=== PATIENT | male | born 1935 | race Caucasian/White ===

== ENCOUNTER 2016-04-23 13:54 | Inpatient (IN) | payer MEDICARE, OTHER ==
[2016-04-23] MEDS ORDERED: NORMAL SALINE 1000 ML 250 ML IV ONE (14:51)
[2016-04-23 15:08] LABS: ABSOLUTE EOSINOPHILS # (AUTO) 0.1 10^3/uL (0.0-0.6); ABSOLUTE LYMPHOCYTES (AUTO) 0.9 10^3/uL (0.5-4.7); ABSOLUTE MONOCYTES (AUTO) 0.3 10^3/uL (0.1-1.4); ABSOLUTE NEUT (AUTO) 3.2 10^3/uL (1.7-8.2); EOSINOPHILS % (AUTO) 2.1 % (0-6); HEMATOCRIT 27.4 % (37.9-51.0); HEMOGLOBIN 9.5 g/dL (13.5-17.0); HGB HCT DIFFERENCE 1.1; LYMPHOCYTES % (AUTO) 20.2 % (13-45); MEAN CORPUSCULAR HEMOGLOBIN 33.5 pg (27.0-33.4); MEAN CORPUSCULAR HGB CONC 34.7 g/dL (32.0-36.0); MEAN CORPUSCULAR VOLUME 97 fl (80-97); MONOCYTES % (AUTO) 6.7 % (3-13); RED BLOOD COUNT 2.83 10^6/uL (4.35-5.55); RED CELL DISTRIBUTION WIDTH 18.3 % (11.5-14.0); WHITE BLOOD COUNT 4.5 10^3/uL (4.0-10.5)
[2016-04-23 15:09] LABS: VENOUS BLOOD HCO3 27.2 mmol/L (20-32); VENOUS BLOOD PCO2 49.6 mmHg (35-63); VENOUS BLOOD PH 7.36 (7.30-7.42)
[2016-04-23 15:16] LABS: PROTHROMBIN TIME 37.4 SEC (11.4-15.4)
[2016-04-23 15:25] LABS: ALANINE AMINOTRANSFERASE 34 U/L (21-72); ALBUMIN 2.4 g/dL (3.5-5.0); ALKALINE PHOSPHATASE 136 U/L (38-126); ANION GAP 7 (5-19); ASPARTATE AMINO TRANSFERASE 37 U/L (17-59); BLOOD UREA NITROGEN 11 mg/dL (7-20); CALCIUM 8.2 mg/dL (8.4-10.2); CARBON DIOXIDE 26 mmol/L (22-30); CHLORIDE 91 mmol/L (98-107); CREATINE KINASE 30 U/L (55-170); CREATININE RESULT 0.77 mg/dL (0.52-1.25); GLUCOSE 113 mg/dL (75-110); POTASSIUM 3.6 mmol/L (3.6-5.0); SODIUM 123.9 mmol/L (137-145); TOTAL PROTEIN 6.2 g/dL (6.3-8.2)
--- NOTE | 2016-04-23 15:28 | ER Document Report ---
ED Respiratory Problem - General Mode of Arrival: Medic Information source: Patient TRAVEL OUTSIDE OF THE [place] IN LAST 30 DAYS: No - HPI Patient complains to provider of: Short of breath Onset: Other - unknown Severity: Mild Short of Breath: Mild <ANDRE VELASQUEZ - Last Filed: 04/23/16 22:32> <BETHANY MCDOONUGH - Last Filed: 04/23/16 23:40> - General Chief Complaint: General Weakness Stated Complaint: WEAKNESS Notes: Patient is an 80-year-old male from [facility] that presents to the emergency department today with complaints of shortness of breath. Patient states he is not on daily oxygen. Patient is mildly demented so history is limited. Patient also complains of chronic arm pain. Patient states he is here for "nothing new today". Patient complains of an infection from a knee replacement however states this occurred 10 years ago. Patient denies any chest pain. (ANDRE VELASQUEZ) - Related Data Allergies/Adverse Reactions: No Known Allergies Allergy (Verified 04/07/16 10:51) Home Medications: Current Home Medications Finasteride 5 mg PO DAILY 04/23/16 [History] Insulin Regular, Human [Humulin R (Reg) Insulin 100 unit/mL] 0 - 12 unit SUBCUT ACHSP PRN 04/23/16 [History] Past Medical History - General Information source: [facility] - Social History Smoking Status: Former Smoker Cigarette use (# per day): No Frequency of alcohol use: None Drug Abuse: None Lives with: Long Term Family History: Reviewed & Not Pertinent - Past Medical History Cardiac Medical History: Reports: Hx Atrial Fibrillation, Hx Hypertension Pulmonary Medical History: Reports: Hx Pneumonia Endocrine Medical History: Reports: Hx Diabetes Mellitus Type 2. Denies: Hx Hyperthyroidism, Hx Hypothyroidism Renal/ Medical History: Reports: Hx Benign Prostatic Hyperplasia Malignancy Medical History: Reports Hx Skin Cancer - Status post excision of several GI Medical History: Reports: Hx Cirrhosis, Hx Gastroesophageal Reflux Disease Musculoskeltal Medical History: Reports Hx Arthritis Past Surgical History: Reports: Hx Orthopedic Surgery - Multiple right knee surgeries, with eventual fusion. Lithotripsy., Other - Left total knee replacement. Excision of several skin cancers. - Immunizations Hx Diphtheria, Pertussis, Tetanus Vaccination: Yes Hx Pneumococcal Vaccination: 05/13/08 <ANDRE VELASQUEZ - Last Filed: 04/23/16 22:32> Review of Systems - Review of Systems Constitutional: denies: Fever EENT: See HPI, Nose congestion Cardiovascular: denies: Chest pain Respiratory: See HPI, Short of breath Gastrointestinal: No symptoms reported Genitourinary: No symptoms reported Male Genitourinary: No symptoms reported Musculoskeletal: No symptoms reported Skin: No symptoms reported Hematologic/Lymphatic: No symptoms reported Neurological/Psychological: No symptoms reported -: Yes All other systems reviewed and negative <ANDRE VELASQUEZ - Last Filed: 04/23/16 22:32> Physical Exam - Vital signs Interpretation: Hypotensive <ANDRE VELASQUEZ - Last Filed: 04/23/16 22:32> <BETHANY MCDONOUGH - Last Filed: 04/23/16 23:40> - Vital signs Vitals: Temp Pulse Resp BP Pulse Ox 97.4 F 68 16 92/56 L 100 04/23/16 14:15 04/23/16 14:15 04/23/16 14:15 04/23/16 14:15 04/23/16 14:15 (BETHANY MCDONOUGH) - Notes Notes: Physical Exam: General: Alert, appears well. HEENT: Normocephalic. Atraumatic. PERRLA. Extraocular movements intact. Oropharynx clear. Dry mucous membranes. Neck: Supple. Non-tender. Respiratory: No respiratory distress. Crackles at the bases bilaterally. Cardiovascular: Regular rate and rhythm. Abdominal: Normal Inspection. Non-tender. No distension. Normal Bowel Sounds. Back: Non-tender. No deformity or step off. Extremities: Moves all four extremities. Upper extremities: Normal inspection. Non-tender. Normal color. Normal ROM. Normal temperature. Lower extremities: Normal inspection. Non-tender. No edema. Normal color. Normal ROM. Normal temperature. Neurological: Confused. AAOx4. Normal speech. Psychological: Normal affect. Normal Mood. Skin: Warm. Dry. Normal color. (ANDRE VELASQUEZ) Course - Laboratory Result Diagrams: 04/23/16 14:40 04/23/16 14:40 <ANDRE VELASQUEZ - Last Filed: 04/23/16 22:32> - Laboratory Result Diagrams: 04/23/16 14:40 04/23/16 14:40 <BETHANY MCDONOUGH - Last Filed: 04/23/16 23:40> - Re-evaluation Re-evalutation: 04/23/16 Patient presents with weakness in new hyponatremia. Patient is in some mild failure as well. Patient was discussed with his primary care doctor who agrees to admit the patient. Patient will be admitted to the IMCU. Stable time of admission. (BETHANY MCDONOUGH) - Vital Signs Vital signs: Temp Pulse Resp BP Pulse Ox 97.4 F 60 18 114/57 L 100 04/23/16 20:33 04/23/16 20:33 04/23/16 20:33 04/23/16 20:33 04/23/16 20:33 (BETHANY MCDONOUGH) - Laboratory Laboratory results interpreted by me: 04/23/16 04/23/16 04/23/16 14:40 14:40 14:40 RBC 2.83 L Hgb 9.5 L Hct 27.4 L MCH 33.5 H RDW 18.3 H Plt Count 129 L PT 37.4 H Sodium 123.9 L Chloride 91 L Glucose 113 H Serum Osmolality Calcium 8.2 L Alkaline Phosphatase 136 H Creatine Kinase 30 L NT-Pro-B Natriuret Pep Total Protein 6.2 L Albumin 2.4 L Urine Protein Urine Blood Ur Leukocyte Esterase Urine Osmolality Urine Sodium 04/23/16 04/23/16 04/23/16 14:40 14:40 15:20 RBC Hgb Hct MCH RDW Plt Count PT Sodium Chloride Glucose Serum Osmolality 259 L Calcium Alkaline Phosphatase Creatine Kinase NT-Pro-B Natriuret Pep 782 H Total Protein Albumin Urine Protein 30 H Urine Blood MODERATE H Ur Leukocyte Esterase LARGE H Urine Osmolality Urine Sodium 04/23/16 15:20 RBC Hgb Hct MCH RDW Plt Count PT Sodium Chloride Glucose Serum Osmolality Calcium Alkaline Phosphatase Creatine Kinase NT-Pro-B Natriuret Pep Total Protein Albumin Urine Protein Urine Blood Ur Leukocyte Esterase Urine Osmolality 293 L Urine Sodium 25 L (ANDRE VELASQUEZ) (BETHANY MCDONOUGH) Discharge <ANDRE VELASQUEZ - Last Filed: 04/23/16 22:32> - Discharge Admitting Provider: [facility] Admitted: [facility] <BETHANY MCDONOUGH - Last Filed: 04/23/16 23:40> - Discharge Clinical Impression: Hyponatremia, Weakness Condition: Stable Disposition: ADMITTED INPATIENT Scribe Attestation: 04/23/16 23:40 I personally performed the services described in the documentation, reviewed and edited the documentation which was dictated to the scribe in my presence, and it accurately records my words and actions. (BETHANY MCDONOUGH) Scribe Documentation - Scribe Written by Scribe:: Andre Velasquez (04/23/16) acting as scribe for :: Lno <ANDRE VELASQUEZ - Last Filed: 04/23/16 22:32>
[2016-04-23 15:37] LABS: TROPONIN I < 0.012 ng/mL
[2016-04-23 16:57] LABS: APPEARANCE,URINE CLOUDY; BILIRUBIN,URINE NEGATIVE (NEGATIVE); CALCIUM OXALATE CRYSTALS,URINE RARE /HPF; GLUCOSE, URINE NEGATIVE (NEGATIVE); KETONES,URINE NEGATIVE (NEGATIVE); LEUKOCYTE ESTERASE,URINE LARGE (NEGATIVE); NITRITE,URINE NEGATIVE (NEGATIVE); PROTEIN,URINE 30 mg/dL (NEGATIVE); URINE SPECIFIC GRAVITY 1.013; UROBILINOGEN,URINE NEGATIVE mg/dL (<2.0)
[2016-04-23 20:07] LABS: PROTHROMBIN TIME 36.7 SEC (11.4-15.4)
[2016-04-23] MEDS ORDERED: FINASTERIDE 5 MG TABLET PO ONE (21:00)
[2016-04-23] MEDS ORDERED: TAMSULOSIN HCL 0.4 MG CAP.SR.24H PO ONE (21:00)
[2016-04-23] MEDS ORDERED: LACTOBACILLUS ACIDOPHILUS 250 MG TAB PO ONE (21:00)
[2016-04-23] MEDS ORDERED: VERAPAMIL HCL 180 MG TABLET.SA PO ONE (21:30)
[2016-04-23 21:37] LABS: PROTHROMBIN TIME 36.3 SEC (11.4-15.4)
[2016-04-23 21:38] LABS: PARTIAL THROMBOPLASTIN TIME 61.9 SEC (23.5-35.8)
[2016-04-23 21:45] LABS: LIPASE 49.6 U/L (23-300); MAGNESIUM 1.7 mg/dL (1.6-2.3); PHOSPHORUS 2.6 mg/dL (2.5-4.5)
[2016-04-23 22:02] LABS: TROPONIN I < 0.012 ng/mL
[2016-04-23] MEDS: METRONIDAZOLE 500 MG TABLET PO SCH (22:03)
[2016-04-23] MEDS: WARFARIN SODIUM 1 MG TABLET PO SCH (22:04)
[2016-04-23] MEDS: NORMAL SALINE 1000 ML 1,000 ML IV PRN (22:08)
[2016-04-23 22:16] LABS: THYROID STIMULATING HORMONE 6.55 uIU/mL (0.47-4.68)
[2016-04-24 03:51] LABS: ABSOLUTE EOSINOPHILS # (AUTO) 0.1 10^3/uL (0.0-0.6); ABSOLUTE LYMPHOCYTES (AUTO) 0.8 10^3/uL (0.5-4.7); ABSOLUTE MONOCYTES (AUTO) 0.3 10^3/uL (0.1-1.4); ABSOLUTE NEUT (AUTO) 3.1 10^3/uL (1.7-8.2); BASOPHILS % (AUTO) 0.9 % (0-2); EOSINOPHILS % (AUTO) 2.1 % (0-6); HEMATOCRIT 27.3 % (37.9-51.0); HEMOGLOBIN 9.5 g/dL (13.5-17.0); HGB HCT DIFFERENCE 1.2; LYMPHOCYTES % (AUTO) 18.7 % (13-45); MEAN CORPUSCULAR HEMOGLOBIN 33.5 pg (27.0-33.4); MEAN CORPUSCULAR HGB CONC 34.7 g/dL (32.0-36.0); MEAN CORPUSCULAR VOLUME 97 fl (80-97); MONOCYTES % (AUTO) 7.6 % (3-13); RED BLOOD COUNT 2.83 10^6/uL (4.35-5.55); RED CELL DISTRIBUTION WIDTH 18.1 % (11.5-14.0); SEGMENTED NEUTROPHILS % (AUTO) 70.7 % (42-78); WHITE BLOOD COUNT 4.3 10^3/uL (4.0-10.5)
[2016-04-24 04:24] LABS: PROTHROMBIN TIME 39.7 SEC (11.4-15.4)
[2016-04-24 04:26] LABS: CREATINE KINASE MB 1.38 ng/mL (<4.55)
[2016-04-24 04:29] LABS: TROPONIN I < 0.012 ng/mL
[2016-04-24 04:45] LABS: ANION GAP 7 (5-19); BLOOD UREA NITROGEN 13 mg/dL (7-20); CALCIUM 8.2 mg/dL (8.4-10.2); CARBON DIOXIDE 26 mmol/L (22-30); CHLORIDE 94 mmol/L (98-107); CREATININE RESULT 0.82 mg/dL (0.52-1.25); GLUCOSE 117 mg/dL (75-110); POTASSIUM 4.1 mmol/L (3.6-5.0); SODIUM 126.6 mmol/L (137-145)
[2016-04-24] MEDS: METRONIDAZOLE 500 MG TABLET PO SCH ×3 (05:56→22:06)
[2016-04-24] MEDS ORDERED: DEXTROSE 40% GEL 15 GM TUBE PO PRN (09:06)
[2016-04-24] MEDS ORDERED: DEXTROSE 40% GEL 15 GM TUBE X 2 PO PRN (09:06)
[2016-04-24] MEDS ORDERED: DEXTROSE 50%-WATER SYRINGE 12.5 GM/25 ML DOSE IV PRN (09:06)
[2016-04-24] MEDS ORDERED: GLUCAGON,HUMAN RECOMB 1 MG INJ IM PRN (09:06)
[2016-04-24] MEDS ORDERED: DEXTROSE 50%-WATER SYRINGE 25 GM/50 ML DOSE IV PRN (09:06)
[2016-04-24] MEDS: FINASTERIDE 5 MG TABLET PO SCH (09:17)
[2016-04-24] MEDS: VERAPAMIL HCL 180 MG TABLET.SA PO SCH (09:18)
[2016-04-24] MEDS: TAMSULOSIN HCL 0.4 MG CAP.SR.24H PO SCH ×2 (09:18→18:36)
[2016-04-24] MEDS: LACTOBACILLUS ACIDOPHILUS 250 MG TAB PO SCH ×2 (09:18→18:36)
[2016-04-24 10:46] LABS: CREATINE KINASE MB 1.37 ng/mL (<4.55); TROPONIN I < 0.012 ng/mL
--- NOTE | 2016-04-24 13:09 | PDOC H&P ---
History of Present Illness Admission Date/PCP: 04/23/16 20:21 History of Present Illness: GAVIN COSTELLO is a 80 year old male, he is presently in the long-term undergoing rehabilitation, he requested to be transferred to the hospital because of generalized fatigue. He was recently admitted in this hospital when he had altered mental status, cellulitis of the leg. On that admission he was diagnosed with MRSA cellulitis on he was also found to have clostridium difficile colitis with diarrhea, he was discharged to long-term on Zyvox for the cellulitis and flagyl for the C. difficile. He was evaluated in the emergency room and he was found to have hyponatremia with serum sodium of 123 when he was discharged from this hospital on 04/12/2016, the serum sodium was 136. Patient does not have any [employer] symptoms, there is no seizure, there is no altered mental status, patient is hypovolemic most likely from GI losses from diarrhea. This serum and urine osmolarity is low, suggesting true hyponatremia associated with increased antidiuretic hormone, ADH. It is difficult to determine the acuity of the hyponatremia Past Medical History Cardiac Medical History: Reports: Atrial Fibrillation, Hypertension Pulmonary Medical History: Reports: Pneumonia Endocrine Medical History: Reports: Diabetes Mellitus Type 2 Malignancy Medical History: Reports: Skin Cancer - Status post excision of several GI Medical History: Reports: Gastroesophageal Reflux Disease Musculoskeltal Medical History: Reports: Arthritis Hematology: Reports: Anemia Infectious Medical History: Reports: Clostridium Difficile, Methicillin- Resistant Staph Aureus Past Surgical History Past Surgical History: Reports: Orthopedic Surgery - Multiple right knee surgeries, with eventual fusion. Lithotripsy., Other - Left total knee replacement. Excision of several skin cancers. Social History Information Source: Patient Lives with: Snf Smoking Status: Former Smoker Frequency of Alcohol Use: None Hx Recreational Drug Use: No Drugs: None Hx Prescription Drug Abuse: No Family History Family History: Reviewed & Not Pertinent Parental Family History Reviewed: Yes Children Family History Reviewed: Yes Sibling(s) Family History Reviewed.: Yes Medication/Allergy Home Medications: RX: Tamsulosin HCl [Flomax] 0.4 mg PO BID 10/20/13 RX: Esomeprazole Mag Trihydrate [Nexium] 40 mg PO DAILY 03/19/15 RX: Loratadine [Claritin 10 mg Tablet] 10 mg PO DAILY 09/26/15 RX: Verapamil HCl [Verapamil ER] 180 mg PO DAILY 03/28/16 RX: FA/Vit C/E/Zinc/Copper/Lut/Darrian [Ocuvel Capsule] 1 each PO DAILY 04/07/16 Acidoph/L.bulg/Bif.b/S.thermop [Bacid Caplet] 1 each PO BID #28 tablet 04/12/16 RX: Metronidazole [Flagyl 500 mg Tablet] 500 mg PO Q8 tablet 04/12/16 RX: Finasteride 5 mg PO DAILY 04/23/16 RX: Insulin Regular, Human [Humulin R (Reg) Insulin 100 unit/mL] 0 - 12 unit SUBCUT ACHSP PRN 04/23/16 Allergies/Adverse Reactions: No Known Allergies Allergy (Verified 04/07/16 10:51) Review of Systems Constitutional: PRESENT: fatigue, fever(s), weakness Cardiovascular: ABSENT: chest pain, dyspnea on exertion, edema, orthropnea, palpitations, other Respiratory: ABSENT: cough Gastrointestinal: PRESENT: diarrhea Genitourinary: ABSENT: dysuria, hematuria Musculoskeletal: ABSENT: joint swelling Integumentary: ABSENT: rash, wounds Neurological: ABSENT: abnormal gait, abnormal speech, confusion, dizziness, focal weakness, syncope Psychiatric: ABSENT: anxiety, depression, homidical ideation, suicidal ideation Endocrine: PRESENT: polydipsia. ABSENT: as per HPI, cold intolerance, flushing , heat intolerance, menstrual abnormalities, polyphagia, polyuria, other Hematologic/Lymphatic: ABSENT: easy bleeding, easy bruising, lymphadenopathy Physical Exam Vital Signs: Temp Pulse Resp BP Pulse Ox 97.5 F 66 20 104/48 L 98 04/24/16 08:11 04/24/16 08:11 04/24/16 08:11 04/24/16 08:11 04/24/16 08:11 Intake & Output 04/23/16 04/24/16 04/25/16 06:59 06:59 06:59 Intake Total 231 Output Total 225 Balance 6 Weight 71.5 kg General appearance: PRESENT: no acute distress Respiratory exam: PRESENT: rhonchi Results Laboratory Results: 04/24/16 03:31 04/24/16 03:31 04/23/16 04/23/16 04/24/16 21:01 21:01 03:31 WBC 4.3 RBC 2.83 L Hgb 9.5 L Hct 27.3 L MCV 97 MCH 33.5 H MCHC 34.7 RDW 18.1 H Plt Count 108 L Seg Neutrophils % 70.7 Lymphocytes % 18.7 Monocytes % 7.6 Eosinophils % 2.1 Basophils % 0.9 Absolute Neutrophils 3.1 Absolute Lymphocytes 0.8 Absolute Monocytes 0.3 Absolute Eosinophils 0.1 Absolute Basophils 0.0 Sodium Potassium Chloride Carbon Dioxide Anion Gap BUN Creatinine Est GFR ( Amer) Est GFR (Non-Af Amer) Glucose Calcium Phosphorus 2.6 Magnesium 1.7 Amylase 34 Lipase 49.6 TSH 6.55 H Free T4 1.20 04/24/16 03:31 WBC RBC Hgb Hct MCV MCH MCHC RDW Plt Count Seg Neutrophils % Lymphocytes % Monocytes % Eosinophils % Basophils % Absolute Neutrophils Absolute Lymphocytes Absolute Monocytes Absolute Eosinophils Absolute Basophils Sodium 126.6 L Potassium 4.1 Chloride 94 L Carbon Dioxide 26 Anion Gap 7 BUN 13 Creatinine 0.82 Est GFR ( Amer) > 60 Est GFR (Non-Af Amer) > 60 Glucose 117 H Calcium 8.2 L Phosphorus Magnesium Amylase Lipase TSH Free T4 04/24/16 06:20 Sputum Gram Stain - Final 04/24/16 06:20 Sputum Sputum Culture - Final 04/23/16 04/23/16 04/24/16 21:01 21:01 03:31 Creatine Kinase 26 L 23 L CK-MB (CK-2) 1.80 Troponin I < 0.012 04/24/16 04/24/16 04/24/16 03:31 09:43 09:43 Creatine Kinase 22 L CK-MB (CK-2) 1.38 1.37 Troponin I < 0.012 < 0.012 Impressions: Chest X-Ray 04/23/16 00:00 IMPRESSION: CHF pattern, similar Shoulder X-Ray 04/24/16 00:00 IMPRESSION: No acute fracture or malalignment at the right or left shoulder Old right humeral neck fracture, healed Bilateral pleural effusions Assessment & Plan - Diagnosis (1) Hyponatremia with extracellular fluid depletion Is this a current diagnosis for this admission?: YesPlan: Patient was admitted with hypovolemia due to diarrhea and hyponatremia, he will slowly be hydrated with normal saline at the infusion rate with goal of achieving a correction of 1meq/l of sodium per hour not more than 8meg/hr in 24 hour (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
[2016-04-24] MEDS: ACETAMINOPHEN 325 MG TABLET PO SCH ×2 (14:53→18:36)
--- NOTE | 2016-04-24 17:52 | EKG REPORT ---
SEVERITY:- ABNORMAL ECG - ACCELERATED JUNCTIONAL ESCAPE RHYTHM LOW VOLTAGE IN FRONTAL LEADS BORDERLINE PROLONGED QT INTERVAL : Confirmed by: Geovanna Collado MD 24-Apr-2016 17:51:53
--- NOTE | 2016-04-24 19:05 | PDOC PROGRESS REPORT ---
Subjective Progress Note for:: 04/24/16 Subjective:: Patient was seen by the bedside, he complained of lack of appetite, he also complained of shoulder pain bilaterally. Patient is hardly able to finish a sentence, he wants to be a DO NOT RESUSCITATE status. He was admitted because of symptomatic hyponatremia. Physical Exam Vital Signs: Temp Pulse Resp BP Pulse Ox 97.3 F 66 19 107/57 L 100 04/24/16 16:37 04/24/16 16:37 04/24/16 16:37 04/24/16 16:37 04/24/16 16:37 Intake & Output 04/23/16 04/24/16 04/25/16 06:59 06:59 06:59 Intake Total 231 433 Output Total 225 100 Balance 6 333 Weight 71.5 kg General appearance: PRESENT: mild distress Respiratory exam: PRESENT: rhonchi, wheezes Cardiovascular exam: PRESENT: +S1, +S2 GI/Abdominal exam: PRESENT: firm Neurological exam: PRESENT: alert Results Laboratory Results: 04/24/16 03:31 04/24/16 03:31 04/23/16 04/23/16 04/24/16 21:01 21:01 03:31 WBC 4.3 RBC 2.83 L Hgb 9.5 L Hct 27.3 L MCV 97 MCH 33.5 H MCHC 34.7 RDW 18.1 H Plt Count 108 L Seg Neutrophils % 70.7 Lymphocytes % 18.7 Monocytes % 7.6 Eosinophils % 2.1 Basophils % 0.9 Absolute Neutrophils 3.1 Absolute Lymphocytes 0.8 Absolute Monocytes 0.3 Absolute Eosinophils 0.1 Absolute Basophils 0.0 Sodium Potassium Chloride Carbon Dioxide Anion Gap BUN Creatinine Est GFR ( Amer) Est GFR (Non-Af Amer) Glucose Calcium Phosphorus 2.6 Magnesium 1.7 Amylase 34 Lipase 49.6 TSH 6.55 H Free T4 1.20 04/24/16 03:31 WBC RBC Hgb Hct MCV MCH MCHC RDW Plt Count Seg Neutrophils % Lymphocytes % Monocytes % Eosinophils % Basophils % Absolute Neutrophils Absolute Lymphocytes Absolute Monocytes Absolute Eosinophils Absolute Basophils Sodium 126.6 L Potassium 4.1 Chloride 94 L Carbon Dioxide 26 Anion Gap 7 BUN 13 Creatinine 0.82 Est GFR ( Amer) > 60 Est GFR (Non-Af Amer) > 60 Glucose 117 H Calcium 8.2 L Phosphorus Magnesium Amylase Lipase TSH Free T4 04/24/16 06:20 Sputum Gram Stain - Final 04/24/16 06:20 Sputum Sputum Culture - Final 04/23/16 04/23/16 04/24/16 21:01 21:01 03:31 Creatine Kinase 26 L 23 L CK-MB (CK-2) 1.80 Troponin I < 0.012 04/24/16 04/24/16 04/24/16 03:31 09:43 09:43 Creatine Kinase 22 L CK-MB (CK-2) 1.38 1.37 Troponin I < 0.012 < 0.012 Impressions: Chest X-Ray 04/23/16 00:00 IMPRESSION: CHF pattern, similar Shoulder X-Ray 04/24/16 00:00 IMPRESSION: No acute fracture or malalignment at the right or left shoulder Old right humeral neck fracture, healed Bilateral pleural effusions Assessment & Plan - Diagnosis (1) Hyponatremia with extracellular fluid depletion Is this a current diagnosis for this admission?: Yes (2) [facility] (current) use of anticoagulants Is this a current diagnosis for this admission?: YesPlan: INR is still supratherapeutic (3) Chronic atrial fibrillation Is this a current diagnosis for this admission?: Yes (4) Wheezing on auscultation Is this a current diagnosis for this admission?: YesPlan: Patient presently on bronchodilator. CT chest will be ordered
[2016-04-24] MEDS ORDERED: METHYL SALICYLATE/MENTHOL BALM 29 GM TP PRN (20:13)
[2016-04-24] MEDS: WARFARIN SODIUM 1 MG TABLET PO SCH (22:06)
[2016-04-24] MEDS: IPRATROPIUM/ALBUTEROL 0.5-2.5 MG/3 ML AMPUL NEB PRN (22:35)
[2016-04-25] MEDS: ACETAMINOPHEN 325 MG TABLET PO SCH ×5 (00:03→23:07)
[2016-04-25] MEDS: IPRATROPIUM/ALBUTEROL 0.5-2.5 MG/3 ML AMPUL NEB PRN (03:57)
[2016-04-25 04:56] LABS: ABSOLUTE EOSINOPHILS # (AUTO) 0.1 10^3/uL (0.0-0.6); ABSOLUTE LYMPHOCYTES (AUTO) 0.7 10^3/uL (0.5-4.7); ABSOLUTE MONOCYTES (AUTO) 0.3 10^3/uL (0.1-1.4); ABSOLUTE NEUT (AUTO) 2.6 10^3/uL (1.7-8.2); BASOPHILS % (AUTO) 1.2 % (0-2); EOSINOPHILS % (AUTO) 2.1 % (0-6); HEMATOCRIT 26.4 % (37.9-51.0); HGB HCT DIFFERENCE 0.6; LYMPHOCYTES % (AUTO) 19.2 % (13-45); MEAN CORPUSCULAR HEMOGLOBIN 33.1 pg (27.0-33.4); MEAN CORPUSCULAR HGB CONC 34.1 g/dL (32.0-36.0); MEAN CORPUSCULAR VOLUME 97 fl (80-97); MONOCYTES % (AUTO) 7.8 % (3-13); RED BLOOD COUNT 2.72 10^6/uL (4.35-5.55); RED CELL DISTRIBUTION WIDTH 17.4 % (11.5-14.0); SEGMENTED NEUTROPHILS % (AUTO) 69.7 % (42-78); WHITE BLOOD COUNT 3.8 10^3/uL (4.0-10.5)
[2016-04-25 05:06] LABS: ANION GAP 7 (5-19); BLOOD UREA NITROGEN 13 mg/dL (7-20); CALCIUM 8.7 mg/dL (8.4-10.2); CARBON DIOXIDE 25 mmol/L (22-30); CHLORIDE 96 mmol/L (98-107); CREATININE RESULT 0.74 mg/dL (0.52-1.25); GLUCOSE 144 mg/dL (75-110); POTASSIUM 4.2 mmol/L (3.6-5.0); SODIUM 127.6 mmol/L (137-145)
[2016-04-25 05:07] LABS: PROTHROMBIN TIME 39.3 SEC (11.4-15.4)
[2016-04-25] MEDS: NORMAL SALINE 1000 ML 1,000 ML IV PRN (05:24)
[2016-04-25] MEDS: METRONIDAZOLE 500 MG TABLET PO SCH ×3 (05:25→22:16)
[2016-04-25] MEDS: LACTOBACILLUS ACIDOPHILUS 250 MG TAB PO SCH ×2 (10:32→18:36)
[2016-04-25] MEDS: VERAPAMIL HCL 180 MG TABLET.SA PO SCH (10:32)
[2016-04-25] MEDS: FINASTERIDE 5 MG TABLET PO SCH (10:33)
[2016-04-25] MEDS: TAMSULOSIN HCL 0.4 MG CAP.SR.24H PO SCH ×2 (10:33→18:36)
--- NOTE | 2016-04-25 17:17 | PDOC PROGRESS REPORT ---
Subjective Progress Note for:: 04/25/16 Subjective:: Patient was seen by the bedside. CT chest was done last night and it showed large bilateral pleural effusions. There is associated air space consolidation the lung bases consistent with atelectatic changes. 2-D echo was done today, it showed preserved ejection fraction of the left ventricle there is mitral valve annulus calcification. Thoracentesis could not be done today because of the INR is supratherapeutic. There is also an issue of abrasion of the skin of the sternum due to application of sternal pressure Physical Exam Vital Signs: Temp Pulse Resp BP Pulse Ox 97.2 F 71 18 102/47 L 96 04/25/16 15:10 04/25/16 16:30 04/25/16 16:30 04/25/16 15:10 04/25/16 16:30 Intake & Output 04/24/16 04/25/16 04/26/16 06:59 06:59 06:59 Intake Total 231 1253 0 Output Total 225 250 Balance 6 1003 0 Weight 71.5 kg 71.2 kg General appearance: PRESENT: thin Respiratory exam: PRESENT: wheezes Cardiovascular exam: PRESENT: +S1, +S2 GI/Abdominal exam: PRESENT: firm Neurological exam: PRESENT: alert, CN II-XII grossly intact Skin exam: PRESENT: abrasion - Of the skin of the sternum with areas of erythema Results Laboratory Results: 04/25/16 04:37 04/25/16 04:37 04/25/16 04/25/16 04:37 04:37 WBC 3.8 L RBC 2.72 L Hgb 9.0 L Hct 26.4 L MCV 97 MCH 33.1 MCHC 34.1 RDW 17.4 H Plt Count 101 L Seg Neutrophils % 69.7 Lymphocytes % 19.2 Monocytes % 7.8 Eosinophils % 2.1 Basophils % 1.2 Absolute Neutrophils 2.6 Absolute Lymphocytes 0.7 Absolute Monocytes 0.3 Absolute Eosinophils 0.1 Absolute Basophils 0.0 Sodium 127.6 L Potassium 4.2 Chloride 96 L Carbon Dioxide 25 Anion Gap 7 BUN 13 Creatinine 0.74 Est GFR ( Amer) > 60 Est GFR (Non-Af Amer) > 60 Glucose 144 H Calcium 8.7 04/24/16 06:20 Sputum Gram Stain - Final 04/24/16 06:20 Sputum Sputum Culture - Final 04/23/16 04/23/16 04/24/16 21:01 21:01 03:31 Creatine Kinase 26 L 23 L CK-MB (CK-2) 1.80 Troponin I < 0.012 04/24/16 04/24/16 04/24/16 03:31 09:43 09:43 Creatine Kinase 22 L CK-MB (CK-2) 1.38 1.37 Troponin I < 0.012 < 0.012 Impressions: Chest X-Ray 04/23/16 00:00 IMPRESSION: CHF pattern, similar Chest CT 04/24/16 00:00 IMPRESSION: Large bilateral pleural effusions are identified with some associated airspace consolidation in the lung bases most consistent with atelectatic changes. 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 We will hold the warfarin and hopefully get thoracentesis as soon as possible
[2016-04-25] MEDS: INSULIN LISPRO 100 UNIT/ML 3 ML VIAL SUBCUT PRN (18:36)
--- NOTE | 2016-04-25 22:19 | XCELERA REPORT ---
[address] [address] Transthoracic Echocardiogram Report Name: GAVIN COSTELLO Age: 80 yrs Gender: Male : 1935 Patient Status: Inpatient Patient Location: [id number]\S\332\S\B Study Date: 04/25/2016 10:29 AM Height: 64 in Weight: 156 lb BSA: 1.8 m2 Procedure: A complete two-dimensional transthoracic echocardiogram was performed (2D, M-mode, spectral and color flow Doppler). The study was technically adequate with some images being suboptimal in quality. Reason For Study: chf Ordering Physician: GIO TOMLIN Performed By: Tejal Flores Interpretation Summary Left ventricular systolic function is low normal. Doppler measurements suggest pseudonormalized left ventricular relaxation, which is associated with grade II/IV or mild to moderate diastolic dysfunction There is borderline concentric left ventricular hypertrophy. The left ventricle is grossly normal size. Wall motion cannot be accurately commented on, but no definite regional wall motion abnormalities noted. The right ventricle is moderately dilated. The right ventricular systolic function is mild to moderately reduced. The right ventricle appears to be hypertrophied The right atrium is moderately dilated. The left atrium is mildly dilated. There is no mitral valve stenosis. There is a mild amount of mitral regurgitation There is no aortic valve stenosis There is a trace amount of aortic regurgitation There is a mild amount of tricuspid regurgitation There is moderate to severe pulmonary hypertension by echo Right ventricular systolic pressure is estimated to be elevated at 50- 60mmHg. The inferior vena cava appeared normal and decreased < 50% with respiration (RAP 10-15 mmHg) Minimal pericardial effusion. Small right pleural effusion. MMode/2D Measurements \T\ Calculations RVDd: 3.2 cm LVIDd: 4.1 cm FS: 31.2 % Ao root diam: 2.8 cm IVSd: 1.00 cm LVIDs: 2.8 cm EDV(Teich): 75.9 ml LVPWd: 0.96 cm ESV(Teich): 30.7 ml Ao root area: 6.0 cm2 EF(Teich): 59.5 % LA dimension: 3.0 cm Doppler Measurements \T\ Calculations MV E max ernesto: MV P1/2t max ernesto: Ao V2 max: LV V1 max P.1 cm/sec 108.1 cm/sec 177.2 cm/sec 5.5 mmHg MV A max ernesto: MV P1/2t: 73.2 msec Ao max PG: LV V1 max: 32.1 cm/sec 12.6 mmHg 117.5 cm/sec MV E/A: 3.4 MVA(P1/2t): 3.0 cm2 MV dec slope: 432.6 cm/sec2 MV dec time: 0.25 sec PA V2 max: PI end-d ernesto: TR max ernesto: 96.3 cm/sec 88.2 cm/sec 347.5 cm/sec PA max PG: TR max P.7 mmHg 48.3 mmHg Left Ventricle The left ventricle is grossly normal size. There is borderline concentric left ventricular hypertrophy. Left ventricular systolic function is low normal. Doppler measurements suggest pseudonormalized left ventricular relaxation, which is associated with grade II/IV or mild to moderate diastolic dysfunction. Wall motion cannot be accurately commented on, but no definite regional wall motion abnormalities noted. Right Ventricle The right ventricle is moderately dilated. The right ventricle appears to be hypertrophied. The right ventricular systolic function is mild to moderately reduced. Atria The right atrium is moderately dilated. The left atrium is mildly dilated. Interarterial septum not well visualized and not well dopplered. Cannot comment on ASD/PFO presence. Mitral Valve There is mild mitral leaflet calcification. There is mild to moderate mitral annular calcification. There is no mitral valve stenosis. There is a mild amount of mitral regurgitation. Aortic Valve The aortic valve is mildly calcified. There is no aortic valve stenosis. There is a trace amount of aortic regurgitation. Tricuspid Valve The tricuspid valve is not well visualized, but is grossly normal. There is no tricuspid stenosis. There is a mild amount of tricuspid regurgitation. There is moderate to severe pulmonary hypertension by echo. Right ventricular systolic pressure is estimated to be elevated at 50-60mmHg. Pulmonic Valve The pulmonic valve is not well visualized. Great Vessels The aortic root is not well visualized. The inferior vena cava appeared normal and decreased < 50% with respiration (RAP 10-15 mmHg). Effusions Minimal pericardial effusion. Small right pleural effusion. : GIO TOMLIN > Elli Purvis
[2016-04-26 03:11] LABS: APPEARANCE,URINE CLOUDY; BILIRUBIN,URINE NEGATIVE (NEGATIVE); GLUCOSE, URINE NEGATIVE (NEGATIVE); KETONES,URINE NEGATIVE (NEGATIVE); LEUKOCYTE ESTERASE,URINE LARGE (NEGATIVE); NITRITE,URINE NEGATIVE (NEGATIVE); PROTEIN,URINE 30 mg/dL (NEGATIVE); URINE SPECIFIC GRAVITY 1.013; UROBILINOGEN,URINE NEGATIVE mg/dL (<2.0)
[2016-04-26] MEDS: ACETAMINOPHEN 325 MG TABLET PO SCH ×3 (05:23→17:46)
[2016-04-26] MEDS: METRONIDAZOLE 500 MG TABLET PO SCH ×3 (05:23→22:45)
[2016-04-26 05:40] LABS: PROTHROMBIN TIME 45.5 SEC (11.4-15.4)
[2016-04-26 05:41] LABS: ANION GAP 9 (5-19); BLOOD UREA NITROGEN 15 mg/dL (7-20); CALCIUM 8.7 mg/dL (8.4-10.2); CARBON DIOXIDE 25 mmol/L (22-30); CHLORIDE 96 mmol/L (98-107); CREATININE RESULT 0.85 mg/dL (0.52-1.25); GLUCOSE 116 mg/dL (75-110); POTASSIUM 4.7 mmol/L (3.6-5.0)
[2016-04-26 05:49] LABS: ABSOLUTE BASOPHILS # (AUTO) 0.1 10^3/uL (0.0-0.2); ABSOLUTE EOSINOPHILS # (AUTO) 0.1 10^3/uL (0.0-0.6); ABSOLUTE LYMPHOCYTES (AUTO) 0.7 10^3/uL (0.5-4.7); ABSOLUTE MONOCYTES (AUTO) 0.6 10^3/uL (0.1-1.4); BASOPHILS % (AUTO) 1.2 % (0-2); HEMOGLOBIN 9.1 g/dL (13.5-17.0); HGB HCT DIFFERENCE 0.3; MEAN CORPUSCULAR HGB CONC 33.7 g/dL (32.0-36.0); MEAN CORPUSCULAR VOLUME 98 fl (80-97); MONOCYTES % (AUTO) 13.5 % (3-13); RED BLOOD COUNT 2.76 10^6/uL (4.35-5.55); RED CELL DISTRIBUTION WIDTH 17.5 % (11.5-14.0); SEGMENTED NEUTROPHILS % (AUTO) 67.3 % (42-78); WHITE BLOOD COUNT 4.5 10^3/uL (4.0-10.5)
[2016-04-26] MEDS: VERAPAMIL HCL 180 MG TABLET.SA PO SCH (09:41)
[2016-04-26] MEDS: TAMSULOSIN HCL 0.4 MG CAP.SR.24H PO SCH ×2 (09:41→17:46)
[2016-04-26] MEDS: FINASTERIDE 5 MG TABLET PO SCH (09:41)
[2016-04-26] MEDS: LACTOBACILLUS ACIDOPHILUS 250 MG TAB PO SCH ×2 (09:41→17:46)
[2016-04-26] MEDS: NORMAL SALINE 1000 ML 1,000 ML IV PRN (12:34)
[2016-04-26] MEDS: INSULIN LISPRO 100 UNIT/ML 3 ML VIAL SUBCUT PRN (17:46)
[2016-04-27] MEDS: ACETAMINOPHEN 325 MG TABLET PO SCH ×4 (00:04→18:22)
[2016-04-27] MEDS: METRONIDAZOLE 500 MG TABLET PO SCH ×3 (05:33→23:07)
[2016-04-27 07:16] LABS: PROTHROMBIN TIME 37.7 SEC (11.4-15.4)
[2016-04-27] MEDS: LACTOBACILLUS ACIDOPHILUS 250 MG TAB PO SCH ×2 (09:28→18:22)
[2016-04-27] MEDS: VERAPAMIL HCL 180 MG TABLET.SA PO SCH (09:28)
[2016-04-27] MEDS: FINASTERIDE 5 MG TABLET PO SCH (09:29)
[2016-04-27] MEDS: TAMSULOSIN HCL 0.4 MG CAP.SR.24H PO SCH ×2 (09:29→18:22)
[2016-04-27] MEDS: IPRATROPIUM/ALBUTEROL 0.5-2.5 MG/3 ML AMPUL NEB PRN (15:49)
--- NOTE | 2016-04-27 19:43 | PDOC PROGRESS REPORT ---
Subjective Progress Note for:: 04/26/16 Subjective:: He has large bilateral pleural effusion, INR is supratherapeutic, not able to have thoracentesis Physical Exam Vital Signs: Temp Pulse Resp BP Pulse Ox 97.1 F 65 18 99/51 L 100 04/26/16 15:11 04/26/16 15:11 04/26/16 15:11 04/26/16 15:11 04/26/16 15:11 Intake & Output 04/25/16 04/26/16 04/27/16 06:59 06:59 06:59 Intake Total 1253 2277 840 Output Total 250 700 300 Balance 1003 1577 540 Weight 71.2 kg 72.36 kg General appearance: PRESENT: no acute distress Respiratory exam: PRESENT: decreased breath sounds Cardiovascular exam: PRESENT: +S1, +S2 GI/Abdominal exam: PRESENT: soft Neurological exam: PRESENT: CN II-XII grossly intact Results Laboratory Results: 04/26/16 04:42 04/26/16 04:42 04/26/16 04/26/16 04/26/16 02:45 02:45 04:42 WBC 4.5 RBC 2.76 L Hgb 9.1 L Hct 27.0 L MCV 98 H MCH 33.0 MCHC 33.7 RDW 17.5 H Plt Count 93 L Seg Neutrophils % 67.3 Lymphocytes % 16.0 Monocytes % 13.5 H Eosinophils % 2.0 Basophils % 1.2 Absolute Neutrophils 3.0 Absolute Lymphocytes 0.7 Absolute Monocytes 0.6 Absolute Eosinophils 0.1 Absolute Basophils 0.1 Sodium Potassium Chloride Carbon Dioxide Anion Gap BUN Creatinine Est GFR ( Amer) Est GFR (Non-Af Amer) Glucose Calcium Urine Color VICKIE Urine Appearance CLOUDY Urine pH 6.0 Ur Specific [place] 1.013 Urine Protein 30 H Urine Glucose (UA) NEGATIVE Urine Ketones NEGATIVE Urine Blood MODERATE H Urine Nitrite NEGATIVE Ur Leukocyte Esterase LARGE H Urine WBC (Auto) >182 Urine RBC (Auto) 5 Stool Occult Blood NEGATIVE 04/26/16 04:42 WBC RBC Hgb Hct MCV MCH MCHC RDW Plt Count Seg Neutrophils % Lymphocytes % Monocytes % Eosinophils % Basophils % Absolute Neutrophils Absolute Lymphocytes Absolute Monocytes Absolute Eosinophils Absolute Basophils Sodium 130.0 L Potassium 4.7 Chloride 96 L Carbon Dioxide 25 Anion Gap 9 BUN 15 Creatinine 0.85 Est GFR ( Amer) > 60 Est GFR (Non-Af Amer) > 60 Glucose 116 H Calcium 8.7 Urine Color Urine Appearance Urine pH Ur Specific [place] Urine Protein Urine Glucose (UA) Urine Ketones Urine Blood Urine Nitrite Ur Leukocyte Esterase Urine WBC (Auto) Urine RBC (Auto) Stool Occult Blood 04/23/16 04/23/16 04/24/16 21:01 21:01 03:31 Creatine Kinase 26 L 23 L CK-MB (CK-2) 1.80 Troponin I < 0.012 04/24/16 04/24/16 04/24/16 03:31 09:43 09:43 Creatine Kinase 22 L CK-MB (CK-2) 1.38 1.37 Troponin I < 0.012 < 0.012 Impressions: Chest X-Ray 04/23/16 00:00 IMPRESSION: CHF pattern, similar Chest CT 04/24/16 00:00 IMPRESSION: Large bilateral pleural effusions are identified with some associated airspace consolidation in the lung bases most consistent with atelectatic changes. 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
--- NOTE | 2016-04-27 19:50 | PDOC PROGRESS REPORT ---
Subjective Progress Note for:: 04/27/16 Subjective:: Patient was seen by the bedside, he continues to complain of pain in the shoulders, the INR is still supratherapeutic, he may need thoracentesis. In light of the large pleural effusion, Coumadin is on hold for the last couple of days. Physical Exam Vital Signs: Temp Pulse Resp BP Pulse Ox 97.2 F 66 20 91/55 L 100 04/27/16 04:15 04/27/16 16:46 04/27/16 16:46 04/27/16 16:46 04/27/16 16:46 Intake & Output 04/26/16 04/27/16 04/28/16 06:59 06:59 06:59 Intake Total 2277 1300 810 Output Total 700 800 200 Balance 1577 500 610 Weight 72.36 kg 75 kg General appearance: PRESENT: no acute distress Respiratory exam: PRESENT: decreased breath sounds Cardiovascular exam: PRESENT: +S1, +S2 GI/Abdominal exam: PRESENT: soft Neurological exam: PRESENT: alert, CN II-XII grossly intact Results Laboratory Results: 04/26/16 04:42 04/26/16 04:42 04/23/16 04/23/16 04/24/16 21:01 21:01 03:31 Creatine Kinase 26 L 23 L CK-MB (CK-2) 1.80 Troponin I < 0.012 04/24/16 04/24/16 04/24/16 03:31 09:43 09:43 Creatine Kinase 22 L CK-MB (CK-2) 1.38 1.37 Troponin I < 0.012 < 0.012 Impressions: Chest X-Ray 04/23/16 00:00 IMPRESSION: CHF pattern, similar Chest CT 04/24/16 00:00 IMPRESSION: Large bilateral pleural effusions are identified with some associated airspace consolidation in the lung bases most consistent with atelectatic changes. Other findings as noted above Shoulder X-Ray 04/24/16 00:00 IMPRESSION: No acute fracture or malalignment at the right or left shoulder Old right humeral neck fracture, healed Bilateral pleural effusions Assessment & Plan - Diagnosis (1) Hyponatremia with extracellular fluid depletion Is this a current diagnosis for this admission?: Yes (2) nursing home (current) use of anticoagulants Is this a current diagnosis for this admission?: Yes (3) Chronic atrial fibrillation Is this a current diagnosis for this admission?: Yes (4) Wheezing on auscultation Is this a current diagnosis for this admission?: Yes (5) Bilateral pleural effusion Is this a current diagnosis for this admission?: YesPlan: He has large bilateral pleural effusion, patient is waiting for thoracentesis
[2016-04-27] MEDS: OXYCODONE HCL IR 5 MG TABLET PO PRN (20:41)
[2016-04-27] MEDS: INSULIN LISPRO 100 UNIT/ML 3 ML VIAL SUBCUT PRN (23:08)
[2016-04-28] MEDS: ACETAMINOPHEN 325 MG TABLET PO SCH ×4 (00:52→17:37)
[2016-04-28] MEDS: OXYCODONE HCL IR 5 MG TABLET PO PRN ×3 (02:42→15:35)
[2016-04-28 05:53] LABS: PROTHROMBIN TIME 33.3 SEC (11.4-15.4)
[2016-04-28] MEDS: METRONIDAZOLE 500 MG TABLET PO SCH ×3 (05:56→21:14)
[2016-04-28] MEDS: FINASTERIDE 5 MG TABLET PO SCH (08:57)
[2016-04-28] MEDS: TAMSULOSIN HCL 0.4 MG CAP.SR.24H PO SCH ×2 (08:57→17:37)
[2016-04-28] MEDS: LACTOBACILLUS ACIDOPHILUS 250 MG TAB PO SCH ×2 (08:57→17:37)
[2016-04-28 09:02] LABS: APPEARANCE,URINE CLOUDY; BILIRUBIN,URINE NEGATIVE (NEGATIVE); GLUCOSE, URINE NEGATIVE (NEGATIVE); KETONES,URINE NEGATIVE (NEGATIVE); LEUKOCYTE ESTERASE,URINE LARGE (NEGATIVE); NITRITE,URINE NEGATIVE (NEGATIVE); PROTEIN,URINE 30 mg/dL (NEGATIVE); URINE SPECIFIC GRAVITY 1.014; UROBILINOGEN,URINE NEGATIVE mg/dL (<2.0)
--- NOTE | 2016-04-28 11:08 | PROGRESS NOTE E ---
Progress Note NAME: GAVIN COSTELLO : 1935 AGE: 80Y DATE: 04/28/2016 ROOM: 332 SUBJECTIVE: Patient continues to complain about multiple joint aches and pains. His p.o. intake is poor. Complains about nausea and episode of vomiting. There is no abdominal pain. Denied any chest pain or difficulty with his breathing. There is no reported fever or chills. Awaiting thoracentesis for significant pleural effusion. Coumadin therapy is on hold due to elevated INR. OBJECTIVE: GENERAL: Elderly, not in any acute cardiopulmonary distress at the time of my assessment. VITAL SIGNS: Temperature is 97.4 degrees Fahrenheit, pulse at 64 per minute, blood pressure 100/51, respiratory rate of 18, O2 saturations 100% on 2 L supplemental oxygen by nasal cannula. Body mass index at 28.4. Fluid balance is 870 with an output of 250 mL. His p.o. intake is mainly bites. HEENT: Normocephalic, atraumatic. There is no pallor or icterus. Oral mucosa is fairly moist. There is no oropharyngeal inflammation or orifice discharge. CHEST/LUNGS: Satisfactory excursion on air entry bilaterally. Reduced breath sounds at lung bases. There are no rales or rhonchi. HEART: Regular rate and rhythm. Normal S1, S2. No appreciable gallop or murmur. ABDOMEN: Full, soft. Bowel sounds present. No palpable mass, tenderness, guarding, or rebound. EXTREMITIES: There is no significant pitting edema. Patient does have features in terms of osteoarthritis. SKIN: Dry. Poor turgor. Warm to touch. Some superficial scabs on lower extremities. CENTRAL NERVOUS SYSTEM: Generalized deconditioning. There is no focal motor deficit. LABORATORY ASSESSMENT: Patient's Accu-Chek was 108 mg/dL this morning. PT/INR at 33.3 and 3.10, on a downward trend. Blood culture is no growth to date. Urine culture did grow Samantha albicans and Samantha dubliniensis. IMPRESSION: 1. CUSTODIAL ANTICOAGULATION FOR CHRONIC ATRIAL FIBRILLATION WITH SUPER THERAPEUTIC INR. 2. CHRONIC ATRIAL FIBRILLATION. 3. BILATERAL PLEURAL EFFUSION WITH IMPROVING SHORTNESS OF BREATH. Awaiting thoracentesis. 4. ELECTROLYTE DERANGEMENT WITH HYPONATREMIA SECONDARY TO INTRAVASCULAR FLUID DEPLETION. PLAN: We will continue to hold patient's Coumadin with hope that his INR will be less than 1.4 by 04/30/2016 for planned thoracentesis for his significant bilateral pleural effusion and shortness of breath. Patient will continue on all of his other current medication management. I will maintain his pain management at OxyIR 5 mg p.o. q.6 hours p.r.n. In view of the report, patient is more sleepy this morning. When awake, he is more calm and not complaining much about anxiety or pain. His care plan did consume about 30 minutes of my time. DICTATING PHYSICIAN: RENETTA VEGA M.D. [id number] PHY#: [id number] ID: [id number] JOB#: [id number] ACCT: [id number] cc: > MTDD
[2016-04-28] MEDS: VERAPAMIL HCL 180 MG TABLET.SA PO SCH (15:36)
[2016-04-28] MEDS: INSULIN LISPRO 100 UNIT/ML 3 ML VIAL SUBCUT PRN (21:27)
[2016-04-29] MEDS: ACETAMINOPHEN 325 MG TABLET PO SCH ×4 (00:09→18:17)
[2016-04-29] MEDS: METRONIDAZOLE 500 MG TABLET PO SCH ×3 (05:14→21:47)
[2016-04-29] MEDS: TAMSULOSIN HCL 0.4 MG CAP.SR.24H PO SCH ×2 (09:13→18:18)
[2016-04-29] MEDS: FINASTERIDE 5 MG TABLET PO SCH (09:13)
[2016-04-29] MEDS: VERAPAMIL HCL 180 MG TABLET.SA PO SCH (09:21)
[2016-04-29] MEDS: LACTOBACILLUS ACIDOPHILUS 250 MG TAB PO SCH ×2 (11:42→18:17)
--- NOTE | 2016-04-29 12:42 | EKG REPORT ---
SEVERITY:- ABNORMAL ECG - ATRIAL FIBRILLATION LOW VOLTAGE THROUGHOUT : Confirmed by: Elli Purvis 29-Apr-2016 12:41:34
--- NOTE | 2016-04-29 19:23 | PROGRESS NOTE E ---
Progress Note NAME: GAVIN COSTELLO : 1935 AGE: 80Y DATE: 04/29/2016 ROOM: 332 SUBJECTIVE: Nursing staff did report poor p.o. intake, and the patient also did admit to a poor appetite. He denied any significant nausea or vomiting. There is no abdominal pain. He denied any chest pain or difficulty with his breathing. OBJECTIVE: GENERAL: Elderly. Not in any acute distress at the time of my assessment. VITAL SIGNS: Temperature 97.1 degrees Fahrenheit. Pulse at 62 per minute. Blood pressure is 104/69. Respiratory rate 20 per minute. O2 saturation 100% on 3 liters of supplemental oxygen via nasal cannula. Body mass index at 28.4. INTAKE AND OUTPUT: His fluid balance is 580 mL with an output of 1200 mL, p.o. intake refusal to 75%. HEENT: Normocephalic/atraumatic. There is no pallor, no icterus. Oral mucosa fairly moist. There is no oropharyngeal inflammation or orifice discharge. CHEST/LUNGS: Fair air entry bilaterally. There are no rales or rhonchi. HEART: Regular rhythm. Normal S1, S2. No appreciable gallop or murmur. ABDOMEN: Full, soft. Bowel sounds present. No palpable mass. No guarding or rebound. EXTREMITIES: There is no pitting edema. The patient does have features consistent with osteoarthritis. CENTRAL NERVOUS SYSTEM: Generalized deconditioning without any focal motor deficits. SKIN: Warm to touch. Turgor is fair with multiple scab wounds on the extremities. LABORATORY ASSESSMENT: His PT/INR are at 27.2 and 2.38 (on a downward trend). Accu-Chek so far today has been 95 and 105 mg/dL. IMPRESSION: 1. CHRONIC ATRIAL FIBRILLATION ON ANTICOAGULATION WITH SUPRATHERAPEUTIC INR. 2. BILATERAL PLEURAL EFFUSION, AWAITING POSSIBLE THORACENTESIS WITH ACCEPTABLE INR LEVEL. 3. ELECTROLYTE DERANGEMENT WITH HYPONATREMIA, PROBABLY SECONDARY TO INTRAVASCULAR VOLUME DEPLETION. 4. PROTEIN CALORIE MALNUTRITION, PROBABLY SECONDARY TO HIS ANOREXIA. PLAN: We will continue on all of his current medication management. I will add Marinol at 2.5 mg to be administered before lunch time to augment his appetite and possibly improve his p.o. intake. I will also propose oral supplementation with Ensure. The patient will continue on all of his other current medication management. Care plan did consume about 30 minutes of my time. DICTATING PHYSICIAN: RENETTA VEGA M.D. [id number] PHY#: [id number] ID: [id number] JOB#: [id number] ACCT: [id number] cc:RENETTA VEGA M.D. > [facility]
[2016-04-29] MEDS: OXYCODONE HCL IR 5 MG TABLET PO PRN (21:47)
[2016-04-29] MEDS: INSULIN LISPRO 100 UNIT/ML 3 ML VIAL SUBCUT PRN (21:48)
[2016-04-30] MEDS: ACETAMINOPHEN 325 MG TABLET PO SCH ×4 (00:04→17:48)
[2016-04-30] MEDS: OXYCODONE HCL IR 5 MG TABLET PO PRN ×3 (05:12→18:28)
[2016-04-30] MEDS: METRONIDAZOLE 500 MG TABLET PO SCH ×2 (05:13→15:38)
[2016-04-30 05:17] LABS: HGB HCT DIFFERENCE 0.7; MEAN CORPUSCULAR HEMOGLOBIN 33.2 pg (27.0-33.4); MEAN CORPUSCULAR HGB CONC 34.3 g/dL (32.0-36.0); MEAN CORPUSCULAR VOLUME 97 fl (80-97); RED BLOOD COUNT 2.38 10^6/uL (4.35-5.55); RED CELL DISTRIBUTION WIDTH 17.7 % (11.5-14.0); WHITE BLOOD COUNT 5.5 10^3/uL (4.0-10.5)
[2016-04-30 05:22] LABS: PROTHROMBIN TIME 25.2 SEC (11.4-15.4)
[2016-04-30 05:30] LABS: HEMOGLOBIN 7.9 g/dL (13.5-17.0)
[2016-04-30 07:10] LABS: APPEARANCE,URINE CLOUDY; BILIRUBIN,URINE NEGATIVE (NEGATIVE); GLUCOSE, URINE NEGATIVE (NEGATIVE); KETONES,URINE NEGATIVE (NEGATIVE); LEUKOCYTE ESTERASE,URINE LARGE (NEGATIVE); NITRITE,URINE NEGATIVE (NEGATIVE); PROTEIN,URINE NEGATIVE (NEGATIVE); URINE SPECIFIC GRAVITY 1.011; UROBILINOGEN,URINE NEGATIVE mg/dL (<2.0)
[2016-04-30] MEDS: FINASTERIDE 5 MG TABLET PO SCH (10:54)
[2016-04-30] MEDS: TAMSULOSIN HCL 0.4 MG CAP.SR.24H PO SCH ×2 (10:54→17:49)
[2016-04-30] MEDS: LACTOBACILLUS ACIDOPHILUS 250 MG TAB PO SCH ×2 (10:54→17:49)
[2016-04-30] MEDS: VERAPAMIL HCL 180 MG TABLET.SA PO SCH (10:56)
[2016-04-30] MEDS: DRONABINOL 2.5 MG CAPSULE PO SCH (11:04)
[2016-04-30] MEDS ORDERED: DIPHENHYDRAMINE HCL 50 MG/ML VIAL IV ONE (21:20)
--- NOTE | 2016-04-30 21:59 | PDOC PROGRESS REPORT ---
Subjective Progress Note for:: 04/30/16 Subjective:: Patient was seen by the bedside, he has anemia and he is receiving blood transfusion, the radiologist refused to do thoracentesis because the INR is still supra-therapeutic. Physical Exam Vital Signs: Temp Pulse Resp BP Pulse Ox 95.4 F L 71 18 105/60 100 04/30/16 18:40 04/30/16 19:00 04/30/16 18:40 04/30/16 18:40 04/30/16 18:40 Intake & Output 04/29/16 04/30/16 05/01/16 06:59 06:59 06:59 Intake Total 1780 1071 1580 Output Total 1200 775 550 Balance 152 859 1966 Weight 74.5 kg 74.2 kg General appearance: PRESENT: no acute distress Eye exam: PRESENT: PERRLA Respiratory exam: PRESENT: rales Cardiovascular exam: PRESENT: +S1, +S2 GI/Abdominal exam: PRESENT: soft Neurological exam: PRESENT: alert, CN II-XII grossly intact Results Laboratory Results: 04/30/16 04:55 04/26/16 04:42 04/30/16 04/30/16 04/30/16 04:55 06:18 06:18 WBC 5.5 RBC 2.38 L Hgb 7.9 L Hct 23.0 L MCV 97 MCH 33.2 MCHC 34.3 RDW 17.7 H Plt Count 132 L Urine Color YELLOW Urine Appearance CLOUDY Urine pH 6.0 Ur Specific [place] 1.011 Urine Protein NEGATIVE Urine Glucose (UA) NEGATIVE Urine Ketones NEGATIVE Urine Blood SMALL H Urine Nitrite NEGATIVE Ur Leukocyte Esterase LARGE H Urine WBC (Auto) >182 Urine RBC (Auto) 8 Stool Occult Blood POSITIVE Blood Type Antibody Screen 04/30/16 06:50 WBC RBC Hgb Hct MCV MCH MCHC RDW Plt Count Urine Color Urine Appearance Urine pH Ur Specific [place] Urine Protein Urine Glucose (UA) Urine Ketones Urine Blood Urine Nitrite Ur Leukocyte Esterase Urine WBC (Auto) Urine RBC (Auto) Stool Occult Blood Blood Type A NEGATIVE Antibody Screen NEGATIVE 04/23/16 04/23/16 04/24/16 21:01 21:01 03:31 Creatine Kinase 26 L 23 L CK-MB (CK-2) 1.80 Troponin I < 0.012 04/24/16 04/24/16 04/24/16 03:31 09:43 09:43 Creatine Kinase 22 L CK-MB (CK-2) 1.38 1.37 Troponin I < 0.012 < 0.012 Impressions: Chest X-Ray 04/23/16 00:00 IMPRESSION: CHF pattern, similar Chest CT 04/24/16 00:00 IMPRESSION: Large bilateral pleural effusions are identified with some associated airspace consolidation in the lung bases most consistent with atelectatic changes. Other findings as noted above Shoulder X-Ray 04/24/16 00:00 IMPRESSION: No acute fracture or malalignment at the right or left shoulder Old right humeral neck fracture, healed Bilateral pleural effusions Assessment & Plan - Diagnosis (1) Hyponatremia with extracellular fluid depletion Is this a current diagnosis for this admission?: Yes (2) shelter (current) use of anticoagulants Is this a current diagnosis for this admission?: Yes (3) Chronic atrial fibrillation Is this a current diagnosis for this admission?: Yes (4) Wheezing on auscultation Is this a current diagnosis for this admission?: Yes (5) Bilateral pleural effusion Is this a current diagnosis for this admission?: Yes (6) Hypothermia Qualifiers: Encounter type: initial encounter Qualified Code(s): T68.XXXA - Hypothermia, initial encounter Is this a current diagnosis for this admission?: YesPlan: The ambient temperature is low that could be because of the hypothermia. He does not look septic we order blood culture and urine culture
[2016-04-30] MEDS: INSULIN LISPRO 100 UNIT/ML 3 ML VIAL SUBCUT PRN (23:26)
[2016-05-01] MEDS: ACETAMINOPHEN 325 MG TABLET PO SCH ×4 (00:15→17:03)
[2016-05-01] MEDS: OXYCODONE HCL IR 5 MG TABLET PO PRN ×3 (00:15→17:38)
[2016-05-01 00:32] LABS: ABSOLUTE EOSINOPHILS # (AUTO) 0.1 10^3/uL (0.0-0.6); ABSOLUTE LYMPHOCYTES (AUTO) 1.2 10^3/uL (0.5-4.7); ABSOLUTE MONOCYTES (AUTO) 0.8 10^3/uL (0.1-1.4); ABSOLUTE NEUT (AUTO) 3.7 10^3/uL (1.7-8.2); BASOPHILS % (AUTO) 0.6 % (0-2); EOSINOPHILS % (AUTO) 2.3 % (0-6); HEMATOCRIT 32.1 % (37.9-51.0); HGB HCT DIFFERENCE 0.6; LYMPHOCYTES % (AUTO) 19.9 % (13-45); MEAN CORPUSCULAR HEMOGLOBIN 32.1 pg (27.0-33.4); MEAN CORPUSCULAR HGB CONC 34.1 g/dL (32.0-36.0); MEAN CORPUSCULAR VOLUME 94 fl (80-97); RED BLOOD COUNT 3.42 10^6/uL (4.35-5.55); SEGMENTED NEUTROPHILS % (AUTO) 63.2 % (42-78); WHITE BLOOD COUNT 5.8 10^3/uL (4.0-10.5)
[2016-05-01 00:40] LABS: HEMOGLOBIN 10.9 g/dL (13.5-17.0)
[2016-05-01 06:39] LABS: PROTHROMBIN TIME 22.4 SEC (11.4-15.4)
[2016-05-01] MEDS: TAMSULOSIN HCL 0.4 MG CAP.SR.24H PO SCH ×2 (09:20→17:04)
[2016-05-01] MEDS: VERAPAMIL HCL 180 MG TABLET.SA PO SCH (09:22)
[2016-05-01] MEDS: LACTOBACILLUS ACIDOPHILUS 250 MG TAB PO SCH ×2 (09:22→17:04)
[2016-05-01] MEDS: DRONABINOL 2.5 MG CAPSULE PO SCH (09:22)
[2016-05-01] MEDS: FINASTERIDE 5 MG TABLET PO SCH (09:22)
[2016-05-01] MEDS: INSULIN LISPRO 100 UNIT/ML 3 ML VIAL SUBCUT PRN (17:06)
--- NOTE | 2016-05-01 21:03 | PDOC PROGRESS REPORT ---
Subjective Progress Note for:: 05/01/16 Subjective:: Patient was seen by the bedside, it v seems that he is third spacing . The INR is 1.8, the radiologist is still refusing to do thoracentesis elevated INR by itself is no reason not to do thoracentesis,This is well documented in the literature. Physical Exam Vital Signs: Temp Pulse Resp BP Pulse Ox 97.2 F 66 19 100/50 L 97 05/01/16 15:31 05/01/16 15:31 05/01/16 15:31 05/01/16 15:31 05/01/16 15:31 Intake & Output 04/30/16 05/01/16 05/02/16 06:59 06:59 06:59 Intake Total 1071 3490 1071 Output Total 775 1100 200 Balance 296 2390 871 Weight 74.2 kg 74.3 kg General appearance: PRESENT: mild distress Respiratory exam: PRESENT: crackles, rhonchi Cardiovascular exam: PRESENT: +S1, +S2 GI/Abdominal exam: PRESENT: soft Extremities exam: PRESENT: other - Edema of the extremity Neurological exam: PRESENT: alert Results Laboratory Results: 05/01/16 00:22 04/26/16 04:42 04/30/16 05/01/16 06:50 00:22 WBC 5.8 RBC 3.42 L Hgb 10.9 L D Hct 32.1 L MCV 94 MCH 32.1 MCHC 34.1 RDW 18.0 H Plt Count 147 L Seg Neutrophils % 63.2 Lymphocytes % 19.9 Monocytes % 14.0 H Eosinophils % 2.3 Basophils % 0.6 Absolute Neutrophils 3.7 Absolute Lymphocytes 1.2 Absolute Monocytes 0.8 Absolute Eosinophils 0.1 Absolute Basophils 0.0 Blood Type A NEGATIVE Antibody Screen NEGATIVE 04/23/16 04/23/16 04/24/16 21:01 21:01 03:31 Creatine Kinase 26 L 23 L CK-MB (CK-2) 1.80 Troponin I < 0.012 04/24/16 04/24/16 04/24/16 03:31 09:43 09:43 Creatine Kinase 22 L CK-MB (CK-2) 1.38 1.37 Troponin I < 0.012 < 0.012 Impressions: Chest X-Ray 04/23/16 00:00 IMPRESSION: CHF pattern, similar Chest CT 04/24/16 00:00 IMPRESSION: Large bilateral pleural effusions are identified with some associated airspace consolidation in the lung bases most consistent with atelectatic changes. Other findings as noted above Shoulder X-Ray 04/24/16 00:00 IMPRESSION: No acute fracture or malalignment at the right or left shoulder Old right humeral neck fracture, healed Bilateral pleural effusions Assessment & Plan - Diagnosis (1) Hyponatremia with extracellular fluid depletion Is this a current diagnosis for this admission?: Yes (2) [facility] (current) use of anticoagulants Is this a current diagnosis for this admission?: Yes (3) Chronic atrial fibrillation Is this a current diagnosis for this admission?: Yes (4) Wheezing on auscultation Is this a current diagnosis for this admission?: Yes (5) Bilateral pleural effusion Is this a current diagnosis for this admission?: Yes (6) Hypothermia Qualifiers: Encounter type: initial encounter Qualified Code(s): T68.XXXA - Hypothermia, initial encounter Is this a current diagnosis for this admission?: Yes
[2016-05-02] MEDS: ACETAMINOPHEN 325 MG TABLET PO SCH ×5 (00:18→23:56)
[2016-05-02] MEDS: OXYCODONE HCL IR 5 MG TABLET PO PRN ×4 (00:28→23:56)
[2016-05-02 07:32] LABS: PROTHROMBIN TIME 22.6 SEC (11.4-15.4)
[2016-05-02] MEDS: TAMSULOSIN HCL 0.4 MG CAP.SR.24H PO SCH ×2 (09:09→17:32)
[2016-05-02] MEDS: DRONABINOL 2.5 MG CAPSULE PO SCH (09:09)
[2016-05-02] MEDS: LACTOBACILLUS ACIDOPHILUS 250 MG TAB PO SCH ×2 (09:11→17:32)
[2016-05-02] MEDS: VERAPAMIL HCL 180 MG TABLET.SA PO SCH (09:11)
[2016-05-02] MEDS: FINASTERIDE 5 MG TABLET PO SCH (09:11)
[2016-05-02 16:12] LABS: APPEARANCE,URINE CLOUDY; BILIRUBIN,URINE NEGATIVE (NEGATIVE); GLUCOSE, URINE NEGATIVE (NEGATIVE); KETONES,URINE NEGATIVE (NEGATIVE); LEUKOCYTE ESTERASE,URINE LARGE (NEGATIVE); NITRITE,URINE NEGATIVE (NEGATIVE); PROTEIN,URINE NEGATIVE (NEGATIVE); URINE SPECIFIC GRAVITY 1.013; UROBILINOGEN,URINE NEGATIVE mg/dL (<2.0)
[2016-05-02 18:24] LABS: FLUID TYPE PLEURAL
[2016-05-02 18:35] LABS: FLUID APPEARANCE CLEAR; FLUID RBC AVERAGE 0.5; FLUID RBC DILUENT USED NONE USED; FLUID RBC DILUTION FACTOR 1; FLUID RBC SIDE 1 1; FLUID RBC SIDE 2 0; TOTAL RBC SQUARES COUNTED FLD 225
--- NOTE | 2016-05-02 19:14 | PDOC PROGRESS REPORT ---
Subjective Progress Note for:: 05/02/16 Subjective:: Patient was seen by the bedside, he had thoracentesis done today, a liter of fluid was collected from the lung Physical Exam Vital Signs: Temp Pulse Resp BP Pulse Ox 97.0 F 72 18 140/29 H 96 05/02/16 17:27 05/02/16 17:27 05/02/16 17:27 05/02/16 17:27 05/02/16 17:27 Intake & Output 05/01/16 05/02/16 05/03/16 06:59 06:59 06:59 Intake Total 3490 1431 1137 Output Total 1100 775 400 Balance 2390 656 737 Weight 74.3 kg 74.1 kg General appearance: PRESENT: mild distress Respiratory exam: PRESENT: clear to auscultation gregg Cardiovascular exam: PRESENT: +S1, +S2 GI/Abdominal exam: PRESENT: soft Results Laboratory Results: 05/01/16 00:22 04/26/16 04:42 04/30/16 05/02/16 05/02/16 06:50 14:55 16:30 Urine Color DARK YELLOW Urine Appearance CLOUDY Urine pH 5.0 Ur Specific [place] 1.013 Urine Protein NEGATIVE Urine Glucose (UA) NEGATIVE Urine Ketones NEGATIVE Urine Blood NEGATIVE Urine Nitrite NEGATIVE Ur Leukocyte Esterase LARGE H Urine WBC (Auto) >182 Urine RBC (Auto) 4 Fluid Type PLEURAL Fluid Source LUNG Fluid Color YELLOW Fluid Appearance CLEAR Fluid Viscosity SLIGHTLY VISCOUS Fluid WBC 79 Fluid RBC 0 Blood Type A NEGATIVE Antibody Screen NEGATIVE 04/23/16 04/23/16 04/24/16 21:01 21:01 03:31 Creatine Kinase 26 L 23 L CK-MB (CK-2) 1.80 Troponin I < 0.012 04/24/16 04/24/16 04/24/16 03:31 09:43 09:43 Creatine Kinase 22 L CK-MB (CK-2) 1.38 1.37 Troponin I < 0.012 < 0.012 Impressions: Chest CT 04/24/16 00:00 IMPRESSION: Large bilateral pleural effusions are identified with some associated airspace consolidation in the lung bases most consistent with atelectatic changes. Other findings as noted above Shoulder X-Ray 04/24/16 00:00 IMPRESSION: No acute fracture or malalignment at the right or left shoulder Old right humeral neck fracture, healed Bilateral pleural effusions Chest X-Ray 05/02/16 00:00 IMPRESSION: No pneumothorax immediately post right thoracentesis with removal of 1000 mL of fluid. Persistent small right pleural effusion with right basilar airspace disease likely atelectasis. Opacified left lower hemithorax from left pleural effusion and lower lobe collapse/ consolidation, unchanged from chest film 04/23/2016 Thoracentesis Ultrasound 05/02/16 08:42 IMPRESSION: SUCCESSFUL RIGHT THORACENTESIS USING ULTRASOUND GUIDANCE. 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
[2016-05-02 19:18] LABS: HEMATOCRIT 29.1 % (37.9-51.0); HEMOGLOBIN 9.8 g/dL (13.5-17.0); HGB HCT DIFFERENCE 0.3; MEAN CORPUSCULAR HEMOGLOBIN 32.3 pg (27.0-33.4); MEAN CORPUSCULAR HGB CONC 33.7 g/dL (32.0-36.0); MEAN CORPUSCULAR VOLUME 96 fl (80-97); RED BLOOD COUNT 3.04 10^6/uL (4.35-5.55); RED CELL DISTRIBUTION WIDTH 18.5 % (11.5-14.0)
[2016-05-02 19:49] LABS: ALBUMIN 2.5 g/dL (3.5-5.0); CALCIUM 9.1 mg/dL (8.4-10.2); TOTAL PROTEIN 6.1 g/dL (6.3-8.2)
[2016-05-02] MEDS: CEFEPIME 1 GM/D5W RTU 1 GM/50 ML RTUPB IV SCH (22:03)
[2016-05-02] MEDS: INSULIN LISPRO 100 UNIT/ML 3 ML VIAL SUBCUT PRN (23:57)
[2016-05-03 05:32] LABS: PROTHROMBIN TIME 19.7 SEC (11.4-15.4)
[2016-05-03] MEDS: ACETAMINOPHEN 325 MG TABLET PO SCH ×4 (05:55→23:50)
[2016-05-03] MEDS: OXYCODONE HCL IR 5 MG TABLET PO PRN ×2 (05:55→23:49)
[2016-05-03] MEDS: LEVOFLOXACIN 750 MG/D5W RTU 750 MG/150 ML RTUPB IV SCH (07:36)
[2016-05-03] MEDS: CEFEPIME 1 GM/D5W RTU 1 GM/50 ML RTUPB IV SCH ×2 (09:27→22:51)
[2016-05-03] MEDS: LACTOBACILLUS ACIDOPHILUS 250 MG TAB PO SCH ×2 (09:28→17:37)
[2016-05-03] MEDS: VERAPAMIL HCL 180 MG TABLET.SA PO SCH (09:28)
[2016-05-03] MEDS: DRONABINOL 2.5 MG CAPSULE PO SCH (09:28)
[2016-05-03] MEDS: TAMSULOSIN HCL 0.4 MG CAP.SR.24H PO SCH ×2 (09:28→17:37)
[2016-05-03] MEDS: FINASTERIDE 5 MG TABLET PO SCH (09:28)
[2016-05-03 10:32] LABS: PROTHROMBIN TIME 21.3 SEC (11.4-15.4)
[2016-05-03] MEDS: INSULIN LISPRO 100 UNIT/ML 3 ML VIAL SUBCUT PRN (12:00)
[2016-05-03 14:30] LABS: FLUID APPEARANCE CLEAR; FLUID RBC AVERAGE 28.5; FLUID RBC SIDE 1 30; FLUID RBC SIDE 2 27; FLUID TYPE PLEURAL
[2016-05-03 14:31] LABS: FLUID RBC DILUENT USED NONE USED; FLUID RBC DILUTION FACTOR 1; TOTAL RBC SQUARES COUNTED FLD 225
--- NOTE | 2016-05-03 22:10 | PDOC PROGRESS REPORT ---
Subjective Progress Note for:: 05/03/16 Subjective:: Patient was seen by the bedside, he underwent left thoracentesis today and 1100 mL of pleural fluid was collected. He has parapneumonic effusion on IV antibiotic, yesterday he had the right thoracentesis and 1000 ml of fluid was collected , patient feels much better Physical Exam Vital Signs: Temp Pulse Resp BP Pulse Ox 97.0 F 81 20 109/56 L 100 05/03/16 19:39 05/03/16 19:39 05/03/16 19:39 05/03/16 19:39 05/03/16 19:39 Intake & Output 05/02/16 05/03/16 05/04/16 06:59 06:59 06:59 Intake Total 1431 1651 1481 Output Total 775 1025 210 Balance 635 069 4849 Weight 74.1 kg 75.9 kg General appearance: PRESENT: no acute distress Respiratory exam: PRESENT: clear to auscultation gregg Cardiovascular exam: PRESENT: +S1, +S2 Neurological exam: PRESENT: alert Results Laboratory Results: 05/02/16 19:04 04/26/16 04:42 05/03/16 05/03/16 04:00 13:05 Fluid Type PLEURAL Fluid Source Fluid Color YELLOW Fluid Appearance CLEAR Fluid Viscosity LIQUID Fluid WBC 198 Fluid RBC 31 Stool Occult Blood POSITIVE 04/23/16 04/23/16 04/24/16 21:01 21:01 03:31 Creatine Kinase 26 L 23 L CK-MB (CK-2) 1.80 Troponin I < 0.012 04/24/16 04/24/16 04/24/16 03:31 09:43 09:43 Creatine Kinase 22 L CK-MB (CK-2) 1.38 1.37 Troponin I < 0.012 < 0.012 Impressions: Chest CT 04/24/16 00:00 IMPRESSION: Large bilateral pleural effusions are identified with some associated airspace consolidation in the lung bases most consistent with atelectatic changes. Other findings as noted above Shoulder X-Ray 04/24/16 00:00 IMPRESSION: No acute fracture or malalignment at the right or left shoulder Old right humeral neck fracture, healed Bilateral pleural effusions Chest X-Ray 05/03/16 00:00 IMPRESSION: No pneumothorax post thoracentesis Thoracentesis Ultrasound 05/03/16 08:38 IMPRESSION: SUCCESSFUL LEFT THORACENTESIS USING ULTRASOUND GUIDANCE. Assessment & Plan - Diagnosis (1) Hyponatremia with extracellular fluid depletion Is this a current diagnosis for this admission?: Yes (2) [facility] (current) use of anticoagulants Is this a current diagnosis for this admission?: Yes (3) Chronic atrial fibrillation Is this a current diagnosis for this admission?: Yes (4) Wheezing on auscultation Is this a current diagnosis for this admission?: Yes (5) Bilateral pleural effusion Is this a current diagnosis for this admission?: Yes (6) Hypothermia Qualifiers: Encounter type: initial encounter Qualified Code(s): T68.XXXA - Hypothermia, initial encounter Is this a current diagnosis for this admission?: Yes (7) Parapneumonic effusion Is this a current diagnosis for this admission?: YesPlan: Continue IV antibiotic
[2016-05-04] MEDS: ACETAMINOPHEN 325 MG TABLET PO SCH ×3 (07:08→17:18)
[2016-05-04] MEDS: LEVOFLOXACIN 750 MG/D5W RTU 750 MG/150 ML RTUPB IV SCH (07:44)
[2016-05-04] MEDS: CEFEPIME 1 GM/D5W RTU 1 GM/50 ML RTUPB IV SCH ×2 (09:06→23:07)
[2016-05-04] MEDS: DRONABINOL 2.5 MG CAPSULE PO SCH (09:07)
[2016-05-04] MEDS: LACTOBACILLUS ACIDOPHILUS 250 MG TAB PO SCH ×2 (09:07→17:18)
[2016-05-04] MEDS: TAMSULOSIN HCL 0.4 MG CAP.SR.24H PO SCH ×2 (09:07→17:17)
[2016-05-04] MEDS: FINASTERIDE 5 MG TABLET PO SCH (09:07)
[2016-05-04] MEDS: VERAPAMIL HCL 180 MG TABLET.SA PO SCH (09:08)
[2016-05-04] MEDS: INSULIN LISPRO 100 UNIT/ML 3 ML VIAL SUBCUT PRN (11:56)
[2016-05-04] MEDS: OXYCODONE HCL IR 5 MG TABLET PO PRN (11:59)
[2016-05-04 14:02] LABS: APPEARANCE,URINE CLOUDY; BILIRUBIN,URINE NEGATIVE (NEGATIVE); GLUCOSE, URINE NEGATIVE (NEGATIVE); KETONES,URINE TRACE mg/dL (NEGATIVE); LEUKOCYTE ESTERASE,URINE LARGE (NEGATIVE); NITRITE,URINE NEGATIVE (NEGATIVE); PROTEIN,URINE NEGATIVE (NEGATIVE); URINE SPECIFIC GRAVITY 1.013; UROBILINOGEN,URINE NEGATIVE mg/dL (<2.0)
--- NOTE | 2016-05-04 19:12 | PDOC PROGRESS REPORT ---
Subjective Progress Note for:: 05/04/16 Subjective:: The stool was positive for C. difficile toxin, he had C. difficile colitis previously Physical Exam Vital Signs: Temp Pulse Resp BP Pulse Ox 97.3 F 96 16 107/64 100 05/04/16 15:08 05/04/16 15:08 05/04/16 15:08 05/04/16 15:08 05/04/16 17:13 Intake & Output 05/03/16 05/04/16 05/05/16 06:59 06:59 06:59 Intake Total 1651 1831 1183 Output Total 1025 1060 700 Balance 626 771 483 Weight 75.9 kg 77.2 kg General appearance: PRESENT: no acute distress Respiratory exam: PRESENT: clear to auscultation gregg Cardiovascular exam: PRESENT: +S1, +S2 GI/Abdominal exam: PRESENT: firm Results Laboratory Results: 05/02/16 19:04 04/26/16 04:42 05/03/16 05/04/16 05/04/16 13:05 13:30 17:30 Urine Color YELLOW Urine Appearance CLOUDY Urine pH 6.0 Ur Specific [place] 1.013 Urine Protein NEGATIVE Urine Glucose (UA) NEGATIVE Urine Ketones TRACE H Urine Blood NEGATIVE Urine Nitrite NEGATIVE Ur Leukocyte Esterase LARGE H Urine WBC (Auto) >182 Urine RBC (Auto) 4 Fluid Type PLEURAL Fluid Source Fluid Color YELLOW Fluid Appearance CLEAR Fluid Viscosity LIQUID Fluid WBC 198 Fluid RBC 31 Stool for White Cells NO WBCs SEEN 05/02/16 14:55 Clean Catch Midstream Urine Culture - Final 2,000 col/ml 04/23/16 04/23/16 04/24/16 21:01 21:01 03:31 Creatine Kinase 26 L 23 L CK-MB (CK-2) 1.80 Troponin I < 0.012 04/24/16 04/24/16 04/24/16 03:31 09:43 09:43 Creatine Kinase 22 L CK-MB (CK-2) 1.38 1.37 Troponin I < 0.012 < 0.012 Impressions: Chest CT 04/24/16 00:00 IMPRESSION: Large bilateral pleural effusions are identified with some associated airspace consolidation in the lung bases most consistent with atelectatic changes. Other findings as noted above Shoulder X-Ray 04/24/16 00:00 IMPRESSION: No acute fracture or malalignment at the right or left shoulder Old right humeral neck fracture, healed Bilateral pleural effusions Chest X-Ray 05/03/16 00:00 IMPRESSION: No pneumothorax post thoracentesis Thoracentesis Ultrasound 05/03/16 08:38 IMPRESSION: SUCCESSFUL LEFT THORACENTESIS USING ULTRASOUND GUIDANCE. 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 Is this a current diagnosis for this admission?: Yes (3) Chronic atrial fibrillation Is this a current diagnosis for this admission?: Yes (4) Wheezing on auscultation Is this a current diagnosis for this admission?: Yes (5) Bilateral pleural effusion Is this a current diagnosis for this admission?: Yes (6) Hypothermia Qualifiers: Encounter type: initial encounter Qualified Code(s): T68.XXXA - Hypothermia, initial encounter Is this a current diagnosis for this admission?: Yes (7) Parapneumonic effusion Is this a current diagnosis for this admission?: Yes (8) Enterocolitis due to Clostridium difficile Is this a current diagnosis for this admission?: YesPlan: Start Flagyl
[2016-05-04] MEDS: WARFARIN SODIUM 1 MG TABLET PO SCH (23:06)
[2016-05-04] MEDS: METRONIDAZOLE 500 MG TABLET PO SCH (23:07)
[2016-05-05] MEDS: OXYCODONE HCL IR 5 MG TABLET PO PRN ×3 (00:02→18:51)
[2016-05-05] MEDS: ACETAMINOPHEN 325 MG TABLET PO SCH ×5 (00:02→23:55)
[2016-05-05] MEDS: METRONIDAZOLE 500 MG TABLET PO SCH ×3 (06:07→22:40)
[2016-05-05] MEDS: LEVOFLOXACIN 750 MG/D5W RTU 750 MG/150 ML RTUPB IV SCH (07:48)
[2016-05-05 08:20] LABS: PROTHROMBIN TIME 19.2 SEC (11.4-15.4)
[2016-05-05] MEDS: LACTOBACILLUS ACIDOPHILUS 250 MG TAB PO SCH ×2 (09:40→17:02)
[2016-05-05] MEDS: CEFEPIME 1 GM/D5W RTU 1 GM/50 ML RTUPB IV SCH ×2 (09:40→22:47)
[2016-05-05] MEDS: FINASTERIDE 5 MG TABLET PO SCH (09:40)
[2016-05-05] MEDS: TAMSULOSIN HCL 0.4 MG CAP.SR.24H PO SCH ×2 (09:40→17:02)
[2016-05-05] MEDS: DRONABINOL 2.5 MG CAPSULE PO SCH (09:40)
[2016-05-05] MEDS: VERAPAMIL HCL 180 MG TABLET.SA PO SCH (09:41)
--- NOTE | 2016-05-05 17:11 | PDOC PROGRESS REPORT ---
Subjective Progress Note for:: 05/05/16 Subjective:: Patient was seen by the bedside today, he is actually looking better and also breathing better, compared to before He had thoracentesis done Physical Exam Vital Signs: Temp Pulse Resp BP Pulse Ox 97.8 F 95 24 H 104/60 99 05/05/16 16:34 05/05/16 16:34 05/05/16 16:34 05/05/16 16:34 05/05/16 16:34 Intake & Output 05/04/16 05/05/16 05/06/16 06:59 06:59 06:59 Intake Total 1831 1563 500 Output Total 1060 1425 275 Balance 771 138 225 Weight 77.2 kg 75.3 kg General appearance: PRESENT: no acute distress Eye exam: PRESENT: PERRLA Respiratory exam: PRESENT: clear to auscultation gregg Cardiovascular exam: PRESENT: +S1, +S2 GI/Abdominal exam: PRESENT: soft Neurological exam: PRESENT: alert, CN II-XII grossly intact Results Laboratory Results: 05/02/16 19:04 04/26/16 04:42 05/04/16 17:30 Stool for White Cells NO WBCs SEEN 04/23/16 04/23/16 04/24/16 21:01 21:01 03:31 Creatine Kinase 26 L 23 L CK-MB (CK-2) 1.80 Troponin I < 0.012 04/24/16 04/24/16 04/24/16 03:31 09:43 09:43 Creatine Kinase 22 L CK-MB (CK-2) 1.38 1.37 Troponin I < 0.012 < 0.012 Impressions: Chest CT 04/24/16 00:00 IMPRESSION: Large bilateral pleural effusions are identified with some associated airspace consolidation in the lung bases most consistent with atelectatic changes. Other findings as noted above Shoulder X-Ray 04/24/16 00:00 IMPRESSION: No acute fracture or malalignment at the right or left shoulder Old right humeral neck fracture, healed Bilateral pleural effusions Chest X-Ray 05/03/16 00:00 IMPRESSION: No pneumothorax post thoracentesis Thoracentesis Ultrasound 05/03/16 08:38 IMPRESSION: SUCCESSFUL LEFT THORACENTESIS USING ULTRASOUND GUIDANCE. 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 Is this a current diagnosis for this admission?: Yes (3) Chronic atrial fibrillation Is this a current diagnosis for this admission?: Yes (4) Wheezing on auscultation Is this a current diagnosis for this admission?: Yes (5) Bilateral pleural effusion Is this a current diagnosis for this admission?: Yes (6) Hypothermia Qualifiers: Encounter type: initial encounter Qualified Code(s): T68.XXXA - Hypothermia, initial encounter Is this a current diagnosis for this admission?: Yes (7) Parapneumonic effusion Is this a current diagnosis for this admission?: Yes (8) Enterocolitis due to Clostridium difficile Is this a current diagnosis for this admission?: Yes (9) Pneumonia Qualifiers: Pneumonia type: due to unspecified organism Laterality: unspecified laterality Lung location: unspecified part of lung Qualified Code(s) : J18.9 - Pneumonia, unspecified organism Is this a current diagnosis for this admission?: Yes
[2016-05-05 20:22] LABS: ABSOLUTE EOSINOPHILS # (AUTO) 0.1 10^3/uL (0.0-0.6); ABSOLUTE MONOCYTES (AUTO) 0.8 10^3/uL (0.1-1.4); ABSOLUTE NEUT (AUTO) 3.5 10^3/uL (1.7-8.2); BASOPHILS % (AUTO) 0.5 % (0-2); EOSINOPHILS % (AUTO) 2.3 % (0-6); HEMATOCRIT 31.9 % (37.9-51.0); HEMOGLOBIN 10.5 g/dL (13.5-17.0); HGB HCT DIFFERENCE -0.4; LYMPHOCYTES % (AUTO) 19.1 % (13-45); MEAN CORPUSCULAR HEMOGLOBIN 31.7 pg (27.0-33.4); MEAN CORPUSCULAR VOLUME 96 fl (80-97); MONOCYTES % (AUTO) 14.8 % (3-13); RED BLOOD COUNT 3.32 10^6/uL (4.35-5.55); RED CELL DISTRIBUTION WIDTH 19.4 % (11.5-14.0); SEGMENTED NEUTROPHILS % (AUTO) 63.3 % (42-78); WHITE BLOOD COUNT 5.5 10^3/uL (4.0-10.5)
[2016-05-05 20:35] LABS: ALANINE AMINOTRANSFERASE 57 U/L (21-72); ALBUMIN 2.1 g/dL (3.5-5.0); ALKALINE PHOSPHATASE 189 U/L (38-126); ASPARTATE AMINO TRANSFERASE 128 U/L (17-59); BILIRUBIN,TOTAL 0.7 mg/dL (0.2-1.3); BLOOD UREA NITROGEN 19 mg/dL (7-20); CALCIUM 8.2 mg/dL (8.4-10.2); CREATININE RESULT 0.71 mg/dL (0.52-1.25); GLUCOSE 167 mg/dL (75-110); TOTAL PROTEIN 5.1 g/dL (6.3-8.2)
[2016-05-05 20:43] LABS: CARBON DIOXIDE 35 mmol/L (22-30); CHLORIDE 94 mmol/L (98-107); POTASSIUM 4.8 mmol/L (3.6-5.0)
[2016-05-05 20:44] LABS: ANION GAP 1 (5-19)
[2016-05-05] MEDS: INSULIN LISPRO 100 UNIT/ML 3 ML VIAL SUBCUT PRN (22:39)
[2016-05-05] MEDS: WARFARIN SODIUM 1 MG TABLET PO SCH (22:40)
[2016-05-06] MEDS: OXYCODONE HCL IR 5 MG TABLET PO PRN ×2 (01:40→06:42)
[2016-05-06] MEDS: ACETAMINOPHEN 325 MG TABLET PO SCH ×3 (05:09→18:07)
[2016-05-06] MEDS: METRONIDAZOLE 500 MG TABLET PO SCH ×3 (05:10→22:00)
[2016-05-06 06:06] LABS: ABSOLUTE EOSINOPHILS # (AUTO) 0.1 10^3/uL (0.0-0.6); ABSOLUTE LYMPHOCYTES (AUTO) 1.5 10^3/uL (0.5-4.7); ABSOLUTE NEUT (AUTO) 4.8 10^3/uL (1.7-8.2); BASOPHILS % (AUTO) 0.3 % (0-2); EOSINOPHILS % (AUTO) 1.9 % (0-6); HEMATOCRIT 32.7 % (37.9-51.0); HEMOGLOBIN 11.3 g/dL (13.5-17.0); HGB HCT DIFFERENCE 1.2; LYMPHOCYTES % (AUTO) 20.6 % (13-45); MEAN CORPUSCULAR HEMOGLOBIN 32.6 pg (27.0-33.4); MEAN CORPUSCULAR HGB CONC 34.4 g/dL (32.0-36.0); MEAN CORPUSCULAR VOLUME 95 fl (80-97); MONOCYTES % (AUTO) 13.3 % (3-13); RED BLOOD COUNT 3.45 10^6/uL (4.35-5.55); RED CELL DISTRIBUTION WIDTH 19.9 % (11.5-14.0); SEGMENTED NEUTROPHILS % (AUTO) 63.9 % (42-78); WHITE BLOOD COUNT 7.5 10^3/uL (4.0-10.5)
[2016-05-06 06:27] LABS: ALANINE AMINOTRANSFERASE 52 U/L (21-72); ALBUMIN 2.2 g/dL (3.5-5.0); ALKALINE PHOSPHATASE 195 U/L (38-126); ANION GAP 6 (5-19); ASPARTATE AMINO TRANSFERASE 90 U/L (17-59); BLOOD UREA NITROGEN 16 mg/dL (7-20); CALCIUM 8.6 mg/dL (8.4-10.2); CARBON DIOXIDE 33 mmol/L (22-30); CHLORIDE 94 mmol/L (98-107); CREATININE RESULT 0.66 mg/dL (0.52-1.25); GLUCOSE 68 mg/dL (75-110); POTASSIUM 4.7 mmol/L (3.6-5.0); TOTAL PROTEIN 5.3 g/dL (6.3-8.2)
[2016-05-06] MEDS: LEVOFLOXACIN 750 MG/D5W RTU 750 MG/150 ML RTUPB IV SCH (08:16)
[2016-05-06] MEDS: FINASTERIDE 5 MG TABLET PO SCH (10:40)
[2016-05-06] MEDS: TAMSULOSIN HCL 0.4 MG CAP.SR.24H PO SCH ×2 (10:40→18:07)
[2016-05-06] MEDS: LACTOBACILLUS ACIDOPHILUS 250 MG TAB PO SCH ×2 (10:40→18:07)
[2016-05-06] MEDS: VERAPAMIL HCL 180 MG TABLET.SA PO SCH (10:43)
[2016-05-06] MEDS: DRONABINOL 2.5 MG CAPSULE PO SCH (10:43)
[2016-05-06] MEDS ORDERED: DIPHENHYDRAMINE HCL 50 MG/ML VIAL ONE (10:46)
[2016-05-06] MEDS: CEFEPIME 1 GM/D5W RTU 1 GM/50 ML RTUPB IV SCH ×2 (12:26→22:00)
--- NOTE | 2016-05-06 14:55 | PDOC PROGRESS REPORT ---
Subjective Progress Note for:: 05/06/16 Subjective:: Patient had reaction to Levaquin today Physical Exam Vital Signs: Temp Pulse Resp BP Pulse Ox 97.3 F 99 16 92/48 L 100 05/06/16 07:14 05/06/16 07:14 05/06/16 07:14 05/06/16 07:14 05/06/16 07:14 Intake & Output 05/05/16 05/06/16 05/07/16 06:59 06:59 06:59 Intake Total 1563 3108 Output Total 1425 1400 Balance 138 1708 Weight 75.3 kg 74.3 kg General appearance: PRESENT: no acute distress Eye exam: PRESENT: PERRLA Respiratory exam: PRESENT: clear to auscultation gregg Cardiovascular exam: PRESENT: +S1, +S2 GI/Abdominal exam: PRESENT: firm Results Laboratory Results: 05/06/16 05:32 05/06/16 05:32 05/05/16 05/05/16 05/05/16 18:16 18:16 20:11 WBC Cancelled RBC Cancelled Hgb Cancelled Hct Cancelled MCV Cancelled MCH Cancelled MCHC Cancelled RDW Cancelled Plt Count Cancelled Seg Neutrophils % Cancelled Lymphocytes % Cancelled Monocytes % Cancelled Eosinophils % Cancelled Basophils % Cancelled Absolute Neutrophils Cancelled Absolute Lymphocytes Cancelled Absolute Monocytes Cancelled Absolute Eosinophils Cancelled Absolute Basophils Cancelled Sodium Cancelled 130.0 L Potassium Cancelled 4.8 Chloride Cancelled 94 L Carbon Dioxide Cancelled 35 H Anion Gap Cancelled 1 L BUN Cancelled 19 Creatinine Cancelled 0.71 Est GFR ( Amer) Cancelled > 60 Est GFR (Non-Af Amer) Cancelled > 60 Glucose Cancelled 167 H Calcium Cancelled 8.2 L Total Bilirubin Cancelled 0.7 AST Cancelled 128 H ALT Cancelled 57 Alkaline Phosphatase Cancelled 189 H Total Protein Cancelled 5.1 L Albumin Cancelled 2.1 L 05/05/16 05/06/16 05/06/16 20:11 05:32 05:32 WBC 5.5 7.5 RBC 3.32 L 3.45 L Hgb 10.5 L 11.3 L Hct 31.9 L 32.7 L MCV 96 95 MCH 31.7 32.6 MCHC 33.0 34.4 RDW 19.4 H 19.9 H Plt Count 127 L 134 L Seg Neutrophils % 63.3 63.9 Lymphocytes % 19.1 20.6 Monocytes % 14.8 H 13.3 H Eosinophils % 2.3 1.9 Basophils % 0.5 0.3 Absolute Neutrophils 3.5 4.8 Absolute Lymphocytes 1.0 1.5 Absolute Monocytes 0.8 1.0 Absolute Eosinophils 0.1 0.1 Absolute Basophils 0.0 0.0 Sodium 133.0 L Potassium 4.7 Chloride 94 L Carbon Dioxide 33 H Anion Gap 6 BUN 16 Creatinine 0.66 Est GFR ( Amer) > 60 Est GFR (Non-Af Amer) > 60 Glucose 68 L Calcium 8.6 Total Bilirubin 1.0 AST 90 H ALT 52 Alkaline Phosphatase 195 H Total Protein 5.3 L Albumin 2.2 L 05/01/16 00:22 Blood Blood Culture - Final NO GROWTH IN 5 DAYS 04/30/16 22:21 Blood Blood Culture - Final NO GROWTH IN 5 DAYS 04/23/16 04/23/16 04/24/16 21:01 21:01 03:31 Creatine Kinase 26 L 23 L CK-MB (CK-2) 1.80 Troponin I < 0.012 04/24/16 04/24/16 04/24/16 03:31 09:43 09:43 Creatine Kinase 22 L CK-MB (CK-2) 1.38 1.37 Troponin I < 0.012 < 0.012 Impressions: Chest CT 04/24/16 00:00 IMPRESSION: Large bilateral pleural effusions are identified with some associated airspace consolidation in the lung bases most consistent with atelectatic changes. Other findings as noted above Shoulder X-Ray 04/24/16 00:00 IMPRESSION: No acute fracture or malalignment at the right or left shoulder Old right humeral neck fracture, healed Bilateral pleural effusions Chest X-Ray 05/03/16 00:00 IMPRESSION: No pneumothorax post thoracentesis Thoracentesis Ultrasound 05/03/16 08:38 IMPRESSION: SUCCESSFUL LEFT THORACENTESIS USING ULTRASOUND GUIDANCE. 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 Is this a current diagnosis for this admission?: Yes (3) Chronic atrial fibrillation Is this a current diagnosis for this admission?: Yes (4) Wheezing on auscultation Is this a current diagnosis for this admission?: Yes (5) Bilateral pleural effusion Is this a current diagnosis for this admission?: Yes (6) Hypothermia Qualifiers: Encounter type: initial encounter Qualified Code(s): T68.XXXA - Hypothermia, initial encounter Is this a current diagnosis for this admission?: Yes (7) Parapneumonic effusion Is this a current diagnosis for this admission?: Yes (8) Enterocolitis due to Clostridium difficile Is this a current diagnosis for this admission?: Yes (9) Pneumonia Qualifiers: Pneumonia type: due to unspecified organism Laterality: unspecified laterality Lung location: unspecified part of lung Qualified Code(s) : J18.9 - Pneumonia, unspecified organism Is this a current diagnosis for this admission?: Yes
[2016-05-06] MEDS: WARFARIN SODIUM 1 MG TABLET PO SCH (21:59)
[2016-05-06] MEDS: INSULIN LISPRO 100 UNIT/ML 3 ML VIAL SUBCUT PRN (22:04)
[2016-05-07] MEDS: ACETAMINOPHEN 325 MG TABLET PO SCH ×5 (00:34→23:17)
[2016-05-07] MEDS: OXYCODONE HCL IR 5 MG TABLET PO PRN ×3 (01:43→21:29)
[2016-05-07] MEDS: METRONIDAZOLE 500 MG TABLET PO SCH ×3 (05:16→21:29)
[2016-05-07 08:20] LABS: HEMATOCRIT 32.2 % (37.9-51.0); HEMOGLOBIN 10.9 g/dL (13.5-17.0); HGB HCT DIFFERENCE 0.5; MEAN CORPUSCULAR HEMOGLOBIN 32.2 pg (27.0-33.4); MEAN CORPUSCULAR HGB CONC 33.8 g/dL (32.0-36.0); MEAN CORPUSCULAR VOLUME 95 fl (80-97); RED BLOOD COUNT 3.38 10^6/uL (4.35-5.55); RED CELL DISTRIBUTION WIDTH 18.9 % (11.5-14.0); WHITE BLOOD COUNT 7.6 10^3/uL (4.0-10.5)
[2016-05-07] MEDS: LEVOFLOXACIN 750 MG/D5W RTU 750 MG/150 ML RTUPB IV SCH (09:40)
[2016-05-07] MEDS: CEFEPIME 1 GM/D5W RTU 1 GM/50 ML RTUPB IV SCH ×2 (10:00→21:28)
[2016-05-07] MEDS: FINASTERIDE 5 MG TABLET PO SCH (10:03)
[2016-05-07] MEDS: LACTOBACILLUS ACIDOPHILUS 250 MG TAB PO SCH ×2 (10:03→18:02)
[2016-05-07] MEDS: TAMSULOSIN HCL 0.4 MG CAP.SR.24H PO SCH ×2 (10:04→18:03)
[2016-05-07] MEDS: VERAPAMIL HCL 180 MG TABLET.SA PO SCH (10:06)
--- NOTE | 2016-05-07 18:58 | PDOC PROGRESS REPORT ---
Subjective Progress Note for:: 05/07/16 Subjective:: Patient was seen by the bedside, he has urinary frequency with minimai urine volume, I did a rectal examination the prostate gland is not enlarged. He probably have overactive bladder, he will be treated with anticholinergic or sympathomimetic agent Physical Exam Vital Signs: Temp Pulse Resp BP Pulse Ox 98.0 F 94 16 90/50 L 99 05/07/16 16:27 05/07/16 16:27 05/07/16 16:27 05/07/16 16:27 05/07/16 16:27 Intake & Output 05/06/16 05/07/16 05/08/16 06:59 06:59 06:59 Intake Total 3108 1391 475 Output Total 1400 1025 650 Balance 1708 366 -175 Weight 74.3 kg 74.9 kg General appearance: PRESENT: no acute distress Eye exam: PRESENT: PERRLA Cardiovascular exam: PRESENT: +S1, +S2 Rectal exam: PRESENT: normal prostate Results Laboratory Results: 05/07/16 07:45 05/06/16 05:32 05/06/16 05/07/16 20:47 07:45 WBC 7.6 RBC 3.38 L Hgb 10.9 L Hct 32.2 L MCV 95 MCH 32.2 MCHC 33.8 RDW 18.9 H Plt Count 130 L Stool Occult Blood NEGATIVE 04/23/16 04/23/16 04/24/16 21:01 21:01 03:31 Creatine Kinase 26 L 23 L CK-MB (CK-2) 1.80 Troponin I < 0.012 04/24/16 04/24/16 04/24/16 03:31 09:43 09:43 Creatine Kinase 22 L CK-MB (CK-2) 1.38 1.37 Troponin I < 0.012 < 0.012 Impressions: Chest CT 04/24/16 00:00 IMPRESSION: Large bilateral pleural effusions are identified with some associated airspace consolidation in the lung bases most consistent with atelectatic changes. Other findings as noted above Shoulder X-Ray 04/24/16 00:00 IMPRESSION: No acute fracture or malalignment at the right or left shoulder Old right humeral neck fracture, healed Bilateral pleural effusions Chest X-Ray 05/03/16 00:00 IMPRESSION: No pneumothorax post thoracentesis Thoracentesis Ultrasound 05/03/16 08:38 IMPRESSION: SUCCESSFUL LEFT THORACENTESIS USING ULTRASOUND GUIDANCE. 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 Is this a current diagnosis for this admission?: Yes (3) Chronic atrial fibrillation Is this a current diagnosis for this admission?: Yes (4) Wheezing on auscultation Is this a current diagnosis for this admission?: Yes (5) Bilateral pleural effusion Is this a current diagnosis for this admission?: Yes (6) Hypothermia Qualifiers: Encounter type: initial encounter Qualified Code(s): T68.XXXA - Hypothermia, initial encounter Is this a current diagnosis for this admission?: Yes (7) Parapneumonic effusion Is this a current diagnosis for this admission?: Yes (8) Enterocolitis due to Clostridium difficile Is this a current diagnosis for this admission?: Yes (9) Pneumonia Qualifiers: Pneumonia type: due to unspecified organism Laterality: unspecified laterality Lung location: unspecified part of lung Qualified Code(s) : J18.9 - Pneumonia, unspecified organism Is this a current diagnosis for this admission?: Yes (10) Overactive bladder Is this a current diagnosis for this admission?: YesPlan: Patient will be treated with myrbetriq or detrol
[2016-05-07] MEDS ORDERED: TOLTERODINE TARTRATE 1 MG TABLET PO ONE (19:00)
[2016-05-07] MEDS: WARFARIN SODIUM 1 MG TABLET PO SCH (21:29)
[2016-05-08] MEDS: OXYCODONE HCL IR 5 MG TABLET PO PRN ×2 (04:17→10:08)
[2016-05-08] MEDS: ACETAMINOPHEN 325 MG TABLET PO SCH ×3 (06:22→17:28)
[2016-05-08] MEDS: METRONIDAZOLE 500 MG TABLET PO SCH ×3 (06:22→23:06)
[2016-05-08] MEDS: LEVOFLOXACIN 750 MG/D5W RTU 750 MG/150 ML RTUPB IV SCH (08:07)
[2016-05-08] MEDS: CEFEPIME 1 GM/D5W RTU 1 GM/50 ML RTUPB IV SCH ×2 (09:16→23:06)
[2016-05-08] MEDS: TAMSULOSIN HCL 0.4 MG CAP.SR.24H PO SCH ×2 (09:16→17:29)
[2016-05-08] MEDS: FINASTERIDE 5 MG TABLET PO SCH (09:17)
[2016-05-08] MEDS: LACTOBACILLUS ACIDOPHILUS 250 MG TAB PO SCH ×2 (09:17→17:29)
[2016-05-08] MEDS: TOLTERODINE TARTRATE 1 MG TABLET PO SCH ×2 (09:17→23:07)
[2016-05-08] MEDS: VERAPAMIL HCL 180 MG TABLET.SA PO SCH (09:18)
[2016-05-08] MEDS: INSULIN LISPRO 100 UNIT/ML 3 ML VIAL SUBCUT PRN (16:31)
--- NOTE | 2016-05-08 20:22 | PDOC PROGRESS REPORT ---
Subjective Progress Note for:: 05/08/16 Subjective:: He has less urinary symptoms today Physical Exam Vital Signs: Temp Pulse Resp BP Pulse Ox 98.1 F 96 20 99/53 L 98 05/08/16 16:24 05/08/16 19:00 05/08/16 16:24 05/08/16 16:24 05/08/16 16:24 Intake & Output 05/07/16 05/08/16 05/09/16 06:59 06:59 06:59 Intake Total 1391 540 918 Output Total 1025 1200 500 Balance 366 -660 418 Weight 74.9 kg 74 kg General appearance: PRESENT: no acute distress Eye exam: PRESENT: PERRLA Respiratory exam: PRESENT: rhonchi Cardiovascular exam: PRESENT: +S1, +S2 Results Laboratory Results: 05/07/16 07:45 05/06/16 05:32 05/04/16 17:30 Stool - Stool - Final 05/04/16 17:30 Stool - Stool Stool Culture - Final Vancomycin Resis. Enterococci 04/23/16 04/23/16 04/24/16 21:01 21:01 03:31 Creatine Kinase 26 L 23 L CK-MB (CK-2) 1.80 Troponin I < 0.012 04/24/16 04/24/16 04/24/16 03:31 09:43 09:43 Creatine Kinase 22 L CK-MB (CK-2) 1.38 1.37 Troponin I < 0.012 < 0.012 Impressions: Chest CT 04/24/16 00:00 IMPRESSION: Large bilateral pleural effusions are identified with some associated airspace consolidation in the lung bases most consistent with atelectatic changes. Other findings as noted above Shoulder X-Ray 04/24/16 00:00 IMPRESSION: No acute fracture or malalignment at the right or left shoulder Old right humeral neck fracture, healed Bilateral pleural effusions Chest X-Ray 05/03/16 00:00 IMPRESSION: No pneumothorax post thoracentesis Thoracentesis Ultrasound 05/03/16 08:38 IMPRESSION: SUCCESSFUL LEFT THORACENTESIS USING ULTRASOUND GUIDANCE. 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 Is this a current diagnosis for this admission?: Yes (3) Chronic atrial fibrillation Is this a current diagnosis for this admission?: Yes (4) Wheezing on auscultation Is this a current diagnosis for this admission?: Yes (5) Bilateral pleural effusion Is this a current diagnosis for this admission?: Yes (6) Hypothermia Qualifiers: Encounter type: initial encounter Qualified Code(s): T68.XXXA - Hypothermia, initial encounter Is this a current diagnosis for this admission?: Yes (7) Parapneumonic effusion Is this a current diagnosis for this admission?: Yes (8) Enterocolitis due to Clostridium difficile Is this a current diagnosis for this admission?: Yes (9) Pneumonia Qualifiers: Pneumonia type: due to unspecified organism Laterality: unspecified laterality Lung location: unspecified part of lung Qualified Code(s) : J18.9 - Pneumonia, unspecified organism Is this a current diagnosis for this admission?: Yes (10) Overactive bladder Is this a current diagnosis for this admission?: Yes
[2016-05-08] MEDS: WARFARIN SODIUM 1 MG TABLET PO SCH (23:07)
[2016-05-09] MEDS: ACETAMINOPHEN 325 MG TABLET PO SCH ×4 (00:48→17:28)
[2016-05-09] MEDS: OXYCODONE HCL IR 5 MG TABLET PO PRN (00:49)
[2016-05-09] MEDS: METRONIDAZOLE 500 MG TABLET PO SCH ×3 (05:43→22:46)
[2016-05-09] MEDS: LEVOFLOXACIN 750 MG/D5W RTU 750 MG/150 ML RTUPB IV SCH (09:01)
[2016-05-09] MEDS: CEFEPIME 1 GM/D5W RTU 1 GM/50 ML RTUPB IV SCH (09:55)
[2016-05-09] MEDS: FINASTERIDE 5 MG TABLET PO SCH (09:56)
[2016-05-09] MEDS: LACTOBACILLUS ACIDOPHILUS 250 MG TAB PO SCH ×2 (09:56→17:29)
[2016-05-09] MEDS: TOLTERODINE TARTRATE 1 MG TABLET PO SCH ×2 (09:56→22:46)
[2016-05-09] MEDS: TAMSULOSIN HCL 0.4 MG CAP.SR.24H PO SCH ×2 (09:56→17:28)
[2016-05-09] MEDS: VERAPAMIL HCL 180 MG TABLET.SA PO SCH (11:58)
--- NOTE | 2016-05-09 17:22 | PDOC PROGRESS REPORT ---
Subjective Progress Note for:: 05/09/16 Subjective:: He cannot tolerate Levaquin, he developed pruritus, this was changed to azithromycin Physical Exam Vital Signs: Temp Pulse Resp BP Pulse Ox 97.8 F 96 19 120/64 99 05/09/16 15:10 05/09/16 15:10 05/09/16 15:10 05/09/16 15:10 05/09/16 15:10 Intake & Output 05/08/16 05/09/16 05/10/16 06:59 06:59 06:59 Intake Total 540 1588 355 Output Total 1200 1125 300 Balance -660 463 55 Weight 74 kg 74.2 kg General appearance: PRESENT: mild distress Eye exam: PRESENT: PERRLA Respiratory exam: PRESENT: rhonchi Cardiovascular exam: PRESENT: +S1, +S2 Results Laboratory Results: 05/07/16 07:45 05/06/16 05:32 05/04/16 17:30 Stool - Stool - Final 05/04/16 17:30 Stool - Stool Stool Culture - Final Vancomycin Resis. Enterococci 04/23/16 04/23/16 04/24/16 21:01 21:01 03:31 Creatine Kinase 26 L 23 L CK-MB (CK-2) 1.80 Troponin I < 0.012 04/24/16 04/24/16 04/24/16 03:31 09:43 09:43 Creatine Kinase 22 L CK-MB (CK-2) 1.38 1.37 Troponin I < 0.012 < 0.012 Impressions: Chest CT 04/24/16 00:00 IMPRESSION: Large bilateral pleural effusions are identified with some associated airspace consolidation in the lung bases most consistent with atelectatic changes. Other findings as noted above Shoulder X-Ray 04/24/16 00:00 IMPRESSION: No acute fracture or malalignment at the right or left shoulder Old right humeral neck fracture, healed Bilateral pleural effusions Chest X-Ray 05/03/16 00:00 IMPRESSION: No pneumothorax post thoracentesis Thoracentesis Ultrasound 05/03/16 08:38 IMPRESSION: SUCCESSFUL LEFT THORACENTESIS USING ULTRASOUND GUIDANCE. 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 Is this a current diagnosis for this admission?: Yes (3) Chronic atrial fibrillation Is this a current diagnosis for this admission?: Yes (4) Wheezing on auscultation Is this a current diagnosis for this admission?: Yes (5) Bilateral pleural effusion Is this a current diagnosis for this admission?: Yes (6) Hypothermia Qualifiers: Encounter type: initial encounter Qualified Code(s): T68.XXXA - Hypothermia, initial encounter Is this a current diagnosis for this admission?: Yes (7) Parapneumonic effusion Is this a current diagnosis for this admission?: Yes (8) Enterocolitis due to Clostridium difficile Is this a current diagnosis for this admission?: Yes (9) Pneumonia Qualifiers: Pneumonia type: due to unspecified organism Laterality: unspecified laterality Lung location: unspecified part of lung Qualified Code(s) : J18.9 - Pneumonia, unspecified organism Is this a current diagnosis for this admission?: Yes (10) Overactive bladder Is this a current diagnosis for this admission?: Yes
[2016-05-09] MEDS: INSULIN LISPRO 100 UNIT/ML 3 ML VIAL SUBCUT PRN (17:28)
[2016-05-09 18:28] LABS: APPEARANCE,URINE CLOUDY; BILIRUBIN,URINE NEGATIVE (NEGATIVE); GLUCOSE, URINE NEGATIVE (NEGATIVE); KETONES,URINE NEGATIVE (NEGATIVE); LEUKOCYTE ESTERASE,URINE LARGE (NEGATIVE); NITRITE,URINE NEGATIVE (NEGATIVE); PROTEIN,URINE NEGATIVE (NEGATIVE); UROBILINOGEN,URINE NEGATIVE mg/dL (<2.0)
[2016-05-09] MEDS: AZITHROMYCIN 500 MG in DEXTROSE 5%-WATER 250 ML IV SCH (19:27)
[2016-05-09] MEDS: WARFARIN SODIUM 1 MG TABLET PO SCH (22:46)
[2016-05-10] MEDS: OXYCODONE HCL IR 5 MG TABLET PO PRN ×4 (00:44→21:40)
[2016-05-10] MEDS: METRONIDAZOLE 500 MG TABLET PO SCH ×3 (05:22→21:39)
[2016-05-10] MEDS: ACETAMINOPHEN 325 MG TABLET PO SCH ×4 (05:22→17:35)
[2016-05-10] MEDS: VERAPAMIL HCL 180 MG TABLET.SA PO SCH (10:56)
[2016-05-10] MEDS: FINASTERIDE 5 MG TABLET PO SCH (10:56)
[2016-05-10] MEDS: TAMSULOSIN HCL 0.4 MG CAP.SR.24H PO SCH ×2 (10:56→17:36)
[2016-05-10] MEDS: LACTOBACILLUS ACIDOPHILUS 250 MG TAB PO SCH ×2 (10:57→17:35)
[2016-05-10] MEDS: TOLTERODINE TARTRATE 1 MG TABLET PO SCH ×2 (10:57→21:39)
[2016-05-10] MEDS: INSULIN LISPRO 100 UNIT/ML 3 ML VIAL SUBCUT PRN ×2 (13:41→17:36)
[2016-05-10] MEDS: AZITHROMYCIN 500 MG in DEXTROSE 5%-WATER 250 ML IV SCH (19:02)
--- NOTE | 2016-05-10 20:58 | PDOC PROGRESS REPORT ---
Subjective Progress Note for:: 05/10/16 Subjective:: He cannot tolerate Levaquin, he developed pruritus, this was changed to azithromycin Physical Exam Vital Signs: Temp Pulse Resp BP Pulse Ox 98.4 F 78 19 91/75 L 98 05/10/16 15:33 05/10/16 15:33 05/10/16 15:33 05/10/16 15:33 05/10/16 15:33 Intake & Output 05/09/16 05/10/16 05/11/16 06:59 06:59 06:59 Intake Total 1588 1418 937 Output Total 1125 700 102 Balance 463 718 835 Weight 74.2 kg 74.2 kg General appearance: PRESENT: no acute distress Eye exam: PRESENT: PERRLA Respiratory exam: PRESENT: clear to auscultation gregg Cardiovascular exam: PRESENT: +S1, +S2 Results Laboratory Results: 05/07/16 07:45 05/06/16 05:32 04/23/16 04/23/16 04/24/16 21:01 21:01 03:31 Creatine Kinase 26 L 23 L CK-MB (CK-2) 1.80 Troponin I < 0.012 04/24/16 04/24/16 04/24/16 03:31 09:43 09:43 Creatine Kinase 22 L CK-MB (CK-2) 1.38 1.37 Troponin I < 0.012 < 0.012 Impressions: Chest CT 04/24/16 00:00 IMPRESSION: Large bilateral pleural effusions are identified with some associated airspace consolidation in the lung bases most consistent with atelectatic changes. Other findings as noted above Shoulder X-Ray 04/24/16 00:00 IMPRESSION: No acute fracture or malalignment at the right or left shoulder Old right humeral neck fracture, healed Bilateral pleural effusions Chest X-Ray 05/03/16 00:00 IMPRESSION: No pneumothorax post thoracentesis Thoracentesis Ultrasound 05/03/16 08:38 IMPRESSION: SUCCESSFUL LEFT THORACENTESIS USING ULTRASOUND GUIDANCE. Assessment & Plan - Diagnosis (1) Hyponatremia with extracellular fluid depletion Is this a current diagnosis for this admission?: Yes (2) [facility] (current) use of anticoagulants Is this a current diagnosis for this admission?: Yes (3) Chronic atrial fibrillation Is this a current diagnosis for this admission?: Yes (4) Wheezing on auscultation Is this a current diagnosis for this admission?: Yes (5) Bilateral pleural effusion Is this a current diagnosis for this admission?: Yes (6) Hypothermia Qualifiers: Encounter type: initial encounter Qualified Code(s): T68.XXXA - Hypothermia, initial encounter Is this a current diagnosis for this admission?: Yes (7) Parapneumonic effusion Is this a current diagnosis for this admission?: Yes (8) Enterocolitis due to Clostridium difficile Is this a current diagnosis for this admission?: Yes (9) Pneumonia Qualifiers: Pneumonia type: due to unspecified organism Laterality: unspecified laterality Lung location: unspecified part of lung Qualified Code(s) : J18.9 - Pneumonia, unspecified organism Is this a current diagnosis for this admission?: Yes (10) Overactive bladder Is this a current diagnosis for this admission?: Yes
[2016-05-10] MEDS: WARFARIN SODIUM 1 MG TABLET PO SCH (21:40)
[2016-05-10] MEDS ORDERED: AZITHROMYCIN 250 MG TABLET PO ONE (22:00)
[2016-05-11] MEDS: ACETAMINOPHEN 325 MG TABLET PO SCH ×5 (01:46→23:32)
[2016-05-11] MEDS: OXYCODONE HCL IR 5 MG TABLET PO PRN ×3 (04:42→23:32)
[2016-05-11] MEDS: METRONIDAZOLE 500 MG TABLET PO SCH ×2 (06:17→15:43)
[2016-05-11] MEDS: LACTOBACILLUS ACIDOPHILUS 250 MG TAB PO SCH ×2 (08:31→17:51)
[2016-05-11] MEDS: TOLTERODINE TARTRATE 1 MG TABLET PO SCH ×2 (08:32→22:46)
[2016-05-11] MEDS: FINASTERIDE 5 MG TABLET PO SCH (08:32)
[2016-05-11] MEDS: AZITHROMYCIN 250 MG TABLET PO SCH (08:32)
[2016-05-11] MEDS: TAMSULOSIN HCL 0.4 MG CAP.SR.24H PO SCH ×2 (08:32→17:52)
[2016-05-11] MEDS: DRONABINOL 2.5 MG CAPSULE PO SCH (08:32)
[2016-05-11] MEDS: VERAPAMIL HCL 180 MG TABLET.SA PO SCH (08:33)
[2016-05-11 15:13] LABS: APPEARANCE,URINE CLOUDY; BILIRUBIN,URINE NEGATIVE (NEGATIVE); GLUCOSE, URINE NEGATIVE (NEGATIVE); KETONES,URINE TRACE mg/dL (NEGATIVE); LEUKOCYTE ESTERASE,URINE LARGE (NEGATIVE); NITRITE,URINE NEGATIVE (NEGATIVE); PROTEIN,URINE 30 mg/dL (NEGATIVE); URINE SPECIFIC GRAVITY 1.014; UROBILINOGEN,URINE NEGATIVE mg/dL (<2.0)
--- NOTE | 2016-05-11 17:02 | PDOC PROGRESS REPORT ---
Subjective Subjective:: Patient condition about the same Physical Exam Vital Signs: Temp Pulse Resp BP Pulse Ox 97.4 F 78 17 111/62 100 05/11/16 15:50 05/11/16 15:50 05/11/16 15:50 05/11/16 15:50 05/11/16 15:50 Intake & Output 05/10/16 05/11/16 05/12/16 06:59 06:59 06:59 Intake Total 1418 1037 714 Output Total 700 152 500 Balance 718 885 214 Weight 74.2 kg 72 kg General appearance: PRESENT: mild distress Eye exam: PRESENT: PERRLA Respiratory exam: PRESENT: rales Cardiovascular exam: PRESENT: +S1, +S2 Results Laboratory Results: 05/07/16 07:45 05/06/16 05:32 05/11/16 14:45 Urine Color YELLOW Urine Appearance CLOUDY Urine pH 6.0 Ur Specific [place] 1.014 Urine Protein 30 H Urine Glucose (UA) NEGATIVE Urine Ketones TRACE H Urine Blood NEGATIVE Urine Nitrite NEGATIVE Ur Leukocyte Esterase LARGE H Urine WBC (Auto) >182 Urine RBC (Auto) 2 04/23/16 04/23/16 04/24/16 21:01 21:01 03:31 Creatine Kinase 26 L 23 L CK-MB (CK-2) 1.80 Troponin I < 0.012 04/24/16 04/24/16 04/24/16 03:31 09:43 09:43 Creatine Kinase 22 L CK-MB (CK-2) 1.38 1.37 Troponin I < 0.012 < 0.012 Impressions: Chest CT 04/24/16 00:00 IMPRESSION: Large bilateral pleural effusions are identified with some associated airspace consolidation in the lung bases most consistent with atelectatic changes. Other findings as noted above Shoulder X-Ray 04/24/16 00:00 IMPRESSION: No acute fracture or malalignment at the right or left shoulder Old right humeral neck fracture, healed Bilateral pleural effusions Chest X-Ray 05/03/16 00:00 IMPRESSION: No pneumothorax post thoracentesis Thoracentesis Ultrasound 05/03/16 08:38 IMPRESSION: SUCCESSFUL LEFT THORACENTESIS USING ULTRASOUND GUIDANCE. Assessment & Plan - Diagnosis (1) Hyponatremia with extracellular fluid depletion Is this a current diagnosis for this admission?: Yes (2) FPC (current) use of anticoagulants Is this a current diagnosis for this admission?: Yes (3) Chronic atrial fibrillation Is this a current diagnosis for this admission?: Yes (4) Wheezing on auscultation Is this a current diagnosis for this admission?: Yes (5) Bilateral pleural effusion Is this a current diagnosis for this admission?: Yes (6) Hypothermia Qualifiers: Encounter type: initial encounter Qualified Code(s): T68.XXXA - Hypothermia, initial encounter Is this a current diagnosis for this admission?: Yes (7) Parapneumonic effusion Is this a current diagnosis for this admission?: Yes (8) Enterocolitis due to Clostridium difficile Is this a current diagnosis for this admission?: Yes (9) Pneumonia Qualifiers: Pneumonia type: due to unspecified organism Laterality: unspecified laterality Lung location: unspecified part of lung Qualified Code(s) : J18.9 - Pneumonia, unspecified organism Is this a current diagnosis for this admission?: Yes (10) Overactive bladder Is this a current diagnosis for this admission?: Yes
[2016-05-11] MEDS: INSULIN LISPRO 100 UNIT/ML 3 ML VIAL SUBCUT PRN (17:52)
[2016-05-11 18:13] LABS: PROTHROMBIN TIME 20.1 SEC (11.4-15.4)
[2016-05-11] MEDS: WARFARIN SODIUM 1 MG TABLET PO SCH (22:47)
[2016-05-12] MEDS: ACETAMINOPHEN 325 MG TABLET PO SCH ×4 (05:43→23:00)
[2016-05-12] MEDS: OXYCODONE HCL IR 5 MG TABLET PO PRN ×3 (05:43→19:14)
[2016-05-12] MEDS: LACTOBACILLUS ACIDOPHILUS 250 MG TAB PO SCH ×2 (09:11→17:14)
[2016-05-12] MEDS: AZITHROMYCIN 250 MG TABLET PO SCH (09:11)
[2016-05-12] MEDS: DRONABINOL 2.5 MG CAPSULE PO SCH (09:11)
[2016-05-12] MEDS: TAMSULOSIN HCL 0.4 MG CAP.SR.24H PO SCH ×2 (09:11→17:12)
[2016-05-12] MEDS: FINASTERIDE 5 MG TABLET PO SCH (09:11)
[2016-05-12] MEDS: VERAPAMIL HCL 180 MG TABLET.SA PO SCH (09:11)
[2016-05-12] MEDS: TOLTERODINE TARTRATE 1 MG TABLET PO SCH ×2 (09:12→22:00)
[2016-05-12] MEDS: INSULIN LISPRO 100 UNIT/ML 3 ML VIAL SUBCUT PRN ×2 (17:14→22:00)
[2016-05-12] MEDS: WARFARIN SODIUM 1 MG TABLET PO SCH (22:00)
[2016-05-13] MEDS: OXYCODONE HCL IR 5 MG TABLET PO PRN ×3 (01:09→22:41)
[2016-05-13] MEDS: ACETAMINOPHEN 325 MG TABLET PO SCH ×3 (05:24→17:19)
[2016-05-13 06:07] LABS: BLOOD UREA NITROGEN 25 mg/dL (7-20); CALCIUM 9.1 mg/dL (8.4-10.2); CHLORIDE 95 mmol/L (98-107); CREATININE RESULT 0.77 mg/dL (0.52-1.25); GLUCOSE 88 mg/dL (75-110); POTASSIUM 5.2 mmol/L (3.6-5.0); SODIUM 139.2 mmol/L (137-145)
[2016-05-13 06:20] LABS: ANION GAP 5 (5-19); CARBON DIOXIDE 39 mmol/L (22-30)
[2016-05-13] MEDS: AZITHROMYCIN 250 MG TABLET PO SCH (10:17)
[2016-05-13] MEDS: TAMSULOSIN HCL 0.4 MG CAP.SR.24H PO SCH ×2 (10:18→17:20)
[2016-05-13] MEDS: DRONABINOL 2.5 MG CAPSULE PO SCH (10:18)
[2016-05-13] MEDS: VERAPAMIL HCL 180 MG TABLET.SA PO SCH (10:18)
[2016-05-13] MEDS: TOLTERODINE TARTRATE 1 MG TABLET PO SCH ×2 (10:18→22:42)
[2016-05-13] MEDS: LACTOBACILLUS ACIDOPHILUS 250 MG TAB PO SCH ×2 (10:18→17:19)
[2016-05-13] MEDS: FINASTERIDE 5 MG TABLET PO SCH (10:18)
--- NOTE | 2016-05-13 10:38 | PDOC PROGRESS REPORT ---
Subjective Progress Note for:: 05/12/16 Subjective:: Patient is is doing well denied any chest pain no shortness of the breath patient's have a no evens heparins overnights Physical Exam Vital Signs: Temp Pulse Resp BP Pulse Ox 97.8 F 67 18 110/59 L 98 05/13/16 07:51 05/13/16 07:51 05/13/16 07:51 05/13/16 07:51 05/13/16 07:51 Intake & Output 05/12/16 05/13/16 05/14/16 06:59 06:59 06:59 Intake Total 1120 770 Output Total 1175 200 Balance -55 570 Weight 72.9 kg 73.3 kg General appearance: PRESENT: no acute distress Head exam: PRESENT: normocephalic Eye exam: PRESENT: PERRLA Mouth exam: PRESENT: neck supple Respiratory exam: PRESENT: decreased breath sounds Cardiovascular exam: PRESENT: +S1, +S2 GI/Abdominal exam: PRESENT: normal bowel sounds, soft. ABSENT: tenderness Extremities exam: PRESENT: pedal edema Neurological exam: PRESENT: alert, awake, oriented to person, oriented to place Psychiatric exam: PRESENT: anxious Skin exam: PRESENT: dry Results Laboratory Results: 05/07/16 07:45 05/13/16 04:50 05/13/16 04:50 Sodium 139.2 Potassium 5.2 H Chloride 95 L Carbon Dioxide 39 H Anion Gap 5 BUN 25 H Creatinine 0.77 Est GFR ( Amer) > 60 Est GFR (Non-Af Amer) > 60 Glucose 88 Calcium 9.1 04/23/16 04/23/16 04/24/16 21:01 21:01 03:31 Creatine Kinase 26 L 23 L CK-MB (CK-2) 1.80 Troponin I < 0.012 04/24/16 04/24/16 04/24/16 03:31 09:43 09:43 Creatine Kinase 22 L CK-MB (CK-2) 1.38 1.37 Troponin I < 0.012 < 0.012 Impressions: Chest CT 04/24/16 00:00 IMPRESSION: Large bilateral pleural effusions are identified with some associated airspace consolidation in the lung bases most consistent with atelectatic changes. Other findings as noted above Shoulder X-Ray 04/24/16 00:00 IMPRESSION: No acute fracture or malalignment at the right or left shoulder Old right humeral neck fracture, healed Bilateral pleural effusions Chest X-Ray 05/03/16 00:00 IMPRESSION: No pneumothorax post thoracentesis Thoracentesis Ultrasound 05/03/16 08:38 IMPRESSION: SUCCESSFUL LEFT THORACENTESIS USING ULTRASOUND GUIDANCE. Assessment & Plan - Diagnosis (1) Chronic atrial fibrillation Is this a current diagnosis for this admission?: YesPlan: Intimates current medications stable (2) Hyponatremia Is this a current diagnosis for this admission?: YesPlan: Recheck the sodium level again in the morning (3) Pneumonia Qualifiers: Pneumonia type: due to unspecified organism Laterality: unspecified laterality Lung location: unspecified part of lung Qualified Code(s) : J18.9 - Pneumonia, unspecified organism Is this a current diagnosis for this admission?: YesPlan: Continues the current medications we'll repeat the chest x-ray in the morning (4) Weakness Is this a current diagnosis for this admission?: YesPlan: Physical therapy (5) Elevated INR (international normalized ratio) due to prior anticoagulant medication ingestion Is this a current diagnosis for this admission?: YesPlan: Stable - Time Time Spent with patient: 15-24 minutes Medications reviewed and adjusted accordingly: Yes Anticipated discharge: Other - Plan Summary Plan Summary: Continues current medical symptoms repeat the labs Chem-7 in the morning and PT/ INR in the morning
--- NOTE | 2016-05-13 11:40 | PDOC PROGRESS REPORT ---
Subjective Progress Note for:: 05/13/16 Subjective:: Patient is doing well denied any chest pain no shortness of the breath patient' s appetite is still poor patient's sodium level is stable and no no events happens overnight Physical Exam Vital Signs: Temp Pulse Resp BP Pulse Ox 97.8 F 67 18 110/59 L 98 05/13/16 07:51 05/13/16 07:51 05/13/16 07:51 05/13/16 07:51 05/13/16 07:51 Intake & Output 05/12/16 05/13/16 05/14/16 06:59 06:59 06:59 Intake Total 1120 770 Output Total 1175 200 Balance -55 570 Weight 72.9 kg 73.3 kg General appearance: PRESENT: no acute distress Eye exam: PRESENT: PERRLA Mouth exam: PRESENT: neck supple Respiratory exam: PRESENT: clear to auscultation gregg Cardiovascular exam: PRESENT: +S1, +S2 GI/Abdominal exam: PRESENT: normal bowel sounds, soft Extremities exam: PRESENT: pedal edema Neurological exam: PRESENT: alert, awake, oriented to person, oriented to place Psychiatric exam: PRESENT: normal mood Skin exam: PRESENT: normal color Results Laboratory Results: 05/07/16 07:45 05/13/16 04:50 05/13/16 04:50 Sodium 139.2 Potassium 5.2 H Chloride 95 L Carbon Dioxide 39 H Anion Gap 5 BUN 25 H Creatinine 0.77 Est GFR ( Amer) > 60 Est GFR (Non-Af Amer) > 60 Glucose 88 Calcium 9.1 04/23/16 04/23/16 04/24/16 21:01 21:01 03:31 Creatine Kinase 26 L 23 L CK-MB (CK-2) 1.80 Troponin I < 0.012 04/24/16 04/24/16 04/24/16 03:31 09:43 09:43 Creatine Kinase 22 L CK-MB (CK-2) 1.38 1.37 Troponin I < 0.012 < 0.012 Impressions: Chest CT 04/24/16 00:00 IMPRESSION: Large bilateral pleural effusions are identified with some associated airspace consolidation in the lung bases most consistent with atelectatic changes. Other findings as noted above Shoulder X-Ray 04/24/16 00:00 IMPRESSION: No acute fracture or malalignment at the right or left shoulder Old right humeral neck fracture, healed Bilateral pleural effusions Chest X-Ray 05/03/16 00:00 IMPRESSION: No pneumothorax post thoracentesis Thoracentesis Ultrasound 05/03/16 08:38 IMPRESSION: SUCCESSFUL LEFT THORACENTESIS USING ULTRASOUND GUIDANCE. Assessment & Plan - Diagnosis (1) Chronic atrial fibrillation Is this a current diagnosis for this admission?: YesPlan: Intimates current medications stable (2) Hyponatremia Is this a current diagnosis for this admission?: YesPlan: ALT resolved (3) Pneumonia Qualifiers: Pneumonia type: due to unspecified organism Laterality: unspecified laterality Lung location: unspecified part of lung Qualified Code(s) : J18.9 - Pneumonia, unspecified organism Is this a current diagnosis for this admission?: YesPlan: Continues the current medications we'll repeat the chest x-ray in the morning (4) Weakness Is this a current diagnosis for this admission?: YesPlan: Physical therapy (5) Elevated INR (international normalized ratio) due to prior anticoagulant medication ingestion Is this a current diagnosis for this admission?: Yes - Time Time Spent with patient: 15-24 minutes Medications reviewed and adjusted accordingly: Yes Anticipated discharge: SNF - Inpatient Certification Medical Necessity: Significant Comorbidiites Make Outpatient Treatment Too Risky - Plan Summary Plan Summary: Repeat the Chem-7 in the morning and repeat the PT/INR and continues to monitor the patient and continues the current medication
[2016-05-13] MEDS: INSULIN LISPRO 100 UNIT/ML 3 ML VIAL SUBCUT PRN (17:20)
[2016-05-13] MEDS: WARFARIN SODIUM 2 MG TABLET PO SCH (22:43)
[2016-05-14] MEDS: ACETAMINOPHEN 325 MG TABLET PO SCH ×4 (02:04→17:47)
[2016-05-14 05:19] LABS: HEMATOCRIT 29.1 % (37.9-51.0); HEMOGLOBIN 9.7 g/dL (13.5-17.0); MEAN CORPUSCULAR HEMOGLOBIN 32.1 pg (27.0-33.4); MEAN CORPUSCULAR HGB CONC 33.2 g/dL (32.0-36.0); MEAN CORPUSCULAR VOLUME 97 fl (80-97); RED BLOOD COUNT 3.01 10^6/uL (4.35-5.55); RED CELL DISTRIBUTION WIDTH 20.8 % (11.5-14.0); WHITE BLOOD COUNT 5.2 10^3/uL (4.0-10.5)
[2016-05-14 05:45] LABS: ANION GAP 6 (5-19); BLOOD UREA NITROGEN 24 mg/dL (7-20); CALCIUM 8.9 mg/dL (8.4-10.2); CARBON DIOXIDE 36 mmol/L (22-30); CHLORIDE 95 mmol/L (98-107); CREATININE RESULT 0.68 mg/dL (0.52-1.25); GLUCOSE 119 mg/dL (75-110); POTASSIUM 4.8 mmol/L (3.6-5.0); SODIUM 137.2 mmol/L (137-145)
--- NOTE | 2016-05-14 10:23 | PDOC PROGRESS REPORT ---
Subjective Progress Note for:: 05/14/16 Subjective:: Patient is doing fair yesterday the nursing staff have a concern about any TIA or stroke the CT of the head was done which is negative and the patient's denied any other symptoms no persistent problem in the right lower extremity which is nothing new and other than diets patient's speech is okay and no other weakness. Since denied any chest pain no shortness of the breath patient's INR was 1.5 and adjust the Coumadin level Physical Exam Vital Signs: Temp Pulse Resp BP Pulse Ox 97.6 F 65 20 121/53 L 98 05/14/16 05:04 05/14/16 07:00 05/14/16 05:04 05/14/16 05:04 05/14/16 05:04 Intake & Output 05/13/16 05/14/16 05/15/16 06:59 06:59 06:59 Intake Total 770 766 Output Total 200 500 Balance 570 266 Weight 73.3 kg 74.5 kg General appearance: PRESENT: no acute distress Head exam: PRESENT: normocephalic Eye exam: PRESENT: PERRLA Mouth exam: PRESENT: neck supple Respiratory exam: PRESENT: clear to auscultation gregg Cardiovascular exam: PRESENT: +S1, +S2 GI/Abdominal exam: PRESENT: normal bowel sounds, soft. ABSENT: tenderness Extremities exam: ABSENT: pedal edema Neurological exam: PRESENT: alert, awake, oriented to person, CN II-XII grossly intact, other Additional comments: Patient's move all 4 extremities except the right lower extremity which is patient have this before and no other new focal weakness is seen Psychiatric exam: PRESENT: normal mood Skin exam: PRESENT: normal color Results Laboratory Results: 05/14/16 04:45 05/14/16 04:45 05/14/16 05/14/16 04:45 04:45 WBC 5.2 RBC 3.01 L Hgb 9.7 L Hct 29.1 L MCV 97 MCH 32.1 MCHC 33.2 RDW 20.8 H Plt Count 134 L Sodium 137.2 Potassium 4.8 Chloride 95 L Carbon Dioxide 36 H Anion Gap 6 BUN 24 H Creatinine 0.68 Est GFR ( Amer) > 60 Est GFR (Non-Af Amer) > 60 Glucose 119 H Calcium 8.9 04/23/16 04/23/16 04/24/16 21:01 21:01 03:31 Creatine Kinase 26 L 23 L CK-MB (CK-2) 1.80 Troponin I < 0.012 04/24/16 04/24/16 04/24/16 03:31 09:43 09:43 Creatine Kinase 22 L CK-MB (CK-2) 1.38 1.37 Troponin I < 0.012 < 0.012 Impressions: Chest CT 04/24/16 00:00 IMPRESSION: Large bilateral pleural effusions are identified with some associated airspace consolidation in the lung bases most consistent with atelectatic changes. Other findings as noted above Shoulder X-Ray 04/24/16 00:00 IMPRESSION: No acute fracture or malalignment at the right or left shoulder Old right humeral neck fracture, healed Bilateral pleural effusions Chest X-Ray 05/03/16 00:00 IMPRESSION: No pneumothorax post thoracentesis Thoracentesis Ultrasound 05/03/16 08:38 IMPRESSION: SUCCESSFUL LEFT THORACENTESIS USING ULTRASOUND GUIDANCE. Head CT 05/13/16 00:00 IMPRESSION: NO ACUTE INTRACRANIAL PROCESS. NO SIGNIFICANT CHANGE FROM PRIOR STUDY. Assessment & Plan - Diagnosis (1) Chronic atrial fibrillation Is this a current diagnosis for this admission?: YesPlan: Increase the Coumadin for 2 mg (2) Hyponatremia Is this a current diagnosis for this admission?: YesPlan: All stable (3) Pneumonia Qualifiers: Pneumonia type: due to unspecified organism Laterality: unspecified laterality Lung location: unspecified part of lung Qualified Code(s) : J18.9 - Pneumonia, unspecified organism Is this a current diagnosis for this admission?: YesPlan: Continues the current medications we'll repeat the chest x-ray in the morning (4) Weakness Is this a current diagnosis for this admission?: YesPlan: Physical therapy (5) Elevated INR (international normalized ratio) due to prior anticoagulant medication ingestion Is this a current diagnosis for this admission?: Yes - Time Time Spent with patient: 15-24 minutes Medications reviewed and adjusted accordingly: Yes Anticipated discharge: SNF - Inpatient Certification Medical Necessity: Need Close Monitoring Due to Risk of Patient Decompensation 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
[2016-05-14] MEDS: AZITHROMYCIN 250 MG TABLET PO SCH (10:55)
[2016-05-14] MEDS: DRONABINOL 2.5 MG CAPSULE PO SCH (10:55)
[2016-05-14] MEDS: LACTOBACILLUS ACIDOPHILUS 250 MG TAB PO SCH ×2 (10:56→17:47)
[2016-05-14] MEDS: FINASTERIDE 5 MG TABLET PO SCH (10:56)
[2016-05-14] MEDS: TAMSULOSIN HCL 0.4 MG CAP.SR.24H PO SCH ×2 (10:56→17:47)
[2016-05-14] MEDS: VERAPAMIL HCL 180 MG TABLET.SA PO SCH (10:58)
[2016-05-14] MEDS: TOLTERODINE TARTRATE 1 MG TABLET PO SCH ×2 (10:59→22:05)
[2016-05-14 12:04] LABS: APPEARANCE,URINE CLOUDY; BILIRUBIN,URINE NEGATIVE (NEGATIVE); GLUCOSE, URINE NEGATIVE (NEGATIVE); KETONES,URINE NEGATIVE (NEGATIVE); LEUKOCYTE ESTERASE,URINE LARGE (NEGATIVE); NITRITE,URINE NEGATIVE (NEGATIVE); PROTEIN,URINE 30 mg/dL (NEGATIVE); URINE SPECIFIC GRAVITY 1.011; UROBILINOGEN,URINE NEGATIVE mg/dL (<2.0)
[2016-05-14] MEDS: OXYCODONE HCL IR 5 MG TABLET PO PRN (14:34)
[2016-05-14 18:07] LABS: PROTHROMBIN TIME 19.8 SEC (11.4-15.4)
[2016-05-14] MEDS: WARFARIN SODIUM 2 MG TABLET PO SCH (22:05)
[2016-05-14] MEDS: INSULIN LISPRO 100 UNIT/ML 3 ML VIAL SUBCUT PRN (22:10)
[2016-05-15] MEDS: ACETAMINOPHEN 325 MG TABLET PO SCH ×5 (01:39→23:27)
[2016-05-15] MEDS: OXYCODONE HCL IR 5 MG TABLET PO PRN ×3 (01:41→20:25)
[2016-05-15 05:58] LABS: ANION GAP 7 (5-19); BLOOD UREA NITROGEN 22 mg/dL (7-20); CALCIUM 8.8 mg/dL (8.4-10.2); CARBON DIOXIDE 36 mmol/L (22-30); CHLORIDE 94 mmol/L (98-107); GLUCOSE 92 mg/dL (75-110); POTASSIUM 4.5 mmol/L (3.6-5.0); SODIUM 136.5 mmol/L (137-145)
[2016-05-15] MEDS: TOLTERODINE TARTRATE 1 MG TABLET PO SCH ×2 (11:06→22:23)
[2016-05-15] MEDS: FINASTERIDE 5 MG TABLET PO SCH (11:07)
[2016-05-15] MEDS: TAMSULOSIN HCL 0.4 MG CAP.SR.24H PO SCH ×2 (11:07→20:25)
[2016-05-15] MEDS: AZITHROMYCIN 250 MG TABLET PO SCH (11:07)
[2016-05-15] MEDS: DRONABINOL 2.5 MG CAPSULE PO SCH (11:07)
[2016-05-15] MEDS: VERAPAMIL HCL 180 MG TABLET.SA PO SCH (11:07)
[2016-05-15] MEDS: LACTOBACILLUS ACIDOPHILUS 250 MG TAB PO SCH ×2 (11:08→20:24)
--- NOTE | 2016-05-15 18:11 | PDOC PROGRESS REPORT ---
Subjective Progress Note for:: 05/15/16 Subjective:: Patient was seen by the bedside, he said he wants to and he refused to go to a custodial. He has been refusing care all day today, I tried to reach family about patient's condition and is desire to but I was not able to reach the family, psychiatric consultation will be requested to help determine his patient's capacity to make such a decision, he is a DO NOT RESUSCITATE status Physical Exam Vital Signs: Temp Pulse Resp BP Pulse Ox 97.4 F 67 20 120/53 L 97 05/15/16 11:24 05/15/16 11:24 05/15/16 11:24 05/15/16 11:24 05/15/16 11:24 Intake & Output 05/14/16 05/15/16 05/16/16 06:59 06:59 06:59 Intake Total 766 350 360 Output Total 500 900 460 Balance 266 -550 -100 Weight 74.5 kg 75.2 kg General appearance: PRESENT: no acute distress Respiratory exam: PRESENT: clear to auscultation gregg Cardiovascular exam: PRESENT: +S1, +S2 GI/Abdominal exam: PRESENT: soft Results Laboratory Results: 05/14/16 04:45 05/15/16 05:17 05/15/16 05:17 Sodium 136.5 L Potassium 4.5 Chloride 94 L Carbon Dioxide 36 H Anion Gap 7 BUN 22 H Creatinine 0.70 Est GFR ( Amer) > 60 Est GFR (Non-Af Amer) > 60 Glucose 92 Calcium 8.8 04/23/16 04/23/16 04/24/16 21:01 21:01 03:31 Creatine Kinase 26 L 23 L CK-MB (CK-2) 1.80 Troponin I < 0.012 04/24/16 04/24/16 04/24/16 03:31 09:43 09:43 Creatine Kinase 22 L CK-MB (CK-2) 1.38 1.37 Troponin I < 0.012 < 0.012 Impressions: Chest CT 04/24/16 00:00 IMPRESSION: Large bilateral pleural effusions are identified with some associated airspace consolidation in the lung bases most consistent with atelectatic changes. Other findings as noted above Shoulder X-Ray 04/24/16 00:00 IMPRESSION: No acute fracture or malalignment at the right or left shoulder Old right humeral neck fracture, healed Bilateral pleural effusions Chest X-Ray 05/03/16 00:00 IMPRESSION: No pneumothorax post thoracentesis Thoracentesis Ultrasound 05/03/16 08:38 IMPRESSION: SUCCESSFUL LEFT THORACENTESIS USING ULTRASOUND GUIDANCE. Head CT 05/13/16 00:00 IMPRESSION: NO ACUTE INTRACRANIAL PROCESS. NO SIGNIFICANT CHANGE FROM PRIOR STUDY. 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 Is this a current diagnosis for this admission?: Yes (3) Chronic atrial fibrillation Is this a current diagnosis for this admission?: Yes (4) Wheezing on auscultation Is this a current diagnosis for this admission?: Yes (5) Bilateral pleural effusion Is this a current diagnosis for this admission?: Yes (6) Hypothermia Qualifiers: Encounter type: initial encounter Qualified Code(s): T68.XXXA - Hypothermia, initial encounter Is this a current diagnosis for this admission?: Yes (7) Parapneumonic effusion Is this a current diagnosis for this admission?: Yes (8) Enterocolitis due to Clostridium difficile Is this a current diagnosis for this admission?: Yes (9) Pneumonia Qualifiers: Pneumonia type: due to unspecified organism Laterality: unspecified laterality Lung location: unspecified part of lung Qualified Code(s) : J18.9 - Pneumonia, unspecified organism Is this a current diagnosis for this admission?: Yes (10) Overactive bladder Is this a current diagnosis for this admission?: Yes
[2016-05-15] MEDS: WARFARIN SODIUM 2 MG TABLET PO SCH (22:23)
[2016-05-15] MEDS: INSULIN LISPRO 100 UNIT/ML 3 ML VIAL SUBCUT PRN (22:23)
[2016-05-16] MEDS: ACETAMINOPHEN 325 MG TABLET PO SCH ×3 (05:36→17:41)
[2016-05-16] MEDS: LACTOBACILLUS ACIDOPHILUS 250 MG TAB PO SCH ×2 (11:12→17:41)
[2016-05-16] MEDS: AZITHROMYCIN 250 MG TABLET PO SCH (11:12)
[2016-05-16] MEDS: TAMSULOSIN HCL 0.4 MG CAP.SR.24H PO SCH ×2 (11:13→17:41)
[2016-05-16] MEDS: DRONABINOL 2.5 MG CAPSULE PO SCH (11:13)
[2016-05-16] MEDS: VERAPAMIL HCL 180 MG TABLET.SA PO SCH (11:14)
[2016-05-16] MEDS: FINASTERIDE 5 MG TABLET PO SCH (11:14)
[2016-05-16] MEDS: TOLTERODINE TARTRATE 1 MG TABLET PO SCH ×2 (11:14→22:29)
[2016-05-16] MEDS: INSULIN LISPRO 100 UNIT/ML 3 ML VIAL SUBCUT PRN ×3 (13:23→22:30)
[2016-05-16] MEDS: OXYCODONE HCL IR 5 MG TABLET PO PRN ×2 (14:02→20:07)
[2016-05-16 17:14] LABS: PROTHROMBIN TIME 21.3 SEC (11.4-15.4)
[2016-05-16] MEDS: WARFARIN SODIUM 2 MG TABLET PO SCH (22:29)
[2016-05-17] MEDS: ACETAMINOPHEN 325 MG TABLET PO SCH ×4 (02:12→17:40)
[2016-05-17] MEDS: OXYCODONE HCL IR 5 MG TABLET PO PRN ×3 (02:13→17:39)
[2016-05-17] MEDS: VERAPAMIL HCL 180 MG TABLET.SA PO SCH (09:01)
[2016-05-17] MEDS: TAMSULOSIN HCL 0.4 MG CAP.SR.24H PO SCH ×2 (09:01→17:40)
[2016-05-17] MEDS: AZITHROMYCIN 250 MG TABLET PO SCH (09:02)
[2016-05-17] MEDS: LACTOBACILLUS ACIDOPHILUS 250 MG TAB PO SCH ×2 (09:02→17:40)
[2016-05-17] MEDS: TOLTERODINE TARTRATE 1 MG TABLET PO SCH ×2 (09:03→22:31)
[2016-05-17] MEDS: FINASTERIDE 5 MG TABLET PO SCH (09:06)
[2016-05-17] MEDS: DRONABINOL 2.5 MG CAPSULE PO SCH (09:06)
[2016-05-17 11:49] LABS: APPEARANCE,URINE CLOUDY; BILIRUBIN,URINE NEGATIVE (NEGATIVE); GLUCOSE, URINE 50 mg/dL (NEGATIVE); KETONES,URINE NEGATIVE (NEGATIVE); LEUKOCYTE ESTERASE,URINE LARGE (NEGATIVE); NITRITE,URINE NEGATIVE (NEGATIVE); PROTEIN,URINE NEGATIVE (NEGATIVE); UROBILINOGEN,URINE NEGATIVE mg/dL (<2.0)
[2016-05-17] MEDS: INSULIN LISPRO 100 UNIT/ML 3 ML VIAL SUBCUT PRN ×2 (12:11→22:34)
[2016-05-17 17:54] LABS: PROTHROMBIN TIME 19.9 SEC (11.4-15.4)
--- NOTE | 2016-05-17 20:20 | PDOC PROGRESS REPORT ---
Subjective Progress Note for:: 05/17/16 Subjective:: Patient's condition is declining very rapidly, he is obviously short of breath, unable to finish his sentences. He has enlarged prostrate and he is on finasteride and Flomax despite this medication. He continues to have urinary symptoms with frequency, dysuria and it seems that is retaining urine ,a bladder scan will be ordered to measure urine volume. He also expresses the desire to ,psych consultation was requested, but is yet to be seen by psych. Physical Exam Vital Signs: Temp Pulse Resp BP Pulse Ox 97.3 F 77 20 142/56 H 100 05/17/16 15:55 05/17/16 15:55 05/17/16 15:55 05/17/16 15:55 05/17/16 17:52 Intake & Output 05/16/16 05/17/16 05/18/16 06:59 06:59 06:59 Intake Total 365 1803 358 Output Total 749 106 9678 Balance -295 913 -667 Weight 75 kg General appearance: PRESENT: mild distress Respiratory exam: PRESENT: crackles, rhonchi Cardiovascular exam: PRESENT: +S1, +S2 GI/Abdominal exam: PRESENT: soft Neurological exam: PRESENT: alert Results Laboratory Results: 05/14/16 04:45 05/15/16 05:17 05/16/16 11:25 Urine Color YELLOW Urine Appearance CLOUDY Urine pH 8.0 Ur Specific [place] 1.010 Urine Protein NEGATIVE Urine Glucose (UA) 50 H Urine Ketones NEGATIVE Urine Blood SMALL H Urine Nitrite NEGATIVE Ur Leukocyte Esterase LARGE H Urine WBC (Auto) >182 Urine RBC (Auto) 1 04/23/16 04/23/16 04/24/16 21:01 21:01 03:31 Creatine Kinase 26 L 23 L CK-MB (CK-2) 1.80 Troponin I < 0.012 04/24/16 04/24/16 04/24/16 03:31 09:43 09:43 Creatine Kinase 22 L CK-MB (CK-2) 1.38 1.37 Troponin I < 0.012 < 0.012 Impressions: Chest CT 04/24/16 00:00 IMPRESSION: Large bilateral pleural effusions are identified with some associated airspace consolidation in the lung bases most consistent with atelectatic changes. Other findings as noted above Shoulder X-Ray 04/24/16 00:00 IMPRESSION: No acute fracture or malalignment at the right or left shoulder Old right humeral neck fracture, healed Bilateral pleural effusions Chest X-Ray 05/03/16 00:00 IMPRESSION: No pneumothorax post thoracentesis Thoracentesis Ultrasound 05/03/16 08:38 IMPRESSION: SUCCESSFUL LEFT THORACENTESIS USING ULTRASOUND GUIDANCE. Head CT 05/13/16 00:00 IMPRESSION: NO ACUTE INTRACRANIAL PROCESS. NO SIGNIFICANT CHANGE FROM PRIOR STUDY. 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 Is this a current diagnosis for this admission?: Yes (3) Chronic atrial fibrillation Is this a current diagnosis for this admission?: Yes (4) Wheezing on auscultation Is this a current diagnosis for this admission?: Yes (5) Bilateral pleural effusion Is this a current diagnosis for this admission?: Yes (6) Hypothermia Qualifiers: Encounter type: initial encounter Qualified Code(s): T68.XXXA - Hypothermia, initial encounter Is this a current diagnosis for this admission?: Yes (7) Parapneumonic effusion Is this a current diagnosis for this admission?: Yes (8) Enterocolitis due to Clostridium difficile Is this a current diagnosis for this admission?: Yes (9) Pneumonia Qualifiers: Pneumonia type: due to unspecified organism Laterality: unspecified laterality Lung location: unspecified part of lung Qualified Code(s) : J18.9 - Pneumonia, unspecified organism Is this a current diagnosis for this admission?: Yes (10) Overactive bladder Is this a current diagnosis for this admission?: Yes (11) Shortness of breath Is this a current diagnosis for this admission?: YesPlan: CXR ORDERED
--- NOTE | 2016-05-17 20:26 | PDOC PROGRESS REPORT ---
Subjective Progress Note for:: 05/16/16 Subjective:: Patient was seen by the bedside, he continues to refuse treatment, he was seen by physical therapy and alf rehabilitation was recommended. Physical Exam Vital Signs: Temp Pulse Resp BP Pulse Ox 97.3 F 65 20 97/44 L 100 05/16/16 16:55 05/16/16 16:55 05/16/16 16:55 05/16/16 16:55 05/16/16 16:55 Intake & Output 05/15/16 05/16/16 05/17/16 06:59 06:59 06:59 Intake Total 350 365 360 Output Total 900 660 240 Balance -550 -295 120 Weight 75.2 kg Respiratory exam: PRESENT: rales Cardiovascular exam: PRESENT: +S1, systolic murmur GI/Abdominal exam: PRESENT: soft Results Laboratory Results: 05/14/16 04:45 05/15/16 05:17 04/23/16 04/23/16 04/24/16 21:01 21:01 03:31 Creatine Kinase 26 L 23 L CK-MB (CK-2) 1.80 Troponin I < 0.012 04/24/16 04/24/16 04/24/16 03:31 09:43 09:43 Creatine Kinase 22 L CK-MB (CK-2) 1.38 1.37 Troponin I < 0.012 < 0.012 Impressions: Chest CT 04/24/16 00:00 IMPRESSION: Large bilateral pleural effusions are identified with some associated airspace consolidation in the lung bases most consistent with atelectatic changes. Other findings as noted above Shoulder X-Ray 04/24/16 00:00 IMPRESSION: No acute fracture or malalignment at the right or left shoulder Old right humeral neck fracture, healed Bilateral pleural effusions Chest X-Ray 05/03/16 00:00 IMPRESSION: No pneumothorax post thoracentesis Thoracentesis Ultrasound 05/03/16 08:38 IMPRESSION: SUCCESSFUL LEFT THORACENTESIS USING ULTRASOUND GUIDANCE. Head CT 05/13/16 00:00 IMPRESSION: NO ACUTE INTRACRANIAL PROCESS. NO SIGNIFICANT CHANGE FROM PRIOR STUDY. 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 Is this a current diagnosis for this admission?: Yes (3) Chronic atrial fibrillation Is this a current diagnosis for this admission?: Yes (4) Wheezing on auscultation Is this a current diagnosis for this admission?: Yes (5) Bilateral pleural effusion Is this a current diagnosis for this admission?: Yes (6) Hypothermia Qualifiers: Encounter type: initial encounter Qualified Code(s): T68.XXXA - Hypothermia, initial encounter Is this a current diagnosis for this admission?: Yes (7) Parapneumonic effusion Is this a current diagnosis for this admission?: Yes (8) Enterocolitis due to Clostridium difficile Is this a current diagnosis for this admission?: Yes (9) Pneumonia Qualifiers: Pneumonia type: due to unspecified organism Laterality: unspecified laterality Lung location: unspecified part of lung Qualified Code(s) : J18.9 - Pneumonia, unspecified organism Is this a current diagnosis for this admission?: Yes (10) Overactive bladder Is this a current diagnosis for this admission?: Yes
[2016-05-17] MEDS: WARFARIN SODIUM 2 MG TABLET PO SCH (22:31)
[2016-05-17] MEDS: IPRATROPIUM/ALBUTEROL 0.5-2.5 MG/3 ML AMPUL NEB SCH (23:44)
[2016-05-17 23:48] LABS: APPEARANCE,URINE CLOUDY; BILIRUBIN,URINE NEGATIVE (NEGATIVE); GLUCOSE, URINE NEGATIVE (NEGATIVE); KETONES,URINE NEGATIVE (NEGATIVE); LEUKOCYTE ESTERASE,URINE LARGE (NEGATIVE); NITRITE,URINE NEGATIVE (NEGATIVE); PROTEIN,URINE 30 mg/dL (NEGATIVE); URINE SPECIFIC GRAVITY 1.006; UROBILINOGEN,URINE NEGATIVE mg/dL (<2.0)
[2016-05-18] MEDS: ACETAMINOPHEN 325 MG TABLET PO SCH ×4 (00:34→17:38)
[2016-05-18] MEDS: IPRATROPIUM/ALBUTEROL 0.5-2.5 MG/3 ML AMPUL NEB SCH ×4 (02:08→12:55)
[2016-05-18 09:27] LABS: ABSOLUTE LYMPHOCYTES (AUTO) 0.3 10^3/uL (0.5-4.7); ABSOLUTE MONOCYTES (AUTO) 0.5 10^3/uL (0.1-1.4); ABSOLUTE NEUT (AUTO) 4.3 10^3/uL (1.7-8.2); BASOPHILS % (AUTO) 0.6 % (0-2); EOSINOPHILS % (AUTO) 0.4 % (0-6); HEMATOCRIT 30.9 % (37.9-51.0); HEMOGLOBIN 10.2 g/dL (13.5-17.0); HGB HCT DIFFERENCE -0.3; LYMPHOCYTES % (AUTO) 6.3 % (13-45); MEAN CORPUSCULAR HEMOGLOBIN 32.5 pg (27.0-33.4); MEAN CORPUSCULAR HGB CONC 33.2 g/dL (32.0-36.0); MEAN CORPUSCULAR VOLUME 98 fl (80-97); MONOCYTES % (AUTO) 10.1 % (3-13); RED BLOOD COUNT 3.14 10^6/uL (4.35-5.55); RED CELL DISTRIBUTION WIDTH 21.1 % (11.5-14.0); SEGMENTED NEUTROPHILS % (AUTO) 82.6 % (42-78); WHITE BLOOD COUNT 5.2 10^3/uL (4.0-10.5)
[2016-05-18 10:14] LABS: ALANINE AMINOTRANSFERASE 38 U/L (21-72); ALBUMIN 2.5 g/dL (3.5-5.0); ALKALINE PHOSPHATASE 150 U/L (38-126); ANION GAP 10 (5-19); ASPARTATE AMINO TRANSFERASE 37 U/L (17-59); BILIRUBIN,TOTAL 0.8 mg/dL (0.2-1.3); BLOOD UREA NITROGEN 14 mg/dL (7-20); CALCIUM 9.1 mg/dL (8.4-10.2); CARBON DIOXIDE 34 mmol/L (22-30); CHLORIDE 98 mmol/L (98-107); GLUCOSE 177 mg/dL (75-110); POTASSIUM 4.3 mmol/L (3.6-5.0); SODIUM 141.7 mmol/L (137-145); TOTAL PROTEIN 6.5 g/dL (6.3-8.2)
[2016-05-18] MEDS: LACTOBACILLUS ACIDOPHILUS 250 MG TAB PO SCH ×2 (11:40→17:38)
[2016-05-18] MEDS: FINASTERIDE 5 MG TABLET PO SCH (11:40)
[2016-05-18] MEDS: TOLTERODINE TARTRATE 1 MG TABLET PO SCH ×2 (11:40→22:28)
[2016-05-18] MEDS: TAMSULOSIN HCL 0.4 MG CAP.SR.24H PO SCH ×2 (11:40→17:38)
[2016-05-18] MEDS: FUROSEMIDE 40 MG TABLET PO SCH ×2 (11:40→15:14)
[2016-05-18] MEDS: VERAPAMIL HCL 180 MG TABLET.SA PO SCH (11:40)
[2016-05-18] MEDS: LEVOFLOXACIN 750 MG TABLET PO SCH (11:40)
[2016-05-18] MEDS: MORPHINE SULFATE 10 MG/ML INJ IV PRN ×2 (15:02→22:28)
[2016-05-18 17:46] LABS: PROTHROMBIN TIME 25.2 SEC (11.4-15.4)
[2016-05-18] MEDS ORDERED: IPRATROPIUM/ALBUTEROL 0.5-2.5 MG/3 ML AMPUL NEB SCH (20:00)
[2016-05-18] MEDS: WARFARIN SODIUM 2 MG TABLET PO SCH (22:28)
[2016-05-18] MEDS: INSULIN LISPRO 100 UNIT/ML 3 ML VIAL SUBCUT PRN (22:29)
[2016-05-18] MEDS: IPRATROPIUM/ALBUTEROL 0.5-2.5 MG/3 ML AMPUL NEB PRN (23:53)
[2016-05-19] MEDS: ACETAMINOPHEN 325 MG TABLET PO SCH ×3 (00:05→13:08)
[2016-05-19] MEDS: MORPHINE SULFATE 10 MG/ML INJ IV PRN (04:51)
[2016-05-19] MEDS: IPRATROPIUM/ALBUTEROL 0.5-2.5 MG/3 ML AMPUL NEB PRN ×2 (06:02→13:31)
[2016-05-19] MEDS ORDERED: SUCCINYLCHOLINE CHLORIDE INJ 200 MG/10 ML VIAL ONE (10:31)
[2016-05-19] MEDS: LACTOBACILLUS ACIDOPHILUS 250 MG TAB PO SCH (13:08)
[2016-05-19] MEDS: FINASTERIDE 5 MG TABLET PO SCH (13:08)
[2016-05-19] MEDS: TOLTERODINE TARTRATE 1 MG TABLET PO SCH (13:08)
[2016-05-19] MEDS: VERAPAMIL HCL 180 MG TABLET.SA PO SCH (13:08)
[2016-05-19] MEDS: TAMSULOSIN HCL 0.4 MG CAP.SR.24H PO SCH ×2 (13:08→17:10)
[2016-05-19] MEDS: LEVOFLOXACIN 750 MG TABLET PO SCH (13:08)
[2016-05-19] MEDS ORDERED: PROPOFOL INJ 200 MG/20 ML VIAL IV ONE (14:48)
[2016-05-19] MEDS ORDERED: PROPOFOL 100 ML IV ONE (14:53)
--- NOTE | 2016-05-19 15:03 | PDOC PROGRESS REPORT ---
Subjective Progress Note for:: 05/18/16 Subjective:: Patient's condition is very poor, he has acute urinary retention. He now requires Muhammad catheter, he is also short of breath and he refuses to use BiPAP , he insisted he would like to , patient is very agitated, morphine IV will be ordered to relieve discomfort of breathing Physical Exam Vital Signs: Temp Pulse Resp BP Pulse Ox 97.5 F 90 40 H 117/54 L 100 05/18/16 04:00 05/18/16 14:00 05/18/16 12:55 05/18/16 04:00 05/18/16 12:55 Intake & Output 05/17/16 05/18/16 05/19/16 06:59 06:59 06:59 Intake Total 1803 478 150 Output Total 890 2975 450 Balance 827 -0626 -300 Weight 75 kg 72.9 kg General appearance: PRESENT: mild distress Respiratory exam: PRESENT: crackles, wheezes Cardiovascular exam: PRESENT: irregular rhythm, +S1, +S2 GI/Abdominal exam: PRESENT: soft Neurological exam: PRESENT: alert Results Laboratory Results: 05/18/16 08:57 05/18/16 08:57 05/17/16 05/18/16 05/18/16 23:25 08:57 08:57 WBC 5.2 RBC 3.14 L Hgb 10.2 L Hct 30.9 L MCV 98 H MCH 32.5 MCHC 33.2 RDW 21.1 H Plt Count 168 Seg Neutrophils % 82.6 H Lymphocytes % 6.3 L Monocytes % 10.1 Eosinophils % 0.4 Basophils % 0.6 Absolute Neutrophils 4.3 Absolute Lymphocytes 0.3 L Absolute Monocytes 0.5 Absolute Eosinophils 0.0 Absolute Basophils 0.0 Sodium 141.7 Potassium 4.3 Chloride 98 Carbon Dioxide 34 H Anion Gap 10 BUN 14 Creatinine 0.60 Est GFR ( Amer) > 60 Est GFR (Non-Af Amer) > 60 Glucose 177 H Calcium 9.1 Total Bilirubin 0.8 AST 37 ALT 38 Alkaline Phosphatase 150 H Total Protein 6.5 Albumin 2.5 L Urine Color YELLOW Urine Appearance CLOUDY Urine pH 9.0 Ur Specific [place] 1.006 Urine Protein 30 H Urine Glucose (UA) NEGATIVE Urine Ketones NEGATIVE Urine Blood SMALL H Urine Nitrite NEGATIVE Ur Leukocyte Esterase LARGE H Urine WBC (Auto) >182 Urine RBC (Auto) 12 04/23/16 04/23/16 04/24/16 21:01 21:01 03:31 Creatine Kinase 26 L 23 L CK-MB (CK-2) 1.80 Troponin I < 0.012 04/24/16 04/24/16 04/24/16 03:31 09:43 09:43 Creatine Kinase 22 L CK-MB (CK-2) 1.38 1.37 Troponin I < 0.012 < 0.012 Impressions: Chest CT 04/24/16 00:00 IMPRESSION: Large bilateral pleural effusions are identified with some associated airspace consolidation in the lung bases most consistent with atelectatic changes. Other findings as noted above Shoulder X-Ray 04/24/16 00:00 IMPRESSION: No acute fracture or malalignment at the right or left shoulder Old right humeral neck fracture, healed Bilateral pleural effusions Thoracentesis Ultrasound 05/03/16 08:38 IMPRESSION: SUCCESSFUL LEFT THORACENTESIS USING ULTRASOUND GUIDANCE. Head CT 05/13/16 00:00 IMPRESSION: NO ACUTE INTRACRANIAL PROCESS. NO SIGNIFICANT CHANGE FROM PRIOR STUDY. Chest X-Ray 05/17/16 00:00 IMPRESSION: Persistent interstitial edema pattern. Moderate bilateral pleural effusions. Subsegmental atelectasis is present in both lung bases. Overall slightly increased compared with the prior study. 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 Is this a current diagnosis for this admission?: Yes (3) Chronic atrial fibrillation Is this a current diagnosis for this admission?: Yes (4) Wheezing on auscultation Is this a current diagnosis for this admission?: Yes (5) Bilateral pleural effusion Is this a current diagnosis for this admission?: Yes (6) Hypothermia Qualifiers: Encounter type: initial encounter Qualified Code(s): T68.XXXA - Hypothermia, initial encounter Is this a current diagnosis for this admission?: Yes (7) Parapneumonic effusion Is this a current diagnosis for this admission?: Yes (8) Enterocolitis due to Clostridium difficile Is this a current diagnosis for this admission?: Yes (9) Pneumonia Qualifiers: Pneumonia type: due to unspecified organism Laterality: unspecified laterality Lung location: unspecified part of lung Qualified Code(s) : J18.9 - Pneumonia, unspecified organism Is this a current diagnosis for this admission?: Yes (10) Overactive bladder Is this a current diagnosis for this admission?: Yes (11) Acute retention of urine Is this a current diagnosis for this admission?: Yes
[2016-05-19] MEDS ORDERED: DEXTROSE 40% GEL 15 GM TUBE NG PRN (15:30)
[2016-05-19] MEDS ORDERED: PHARMACY COMMUNICATION ORDER MC NR (15:30)
[2016-05-19] MEDS ORDERED: DEXTROSE 40% GEL 15 GM TUBE X 2 NG PRN (15:31)
[2016-05-19 16:02] LABS: ARTERIAL BLOOD BASE EXCESS 11.2 mmol/L; ARTERIAL BLOOD O2 SATURATION 95.1 % (94-98)
[2016-05-19] MEDS ORDERED: VANCOMYCIN HCL 0 MG in DEXTROSE 5%-WATER 250 ML IV NR (16:45)
[2016-05-19] MEDS ORDERED: VANCOMYCIN HCL INJ 1000 MG VIAL IV PRN (16:50)
[2016-05-19] MEDS: PROPOFOL 100 ML IV PRN ×2 (16:56→19:34)
[2016-05-19] MEDS: NORMAL SALINE 1000 ML 1,000 ML IV PRN (16:56)
[2016-05-19] MEDS ORDERED: VANCOMYCIN HCL INJ 1000 MG VIAL ONE (17:14)
[2016-05-19 17:34] LABS: PROTHROMBIN TIME 36.5 SEC (11.4-15.4)
[2016-05-19] MEDS: ACETAMINOPHEN 325 MG TABLET NG SCH (17:52)
[2016-05-19] MEDS: LACTOBACILLUS ACIDOPHILUS 250 MG TAB NG SCH (17:52)
[2016-05-19] MEDS ORDERED: VANCOMYCIN HCL 1,000 MG in DEXTROSE 5%-WATER 250 ML IV ONE (18:00)
[2016-05-19] MEDS ORDERED: NOREPINEPHRINE BITARTRATE INJ/PF 4 MG/4 ML SDV IV ONE (18:02)
[2016-05-19] MEDS: DEXTROSE 5%-WATER 250 ML with NOREPINEPHRINE BITARTRATE 4 MG IV PRN ×2 (18:16)
[2016-05-19 18:26] LABS: ARTERIAL BLOOD O2 SATURATION 98.3 % (94-98)
--- NOTE | 2016-05-19 18:40 | PDOC PROGRESS REPORT ---
Subjective Progress Note for:: 05/19/16 Subjective:: Patient's condition is poor, he developed respiratory distress and is not able to maintain adequate oxygenation, ABG showed hypercapnia with acute respiratory acidosis. I spoke to the son about patient's condition and the fact that he has refused to use BiPAP machine. The only option is intubation and mechanical ventilation, family preferred this option , though is a DO NOT RESUSCITATE status, the DNR status was rescinded and he was intubated and transferred to ICU. Physical Exam Vital Signs: Temp Pulse Resp BP Pulse Ox 98.1 F 112 H 18 80/60 L 100 05/19/16 16:26 05/19/16 13:31 05/19/16 18:01 05/19/16 18:01 05/19/16 18:01 Intake & Output 05/18/16 05/19/16 05/20/16 06:59 06:59 06:59 Intake Total 478 150 Output Total 2975 3000 335 Balance -2497 -2850 -335 Weight 72.9 kg 72 kg Eye exam: PRESENT: PERRLA Respiratory exam: PRESENT: decreased breath sounds Cardiovascular exam: PRESENT: +S1, +S2 Results Laboratory Results: 05/18/16 08:57 05/18/16 08:57 05/19/16 05/19/16 15:50 18:10 Carbonic Acid 2.52 H 1.74 H HCO3/H2CO3 Ratio 15:1 22:1 ABG pH 7.30 L 7.45 ABG pCO2 83.8 H* 57.7 H ABG pO2 86.9 115.9 H ABG HCO3 40.1 H 38.9 H ABG O2 Saturation 95.1 98.3 H ABG Base Excess 11.2 13.0 FiO2 45% 45% 04/23/16 04/23/16 04/24/16 21:01 21:01 03:31 Creatine Kinase 26 L 23 L CK-MB (CK-2) 1.80 Troponin I < 0.012 NT-Pro-B Natriuret Pep 04/24/16 04/24/16 04/24/16 03:31 09:43 09:43 Creatine Kinase 22 L CK-MB (CK-2) 1.38 1.37 Troponin I < 0.012 < 0.012 NT-Pro-B Natriuret Pep 05/19/16 17:14 Creatine Kinase CK-MB (CK-2) Troponin I NT-Pro-B Natriuret Pep 3530 H Impressions: Chest CT 04/24/16 00:00 IMPRESSION: Large bilateral pleural effusions are identified with some associated airspace consolidation in the lung bases most consistent with atelectatic changes. Other findings as noted above Shoulder X-Ray 04/24/16 00:00 IMPRESSION: No acute fracture or malalignment at the right or left shoulder Old right humeral neck fracture, healed Bilateral pleural effusions Thoracentesis Ultrasound 05/03/16 08:38 IMPRESSION: SUCCESSFUL LEFT THORACENTESIS USING ULTRASOUND GUIDANCE. Head CT 05/13/16 00:00 IMPRESSION: NO ACUTE INTRACRANIAL PROCESS. NO SIGNIFICANT CHANGE FROM PRIOR STUDY. Chest X-Ray 05/19/16 14:48 IMPRESSION: Edema or sepsis status post intubation. Good position of support apparatus. No pneumothorax. 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 Is this a current diagnosis for this admission?: Yes (3) Chronic atrial fibrillation Is this a current diagnosis for this admission?: Yes (4) Wheezing on auscultation Is this a current diagnosis for this admission?: Yes (5) Bilateral pleural effusion Is this a current diagnosis for this admission?: Yes (6) Hypothermia Qualifiers: Encounter type: initial encounter Qualified Code(s): T68.XXXA - Hypothermia, initial encounter Is this a current diagnosis for this admission?: Yes (7) Parapneumonic effusion Is this a current diagnosis for this admission?: Yes (8) Enterocolitis due to Clostridium difficile Is this a current diagnosis for this admission?: Yes (9) Pneumonia Qualifiers: Pneumonia type: due to unspecified organism Laterality: unspecified laterality Lung location: unspecified part of lung Qualified Code(s) : J18.9 - Pneumonia, unspecified organism Is this a current diagnosis for this admission?: Yes (10) Overactive bladder Is this a current diagnosis for this admission?: Yes (11) Acute retention of urine Is this a current diagnosis for this admission?: Yes (12) Acute respiratory failure with hypoxia and hypercapnia Is this a current diagnosis for this admission?: YesPlan: Patient is intubated on mechanical ventilation. The etiology of the acute hypoxemic and hypercapnic respiratory failure is most likely due to acute systolic heart failure and pneumonia. 2-D echo will be ordered and it continued IV antibiotic (13) Hypotension Qualifiers: Hypotension type: unspecified hypotension type Qualified Code(s): I95.9 - Hypotension, unspecified Is this a current diagnosis for this admission?: YesPlan: The blood pressure is low, he will require IV fluid with intravenous pressors with norepinephrine
[2016-05-19 18:49] LABS: ABSOLUTE BASOPHILS # (AUTO) 0.1 10^3/uL (0.0-0.2); ABSOLUTE EOSINOPHILS # (AUTO) 0.2 10^3/uL (0.0-0.6); ABSOLUTE LYMPHOCYTES (AUTO) 0.7 10^3/uL (0.5-4.7); ABSOLUTE MONOCYTES (AUTO) 1.2 10^3/uL (0.1-1.4); ABSOLUTE NEUT (AUTO) 8.2 10^3/uL (1.7-8.2); BASOPHILS % (AUTO) 0.6 % (0-2); EOSINOPHILS % (AUTO) 1.5 % (0-6); HEMATOCRIT 31.4 % (37.9-51.0); HEMOGLOBIN 10.3 g/dL (13.5-17.0); HGB HCT DIFFERENCE -0.5; LYMPHOCYTES % (AUTO) 7.2 % (13-45); MEAN CORPUSCULAR HEMOGLOBIN 32.2 pg (27.0-33.4); MEAN CORPUSCULAR HGB CONC 32.8 g/dL (32.0-36.0); MEAN CORPUSCULAR VOLUME 98 fl (80-97); MONOCYTES % (AUTO) 11.3 % (3-13); RED BLOOD COUNT 3.19 10^6/uL (4.35-5.55); RED CELL DISTRIBUTION WIDTH 21.5 % (11.5-14.0); SEGMENTED NEUTROPHILS % (AUTO) 79.4 % (42-78); WHITE BLOOD COUNT 10.4 10^3/uL (4.0-10.5)
[2016-05-19 18:59] LABS: ALANINE AMINOTRANSFERASE 43 U/L (21-72); ALBUMIN 2.4 g/dL (3.5-5.0); ALKALINE PHOSPHATASE 150 U/L (38-126); ANION GAP 8 (5-19); ASPARTATE AMINO TRANSFERASE 46 U/L (17-59); BILIRUBIN,TOTAL 0.7 mg/dL (0.2-1.3); BLOOD UREA NITROGEN 14 mg/dL (7-20); CALCIUM 8.6 mg/dL (8.4-10.2); CARBON DIOXIDE 39 mmol/L (22-30); CHLORIDE 102 mmol/L (98-107); CREATININE RESULT 0.67 mg/dL (0.52-1.25); GLUCOSE 140 mg/dL (75-110); POTASSIUM 4.1 mmol/L (3.6-5.0); SODIUM 149.4 mmol/L (137-145); TOTAL PROTEIN 6.2 g/dL (6.3-8.2)
[2016-05-20] MEDS: ACETAMINOPHEN 325 MG TABLET NG SCH ×5 (00:15→23:51)
[2016-05-20] MEDS: PROPOFOL 100 ML IV PRN ×5 (00:15→20:02)
[2016-05-20] MEDS: MORPHINE SULFATE 10 MG/ML INJ IV PRN ×2 (00:16→20:01)
[2016-05-20 05:58] LABS: ARTERIAL BLOOD BASE EXCESS 10.7 mmol/L; ARTERIAL BLOOD O2 SATURATION 97.7 % (94-98)
[2016-05-20 08:11] LABS: ABSOLUTE BASOPHILS # (AUTO) 0.1 10^3/uL (0.0-0.2); ABSOLUTE EOSINOPHILS # (AUTO) 0.1 10^3/uL (0.0-0.6); ABSOLUTE LYMPHOCYTES (AUTO) 1.6 10^3/uL (0.5-4.7); ABSOLUTE NEUT (AUTO) 7.4 10^3/uL (1.7-8.2); EOSINOPHILS % (AUTO) 1.1 % (0-6); HEMATOCRIT 32.9 % (37.9-51.0); HEMOGLOBIN 10.8 g/dL (13.5-17.0); HGB HCT DIFFERENCE -0.5; LYMPHOCYTES % (AUTO) 15.5 % (13-45); MEAN CORPUSCULAR VOLUME 97 fl (80-97); MONOCYTES % (AUTO) 9.9 % (3-13); RED BLOOD COUNT 3.39 10^6/uL (4.35-5.55); RED CELL DISTRIBUTION WIDTH 21.5 % (11.5-14.0); SEGMENTED NEUTROPHILS % (AUTO) 72.5 % (42-78); WHITE BLOOD COUNT 10.3 10^3/uL (4.0-10.5)
[2016-05-20 08:32] LABS: ALANINE AMINOTRANSFERASE 34 U/L (21-72); ALBUMIN 2.5 g/dL (3.5-5.0); ALKALINE PHOSPHATASE 171 U/L (38-126); ANION GAP 7 (5-19); ASPARTATE AMINO TRANSFERASE 45 U/L (17-59); BILIRUBIN,TOTAL 1.4 mg/dL (0.2-1.3); BLOOD UREA NITROGEN 13 mg/dL (7-20); CALCIUM 8.7 mg/dL (8.4-10.2); CARBON DIOXIDE 33 mmol/L (22-30); CHLORIDE 103 mmol/L (98-107); CREATININE RESULT 0.72 mg/dL (0.52-1.25); GLUCOSE 81 mg/dL (75-110); POTASSIUM 3.4 mmol/L (3.6-5.0); SODIUM 142.5 mmol/L (137-145); TOTAL PROTEIN 5.9 g/dL (6.3-8.2)
[2016-05-20] MEDS: IPRATROPIUM/ALBUTEROL 0.5-2.5 MG/3 ML AMPUL NEB PRN ×2 (09:05→16:27)
--- NOTE | 2016-05-20 09:49 | PSYCHOLOGICAL NOTE ---
Psych Note - Psych Note Psych Note: Patient had difficulty breathing and communicating with clinician. Patient was only able to verbalize "can't breathe." Clinician spoke with assigned nurse who disclosed that the attending hospitalist is with the patient's family right now to discuss intubating. Clinician conducted a chart review; patient is quickly declining. At this time a psychological evaluation is incomplete because of the condition of the patient.
[2016-05-20] MEDS: LEVOFLOXACIN 750 MG TABLET NG SCH (10:58)
[2016-05-20] MEDS: LACTOBACILLUS ACIDOPHILUS 250 MG TAB NG SCH ×2 (10:58→18:03)
[2016-05-20] MEDS: FINASTERIDE 5 MG TABLET PO SCH (11:02)
[2016-05-20] MEDS: TAMSULOSIN HCL 0.4 MG CAP.SR.24H PO SCH ×2 (11:02→18:03)
[2016-05-20 12:59] LABS: ARTERIAL BLOOD BASE EXCESS 8.9 mmol/L; ARTERIAL BLOOD O2 SATURATION 98.8 % (94-98)
[2016-05-20] MEDS: NORMAL SALINE 1000 ML 1,000 ML IV PRN (15:42)
[2016-05-20] MEDS: VANCOMYCIN HCL 750 MG in DEXTROSE 5%-WATER 250 ML IV SCH (15:43)
--- NOTE | 2016-05-20 15:45 | PDOC PROGRESS REPORT ---
Subjective Progress Note for:: 05/20/16 Subjective:: Patient was transferred to ICU yesterday when he developed respiratory decompensation with acute hypercapnic and hypoxemic respiratory failure requiring mechanical ventilation. Patient sedated and intubated Physical Exam Vital Signs: Temp Pulse Resp BP Pulse Ox 98.8 F 98 14 112/69 100 05/20/16 12:00 05/20/16 12:00 05/20/16 12:00 05/20/16 12:00 05/20/16 12:00 Intake & Output 05/19/16 05/20/16 05/21/16 06:59 06:59 06:59 Intake Total 150 2046 100 Output Total 3000 1185 595 Balance -2850 861 -495 Weight 72 kg 66 kg Eye exam: PRESENT: PERRLA Respiratory exam: PRESENT: rales Cardiovascular exam: PRESENT: +S1, +S2 GI/Abdominal exam: PRESENT: soft Results Laboratory Results: 05/20/16 07:50 05/20/16 07:50 05/19/16 05/19/16 05/19/16 15:50 17:14 17:14 WBC 10.4 RBC 3.19 L Hgb 10.3 L Hct 31.4 L MCV 98 H MCH 32.2 MCHC 32.8 RDW 21.5 H Plt Count 170 Seg Neutrophils % 79.4 H Lymphocytes % 7.2 L Monocytes % 11.3 Eosinophils % 1.5 Basophils % 0.6 Absolute Neutrophils 8.2 Absolute Lymphocytes 0.7 Absolute Monocytes 1.2 Absolute Eosinophils 0.2 Absolute Basophils 0.1 Carbonic Acid 2.52 H HCO3/H2CO3 Ratio 15:1 ABG pH 7.30 L ABG pCO2 83.8 H* ABG pO2 86.9 ABG HCO3 40.1 H ABG O2 Saturation 95.1 ABG Base Excess 11.2 FiO2 45% Sodium 149.4 H Potassium 4.1 Chloride 102 Carbon Dioxide 39 H Anion Gap 8 BUN 14 Creatinine 0.67 Est GFR ( Amer) > 60 Est GFR (Non-Af Amer) > 60 Glucose 140 H Calcium 8.6 Total Bilirubin 0.7 AST 46 ALT 43 Alkaline Phosphatase 150 H Total Protein 6.2 L Albumin 2.4 L 05/19/16 05/20/16 05/20/16 18:10 05:48 07:50 WBC 10.3 RBC 3.39 L Hgb 10.8 L Hct 32.9 L MCV 97 MCH 32.0 MCHC 33.0 RDW 21.5 H Plt Count 208 Seg Neutrophils % 72.5 Lymphocytes % 15.5 Monocytes % 9.9 Eosinophils % 1.1 Basophils % 1.0 Absolute Neutrophils 7.4 Absolute Lymphocytes 1.6 Absolute Monocytes 1.0 Absolute Eosinophils 0.1 Absolute Basophils 0.1 Carbonic Acid 1.74 H 1.18 HCO3/H2CO3 Ratio 22:1 28:1 ABG pH 7.45 7.55 H ABG pCO2 57.7 H 39.3 ABG pO2 115.9 H 89.8 ABG HCO3 38.9 H 33.8 H ABG O2 Saturation 98.3 H 97.7 ABG Base Excess 13.0 10.7 FiO2 45% 35% Sodium Potassium Chloride Carbon Dioxide Anion Gap BUN Creatinine Est GFR ( Amer) Est GFR (Non-Af Amer) Glucose Calcium Total Bilirubin AST ALT Alkaline Phosphatase Total Protein Albumin 05/20/16 05/20/16 07:50 12:05 WBC RBC Hgb Hct MCV MCH MCHC RDW Plt Count Seg Neutrophils % Lymphocytes % Monocytes % Eosinophils % Basophils % Absolute Neutrophils Absolute Lymphocytes Absolute Monocytes Absolute Eosinophils Absolute Basophils Carbonic Acid 1.21 HCO3/H2CO3 Ratio 26:1 ABG pH 7.53 H ABG pCO2 40.1 ABG pO2 124.3 H ABG HCO3 32.4 H ABG O2 Saturation 98.8 H ABG Base Excess 8.9 FiO2 45% Sodium 142.5 Potassium 3.4 L Chloride 103 Carbon Dioxide 33 H Anion Gap 7 BUN 13 Creatinine 0.72 Est GFR ( Amer) > 60 Est GFR (Non-Af Amer) > 60 Glucose 81 Calcium 8.7 Total Bilirubin 1.4 H AST 45 ALT 34 Alkaline Phosphatase 171 H Total Protein 5.9 L Albumin 2.5 L 05/17/16 23:25 Muhammad Catheter Urine Culture - Final NO GROWTH 2 DAYS 04/23/16 04/23/16 04/24/16 21:01 21:01 03:31 Creatine Kinase 26 L 23 L CK-MB (CK-2) 1.80 Troponin I < 0.012 NT-Pro-B Natriuret Pep 04/24/16 04/24/16 04/24/16 03:31 09:43 09:43 Creatine Kinase 22 L CK-MB (CK-2) 1.38 1.37 Troponin I < 0.012 < 0.012 NT-Pro-B Natriuret Pep 05/19/16 17:14 Creatine Kinase CK-MB (CK-2) Troponin I NT-Pro-B Natriuret Pep 3530 H Impressions: Chest CT 04/24/16 00:00 IMPRESSION: Large bilateral pleural effusions are identified with some associated airspace consolidation in the lung bases most consistent with atelectatic changes. Other findings as noted above Shoulder X-Ray 04/24/16 00:00 IMPRESSION: No acute fracture or malalignment at the right or left shoulder Old right humeral neck fracture, healed Bilateral pleural effusions Thoracentesis Ultrasound 05/03/16 08:38 IMPRESSION: SUCCESSFUL LEFT THORACENTESIS USING ULTRASOUND GUIDANCE. Head CT 05/13/16 00:00 IMPRESSION: NO ACUTE INTRACRANIAL PROCESS. NO SIGNIFICANT CHANGE FROM PRIOR STUDY. Chest X-Ray 05/20/16 16:45 IMPRESSION: 1. Endotracheal tube looks slightly lower compared to prior, possibly due to projection. This should perhaps be retracted 1 to 2 cm or so, however. 2. Similar appearance of the lungs compared to prior. 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 Is this a current diagnosis for this admission?: Yes (3) Chronic atrial fibrillation Is this a current diagnosis for this admission?: Yes (4) Wheezing on auscultation Is this a current diagnosis for this admission?: Yes (5) Bilateral pleural effusion Is this a current diagnosis for this admission?: Yes (6) Hypothermia Qualifiers: Encounter type: initial encounter Qualified Code(s): T68.XXXA - Hypothermia, initial encounter Is this a current diagnosis for this admission?: Yes (7) Parapneumonic effusion Is this a current diagnosis for this admission?: Yes (8) Enterocolitis due to Clostridium difficile Is this a current diagnosis for this admission?: Yes (9) Pneumonia Qualifiers: Pneumonia type: due to unspecified organism Laterality: unspecified laterality Lung location: unspecified part of lung Qualified Code(s) : J18.9 - Pneumonia, unspecified organism Is this a current diagnosis for this admission?: YesPlan: Patient empirically on IV antibiotic with intravenous vancomycin, cefepime,and by mouth Levaquin (10) Overactive bladder Is this a current diagnosis for this admission?: Yes (11) Acute retention of urine Is this a current diagnosis for this admission?: Yes (12) Acute respiratory failure with hypoxia and hypercapnia Is this a current diagnosis for this admission?: Yes (13) Hypotension Qualifiers: Hypotension type: unspecified hypotension type Qualified Code(s): I95.9 - Hypotension, unspecified Is this a current diagnosis for this admission?: Yes (14) Acute systolic heart failure Is this a current diagnosis for this admission?: YesPlan: Patient with acute systolic heart failure, 2-D echo is not done yet, it was ordered over the weekend. We add IV Lasix
[2016-05-20 16:23] LABS: ALANINE AMINOTRANSFERASE 42 U/L (21-72); ALBUMIN 1.9 g/dL (3.5-5.0); ALKALINE PHOSPHATASE 159 U/L (38-126); ANION GAP 7 (5-19); ASPARTATE AMINO TRANSFERASE 60 U/L (17-59); BILIRUBIN,TOTAL 1.5 mg/dL (0.2-1.3); BLOOD UREA NITROGEN 15 mg/dL (7-20); CALCIUM 8.2 mg/dL (8.4-10.2); CARBON DIOXIDE 28 mmol/L (22-30); CHLORIDE 105 mmol/L (98-107); GLUCOSE 89 mg/dL (75-110); POTASSIUM 3.6 mmol/L (3.6-5.0); SODIUM 140.4 mmol/L (137-145); TOTAL PROTEIN 5.5 g/dL (6.3-8.2)
[2016-05-20] MEDS ORDERED: FUROSEMIDE INJ/PF 40 MG/4 ML SDV IV ONE (17:00)
[2016-05-20 17:29] LABS: PROTHROMBIN TIME 29.5 SEC (11.4-15.4)
[2016-05-20] MEDS: CEFEPIME HCL 2 GM in DEXTROSE 5%-WATER 50 ML IV SCH (18:03)
[2016-05-20] MEDS: DEXTROSE 5%-WATER 250 ML with NOREPINEPHRINE BITARTRATE 4 MG IV PRN ×2 (20:02)
[2016-05-20] MEDS ORDERED: CEFAZOLIN SODIUM 2 GM in DEXTROSE 5%-WATER 100 ML IV SCH (22:00)
[2016-05-20] MEDS ORDERED: CEFAZOLIN 2 GM/D5W RTU 2 GM/50 ML RTUPB IV SCH (22:00)
[2016-05-21] MEDS: PROPOFOL 100 ML IV PRN ×2 (01:51→07:47)
[2016-05-21] MEDS: VANCOMYCIN HCL 750 MG in DEXTROSE 5%-WATER 250 ML IV SCH ×2 (02:05→17:50)
[2016-05-21] MEDS: ACETAMINOPHEN 325 MG TABLET NG SCH ×4 (05:06→23:46)
[2016-05-21] MEDS: CEFEPIME HCL 2 GM in DEXTROSE 5%-WATER 50 ML IV SCH ×2 (05:07→17:51)
[2016-05-21 07:07] LABS: ARTERIAL BLOOD BASE EXCESS 6.3 mmol/L
[2016-05-21 08:32] LABS: ABSOLUTE BASOPHILS # (AUTO) 0.1 10^3/uL (0.0-0.2); ABSOLUTE EOSINOPHILS # (AUTO) 0.3 10^3/uL (0.0-0.6); ABSOLUTE LYMPHOCYTES (AUTO) 1.1 10^3/uL (0.5-4.7); ABSOLUTE MONOCYTES (AUTO) 1.3 10^3/uL (0.1-1.4); ABSOLUTE NEUT (AUTO) 6.5 10^3/uL (1.7-8.2); BASOPHILS % (AUTO) 0.7 % (0-2); EOSINOPHILS % (AUTO) 3.3 % (0-6); HEMOGLOBIN 12.2 g/dL (13.5-17.0); HGB HCT DIFFERENCE 0.6; LYMPHOCYTES % (AUTO) 11.5 % (13-45); MEAN CORPUSCULAR HEMOGLOBIN 32.4 pg (27.0-33.4); MEAN CORPUSCULAR HGB CONC 33.8 g/dL (32.0-36.0); MEAN CORPUSCULAR VOLUME 96 fl (80-97); RED BLOOD COUNT 3.75 10^6/uL (4.35-5.55); SEGMENTED NEUTROPHILS % (AUTO) 70.5 % (42-78); WHITE BLOOD COUNT 9.2 10^3/uL (4.0-10.5)
[2016-05-21 08:48] LABS: ALANINE AMINOTRANSFERASE 29 U/L (21-72); ALBUMIN 2.1 g/dL (3.5-5.0); ALKALINE PHOSPHATASE 150 U/L (38-126); ANION GAP 8 (5-19); ASPARTATE AMINO TRANSFERASE 48 U/L (17-59); BILIRUBIN,TOTAL 1.5 mg/dL (0.2-1.3); BLOOD UREA NITROGEN 17 mg/dL (7-20); CALCIUM 8.3 mg/dL (8.4-10.2); CARBON DIOXIDE 31 mmol/L (22-30); CHLORIDE 104 mmol/L (98-107); CREATININE RESULT 0.65 mg/dL (0.52-1.25); GLUCOSE 146 mg/dL (75-110); MAGNESIUM 1.6 mg/dL (1.6-2.3); SODIUM 142.9 mmol/L (137-145)
[2016-05-21 08:50] LABS: PROTHROMBIN TIME 28.3 SEC (11.4-15.4)
[2016-05-21 09:09] LABS: POTASSIUM 3.1 mmol/L (3.6-5.0)
[2016-05-21] MEDS: FUROSEMIDE INJ/PF 40 MG/4 ML SDV IV SCH (09:33)
[2016-05-21] MEDS: LEVOFLOXACIN 750 MG TABLET NG SCH (09:33)
[2016-05-21] MEDS: FINASTERIDE 5 MG TABLET PO SCH (09:33)
[2016-05-21] MEDS: LACTOBACILLUS ACIDOPHILUS 250 MG TAB NG SCH ×2 (09:34→17:50)
[2016-05-21] MEDS: TAMSULOSIN HCL 0.4 MG CAP.SR.24H PO SCH ×2 (09:34→17:52)
[2016-05-21] MEDS: NORMAL SALINE 1000 ML 1,000 ML IV PRN (13:21)
[2016-05-21] MEDS ORDERED: POTASSIUM CHLORIDE 20 MEQ/15 ML UDCUP NG ONE (17:15)
[2016-05-21] MEDS: DEXTROSE 5%-WATER 250 ML with NOREPINEPHRINE BITARTRATE 4 MG IV PRN ×2 (17:52)
--- NOTE | 2016-05-21 20:43 | PDOC PROGRESS REPORT ---
Subjective Progress Note for:: 05/21/16 Subjective:: Patient sedated on mechanical ventilation Physical Exam Vital Signs: Temp Pulse Resp BP Pulse Ox 100.2 F 91 26 H 126/78 H 97 05/21/16 18:00 05/21/16 18:00 05/21/16 18:00 05/21/16 18:50 05/21/16 18:50 Intake & Output 05/20/16 05/21/16 05/22/16 06:59 06:59 06:59 Intake Total 2330 5788 3474 Output Total 4148 7730 1974 Balance 517 -0520 -768 Weight 66 kg 67.2 kg Eye exam: PRESENT: PERRLA Respiratory exam: PRESENT: other - On auscultation of the chest there is equal air entry on both lung coyne Cardiovascular exam: PRESENT: +S1, +S2 GI/Abdominal exam: PRESENT: soft Results Laboratory Results: 05/21/16 08:12 05/21/16 08:12 05/21/16 05/21/16 05/21/16 06:25 08:12 08:12 WBC 9.2 RBC 3.75 L Hgb 12.2 L Hct 36.0 L MCV 96 MCH 32.4 MCHC 33.8 RDW 22.0 H Plt Count 185 Seg Neutrophils % 70.5 Lymphocytes % 11.5 L Monocytes % 14.0 H Eosinophils % 3.3 Basophils % 0.7 Absolute Neutrophils 6.5 Absolute Lymphocytes 1.1 Absolute Monocytes 1.3 Absolute Eosinophils 0.3 Absolute Basophils 0.1 Carbonic Acid 1.24 HCO3/H2CO3 Ratio 24:1 ABG pH 7.48 H ABG pCO2 41.3 ABG pO2 100.6 H ABG HCO3 30.3 H ABG O2 Saturation 98.0 ABG Base Excess 6.3 FiO2 25% Sodium 142.9 Potassium 3.1 L Chloride 104 Carbon Dioxide 31 H Anion Gap 8 BUN 17 Creatinine 0.65 Est GFR ( Amer) > 60 Est GFR (Non-Af Amer) > 60 Glucose 146 H Calcium 8.3 L Magnesium 1.6 Total Bilirubin 1.5 H AST 48 ALT 29 Alkaline Phosphatase 150 H Total Protein 6.0 L Albumin 2.1 L 05/19/16 15:50 Tracheal Aspirate Gram Stain - Final 05/19/16 15:50 Tracheal Aspirate Sputum Culture - Final Mrsa (Meth Resis Staph Aureus) Normal [place] Absent 12/12/16 12/12/16 12/13/16 21:01 21:01 03:31 Creatine Kinase 26 L 23 L CK-MB (CK-2) 1.80 Troponin I < 0.012 NT-Pro-B Natriuret Pep 04/24/16 04/24/16 04/24/16 03:31 09:43 09:43 Creatine Kinase 22 L CK-MB (CK-2) 1.38 1.37 Troponin I < 0.012 < 0.012 NT-Pro-B Natriuret Pep 05/19/16 17:14 Creatine Kinase CK-MB (CK-2) Troponin I NT-Pro-B Natriuret Pep 3530 H Impressions: Chest CT 04/24/16 00:00 IMPRESSION: Large bilateral pleural effusions are identified with some associated airspace consolidation in the lung bases most consistent with atelectatic changes. Other findings as noted above Shoulder X-Ray 04/24/16 00:00 IMPRESSION: No acute fracture or malalignment at the right or left shoulder Old right humeral neck fracture, healed Bilateral pleural effusions Thoracentesis Ultrasound 05/03/16 08:38 IMPRESSION: SUCCESSFUL LEFT THORACENTESIS USING ULTRASOUND GUIDANCE. Head CT 05/13/16 00:00 IMPRESSION: NO ACUTE INTRACRANIAL PROCESS. NO SIGNIFICANT CHANGE FROM PRIOR STUDY. Chest X-Ray 05/21/16 06:00 IMPRESSION: NO CHANGE IN APPEARANCE OF THE CHEST. 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 Is this a current diagnosis for this admission?: Yes (3) Chronic atrial fibrillation Is this a current diagnosis for this admission?: Yes (4) Wheezing on auscultation Is this a current diagnosis for this admission?: Yes (5) Bilateral pleural effusion Is this a current diagnosis for this admission?: Yes (6) Hypothermia Qualifiers: Encounter type: initial encounter Qualified Code(s): T68.XXXA - Hypothermia, initial encounter Is this a current diagnosis for this admission?: Yes (7) Parapneumonic effusion Is this a current diagnosis for this admission?: Yes (8) Enterocolitis due to Clostridium difficile Is this a current diagnosis for this admission?: Yes (9) Pneumonia Qualifiers: Pneumonia type: due to unspecified organism Laterality: unspecified laterality Lung location: unspecified part of lung Qualified Code(s) : J18.9 - Pneumonia, unspecified organism Is this a current diagnosis for this admission?: Yes (10) Overactive bladder Is this a current diagnosis for this admission?: Yes (11) Acute retention of urine Is this a current diagnosis for this admission?: Yes (12) Acute respiratory failure with hypoxia and hypercapnia Is this a current diagnosis for this admission?: YesPlan: Patient continues to remain on mechanical ventilation, pulmonary following (13) Hypotension Qualifiers: Hypotension type: unspecified hypotension type Qualified Code(s): I95.9 - Hypotension, unspecified Is this a current diagnosis for this admission?: YesPlan: Blood pressure is low, in the setting of severe sepsis, patient is on IV norepinephrine to support blood pressure (14) Acute systolic heart failure Is this a current diagnosis for this admission?: Yes (15) MRSA (methicillin resistant staphylococcus aureus) pneumonia Qualifiers: Laterality: unspecified laterality Lung location: unspecified part of lung Qualified Code(s): J15.212 - Pneumonia due to Methicillin resistant Staphylococcus aureus Is this a current diagnosis for this admission?: YesPlan: Patient already on IV vancomycin that was started empirically, sputum culture grew MRSA
[2016-05-22] MEDS: NORMAL SALINE 1000 ML 1,000 ML IV PRN ×3 (00:49→23:34)
[2016-05-22] MEDS: PROPOFOL 100 ML IV PRN ×2 (02:20→17:07)
[2016-05-22] MEDS: VANCOMYCIN HCL 750 MG in DEXTROSE 5%-WATER 250 ML IV SCH ×2 (02:20→15:32)
[2016-05-22 04:19] LABS: ABSOLUTE BASOPHILS # (AUTO) 0.1 10^3/uL (0.0-0.2); ABSOLUTE EOSINOPHILS # (AUTO) 0.2 10^3/uL (0.0-0.6); ABSOLUTE LYMPHOCYTES (AUTO) 1.4 10^3/uL (0.5-4.7); ABSOLUTE MONOCYTES (AUTO) 1.2 10^3/uL (0.1-1.4); ABSOLUTE NEUT (AUTO) 6.9 10^3/uL (1.7-8.2); BASOPHILS % (AUTO) 0.9 % (0-2); EOSINOPHILS % (AUTO) 2.2 % (0-6); HEMATOCRIT 34.6 % (37.9-51.0); HEMOGLOBIN 11.7 g/dL (13.5-17.0); HGB HCT DIFFERENCE 0.5; LYMPHOCYTES % (AUTO) 13.9 % (13-45); MEAN CORPUSCULAR HEMOGLOBIN 32.1 pg (27.0-33.4); MEAN CORPUSCULAR HGB CONC 33.9 g/dL (32.0-36.0); MEAN CORPUSCULAR VOLUME 95 fl (80-97); MONOCYTES % (AUTO) 12.6 % (3-13); RED BLOOD COUNT 3.66 10^6/uL (4.35-5.55); RED CELL DISTRIBUTION WIDTH 21.8 % (11.5-14.0); SEGMENTED NEUTROPHILS % (AUTO) 70.4 % (42-78); WHITE BLOOD COUNT 9.8 10^3/uL (4.0-10.5)
[2016-05-22 04:26] LABS: PROTHROMBIN TIME 23.7 SEC (11.4-15.4)
[2016-05-22 04:31] LABS: ALANINE AMINOTRANSFERASE 40 U/L (21-72); ALBUMIN 2.2 g/dL (3.5-5.0); ALKALINE PHOSPHATASE 198 U/L (38-126); ANION GAP 6 (5-19); ASPARTATE AMINO TRANSFERASE 85 U/L (17-59); BILIRUBIN,TOTAL 1.1 mg/dL (0.2-1.3); BLOOD UREA NITROGEN 17 mg/dL (7-20); CALCIUM 8.1 mg/dL (8.4-10.2); CARBON DIOXIDE 31 mmol/L (22-30); CHLORIDE 106 mmol/L (98-107); GLUCOSE 176 mg/dL (75-110); MAGNESIUM 1.6 mg/dL (1.6-2.3); POTASSIUM 3.5 mmol/L (3.6-5.0); SODIUM 143.2 mmol/L (137-145); TOTAL PROTEIN 6.2 g/dL (6.3-8.2)
[2016-05-22 05:40] LABS: ARTERIAL BLOOD BASE EXCESS 6.6 mmol/L; ARTERIAL BLOOD O2 SATURATION 97.8 % (94-98)
[2016-05-22] MEDS: ACETAMINOPHEN 325 MG TABLET NG SCH ×4 (06:12→23:33)
[2016-05-22] MEDS: CEFEPIME HCL 2 GM in DEXTROSE 5%-WATER 50 ML IV SCH ×2 (06:13→17:09)
[2016-05-22] MEDS: DEXTROSE 5%-WATER 250 ML with NOREPINEPHRINE BITARTRATE 4 MG IV PRN ×4 (06:55→22:11)
[2016-05-22] MEDS: LEVOFLOXACIN 750 MG TABLET NG SCH (11:14)
[2016-05-22] MEDS: FINASTERIDE 5 MG TABLET PO SCH (11:15)
[2016-05-22] MEDS: LACTOBACILLUS ACIDOPHILUS 250 MG TAB NG SCH ×2 (11:15→17:09)
[2016-05-22] MEDS: FUROSEMIDE INJ/PF 40 MG/4 ML SDV IV SCH (11:15)
[2016-05-22] MEDS: TAMSULOSIN HCL 0.4 MG CAP.SR.24H PO SCH ×2 (11:21→17:00)
[2016-05-22] MEDS: INSULIN LISPRO 100 UNIT/ML 3 ML VIAL SUBCUT PRN (12:39)
[2016-05-22] MEDS ORDERED: POTASSIUM CHLORIDE 20 MEQ/15 ML UDCUP NG ONE (16:00)
[2016-05-23] MEDS: VANCOMYCIN HCL 750 MG in DEXTROSE 5%-WATER 250 ML IV SCH ×2 (02:28→14:04)
[2016-05-23 03:53] LABS: ABSOLUTE BASOPHILS # (AUTO) 0.1 10^3/uL (0.0-0.2); ABSOLUTE EOSINOPHILS # (AUTO) 0.3 10^3/uL (0.0-0.6); ABSOLUTE LYMPHOCYTES (AUTO) 1.9 10^3/uL (0.5-4.7); ABSOLUTE MONOCYTES (AUTO) 1.1 10^3/uL (0.1-1.4); ABSOLUTE NEUT (AUTO) 6.1 10^3/uL (1.7-8.2); BASOPHILS % (AUTO) 0.7 % (0-2); EOSINOPHILS % (AUTO) 2.9 % (0-6); HEMATOCRIT 32.8 % (37.9-51.0); HEMOGLOBIN 11.2 g/dL (13.5-17.0); HGB HCT DIFFERENCE 0.8; LYMPHOCYTES % (AUTO) 19.7 % (13-45); MEAN CORPUSCULAR HEMOGLOBIN 32.1 pg (27.0-33.4); MEAN CORPUSCULAR HGB CONC 34.2 g/dL (32.0-36.0); MEAN CORPUSCULAR VOLUME 94 fl (80-97); MONOCYTES % (AUTO) 11.9 % (3-13); RED BLOOD COUNT 3.49 10^6/uL (4.35-5.55); RED CELL DISTRIBUTION WIDTH 21.3 % (11.5-14.0); SEGMENTED NEUTROPHILS % (AUTO) 64.8 % (42-78); WHITE BLOOD COUNT 9.5 10^3/uL (4.0-10.5)
[2016-05-23 03:57] LABS: ARTERIAL BLOOD O2 SATURATION 97.7 % (94-98)
[2016-05-23 03:58] LABS: PROTHROMBIN TIME 20.3 SEC (11.4-15.4)
[2016-05-23 04:07] LABS: ANION GAP 8 (5-19); BLOOD UREA NITROGEN 15 mg/dL (7-20); CALCIUM 7.9 mg/dL (8.4-10.2); CARBON DIOXIDE 30 mmol/L (22-30); CHLORIDE 106 mmol/L (98-107); CREATININE RESULT 0.64 mg/dL (0.52-1.25); GLUCOSE 173 mg/dL (75-110); MAGNESIUM 1.6 mg/dL (1.6-2.3); POTASSIUM 3.2 mmol/L (3.6-5.0); TRIGLYCERIDES 91 mg/dL (<150)
[2016-05-23] MEDS: ACETAMINOPHEN 325 MG TABLET NG SCH ×4 (06:10→23:58)
[2016-05-23] MEDS: PROPOFOL 100 ML IV PRN ×4 (06:10→23:58)
[2016-05-23] MEDS: CEFEPIME HCL 2 GM in DEXTROSE 5%-WATER 50 ML IV SCH ×2 (06:11→18:46)
[2016-05-23] MEDS: LEVOFLOXACIN 750 MG TABLET NG SCH (09:42)
[2016-05-23] MEDS: FUROSEMIDE INJ/PF 40 MG/4 ML SDV IV SCH (09:42)
[2016-05-23] MEDS: FINASTERIDE 5 MG TABLET PO SCH ×2 (09:42→11:59)
[2016-05-23] MEDS: LACTOBACILLUS ACIDOPHILUS 250 MG TAB NG SCH ×2 (09:43→18:48)
[2016-05-23] MEDS: TAMSULOSIN HCL 0.4 MG CAP.SR.24H PO SCH ×2 (09:43→18:49)
[2016-05-23] MEDS ORDERED: POTASSIUM CHLORIDE 20 MEQ/50 ML RTU IV ONE (10:00)
[2016-05-23] MEDS: POTASSIUM CHLORIDE 20 MEQ/50 ML RTU IV SCH ×2 (10:08→11:56)
[2016-05-23] MEDS: NORMAL SALINE 1000 ML 1,000 ML IV PRN ×2 (11:58→21:25)
[2016-05-23 13:05] LABS: APPEARANCE,URINE CLEAR; BILIRUBIN,URINE NEGATIVE (NEGATIVE); GLUCOSE, URINE NEGATIVE (NEGATIVE); KETONES,URINE NEGATIVE (NEGATIVE); LEUKOCYTE ESTERASE,URINE NEGATIVE (NEGATIVE); NITRITE,URINE NEGATIVE (NEGATIVE); PROTEIN,URINE NEGATIVE (NEGATIVE); URINE SPECIFIC GRAVITY 1.009; UROBILINOGEN,URINE NEGATIVE mg/dL (<2.0)
--- NOTE | 2016-05-23 19:48 | PDOC PROGRESS REPORT ---
Subjective Progress Note for:: 05/22/16 Subjective:: Patient is sedated and on mechanical ventilation. Physical Exam Vital Signs: Temp Pulse Resp BP Pulse Ox 100.6 F H 102 H 13 125/83 98 05/22/16 16:00 05/22/16 18:00 05/22/16 18:00 05/22/16 18:05 05/22/16 18:05 Intake & Output 05/21/16 05/22/16 05/23/16 06:59 06:59 06:59 Intake Total 3326 3281 1980 Output Total 6244 4110 4000 Balance -2964 431 -2019 Weight 67.2 kg 64 kg Eye exam: PRESENT: PERRLA Respiratory exam: PRESENT: rhonchi Cardiovascular exam: PRESENT: +S1, +S2 GI/Abdominal exam: PRESENT: soft Results Laboratory Results: 05/22/16 03:44 05/22/16 03:44 05/22/16 05/22/16 05/22/16 03:44 03:44 05:15 WBC 9.8 RBC 3.66 L Hgb 11.7 L Hct 34.6 L MCV 95 MCH 32.1 MCHC 33.9 RDW 21.8 H Plt Count 174 Seg Neutrophils % 70.4 Lymphocytes % 13.9 Monocytes % 12.6 Eosinophils % 2.2 Basophils % 0.9 Absolute Neutrophils 6.9 Absolute Lymphocytes 1.4 Absolute Monocytes 1.2 Absolute Eosinophils 0.2 Absolute Basophils 0.1 Carbonic Acid 1.32 HCO3/H2CO3 Ratio 23:1 ABG pH 7.47 H ABG pCO2 44.0 ABG pO2 98.5 ABG HCO3 31.1 H ABG O2 Saturation 97.8 ABG Base Excess 6.6 FiO2 25% Sodium 143.2 Potassium 3.5 L Chloride 106 Carbon Dioxide 31 H Anion Gap 6 BUN 17 Creatinine 0.70 Est GFR ( Amer) > 60 Est GFR (Non-Af Amer) > 60 Glucose 176 H Calcium 8.1 L Magnesium 1.6 Total Bilirubin 1.1 AST 85 H ALT 40 Alkaline Phosphatase 198 H Total Protein 6.2 L Albumin 2.2 L 04/23/16 04/23/16 04/24/16 21:01 21:01 03:31 Creatine Kinase 26 L 23 L CK-MB (CK-2) 1.80 Troponin I < 0.012 NT-Pro-B Natriuret Pep 04/24/16 04/24/16 04/24/16 03:31 09:43 09:43 Creatine Kinase 22 L CK-MB (CK-2) 1.38 1.37 Troponin I < 0.012 < 0.012 NT-Pro-B Natriuret Pep 05/19/16 17:14 Creatine Kinase CK-MB (CK-2) Troponin I NT-Pro-B Natriuret Pep 3530 H Impressions: Chest CT 04/24/16 00:00 IMPRESSION: Large bilateral pleural effusions are identified with some associated airspace consolidation in the lung bases most consistent with atelectatic changes. Other findings as noted above Shoulder X-Ray 04/24/16 00:00 IMPRESSION: No acute fracture or malalignment at the right or left shoulder Old right humeral neck fracture, healed Bilateral pleural effusions Thoracentesis Ultrasound 05/03/16 08:38 IMPRESSION: SUCCESSFUL LEFT THORACENTESIS USING ULTRASOUND GUIDANCE. Head CT 05/13/16 00:00 IMPRESSION: NO ACUTE INTRACRANIAL PROCESS. NO SIGNIFICANT CHANGE FROM PRIOR STUDY. Chest X-Ray 05/22/16 06:00 IMPRESSION: Endotracheal tube is slightly advanced and lies in the proximal right mainstem bronchus. This needs to be withdrawn approximately 15 mm. No other interval change. Assessment & Plan - Diagnosis (1) Hyponatremia with extracellular fluid depletion Is this a current diagnosis for this admission?: Yes (2) prison (current) use of anticoagulants Is this a current diagnosis for this admission?: Yes (3) Chronic atrial fibrillation Is this a current diagnosis for this admission?: Yes (4) Wheezing on auscultation Is this a current diagnosis for this admission?: Yes (5) Bilateral pleural effusion Is this a current diagnosis for this admission?: Yes (6) Hypothermia Qualifiers: Encounter type: initial encounter Qualified Code(s): T68.XXXA - Hypothermia, initial encounter Is this a current diagnosis for this admission?: Yes (7) Parapneumonic effusion Is this a current diagnosis for this admission?: Yes (8) Enterocolitis due to Clostridium difficile Is this a current diagnosis for this admission?: Yes (9) Pneumonia Qualifiers: Pneumonia type: due to unspecified organism Laterality: unspecified laterality Lung location: unspecified part of lung Qualified Code(s) : J18.9 - Pneumonia, unspecified organism Is this a current diagnosis for this admission?: Yes (10) Overactive bladder Is this a current diagnosis for this admission?: Yes (11) Acute retention of urine Is this a current diagnosis for this admission?: Yes (12) Acute respiratory failure with hypoxia and hypercapnia Is this a current diagnosis for this admission?: Yes (13) Hypotension Qualifiers: Hypotension type: unspecified hypotension type Qualified Code(s): I95.9 - Hypotension, unspecified Is this a current diagnosis for this admission?: Yes (14) Acute systolic heart failure Is this a current diagnosis for this admission?: Yes (15) MRSA (methicillin resistant staphylococcus aureus) pneumonia Qualifiers: Laterality: unspecified laterality Lung location: unspecified part of lung Qualified Code(s): J15.212 - Pneumonia due to Methicillin resistant Staphylococcus aureus Is this a current diagnosis for this admission?: Yes
--- NOTE | 2016-05-23 19:50 | PDOC PROGRESS REPORT ---
Subjective Progress Note for:: 05/23/16 Subjective:: Patient sedated and intubated Physical Exam Vital Signs: Temp Pulse Resp BP Pulse Ox 100.4 F 88 14 136/88 H 99 05/23/16 18:00 05/23/16 18:00 05/23/16 18:00 05/23/16 18:00 05/23/16 18:00 Intake & Output 05/22/16 05/23/16 05/24/16 06:59 06:59 06:59 Intake Total 3281 1980 30 Output Total 2854 8000 5964 Balance 965 -1978 -7455 Weight 64 kg 63.5 kg Eye exam: PRESENT: PERRLA Respiratory exam: PRESENT: rhonchi Cardiovascular exam: PRESENT: +S1, +S2 GI/Abdominal exam: PRESENT: soft Results Laboratory Results: 05/23/16 03:37 05/23/16 03:37 05/23/16 05/23/16 05/23/16 03:37 03:37 03:45 WBC 9.5 RBC 3.49 L Hgb 11.2 L Hct 32.8 L MCV 94 MCH 32.1 MCHC 34.2 RDW 21.3 H Plt Count 160 Seg Neutrophils % 64.8 Lymphocytes % 19.7 Monocytes % 11.9 Eosinophils % 2.9 Basophils % 0.7 Absolute Neutrophils 6.1 Absolute Lymphocytes 1.9 Absolute Monocytes 1.1 Absolute Eosinophils 0.3 Absolute Basophils 0.1 Carbonic Acid 1.25 HCO3/H2CO3 Ratio 24:1 ABG pH 7.48 H ABG pCO2 41.6 ABG pO2 96.5 ABG HCO3 30.1 H ABG O2 Saturation 97.7 ABG Base Excess 6.0 FiO2 25% Sodium 144.0 Potassium 3.2 L Chloride 106 Carbon Dioxide 30 Anion Gap 8 BUN 15 Creatinine 0.64 Est GFR ( Amer) > 60 Est GFR (Non-Af Amer) > 60 Glucose 173 H Calcium 7.9 L Magnesium 1.6 Triglycerides 91 Urine Color Urine Appearance Urine pH Ur Specific [place] Urine Protein Urine Glucose (UA) Urine Ketones Urine Blood Urine Nitrite Ur Leukocyte Esterase Urine WBC (Auto) Urine RBC (Auto) 05/23/16 11:03 WBC RBC Hgb Hct MCV MCH MCHC RDW Plt Count Seg Neutrophils % Lymphocytes % Monocytes % Eosinophils % Basophils % Absolute Neutrophils Absolute Lymphocytes Absolute Monocytes Absolute Eosinophils Absolute Basophils Carbonic Acid HCO3/H2CO3 Ratio ABG pH ABG pCO2 ABG pO2 ABG HCO3 ABG O2 Saturation ABG Base Excess FiO2 Sodium Potassium Chloride Carbon Dioxide Anion Gap BUN Creatinine Est GFR ( Amer) Est GFR (Non-Af Amer) Glucose Calcium Magnesium Triglycerides Urine Color STRAW Urine Appearance CLEAR Urine pH 7.0 Ur Specific [place] 1.009 Urine Protein NEGATIVE Urine Glucose (UA) NEGATIVE Urine Ketones NEGATIVE Urine Blood SMALL H Urine Nitrite NEGATIVE Ur Leukocyte Esterase NEGATIVE Urine WBC (Auto) 5 Urine RBC (Auto) 6 04/23/16 04/23/16 04/24/16 21:01 21:01 03:31 Creatine Kinase 26 L 23 L CK-MB (CK-2) 1.80 Troponin I < 0.012 NT-Pro-B Natriuret Pep 04/24/16 04/24/16 04/24/16 03:31 09:43 09:43 Creatine Kinase 22 L CK-MB (CK-2) 1.38 1.37 Troponin I < 0.012 < 0.012 NT-Pro-B Natriuret Pep 05/19/16 17:14 Creatine Kinase CK-MB (CK-2) Troponin I NT-Pro-B Natriuret Pep 3530 H Impressions: Chest CT 04/24/16 00:00 IMPRESSION: Large bilateral pleural effusions are identified with some associated airspace consolidation in the lung bases most consistent with atelectatic changes. Other findings as noted above Shoulder X-Ray 04/24/16 00:00 IMPRESSION: No acute fracture or malalignment at the right or left shoulder Old right humeral neck fracture, healed Bilateral pleural effusions Thoracentesis Ultrasound 05/03/16 08:38 IMPRESSION: SUCCESSFUL LEFT THORACENTESIS USING ULTRASOUND GUIDANCE. Head CT 05/13/16 00:00 IMPRESSION: NO ACUTE INTRACRANIAL PROCESS. NO SIGNIFICANT CHANGE FROM PRIOR STUDY. Chest X-Ray 05/23/16 06:00 IMPRESSION: Stable chest with appropriate support lines and tubes. 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 Is this a current diagnosis for this admission?: Yes (4) Chronic atrial fibrillation Is this a current diagnosis for this admission?: Yes (5) Wheezing on auscultation Is this a current diagnosis for this admission?: Yes (6) Bilateral pleural effusion Is this a current diagnosis for this admission?: Yes (7) Hypothermia Qualifiers: Encounter type: initial encounter Qualified Code(s): T68.XXXA - Hypothermia, initial encounter Is this a current diagnosis for this admission?: Yes (8) Parapneumonic effusion Is this a current diagnosis for this admission?: Yes (9) Enterocolitis due to Clostridium difficile Is this a current diagnosis for this admission?: Yes (10) Pneumonia Qualifiers: Pneumonia type: due to unspecified organism Laterality: unspecified laterality Lung location: unspecified part of lung Qualified Code(s) : J18.9 - Pneumonia, unspecified organism Is this a current diagnosis for this admission?: Yes (11) Overactive bladder Is this a current diagnosis for this admission?: Yes (12) Acute retention of urine Is this a current diagnosis for this admission?: Yes (13) Acute respiratory failure with hypoxia and hypercapnia Is this a current diagnosis for this admission?: Yes (14) Hypotension Qualifiers: Hypotension type: unspecified hypotension type Qualified Code(s): I95.9 - Hypotension, unspecified Is this a current diagnosis for this admission?: YesPlan: Patient is still on IV Levophed (15) Acute systolic heart failure Is this a current diagnosis for this admission?: Yes
[2016-05-23] MEDS: FAMOTIDINE INJ/PF 20 MG/2 ML SDV IV SCH (21:24)
[2016-05-24] MEDS: VANCOMYCIN HCL 750 MG in DEXTROSE 5%-WATER 250 ML IV SCH ×2 (02:06→14:44)
[2016-05-24 04:22] LABS: ABSOLUTE BASOPHILS # (AUTO) 0.1 10^3/uL (0.0-0.2); ABSOLUTE EOSINOPHILS # (AUTO) 0.4 10^3/uL (0.0-0.6); ABSOLUTE LYMPHOCYTES (AUTO) 1.5 10^3/uL (0.5-4.7); ABSOLUTE MONOCYTES (AUTO) 0.7 10^3/uL (0.1-1.4); ABSOLUTE NEUT (AUTO) 3.9 10^3/uL (1.7-8.2); BASOPHILS % (AUTO) 0.8 % (0-2); EOSINOPHILS % (AUTO) 5.6 % (0-6); HEMATOCRIT 31.2 % (37.9-51.0); HEMOGLOBIN 10.6 g/dL (13.5-17.0); HGB HCT DIFFERENCE 0.6; LYMPHOCYTES % (AUTO) 23.1 % (13-45); MEAN CORPUSCULAR HEMOGLOBIN 32.3 pg (27.0-33.4); MEAN CORPUSCULAR VOLUME 95 fl (80-97); RED BLOOD COUNT 3.28 10^6/uL (4.35-5.55); RED CELL DISTRIBUTION WIDTH 21.3 % (11.5-14.0); SEGMENTED NEUTROPHILS % (AUTO) 59.5 % (42-78); WHITE BLOOD COUNT 6.5 10^3/uL (4.0-10.5)
[2016-05-24 04:37] LABS: ALANINE AMINOTRANSFERASE 77 U/L (21-72); ALBUMIN 1.6 g/dL (3.5-5.0); ALKALINE PHOSPHATASE 254 U/L (38-126); ANION GAP 5 (5-19); ASPARTATE AMINO TRANSFERASE 161 U/L (17-59); BILIRUBIN,TOTAL 0.7 mg/dL (0.2-1.3); BLOOD UREA NITROGEN 17 mg/dL (7-20); CALCIUM 7.3 mg/dL (8.4-10.2); CARBON DIOXIDE 28 mmol/L (22-30); CHLORIDE 102 mmol/L (98-107); CREATININE RESULT 0.58 mg/dL (0.52-1.25); GLUCOSE 382 mg/dL (75-110); MAGNESIUM 1.6 mg/dL (1.6-2.3); POTASSIUM 3.4 mmol/L (3.6-5.0); SODIUM 135.4 mmol/L (137-145); TOTAL PROTEIN 4.7 g/dL (6.3-8.2)
[2016-05-24 04:40] LABS: PROTHROMBIN TIME 19.2 SEC (11.4-15.4)
[2016-05-24 05:27] LABS: ARTERIAL BLOOD BASE EXCESS 4.4 mmol/L
[2016-05-24] MEDS: ACETAMINOPHEN 325 MG TABLET NG SCH ×4 (05:50→23:51)
[2016-05-24] MEDS: NORMAL SALINE 1000 ML 1,000 ML IV PRN ×2 (05:56→14:49)
[2016-05-24] MEDS: CEFEPIME HCL 2 GM in DEXTROSE 5%-WATER 50 ML IV SCH ×2 (05:56→18:06)
[2016-05-24] MEDS: PROPOFOL 100 ML IV PRN (07:51)
[2016-05-24] MEDS: LEVOFLOXACIN 750 MG TABLET NG SCH (09:55)
[2016-05-24] MEDS: FUROSEMIDE INJ/PF 40 MG/4 ML SDV IV SCH (09:55)
[2016-05-24] MEDS: FAMOTIDINE INJ/PF 20 MG/2 ML SDV IV SCH ×2 (09:55→22:02)
[2016-05-24] MEDS: LACTOBACILLUS ACIDOPHILUS 250 MG TAB NG SCH ×2 (09:57→18:06)
[2016-05-24] MEDS: FINASTERIDE 5 MG TABLET PO SCH (09:57)
--- NOTE | 2016-05-24 20:50 | PDOC PROGRESS REPORT ---
Subjective Progress Note for:: 05/24/16 Subjective:: Patient intubated and sedated Physical Exam Vital Signs: Temp Pulse Resp BP Pulse Ox 100.6 F H 91 14 90/65 L 98 05/24/16 19:55 05/24/16 18:00 05/24/16 18:00 05/24/16 18:48 05/24/16 18:48 Intake & Output 05/23/16 05/24/16 05/25/16 06:59 06:59 06:59 Intake Total 4209 3854 2520 Output Total 4750 3900 2525 Balance -541 -46 -5 Weight 63.5 kg 63.3 kg Eye exam: PRESENT: PERRLA Respiratory exam: PRESENT: rales Cardiovascular exam: PRESENT: +S1, +S2 GI/Abdominal exam: PRESENT: soft Results Laboratory Results: 05/24/16 04:06 05/24/16 04:06 05/24/16 05/24/16 05/24/16 04:06 04:06 05:00 WBC 6.5 RBC 3.28 L Hgb 10.6 L Hct 31.2 L MCV 95 MCH 32.3 MCHC 34.0 RDW 21.3 H Plt Count 122 L Seg Neutrophils % 59.5 Lymphocytes % 23.1 Monocytes % 11.0 Eosinophils % 5.6 Basophils % 0.8 Absolute Neutrophils 3.9 Absolute Lymphocytes 1.5 Absolute Monocytes 0.7 Absolute Eosinophils 0.4 Absolute Basophils 0.1 Carbonic Acid 1.14 HCO3/H2CO3 Ratio 24:1 ABG pH 7.49 H ABG pCO2 38.0 ABG pO2 101.3 H ABG HCO3 28.0 H ABG O2 Saturation 98.0 ABG Base Excess 4.4 FiO2 25% Sodium 135.4 L Potassium 3.4 L Chloride 102 Carbon Dioxide 28 Anion Gap 5 BUN 17 Creatinine 0.58 Est GFR ( Amer) > 60 Est GFR (Non-Af Amer) > 60 Glucose 382 H Calcium 7.3 L Magnesium 1.6 Total Bilirubin 0.7 AST 161 H ALT 77 H Alkaline Phosphatase 254 H Total Protein 4.7 L Albumin 1.6 L 04/23/16 04/23/16 04/24/16 21:01 21:01 03:31 Creatine Kinase 26 L 23 L CK-MB (CK-2) 1.80 Troponin I < 0.012 NT-Pro-B Natriuret Pep 04/24/16 04/24/16 04/24/16 03:31 09:43 09:43 Creatine Kinase 22 L CK-MB (CK-2) 1.38 1.37 Troponin I < 0.012 < 0.012 NT-Pro-B Natriuret Pep 05/19/16 17:14 Creatine Kinase CK-MB (CK-2) Troponin I NT-Pro-B Natriuret Pep 3530 H Impressions: Chest CT 04/24/16 00:00 IMPRESSION: Large bilateral pleural effusions are identified with some associated airspace consolidation in the lung bases most consistent with atelectatic changes. Other findings as noted above Shoulder X-Ray 04/24/16 00:00 IMPRESSION: No acute fracture or malalignment at the right or left shoulder Old right humeral neck fracture, healed Bilateral pleural effusions Thoracentesis Ultrasound 05/03/16 08:38 IMPRESSION: SUCCESSFUL LEFT THORACENTESIS USING ULTRASOUND GUIDANCE. Head CT 05/13/16 00:00 IMPRESSION: NO ACUTE INTRACRANIAL PROCESS. NO SIGNIFICANT CHANGE FROM PRIOR STUDY. Chest X-Ray 05/24/16 06:00 IMPRESSION: Pneumonia or asymmetric edema. No significant change. Assessment & Plan - Diagnosis (1) MRSA (methicillin resistant staphylococcus aureus) pneumonia Qualifiers: Laterality: unspecified laterality Lung location: unspecified part of lung Qualified Code(s): J15.212 - Pneumonia due to Methicillin resistant Staphylococcus aureus Is this a current diagnosis for this admission?: Yes (2) Hyponatremia with extracellular fluid depletion Is this a current diagnosis for this admission?: Yes (3) long-term (current) use of anticoagulants Is this a current diagnosis for this admission?: Yes (4) Chronic atrial fibrillation Is this a current diagnosis for this admission?: Yes (5) Wheezing on auscultation Is this a current diagnosis for this admission?: Yes (6) Bilateral pleural effusion Is this a current diagnosis for this admission?: Yes (7) Hypothermia Qualifiers: Encounter type: initial encounter Qualified Code(s): T68.XXXA - Hypothermia, initial encounter Is this a current diagnosis for this admission?: Yes (8) Parapneumonic effusion Is this a current diagnosis for this admission?: Yes (9) Enterocolitis due to Clostridium difficile Is this a current diagnosis for this admission?: Yes (10) Pneumonia Qualifiers: Pneumonia type: due to unspecified organism Laterality: unspecified laterality Lung location: unspecified part of lung Qualified Code(s) : J18.9 - Pneumonia, unspecified organism Is this a current diagnosis for this admission?: Yes (11) Overactive bladder Is this a current diagnosis for this admission?: Yes (12) Acute retention of urine Is this a current diagnosis for this admission?: Yes (13) Acute respiratory failure with hypoxia and hypercapnia Is this a current diagnosis for this admission?: Yes (14) Hypotension Qualifiers: Hypotension type: unspecified hypotension type Qualified Code(s): I95.9 - Hypotension, unspecified Is this a current diagnosis for this admission?: Yes (15) Acute systolic heart failure Is this a current diagnosis for this admission?: Yes
[2016-05-24] MEDS: DEXTROSE 5%-WATER 250 ML with NOREPINEPHRINE BITARTRATE 4 MG IV PRN ×2 (23:50)
[2016-05-25] MEDS: PROPOFOL 100 ML IV PRN ×2 (01:17→17:51)
[2016-05-25] MEDS: VANCOMYCIN HCL 750 MG in DEXTROSE 5%-WATER 250 ML IV SCH ×2 (02:45→17:48)
[2016-05-25 04:58] LABS: ABSOLUTE BASOPHILS # (AUTO) 0.1 10^3/uL (0.0-0.2); ABSOLUTE EOSINOPHILS # (AUTO) 0.3 10^3/uL (0.0-0.6); ABSOLUTE LYMPHOCYTES (AUTO) 2.1 10^3/uL (0.5-4.7); BASOPHILS % (AUTO) 0.9 % (0-2); EOSINOPHILS % (AUTO) 3.1 % (0-6); HEMOGLOBIN 10.9 g/dL (13.5-17.0); HGB HCT DIFFERENCE -1.3; LYMPHOCYTES % (AUTO) 21.7 % (13-45); MEAN CORPUSCULAR HGB CONC 32.1 g/dL (32.0-36.0); MEAN CORPUSCULAR VOLUME 97 fl (80-97); PROTHROMBIN TIME 16.9 SEC (11.4-15.4); RED BLOOD COUNT 3.52 10^6/uL (4.35-5.55); RED CELL DISTRIBUTION WIDTH 20.6 % (11.5-14.0); SEGMENTED NEUTROPHILS % (AUTO) 63.3 % (42-78); WHITE BLOOD COUNT 9.5 10^3/uL (4.0-10.5)
[2016-05-25] MEDS: ACETAMINOPHEN 325 MG TABLET NG SCH ×3 (05:26→17:51)
[2016-05-25 05:27] LABS: ALANINE AMINOTRANSFERASE 89 U/L (21-72); ALKALINE PHOSPHATASE 322 U/L (38-126); ANION GAP 8 (5-19); ASPARTATE AMINO TRANSFERASE 184 U/L (17-59); BLOOD UREA NITROGEN 21 mg/dL (7-20); CALCIUM 7.9 mg/dL (8.4-10.2); CARBON DIOXIDE 26 mmol/L (22-30); CHLORIDE 108 mmol/L (98-107); CREATININE RESULT 0.65 mg/dL (0.52-1.25); GLUCOSE 191 mg/dL (75-110); MAGNESIUM 1.8 mg/dL (1.6-2.3); POTASSIUM 3.2 mmol/L (3.6-5.0); SODIUM 142.2 mmol/L (137-145); TOTAL PROTEIN 5.6 g/dL (6.3-8.2)
[2016-05-25] MEDS: CEFEPIME HCL 2 GM in DEXTROSE 5%-WATER 50 ML IV SCH ×2 (05:27→17:49)
[2016-05-25] MEDS: NORMAL SALINE 1000 ML 1,000 ML IV PRN (05:27)
[2016-05-25 06:08] LABS: ARTERIAL BLOOD BASE EXCESS 4.2 mmol/L; ARTERIAL BLOOD O2 SATURATION 97.7 % (94-98)
[2016-05-25] MEDS ORDERED: GLUCAGON,HUMAN RECOMB 1 MG INJ IM PRN (06:43)
[2016-05-25] MEDS ORDERED: DEXTROSE 50%-WATER SYRINGE 12.5 GM/25 ML DOSE IV PRN (06:48)
[2016-05-25] MEDS ORDERED: POTASSI CL 20 MEQ/50 ML RIDER 20 MEQ/50 ML RTUPB IV ONE (06:49)
[2016-05-25] MEDS ORDERED: DEXTROSE 50%-WATER SYRINGE 25 GM/50 ML DOSE IV PRN (06:49)
[2016-05-25] MEDS: POTASSIUM CHLORIDE 20 MEQ/50 ML RTU IV SCH ×2 (06:56→08:38)
--- NOTE | 2016-05-25 12:00 | PDOC CONSULTATION ---
Consultation Consult Date: 05/20/16 Attending physician:: GIO TOMLIN Consult reason:: fail/sepsis History of Present Illness Admission Date/PCP: 04/23/16 20:21 History of Present Illness: All information is from chart as patient is currently intubated and sedated. GAVIN COSTELLO is a 80 year old male, he is presently in the group home undergoing rehabilitation, he requested to be transferred to the hospital because of generalized fatigue. He was recently admitted in this hospital when he had altered mental status, cellulitis of the leg. On that admission he was diagnosed with MRSA cellulitis on he was also found to have clostridium difficile colitis with diarrhea, he was discharged to group home on Zyvox for the cellulitis and flagyl for the C. difficile. He was evaluated in the emergency room and he was found to have hyponatremia with serum sodium of 123 when he was discharged from this hospital on 04/12/2016, the serum sodium was 136. Over the course of his hospitalization his status continued to decline point he was having respiratory difficulty but he refused BiPAP subsequently his family discontinued his DNR he was intubated and sent to the ICU. Past Medical History Cardiac Medical History: Reports: Atrial Fibrillation, Hypertension Denies: Congestive Heart Failure, DVT, Myocardial Infarction, Hyperlipidema, Pulmonary Embolism Pulmonary Medical History: Reports: Pneumonia Denies: Asthma, Chronic Obstructive Pulmonary Disease (COPD) Neurological Medical History: Denies: Seizures Endocrine Medical History: Reports: Diabetes Mellitus Type 2 Denies: Hyperthyroidism, Hypothyroidism Malignancy Medical History: Reports: Skin Cancer - Status post excision of several GI Medical History: Reports: Cirrhosis, Gastroesophageal Reflux Disease Denies: Hepatitis, Hiatal Hernia Musculoskeltal Medical History: Reports: Arthritis Psychiatric Medical History: Denies: Depression Hematology: Reports: Anemia Infectious Medical History: Reports: Clostridium Difficile, Methicillin- Resistant Staph Aureus Past Surgical History Past Surgical History: Reports: Orthopedic Surgery - Multiple right knee surgeries, with eventual fusion. Lithotripsy., Other - Left total knee replacement. Excision of several skin cancers. Denies: Pacemaker Social History Lives with: [facility] Smoking Status: Former Smoker Frequency of Alcohol Use: None Hx Recreational Drug Use: No Drugs: None Hx Prescription Drug Abuse: No - Advance Directive Resuscitation Status: Do Not Resuscitate Family History Family History: Reviewed & Not Pertinent Parental Family History Reviewed: No Children Family History Reviewed: No Sibling(s) Family History Reviewed.: No Medication/Allergy Home Medications: Tamsulosin HCl [Flomax] 0.4 mg PO BID 10/20/13 Esomeprazole Mag Trihydrate [Nexium] 40 mg PO DAILY 03/19/15 Loratadine [Claritin 10 mg Tablet] 10 mg PO DAILY 09/26/15 Verapamil HCl [Verapamil ER] 180 mg PO DAILY 03/28/16 FA/Vit C/E/Zinc/Copper/Lut/Darrian [Ocuvel Capsule] 1 each PO DAILY 04/07/16 Acidoph/L.bulg/Bif.b/S.thermop [Bacid Caplet] 1 each PO BID #28 tablet 04/12/16 Metronidazole [Flagyl 500 mg Tablet] 500 mg PO Q8 tablet 04/12/16 Finasteride 5 mg PO DAILY 04/23/16 Insulin Regular, Human [Humulin R (Reg) Insulin 100 unit/mL] 0 - 12 unit SUBCUT ACHSP PRN 04/23/16 Allergies/Adverse Reactions: Levaquin Adverse Reaction (Intermediate, Uncoded 05/09/16 14:54) Pruritis Review of Systems ROS unobtainable: Due to endotracheal tube Physical Exam Vital Signs: Temp Pulse Resp BP Pulse Ox 101.7 F H 103 H 14 95/53 L 97 05/20/16 10:00 05/20/16 09:05 05/20/16 09:05 05/20/16 08:10 05/20/16 09:05 Intake & Output 05/19/16 05/20/16 05/21/16 06:59 06:59 06:59 Intake Total 150 2046 100 Output Total 3000 1185 550 Balance -2850 861 -450 Weight 72 kg 66 kg General appearance: PRESENT: no acute distress, disheveled Head exam: PRESENT: atraumatic, normocephalic Eye exam: PRESENT: nystagmus Mouth exam: PRESENT: dry mucosa, neck supple, tongue midline, other - ET tube in place Neck exam: ABSENT: carotid bruit, JVD, lymphadenopathy, thyromegaly Respiratory exam: PRESENT: decreased breath sounds, prolonged expiratory phas, rales, rhonchi, symmetrical, unlabored, other - Bibasilar E to A changes Cardiovascular exam: PRESENT: irregular rhythm - Heart sounds distant, +S1, +S2 GI/Abdominal exam: PRESENT: normal bowel sounds, soft. ABSENT: distended, guarding, mass, organolmegaly, rebound, tenderness Rectal exam: PRESENT: deferred Gentrourinary exam: PRESENT: indwelling catheter Skin exam: PRESENT: dry, warm Results Laboratory Results: 05/20/16 07:50 05/20/16 07:50 05/19/16 05/19/16 05/19/16 15:50 17:14 17:14 WBC 10.4 RBC 3.19 L Hgb 10.3 L Hct 31.4 L MCV 98 H MCH 32.2 MCHC 32.8 RDW 21.5 H Plt Count 170 Seg Neutrophils % 79.4 H Lymphocytes % 7.2 L Monocytes % 11.3 Eosinophils % 1.5 Basophils % 0.6 Absolute Neutrophils 8.2 Absolute Lymphocytes 0.7 Absolute Monocytes 1.2 Absolute Eosinophils 0.2 Absolute Basophils 0.1 Carbonic Acid 2.52 H HCO3/H2CO3 Ratio 15:1 ABG pH 7.30 L ABG pCO2 83.8 H* ABG pO2 86.9 ABG HCO3 40.1 H ABG O2 Saturation 95.1 ABG Base Excess 11.2 FiO2 45% Sodium 149.4 H Potassium 4.1 Chloride 102 Carbon Dioxide 39 H Anion Gap 8 BUN 14 Creatinine 0.67 Est GFR ( Amer) > 60 Est GFR (Non-Af Amer) > 60 Glucose 140 H Calcium 8.6 Total Bilirubin 0.7 AST 46 ALT 43 Alkaline Phosphatase 150 H Total Protein 6.2 L Albumin 2.4 L 05/19/16 05/20/16 05/20/16 18:10 05:48 07:50 WBC 10.3 RBC 3.39 L Hgb 10.8 L Hct 32.9 L MCV 97 MCH 32.0 MCHC 33.0 RDW 21.5 H Plt Count 208 Seg Neutrophils % 72.5 Lymphocytes % 15.5 Monocytes % 9.9 Eosinophils % 1.1 Basophils % 1.0 Absolute Neutrophils 7.4 Absolute Lymphocytes 1.6 Absolute Monocytes 1.0 Absolute Eosinophils 0.1 Absolute Basophils 0.1 Carbonic Acid 1.74 H 1.18 HCO3/H2CO3 Ratio 22:1 28:1 ABG pH 7.45 7.55 H ABG pCO2 57.7 H 39.3 ABG pO2 115.9 H 89.8 ABG HCO3 38.9 H 33.8 H ABG O2 Saturation 98.3 H 97.7 ABG Base Excess 13.0 10.7 FiO2 45% 35% Sodium Potassium Chloride Carbon Dioxide Anion Gap BUN Creatinine Est GFR ( Amer) Est GFR (Non-Af Amer) Glucose Calcium Total Bilirubin AST ALT Alkaline Phosphatase Total Protein Albumin 05/20/16 07:50 WBC RBC Hgb Hct MCV MCH MCHC RDW Plt Count Seg Neutrophils % Lymphocytes % Monocytes % Eosinophils % Basophils % Absolute Neutrophils Absolute Lymphocytes Absolute Monocytes Absolute Eosinophils Absolute Basophils Carbonic Acid HCO3/H2CO3 Ratio ABG pH ABG pCO2 ABG pO2 ABG HCO3 ABG O2 Saturation ABG Base Excess FiO2 Sodium 142.5 Potassium 3.4 L Chloride 103 Carbon Dioxide 33 H Anion Gap 7 BUN 13 Creatinine 0.72 Est GFR ( Amer) > 60 Est GFR (Non-Af Amer) > 60 Glucose 81 Calcium 8.7 Total Bilirubin 1.4 H AST 45 ALT 34 Alkaline Phosphatase 171 H Total Protein 5.9 L Albumin 2.5 L 05/17/16 23:25 Muhammad Catheter Urine Culture - Final NO GROWTH 2 DAYS 04/23/16 04/23/16 04/24/16 21:01 21:01 03:31 Creatine Kinase 26 L 23 L CK-MB (CK-2) 1.80 Troponin I < 0.012 NT-Pro-B Natriuret Pep 04/24/16 04/24/16 04/24/16 03:31 09:43 09:43 Creatine Kinase 22 L CK-MB (CK-2) 1.38 1.37 Troponin I < 0.012 < 0.012 NT-Pro-B Natriuret Pep 05/19/16 17:14 Creatine Kinase CK-MB (CK-2) Troponin I NT-Pro-B Natriuret Pep 3530 H Impressions: Chest CT 04/24/16 00:00 IMPRESSION: Large bilateral pleural effusions are identified with some associated airspace consolidation in the lung bases most consistent with atelectatic changes. Other findings as noted above Shoulder X-Ray 04/24/16 00:00 IMPRESSION: No acute fracture or malalignment at the right or left shoulder Old right humeral neck fracture, healed Bilateral pleural effusions Thoracentesis Ultrasound 05/03/16 08:38 IMPRESSION: SUCCESSFUL LEFT THORACENTESIS USING ULTRASOUND GUIDANCE. Head CT 05/13/16 00:00 IMPRESSION: NO ACUTE INTRACRANIAL PROCESS. NO SIGNIFICANT CHANGE FROM PRIOR STUDY. Chest X-Ray 05/20/16 16:45 IMPRESSION: 1. Endotracheal tube looks slightly lower compared to prior, possibly due to projection. This should perhaps be retracted 1 to 2 cm or so, however. 2. Similar appearance of the lungs compared to prior. Assessment & Plan - Diagnosis (1) Acute respiratory failure with hypoxia and hypercapnia Is this a current diagnosis for this admission?: YesPlan: Mechanical ventilation with supplemental ventilation and oxygenation (2) Acute systolic heart failure Is this a current diagnosis for this admission?: YesPlan: Diuresis per primary care (3) Bilateral pleural effusion Is this a current diagnosis for this admission?: YesPlan: We will follow to not believe thoracentesis mandatory at this time - Time Critical Time spent with patient: 35 or more minutes - 55 minutes
--- NOTE | 2016-05-25 12:01 | PDOC PROGRESS REPORT ---
Subjective Progress Note for:: 05/21/16 Subjective:: Intubated and sedated Physical Exam Vital Signs: Temp Pulse Resp BP Pulse Ox 94.5 F L 75 18 105/67 99 05/21/16 05:20 05/20/16 22:00 05/21/16 07:20 05/21/16 07:20 05/21/16 07:20 Intake & Output 05/20/16 05/21/16 05/22/16 06:59 06:59 06:59 Intake Total 7876 9497 Output Total 3106 2445 Balance 861 -4122 Weight 66 kg 67.2 kg General appearance: PRESENT: no acute distress, disheveled Head exam: PRESENT: atraumatic, normocephalic Eye exam: PRESENT: conjunctiva pale Mouth exam: PRESENT: dry mucosa, neck supple, tongue midline, other - ET tube in place Teeth exam: PRESENT: edentulous Respiratory exam: PRESENT: decreased breath sounds, prolonged expiratory phas, rales, rhonchi, symmetrical, unlabored Cardiovascular exam: PRESENT: irregular rhythm Pulses: PRESENT: normal radial pulses GI/Abdominal exam: PRESENT: normal bowel sounds, soft. ABSENT: distended, guarding, mass, organolmegaly, rebound, tenderness Rectal exam: PRESENT: deferred Gentrourinary exam: PRESENT: indwelling catheter Musculoskeletal exam: PRESENT: normal inspection Skin exam: PRESENT: dry, warm Results Laboratory Results: 05/20/16 07:50 05/20/16 16:00 05/20/16 05/20/16 05/20/16 07:50 07:50 12:05 WBC 10.3 RBC 3.39 L Hgb 10.8 L Hct 32.9 L MCV 97 MCH 32.0 MCHC 33.0 RDW 21.5 H Plt Count 208 Seg Neutrophils % 72.5 Lymphocytes % 15.5 Monocytes % 9.9 Eosinophils % 1.1 Basophils % 1.0 Absolute Neutrophils 7.4 Absolute Lymphocytes 1.6 Absolute Monocytes 1.0 Absolute Eosinophils 0.1 Absolute Basophils 0.1 Carbonic Acid 1.21 HCO3/H2CO3 Ratio 26:1 ABG pH 7.53 H ABG pCO2 40.1 ABG pO2 124.3 H ABG HCO3 32.4 H ABG O2 Saturation 98.8 H ABG Base Excess 8.9 FiO2 45% Sodium 142.5 Potassium 3.4 L Chloride 103 Carbon Dioxide 33 H Anion Gap 7 BUN 13 Creatinine 0.72 Est GFR ( Amer) > 60 Est GFR (Non-Af Amer) > 60 Glucose 81 Calcium 8.7 Total Bilirubin 1.4 H AST 45 ALT 34 Alkaline Phosphatase 171 H Total Protein 5.9 L Albumin 2.5 L Triglycerides 05/20/16 05/20/16 05/21/16 16:00 17:08 06:25 WBC RBC Hgb Hct MCV MCH MCHC RDW Plt Count Seg Neutrophils % Lymphocytes % Monocytes % Eosinophils % Basophils % Absolute Neutrophils Absolute Lymphocytes Absolute Monocytes Absolute Eosinophils Absolute Basophils Carbonic Acid 1.24 HCO3/H2CO3 Ratio 24:1 ABG pH 7.48 H ABG pCO2 41.3 ABG pO2 100.6 H ABG HCO3 30.3 H ABG O2 Saturation 98.0 ABG Base Excess 6.3 FiO2 25% Sodium 140.4 Potassium 3.6 Chloride 105 Carbon Dioxide 28 Anion Gap 7 BUN 15 Creatinine 0.70 Est GFR ( Amer) > 60 Est GFR (Non-Af Amer) > 60 Glucose 89 Calcium 8.2 L Total Bilirubin 1.5 H AST 60 H ALT 42 Alkaline Phosphatase 159 H Total Protein 5.5 L Albumin 1.9 L Triglycerides 130 05/17/16 23:25 Muhammad Catheter Urine Culture - Final NO GROWTH 2 DAYS 04/23/16 04/23/16 04/24/16 21:01 21:01 03:31 Creatine Kinase 26 L 23 L CK-MB (CK-2) 1.80 Troponin I < 0.012 NT-Pro-B Natriuret Pep 04/24/16 04/24/16 04/24/16 03:31 09:43 09:43 Creatine Kinase 22 L CK-MB (CK-2) 1.38 1.37 Troponin I < 0.012 < 0.012 NT-Pro-B Natriuret Pep 05/19/16 17:14 Creatine Kinase CK-MB (CK-2) Troponin I NT-Pro-B Natriuret Pep 3530 H Impressions: Chest CT 04/24/16 00:00 IMPRESSION: Large bilateral pleural effusions are identified with some associated airspace consolidation in the lung bases most consistent with atelectatic changes. Other findings as noted above Shoulder X-Ray 04/24/16 00:00 IMPRESSION: No acute fracture or malalignment at the right or left shoulder Old right humeral neck fracture, healed Bilateral pleural effusions Thoracentesis Ultrasound 05/03/16 08:38 IMPRESSION: SUCCESSFUL LEFT THORACENTESIS USING ULTRASOUND GUIDANCE. Head CT 05/13/16 00:00 IMPRESSION: NO ACUTE INTRACRANIAL PROCESS. NO SIGNIFICANT CHANGE FROM PRIOR STUDY. Chest X-Ray 05/21/16 06:00 IMPRESSION: NO CHANGE IN APPEARANCE OF THE CHEST. Assessment & Plan - Diagnosis (1) Acute respiratory failure with hypoxia and hypercapnia Is this a current diagnosis for this admission?: YesPlan: Continue supportive care Ventolin cessation and oxygenation have been machine dependent but successful (2) Acute systolic heart failure Is this a current diagnosis for this admission?: YesPlan: Diuresis per primary care (3) Bilateral pleural effusion Is this a current diagnosis for this admission?: YesPlan: We will follow - Time Critical Time spent with patient: 25-34 minutes - 30 minute
--- NOTE | 2016-05-25 12:07 | PDOC PROGRESS REPORT ---
Subjective Progress Note for:: 05/22/16 Subjective:: Intubated and sedated Physical Exam Vital Signs: Temp Pulse Resp BP Pulse Ox 99.1 F 95 23 H 143/80 H 98 05/22/16 08:00 05/22/16 08:00 05/22/16 08:00 05/22/16 08:00 05/22/16 08:00 Intake & Output 05/21/16 05/22/16 05/23/16 06:59 06:59 06:59 Intake Total 3326 3281 Output Total 7233 2850 Balance -2964 431 Weight 67.2 kg 64 kg General appearance: PRESENT: no acute distress, disheveled Head exam: PRESENT: atraumatic, normocephalic Eye exam: PRESENT: conjunctiva pale Mouth exam: PRESENT: dry mucosa, neck supple, tongue midline, other - ET tube in place Neck exam: ABSENT: carotid bruit, JVD, lymphadenopathy, thyromegaly Respiratory exam: PRESENT: decreased breath sounds, prolonged expiratory phas, rales, rhonchi, symmetrical, unlabored Cardiovascular exam: PRESENT: irregular rhythm, +S1, +S2 Pulses: PRESENT: normal radial pulses GI/Abdominal exam: PRESENT: normal bowel sounds, soft. ABSENT: distended, guarding, mass, organolmegaly, rebound, tenderness Rectal exam: PRESENT: deferred Skin exam: PRESENT: dry Results Laboratory Results: 05/22/16 03:44 05/22/16 03:44 05/22/16 05/22/16 05/22/16 03:44 03:44 05:15 WBC 9.8 RBC 3.66 L Hgb 11.7 L Hct 34.6 L MCV 95 MCH 32.1 MCHC 33.9 RDW 21.8 H Plt Count 174 Seg Neutrophils % 70.4 Lymphocytes % 13.9 Monocytes % 12.6 Eosinophils % 2.2 Basophils % 0.9 Absolute Neutrophils 6.9 Absolute Lymphocytes 1.4 Absolute Monocytes 1.2 Absolute Eosinophils 0.2 Absolute Basophils 0.1 Carbonic Acid 1.32 HCO3/H2CO3 Ratio 23:1 ABG pH 7.47 H ABG pCO2 44.0 ABG pO2 98.5 ABG HCO3 31.1 H ABG O2 Saturation 97.8 ABG Base Excess 6.6 FiO2 25% Sodium 143.2 Potassium 3.5 L Chloride 106 Carbon Dioxide 31 H Anion Gap 6 BUN 17 Creatinine 0.70 Est GFR ( Amer) > 60 Est GFR (Non-Af Amer) > 60 Glucose 176 H Calcium 8.1 L Magnesium 1.6 Total Bilirubin 1.1 AST 85 H ALT 40 Alkaline Phosphatase 198 H Total Protein 6.2 L Albumin 2.2 L 05/19/16 15:50 Tracheal Aspirate Gram Stain - Final 05/19/16 15:50 Tracheal Aspirate Sputum Culture - Final Mrsa (Meth Resis Staph Aureus) Normal [place] Absent 04/23/16 04/23/16 04/24/16 21:01 21:01 03:31 Creatine Kinase 26 L 23 L CK-MB (CK-2) 1.80 Troponin I < 0.012 NT-Pro-B Natriuret Pep 04/24/16 04/24/16 04/24/16 03:31 09:43 09:43 Creatine Kinase 22 L CK-MB (CK-2) 1.38 1.37 Troponin I < 0.012 < 0.012 NT-Pro-B Natriuret Pep 05/19/16 17:14 Creatine Kinase CK-MB (CK-2) Troponin I NT-Pro-B Natriuret Pep 3530 H Impressions: Chest CT 04/24/16 00:00 IMPRESSION: Large bilateral pleural effusions are identified with some associated airspace consolidation in the lung bases most consistent with atelectatic changes. Other findings as noted above Shoulder X-Ray 04/24/16 00:00 IMPRESSION: No acute fracture or malalignment at the right or left shoulder Old right humeral neck fracture, healed Bilateral pleural effusions Thoracentesis Ultrasound 05/03/16 08:38 IMPRESSION: SUCCESSFUL LEFT THORACENTESIS USING ULTRASOUND GUIDANCE. Head CT 05/13/16 00:00 IMPRESSION: NO ACUTE INTRACRANIAL PROCESS. NO SIGNIFICANT CHANGE FROM PRIOR STUDY. Chest X-Ray 05/22/16 06:00 IMPRESSION: Endotracheal tube is slightly advanced and lies in the proximal right mainstem bronchus. This needs to be withdrawn approximately 15 mm. No other interval change. Assessment & Plan - Diagnosis (1) Acute respiratory failure with hypoxia and hypercapnia Is this a current diagnosis for this admission?: YesPlan: Unchanged no leukocytosis no left shift 05/04/16 17:30 - Final Stool - Stool Stool Culture - Final Vancomycin Resis. Enterococci 05/19/16 15:50 Gram Stain - Final Tracheal Aspirate Sputum Culture - Final Mrsa (Meth Resis Staph Aureus) Normal [place] Absent Radiographic airspace disease is noted (2) Bilateral pleural effusion Is this a current diagnosis for this admission?: YesPlan: Unchanged - Time Critical Time spent with patient: 25-34 minutes - 30 minute
--- NOTE | 2016-05-25 12:09 | PDOC PROGRESS REPORT ---
Subjective Progress Note for:: 05/23/16 Subjective:: Intubated and sedated Physical Exam Vital Signs: Temp Pulse Resp BP Pulse Ox 99.5 F 89 14 97/66 L 100 05/23/16 07:38 05/23/16 08:25 05/23/16 08:25 05/23/16 07:38 05/23/16 08:25 Intake & Output 05/22/16 05/23/16 05/24/16 06:59 06:59 06:59 Intake Total 3281 1980 Output Total 2850 4700 20 Balance 431 -2720 -20 Weight 64 kg 63.5 kg General appearance: PRESENT: disheveled Head exam: PRESENT: atraumatic, normocephalic Eye exam: PRESENT: conjunctiva pale Mouth exam: PRESENT: dry mucosa, neck supple, tongue midline, other - ET tube Neck exam: ABSENT: carotid bruit, JVD, lymphadenopathy, thyromegaly Respiratory exam: PRESENT: decreased breath sounds, prolonged expiratory phas, rales, rhonchi, symmetrical, unlabored Cardiovascular exam: PRESENT: irregular rhythm, +S1 Pulses: PRESENT: normal radial pulses GI/Abdominal exam: PRESENT: normal bowel sounds, soft. ABSENT: distended, guarding, mass, organolmegaly, rebound, tenderness Rectal exam: PRESENT: deferred Gentrourinary exam: PRESENT: indwelling catheter Skin exam: PRESENT: dry Results Laboratory Results: 05/23/16 03:37 05/23/16 03:37 05/23/16 05/23/16 05/23/16 03:37 03:37 03:45 WBC 9.5 RBC 3.49 L Hgb 11.2 L Hct 32.8 L MCV 94 MCH 32.1 MCHC 34.2 RDW 21.3 H Plt Count 160 Seg Neutrophils % 64.8 Lymphocytes % 19.7 Monocytes % 11.9 Eosinophils % 2.9 Basophils % 0.7 Absolute Neutrophils 6.1 Absolute Lymphocytes 1.9 Absolute Monocytes 1.1 Absolute Eosinophils 0.3 Absolute Basophils 0.1 Carbonic Acid 1.25 HCO3/H2CO3 Ratio 24:1 ABG pH 7.48 H ABG pCO2 41.6 ABG pO2 96.5 ABG HCO3 30.1 H ABG O2 Saturation 97.7 ABG Base Excess 6.0 FiO2 25% Sodium 144.0 Potassium 3.2 L Chloride 106 Carbon Dioxide 30 Anion Gap 8 BUN 15 Creatinine 0.64 Est GFR ( Amer) > 60 Est GFR (Non-Af Amer) > 60 Glucose 173 H Calcium 7.9 L Magnesium 1.6 Triglycerides 91 04/23/16 04/23/16 04/24/16 21:01 21:01 03:31 Creatine Kinase 26 L 23 L CK-MB (CK-2) 1.80 Troponin I < 0.012 NT-Pro-B Natriuret Pep 04/24/16 04/24/16 04/24/16 03:31 09:43 09:43 Creatine Kinase 22 L CK-MB (CK-2) 1.38 1.37 Troponin I < 0.012 < 0.012 NT-Pro-B Natriuret Pep 05/19/16 17:14 Creatine Kinase CK-MB (CK-2) Troponin I NT-Pro-B Natriuret Pep 3530 H Impressions: Chest CT 04/24/16 00:00 IMPRESSION: Large bilateral pleural effusions are identified with some associated airspace consolidation in the lung bases most consistent with atelectatic changes. Other findings as noted above Shoulder X-Ray 04/24/16 00:00 IMPRESSION: No acute fracture or malalignment at the right or left shoulder Old right humeral neck fracture, healed Bilateral pleural effusions Thoracentesis Ultrasound 05/03/16 08:38 IMPRESSION: SUCCESSFUL LEFT THORACENTESIS USING ULTRASOUND GUIDANCE. Head CT 05/13/16 00:00 IMPRESSION: NO ACUTE INTRACRANIAL PROCESS. NO SIGNIFICANT CHANGE FROM PRIOR STUDY. Chest X-Ray 05/23/16 06:00 IMPRESSION: Stable chest with appropriate support lines and tubes. Assessment & Plan - Diagnosis (1) Acute respiratory failure with hypoxia and hypercapnia Is this a current diagnosis for this admission?: YesPlan: Oxygenating and ventilating well still requiring increased minute ventilation and FiO2 (2) Bilateral pleural effusion Is this a current diagnosis for this admission?: YesPlan: Slightly decreased at this time (3) Chronic atrial fibrillation Is this a current diagnosis for this admission?: YesPlan: Stable - Time Critical Time spent with patient: 25-34 minutes - 30 minute
--- NOTE | 2016-05-25 12:14 | PDOC PROGRESS REPORT ---
Subjective Progress Note for:: 05/24/16 Subjective:: Intubated and sedated Physical Exam Vital Signs: Temp Pulse Resp BP Pulse Ox 99.0 F 82 14 117/76 100 05/24/16 08:00 05/24/16 08:48 05/24/16 08:48 05/24/16 08:00 05/24/16 08:48 Intake & Output 05/23/16 05/24/16 05/25/16 06:59 06:59 06:59 Intake Total 4209 3854 Output Total 4750 3900 100 Balance -541 -46 -100 Weight 63.5 kg 63.3 kg General appearance: PRESENT: disheveled Head exam: PRESENT: atraumatic, normocephalic Eye exam: PRESENT: conjunctiva pale Mouth exam: PRESENT: neck supple, tongue midline, other - ET tube in place Respiratory exam: PRESENT: decreased breath sounds, prolonged expiratory phas, rales, rhonchi, symmetrical, unlabored Cardiovascular exam: PRESENT: irregular rhythm Pulses: PRESENT: normal radial pulses GI/Abdominal exam: PRESENT: ascites Rectal exam: PRESENT: deferred Gentrourinary exam: PRESENT: indwelling catheter Skin exam: PRESENT: dry Results Laboratory Results: 05/24/16 04:06 05/24/16 04:06 05/23/16 05/24/16 05/24/16 11:03 04:06 04:06 WBC 6.5 RBC 3.28 L Hgb 10.6 L Hct 31.2 L MCV 95 MCH 32.3 MCHC 34.0 RDW 21.3 H Plt Count 122 L Seg Neutrophils % 59.5 Lymphocytes % 23.1 Monocytes % 11.0 Eosinophils % 5.6 Basophils % 0.8 Absolute Neutrophils 3.9 Absolute Lymphocytes 1.5 Absolute Monocytes 0.7 Absolute Eosinophils 0.4 Absolute Basophils 0.1 Carbonic Acid HCO3/H2CO3 Ratio ABG pH ABG pCO2 ABG pO2 ABG HCO3 ABG O2 Saturation ABG Base Excess FiO2 Sodium 135.4 L Potassium 3.4 L Chloride 102 Carbon Dioxide 28 Anion Gap 5 BUN 17 Creatinine 0.58 Est GFR ( Amer) > 60 Est GFR (Non-Af Amer) > 60 Glucose 382 H Calcium 7.3 L Magnesium 1.6 Total Bilirubin 0.7 AST 161 H ALT 77 H Alkaline Phosphatase 254 H Total Protein 4.7 L Albumin 1.6 L Urine Color STRAW Urine Appearance CLEAR Urine pH 7.0 Ur Specific [place] 1.009 Urine Protein NEGATIVE Urine Glucose (UA) NEGATIVE Urine Ketones NEGATIVE Urine Blood SMALL H Urine Nitrite NEGATIVE Ur Leukocyte Esterase NEGATIVE Urine WBC (Auto) 5 Urine RBC (Auto) 6 05/24/16 05:00 WBC RBC Hgb Hct MCV MCH MCHC RDW Plt Count Seg Neutrophils % Lymphocytes % Monocytes % Eosinophils % Basophils % Absolute Neutrophils Absolute Lymphocytes Absolute Monocytes Absolute Eosinophils Absolute Basophils Carbonic Acid 1.14 HCO3/H2CO3 Ratio 24:1 ABG pH 7.49 H ABG pCO2 38.0 ABG pO2 101.3 H ABG HCO3 28.0 H ABG O2 Saturation 98.0 ABG Base Excess 4.4 FiO2 25% Sodium Potassium Chloride Carbon Dioxide Anion Gap BUN Creatinine Est GFR ( Amer) Est GFR (Non-Af Amer) Glucose Calcium Magnesium Total Bilirubin AST ALT Alkaline Phosphatase Total Protein Albumin Urine Color Urine Appearance Urine pH Ur Specific [place] Urine Protein Urine Glucose (UA) Urine Ketones Urine Blood Urine Nitrite Ur Leukocyte Esterase Urine WBC (Auto) Urine RBC (Auto) 04/23/16 04/23/16 04/24/16 21:01 21:01 03:31 Creatine Kinase 26 L 23 L CK-MB (CK-2) 1.80 Troponin I < 0.012 NT-Pro-B Natriuret Pep 04/24/16 04/24/16 04/24/16 03:31 09:43 09:43 Creatine Kinase 22 L CK-MB (CK-2) 1.38 1.37 Troponin I < 0.012 < 0.012 NT-Pro-B Natriuret Pep 05/19/16 17:14 Creatine Kinase CK-MB (CK-2) Troponin I NT-Pro-B Natriuret Pep 3530 H Impressions: Chest CT 04/24/16 00:00 IMPRESSION: Large bilateral pleural effusions are identified with some associated airspace consolidation in the lung bases most consistent with atelectatic changes. Other findings as noted above Shoulder X-Ray 04/24/16 00:00 IMPRESSION: No acute fracture or malalignment at the right or left shoulder Old right humeral neck fracture, healed Bilateral pleural effusions Thoracentesis Ultrasound 05/03/16 08:38 IMPRESSION: SUCCESSFUL LEFT THORACENTESIS USING ULTRASOUND GUIDANCE. Head CT 05/13/16 00:00 IMPRESSION: NO ACUTE INTRACRANIAL PROCESS. NO SIGNIFICANT CHANGE FROM PRIOR STUDY. Chest X-Ray 05/24/16 06:00 IMPRESSION: Pneumonia or asymmetric edema. No significant change. Assessment & Plan - Diagnosis (1) Acute respiratory failure with hypoxia and hypercapnia Is this a current diagnosis for this admission?: YesPlan: Stable no leukocytosis no left shift low-grade temperature (2) Bilateral pleural effusion Is this a current diagnosis for this admission?: YesPlan: Slightly decreased at this time (3) Chronic atrial fibrillation Is this a current diagnosis for this admission?: YesPlan: Stable - Time Critical Time spent with patient: 25-34 minutes - 30 minute
[2016-05-25] MEDS: LACTOBACILLUS ACIDOPHILUS 250 MG TAB NG SCH ×2 (17:49→17:51)
[2016-05-25] MEDS: LEVOFLOXACIN 750 MG TABLET NG SCH (21:31)
[2016-05-25] MEDS: FAMOTIDINE INJ/PF 20 MG/2 ML SDV IV SCH ×2 (21:31→22:49)
[2016-05-25] MEDS: FUROSEMIDE INJ/PF 40 MG/4 ML SDV IV SCH (21:31)
--- NOTE | 2016-05-25 22:37 | PDOC PROGRESS REPORT ---
Subjective Progress Note for:: 05/25/16 Subjective:: Patient is sedated and intubated Physical Exam Vital Signs: Temp Pulse Resp BP Pulse Ox 100.9 F H 106 H 14 120/81 98 05/25/16 22:00 05/25/16 20:00 05/25/16 17:40 05/25/16 21:04 05/25/16 21:04 Intake & Output 05/24/16 05/25/16 05/26/16 06:59 06:59 06:59 Intake Total 3854 5330 1488 Output Total 3900 3350 3470 Balance -46 1979 -1981 Weight 63.3 kg 64.1 kg Eye exam: PRESENT: PERRLA Respiratory exam: PRESENT: rales Cardiovascular exam: PRESENT: +S1, +S2 GI/Abdominal exam: PRESENT: firm Results Laboratory Results: 05/25/16 04:32 05/25/16 04:32 05/25/16 05/25/16 05/25/16 04:32 04:32 05:57 WBC 9.5 RBC 3.52 L Hgb 10.9 L Hct 34.0 L MCV 97 MCH 31.0 MCHC 32.1 RDW 20.6 H Plt Count 144 L Seg Neutrophils % 63.3 Lymphocytes % 21.7 Monocytes % 11.0 Eosinophils % 3.1 Basophils % 0.9 Absolute Neutrophils 6.0 Absolute Lymphocytes 2.1 Absolute Monocytes 1.0 Absolute Eosinophils 0.3 Absolute Basophils 0.1 Carbonic Acid 1.21 HCO3/H2CO3 Ratio 23:1 ABG pH 7.47 H ABG pCO2 40.2 ABG pO2 96.2 ABG HCO3 28.3 H ABG O2 Saturation 97.7 ABG Base Excess 4.2 FiO2 25% Sodium 142.2 Potassium 3.2 L Chloride 108 H Carbon Dioxide 26 Anion Gap 8 BUN 21 H Creatinine 0.65 Est GFR ( Amer) > 60 Est GFR (Non-Af Amer) > 60 Glucose 191 H Calcium 7.9 L Magnesium 1.8 Total Bilirubin 1.0 AST 184 H ALT 89 H Alkaline Phosphatase 322 H Total Protein 5.6 L Albumin 2.0 L 04/23/16 04/23/16 04/24/16 21:01 21:01 03:31 Creatine Kinase 26 L 23 L CK-MB (CK-2) 1.80 Troponin I < 0.012 NT-Pro-B Natriuret Pep 12/13/16 12/13/16 12/13/16 03:31 09:43 09:43 Creatine Kinase 22 L CK-MB (CK-2) 1.38 1.37 Troponin I < 0.012 < 0.012 NT-Pro-B Natriuret Pep 05/19/16 17:14 Creatine Kinase CK-MB (CK-2) Troponin I NT-Pro-B Natriuret Pep 3530 H Impressions: Chest CT 04/24/16 00:00 IMPRESSION: Large bilateral pleural effusions are identified with some associated airspace consolidation in the lung bases most consistent with atelectatic changes. Other findings as noted above Shoulder X-Ray 04/24/16 00:00 IMPRESSION: No acute fracture or malalignment at the right or left shoulder Old right humeral neck fracture, healed Bilateral pleural effusions Thoracentesis Ultrasound 05/03/16 08:38 IMPRESSION: SUCCESSFUL LEFT THORACENTESIS USING ULTRASOUND GUIDANCE. Head CT 05/13/16 00:00 IMPRESSION: NO ACUTE INTRACRANIAL PROCESS. NO SIGNIFICANT CHANGE FROM PRIOR STUDY. 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 Is this a current diagnosis for this admission?: Yes (4) Chronic atrial fibrillation Is this a current diagnosis for this admission?: Yes (5) Wheezing on auscultation Is this a current diagnosis for this admission?: Yes (6) Bilateral pleural effusion Is this a current diagnosis for this admission?: Yes (7) Hypothermia Qualifiers: Encounter type: initial encounter Qualified Code(s): T68.XXXA - Hypothermia, initial encounter Is this a current diagnosis for this admission?: Yes (8) Parapneumonic effusion Is this a current diagnosis for this admission?: Yes (9) Enterocolitis due to Clostridium difficile Is this a current diagnosis for this admission?: Yes (10) Pneumonia Qualifiers: Pneumonia type: due to unspecified organism Laterality: unspecified laterality Lung location: unspecified part of lung Qualified Code(s) : J18.9 - Pneumonia, unspecified organism Is this a current diagnosis for this admission?: Yes (11) Overactive bladder Is this a current diagnosis for this admission?: Yes (12) Acute retention of urine Is this a current diagnosis for this admission?: Yes (13) Acute respiratory failure with hypoxia and hypercapnia Is this a current diagnosis for this admission?: Yes (14) Hypotension Qualifiers: Hypotension type: unspecified hypotension type Qualified Code(s): I95.9 - Hypotension, unspecified Is this a current diagnosis for this admission?: Yes (15) Acute systolic heart failure Is this a current diagnosis for this admission?: Yes
[2016-05-26] MEDS: ACETAMINOPHEN 325 MG TABLET NG SCH ×4 (02:12→17:19)
[2016-05-26] MEDS: VANCOMYCIN HCL 750 MG in DEXTROSE 5%-WATER 250 ML IV SCH ×2 (02:13→14:29)
[2016-05-26 04:44] LABS: ABSOLUTE BASOPHILS # (AUTO) 0.1 10^3/uL (0.0-0.2); ABSOLUTE EOSINOPHILS # (AUTO) 0.3 10^3/uL (0.0-0.6); ABSOLUTE LYMPHOCYTES (AUTO) 2.2 10^3/uL (0.5-4.7); ABSOLUTE MONOCYTES (AUTO) 1.1 10^3/uL (0.1-1.4); ABSOLUTE NEUT (AUTO) 5.3 10^3/uL (1.7-8.2); BASOPHILS % (AUTO) 0.9 % (0-2); EOSINOPHILS % (AUTO) 3.5 % (0-6); HEMATOCRIT 33.7 % (37.9-51.0); HEMOGLOBIN 10.8 g/dL (13.5-17.0); HGB HCT DIFFERENCE -1.3; LYMPHOCYTES % (AUTO) 24.2 % (13-45); MEAN CORPUSCULAR HEMOGLOBIN 31.6 pg (27.0-33.4); MEAN CORPUSCULAR HGB CONC 32.1 g/dL (32.0-36.0); MEAN CORPUSCULAR VOLUME 98 fl (80-97); MONOCYTES % (AUTO) 11.9 % (3-13); RED BLOOD COUNT 3.43 10^6/uL (4.35-5.55); RED CELL DISTRIBUTION WIDTH 21.2 % (11.5-14.0); SEGMENTED NEUTROPHILS % (AUTO) 59.5 % (42-78); WHITE BLOOD COUNT 8.9 10^3/uL (4.0-10.5)
[2016-05-26 04:50] LABS: PROTHROMBIN TIME 17.9 SEC (11.4-15.4)
[2016-05-26 05:03] LABS: BLOOD UREA NITROGEN 19 mg/dL (7-20); CALCIUM 8.4 mg/dL (8.4-10.2); CREATININE RESULT 0.65 mg/dL (0.52-1.25); GLUCOSE 164 mg/dL (75-110)
[2016-05-26 05:04] LABS: ALANINE AMINOTRANSFERASE 91 U/L (21-72); ALBUMIN 2.3 g/dL (3.5-5.0); ALKALINE PHOSPHATASE 330 U/L (38-126); ANION GAP 9 (5-19); ASPARTATE AMINO TRANSFERASE 163 U/L (17-59); BILIRUBIN,TOTAL 0.9 mg/dL (0.2-1.3); CARBON DIOXIDE 27 mmol/L (22-30); CHLORIDE 109 mmol/L (98-107); MAGNESIUM 1.9 mg/dL (1.6-2.3); POTASSIUM 3.3 mmol/L (3.6-5.0); SODIUM 145.2 mmol/L (137-145); TOTAL PROTEIN 5.9 g/dL (6.3-8.2); TRIGLYCERIDES 124 mg/dL (<150)
[2016-05-26 06:27] LABS: ARTERIAL BLOOD BASE EXCESS 5.9 mmol/L; ARTERIAL BLOOD O2 SATURATION 97.6 % (94-98)
[2016-05-26] MEDS: CEFEPIME HCL 2 GM in DEXTROSE 5%-WATER 50 ML IV SCH ×2 (06:46→17:17)
[2016-05-26] MEDS: NORMAL SALINE 1000 ML 1,000 ML IV PRN ×2 (06:47→14:29)
--- NOTE | 2016-05-26 08:56 | PDOC PROGRESS REPORT ---
Subjective Progress Note for:: 05/26/16 Subjective:: Patient remain intubated, vent supported and sedated on IV propofol. Tolerating enteral tube feeding but there is associated diarrhea. No reported fever. Blood pressure has been fairly stable. Physical Exam Vital Signs: Temp Pulse Resp BP Pulse Ox 100.2 F 106 H 14 84/61 L 100 05/26/16 06:00 05/25/16 20:00 05/25/16 17:40 05/26/16 06:50 05/26/16 06:50 Intake & Output 05/25/16 05/26/16 05/27/16 06:59 06:59 06:59 Intake Total 5330 2970 Output Total 3350 3745 Balance 1979 - Weight 64.1 kg 63.5 kg Physical Exam: ET and OG tubes are in situ. Head exam: PRESENT: atraumatic, normocephalic Eye exam: PRESENT: conjunctival injection, PERRLA Mouth exam: PRESENT: moist Respiratory exam: PRESENT: decreased breath sounds - at lung bases Cardiovascular exam: PRESENT: RRR. ABSENT: diastolic murmur, rubs, systolic murmur GI/Abdominal exam: PRESENT: hypoactive bowel sounds. ABSENT: ascites, diminished bowel sounds, distended, firm, guarding, hernia, hyperactive bowel sounds, mass, Vázquez's sign, normal bowel sounds, organolmegaly, rebound, rigid , soft, tenderness, other Rectal exam: PRESENT: other - acti-flow system in use Gentrourinary exam: PRESENT: indwelling catheter Musculoskeletal exam: PRESENT: deformity - with features of arthritis and contractures Neurological exam: PRESENT: altered - sedated Skin exam: PRESENT: skin tears - multiple sites, warm Results Laboratory Results: 05/26/16 04:10 05/26/16 04:10 05/26/16 05/26/16 05/26/16 04:10 04:10 06:05 WBC 8.9 RBC 3.43 L Hgb 10.8 L Hct 33.7 L MCV 98 H MCH 31.6 MCHC 32.1 RDW 21.2 H Plt Count 141 L Seg Neutrophils % 59.5 Lymphocytes % 24.2 Monocytes % 11.9 Eosinophils % 3.5 Basophils % 0.9 Absolute Neutrophils 5.3 Absolute Lymphocytes 2.2 Absolute Monocytes 1.1 Absolute Eosinophils 0.3 Absolute Basophils 0.1 Carbonic Acid 1.17 HCO3/H2CO3 Ratio 25:1 ABG pH 7.50 H ABG pCO2 38.9 ABG pO2 91.9 ABG HCO3 29.5 H ABG O2 Saturation 97.6 ABG Base Excess 5.9 FiO2 25% Sodium 145.2 H Potassium 3.3 L Chloride 109 H Carbon Dioxide 27 Anion Gap 9 BUN 19 Creatinine 0.65 Est GFR ( Amer) > 60 Est GFR (Non-Af Amer) > 60 Glucose 164 H Calcium 8.4 Magnesium 1.9 Total Bilirubin 0.9 AST 163 H ALT 91 H Alkaline Phosphatase 330 H Total Protein 5.9 L Albumin 2.3 L Triglycerides 124 04/23/16 04/23/16 04/24/16 21:01 21:01 03:31 Creatine Kinase 26 L 23 L CK-MB (CK-2) 1.80 Troponin I < 0.012 NT-Pro-B Natriuret Pep 04/24/16 04/24/16 04/24/16 03:31 09:43 09:43 Creatine Kinase 22 L CK-MB (CK-2) 1.38 1.37 Troponin I < 0.012 < 0.012 NT-Pro-B Natriuret Pep 05/19/16 17:14 Creatine Kinase CK-MB (CK-2) Troponin I NT-Pro-B Natriuret Pep 3530 H Impressions: Chest CT 04/24/16 00:00 IMPRESSION: Large bilateral pleural effusions are identified with some associated airspace consolidation in the lung bases most consistent with atelectatic changes. Other findings as noted above Shoulder X-Ray 04/24/16 00:00 IMPRESSION: No acute fracture or malalignment at the right or left shoulder Old right humeral neck fracture, healed Bilateral pleural effusions Thoracentesis Ultrasound 05/03/16 08:38 IMPRESSION: SUCCESSFUL LEFT THORACENTESIS USING ULTRASOUND GUIDANCE. Head CT 05/13/16 00:00 IMPRESSION: NO ACUTE INTRACRANIAL PROCESS. NO SIGNIFICANT CHANGE FROM PRIOR STUDY. Chest X-Ray 05/26/16 06:00 IMPRESSION: STABLE APPEARANCE OF THE CHEST. SUPPORT DEVICES UNCHANGED. Assessment & Plan - Diagnosis (1) Acute respiratory failure with hypoxia and hypercapnia Is this a current diagnosis for this admission?: YesPlan: Remain on vent suport. Further adjustment and possible extubation at the discretion of the marketing and communications officer, Dr. Fowler, when clinically indicated. (2) Hypokalemia due to loss of potassium Is this a current diagnosis for this admission?: YesPlan: Borderline low upon admission. Worsen with associated diarrhea. Patient will receive potassium chloride replacement as ordered. We will obtain serum magnesium level. (3) Enterocolitis due to Clostridium difficile Is this a current diagnosis for this admission?: YesPlan: Latest C.difficile toxin titer was negative on 05/22/16. We will continue Lactobacillus acidophilus therapy. (4) MRSA (methicillin resistant staphylococcus aureus) pneumonia Qualifiers: Laterality: unspecified laterality Lung location: unspecified part of lung Qualified Code(s): J15.212 - Pneumonia due to Methicillin resistant Staphylococcus aureus Is this a current diagnosis for this admission?: YesPlan: Continue IV Vancomycin coverage. 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
[2016-05-26] MEDS: POTASSI CL 20 MEQ/50 ML RIDER 20 MEQ/50 ML RTUPB IV SCH ×3 (10:40→14:28)
[2016-05-26] MEDS: FUROSEMIDE INJ/PF 40 MG/4 ML SDV IV SCH (10:40)
[2016-05-26] MEDS: LACTOBACILLUS ACIDOPHILUS 250 MG TAB NG SCH ×2 (10:41→17:17)
[2016-05-26] MEDS: LEVOFLOXACIN 750 MG TABLET NG SCH (10:41)
[2016-05-26] MEDS: FAMOTIDINE INJ/PF 20 MG/2 ML SDV IV SCH ×2 (10:41→21:55)
[2016-05-26] MEDS: PROPOFOL 100 ML IV PRN (17:18)
--- NOTE | 2016-05-26 19:10 | PDOC PROGRESS REPORT ---
Subjective Progress Note for:: 05/26/16 Subjective:: Intubated and sedated Physical Exam Vital Signs: Temp Pulse Resp BP Pulse Ox 100.4 F 99 17 112/68 99 05/26/16 08:00 05/26/16 10:20 05/26/16 10:20 05/26/16 10:20 05/26/16 11:33 Intake & Output 05/25/16 05/26/16 05/27/16 06:59 06:59 06:59 Intake Total 5330 2970 Output Total 3350 4145 350 Balance 1980 -775 -350 Weight 64.1 kg 63.5 kg General appearance: PRESENT: no acute distress, well-developed, well-nourished Head exam: PRESENT: atraumatic, normocephalic Eye exam: PRESENT: conjunctiva pink, EOMI, PERRLA. ABSENT: scleral icterus Ear exam: PRESENT: normal external ear exam Mouth exam: PRESENT: moist, tongue midline Neck exam: ABSENT: carotid bruit, JVD, lymphadenopathy, thyromegaly Respiratory exam: PRESENT: clear to auscultation gregg. ABSENT: rales, rhonchi, wheezes Cardiovascular exam: PRESENT: RRR. ABSENT: diastolic murmur, rubs, systolic murmur Pulses: PRESENT: normal dorsalis pedis pul Vascular exam: PRESENT: normal capillary refill GI/Abdominal exam: PRESENT: normal bowel sounds, soft. ABSENT: distended, guarding, mass, organolmegaly, rebound, tenderness Rectal exam: PRESENT: deferred Extremities exam: PRESENT: full ROM. ABSENT: calf tenderness, clubbing, pedal edema Neurological exam: PRESENT: alert, awake, oriented to person, oriented to place , oriented to time, oriented to situation, CN II-XII grossly intact. ABSENT: motor sensory deficit Psychiatric exam: PRESENT: appropriate affect, normal mood. ABSENT: homicidal ideation, suicidal ideation Skin exam: PRESENT: dry, intact, warm. ABSENT: cyanosis, rash Results Laboratory Results: 05/26/16 04:10 05/26/16 04:10 05/26/16 05/26/16 05/26/16 04:10 04:10 04:10 WBC 8.9 RBC 3.43 L Hgb 10.8 L Hct 33.7 L MCV 98 H MCH 31.6 MCHC 32.1 RDW 21.2 H Plt Count 141 L Seg Neutrophils % 59.5 Lymphocytes % 24.2 Monocytes % 11.9 Eosinophils % 3.5 Basophils % 0.9 Absolute Neutrophils 5.3 Absolute Lymphocytes 2.2 Absolute Monocytes 1.1 Absolute Eosinophils 0.3 Absolute Basophils 0.1 Carbonic Acid HCO3/H2CO3 Ratio ABG pH ABG pCO2 ABG pO2 ABG HCO3 ABG O2 Saturation ABG Base Excess FiO2 Sodium 145.2 H Potassium 3.3 L Chloride 109 H Carbon Dioxide 27 Anion Gap 9 BUN 19 Creatinine 0.65 Est GFR ( Amer) > 60 Est GFR (Non-Af Amer) > 60 Glucose 164 H Calcium 8.4 Magnesium 1.9 Cancelled Total Bilirubin 0.9 AST 163 H ALT 91 H Alkaline Phosphatase 330 H Total Protein 5.9 L Albumin 2.3 L Triglycerides 124 05/26/16 06:05 WBC RBC Hgb Hct MCV MCH MCHC RDW Plt Count Seg Neutrophils % Lymphocytes % Monocytes % Eosinophils % Basophils % Absolute Neutrophils Absolute Lymphocytes Absolute Monocytes Absolute Eosinophils Absolute Basophils Carbonic Acid 1.17 HCO3/H2CO3 Ratio 25:1 ABG pH 7.50 H ABG pCO2 38.9 ABG pO2 91.9 ABG HCO3 29.5 H ABG O2 Saturation 97.6 ABG Base Excess 5.9 FiO2 25% Sodium Potassium Chloride Carbon Dioxide Anion Gap BUN Creatinine Est GFR ( Amer) Est GFR (Non-Af Amer) Glucose Calcium Magnesium Total Bilirubin AST ALT Alkaline Phosphatase Total Protein Albumin Triglycerides 04/23/16 04/23/16 04/24/16 21:01 21:01 03:31 Creatine Kinase 26 L 23 L CK-MB (CK-2) 1.80 Troponin I < 0.012 NT-Pro-B Natriuret Pep 04/24/16 04/24/16 04/24/16 03:31 09:43 09:43 Creatine Kinase 22 L CK-MB (CK-2) 1.38 1.37 Troponin I < 0.012 < 0.012 NT-Pro-B Natriuret Pep 05/19/16 17:14 Creatine Kinase CK-MB (CK-2) Troponin I NT-Pro-B Natriuret Pep 3530 H Impressions: Chest CT 04/24/16 00:00 IMPRESSION: Large bilateral pleural effusions are identified with some associated airspace consolidation in the lung bases most consistent with atelectatic changes. Other findings as noted above Shoulder X-Ray 04/24/16 00:00 IMPRESSION: No acute fracture or malalignment at the right or left shoulder Old right humeral neck fracture, healed Bilateral pleural effusions Thoracentesis Ultrasound 05/03/16 08:38 IMPRESSION: SUCCESSFUL LEFT THORACENTESIS USING ULTRASOUND GUIDANCE. Head CT 05/13/16 00:00 IMPRESSION: NO ACUTE INTRACRANIAL PROCESS. NO SIGNIFICANT CHANGE FROM PRIOR STUDY. Chest X-Ray 05/26/16 06:00 IMPRESSION: STABLE APPEARANCE OF THE CHEST. SUPPORT DEVICES UNCHANGED. Assessment & Plan - Diagnosis (1) Acute respiratory failure with hypoxia and hypercapnia Is this a current diagnosis for this admission?: YesPlan: unable to sustain trial on ps/cpap (2) Bilateral pleural effusion Is this a current diagnosis for this admission?: YesPlan: Slightly decreased at this time (3) Chronic atrial fibrillation Is this a current diagnosis for this admission?: YesPlan: Stable - Time Critical Time spent with patient: 25-34 minutes - 30 min
[2016-05-27] MEDS: NORMAL SALINE 1000 ML 1,000 ML IV PRN ×2 (00:44→12:08)
[2016-05-27] MEDS: ACETAMINOPHEN 325 MG TABLET NG SCH ×4 (00:55→17:31)
[2016-05-27] MEDS: VANCOMYCIN HCL 750 MG in DEXTROSE 5%-WATER 250 ML IV SCH (03:43)
[2016-05-27 05:03] LABS: PROTHROMBIN TIME 17.3 SEC (11.4-15.4)
[2016-05-27 05:04] LABS: ABSOLUTE BASOPHILS # (AUTO) 0.1 10^3/uL (0.0-0.2); ABSOLUTE EOSINOPHILS # (AUTO) 0.4 10^3/uL (0.0-0.6); ABSOLUTE LYMPHOCYTES (AUTO) 1.9 10^3/uL (0.5-4.7); ABSOLUTE MONOCYTES (AUTO) 1.2 10^3/uL (0.1-1.4); BASOPHILS % (AUTO) 0.8 % (0-2); EOSINOPHILS % (AUTO) 4.1 % (0-6); HEMATOCRIT 33.9 % (37.9-51.0); HEMOGLOBIN 10.9 g/dL (13.5-17.0); HGB HCT DIFFERENCE -1.2; LYMPHOCYTES % (AUTO) 22.5 % (13-45); MEAN CORPUSCULAR HEMOGLOBIN 31.6 pg (27.0-33.4); MEAN CORPUSCULAR HGB CONC 32.1 g/dL (32.0-36.0); MEAN CORPUSCULAR VOLUME 99 fl (80-97); MONOCYTES % (AUTO) 14.3 % (3-13); RED BLOOD COUNT 3.45 10^6/uL (4.35-5.55); RED CELL DISTRIBUTION WIDTH 21.1 % (11.5-14.0); SEGMENTED NEUTROPHILS % (AUTO) 58.3 % (42-78); WHITE BLOOD COUNT 8.6 10^3/uL (4.0-10.5)
[2016-05-27 05:23] LABS: ALANINE AMINOTRANSFERASE 129 U/L (21-72); ALBUMIN 2.4 g/dL (3.5-5.0); ALKALINE PHOSPHATASE 372 U/L (38-126); ANION GAP 9 (5-19); ASPARTATE AMINO TRANSFERASE 271 U/L (17-59); BILIRUBIN,TOTAL 1.1 mg/dL (0.2-1.3); BLOOD UREA NITROGEN 19 mg/dL (7-20); CALCIUM 8.4 mg/dL (8.4-10.2); CARBON DIOXIDE 27 mmol/L (22-30); CHLORIDE 111 mmol/L (98-107); CREATININE RESULT 0.63 mg/dL (0.52-1.25); GLUCOSE 140 mg/dL (75-110); MAGNESIUM 1.9 mg/dL (1.6-2.3); POTASSIUM 3.7 mmol/L (3.6-5.0); SODIUM 146.7 mmol/L (137-145); TOTAL PROTEIN 6.3 g/dL (6.3-8.2)
[2016-05-27] MEDS: CEFEPIME HCL 2 GM in DEXTROSE 5%-WATER 50 ML IV SCH ×2 (05:48→17:32)
[2016-05-27 05:51] LABS: ARTERIAL BLOOD BASE EXCESS 3.9 mmol/L; ARTERIAL BLOOD O2 SATURATION 97.9 % (94-98)
[2016-05-27] MEDS: PROPOFOL 100 ML IV PRN (08:09)
[2016-05-27] MEDS: FUROSEMIDE INJ/PF 40 MG/4 ML SDV IV SCH (10:23)
[2016-05-27] MEDS: LACTOBACILLUS ACIDOPHILUS 250 MG TAB NG SCH ×2 (10:24→17:32)
[2016-05-27] MEDS: FAMOTIDINE INJ/PF 20 MG/2 ML SDV IV SCH ×2 (10:24→22:28)
[2016-05-27] MEDS: LEVOFLOXACIN 750 MG TABLET NG SCH (10:24)
[2016-05-27] MEDS: VANCOMYCIN HCL 1,000 MG in DEXTROSE 5%-WATER 250 ML IV SCH (14:06)
--- NOTE | 2016-05-27 17:59 | PDOC PROGRESS REPORT ---
Subjective Progress Note for:: 05/27/16 Subjective:: Patient remain intubated, vent supported and sedated on IV propofol. Tolerating enteral tube feeding but diarrhea persist. No reported significant fever. Physical Exam Vital Signs: Temp Pulse Resp BP Pulse Ox 100.6 F H 101 H 16 113/70 100 05/27/16 15:59 05/27/16 15:59 05/27/16 15:59 05/27/16 15:59 05/27/16 15:59 Intake & Output 05/26/16 05/27/16 05/28/16 06:59 06:59 06:59 Intake Total 2970 5253 2027 Output Total 3745 2735 1625 Balance -775 2518 402 Weight 63.5 kg 62.9 kg Physical Exam: ET and OG tubes in situ. Head exam: PRESENT: atraumatic, normocephalic Eye exam: PRESENT: conjunctiva pink, EOMI, PERRLA Mouth exam: PRESENT: moist Respiratory exam: PRESENT: decreased breath sounds - at lung bases Cardiovascular exam: PRESENT: RRR. ABSENT: diastolic murmur, rubs, systolic murmur GI/Abdominal exam: PRESENT: normal bowel sounds, soft. ABSENT: distended, guarding, mass, organolmegaly, rebound, tenderness Extremities exam: PRESENT: full ROM Neurological exam: PRESENT: altered - Sedated on IV propofol Skin exam: PRESENT: dry, other - multiple superfical ulcers Results Laboratory Results: 05/27/16 04:00 05/27/16 04:00 05/27/16 05/27/16 05/27/16 04:00 04:00 05:44 WBC 8.6 RBC 3.45 L Hgb 10.9 L Hct 33.9 L MCV 99 H MCH 31.6 MCHC 32.1 RDW 21.1 H Plt Count 125 L Seg Neutrophils % 58.3 Lymphocytes % 22.5 Monocytes % 14.3 H Eosinophils % 4.1 Basophils % 0.8 Absolute Neutrophils 5.0 Absolute Lymphocytes 1.9 Absolute Monocytes 1.2 Absolute Eosinophils 0.4 Absolute Basophils 0.1 Carbonic Acid 1.18 HCO3/H2CO3 Ratio 23:1 ABG pH 7.47 H ABG pCO2 39.1 ABG pO2 99.5 ABG HCO3 27.8 H ABG O2 Saturation 97.9 ABG Base Excess 3.9 FiO2 25% Sodium 146.7 H Potassium 3.7 Chloride 111 H Carbon Dioxide 27 Anion Gap 9 BUN 19 Creatinine 0.63 Est GFR ( Amer) > 60 Est GFR (Non-Af Amer) > 60 Glucose 140 H Calcium 8.4 Magnesium 1.9 Total Bilirubin 1.1 AST 271 H ALT 129 H Alkaline Phosphatase 372 H Total Protein 6.3 Albumin 2.4 L 04/23/16 04/23/16 04/24/16 21:01 21:01 03:31 Creatine Kinase 26 L 23 L CK-MB (CK-2) 1.80 Troponin I < 0.012 NT-Pro-B Natriuret Pep 04/24/16 04/24/16 04/24/16 03:31 09:43 09:43 Creatine Kinase 22 L CK-MB (CK-2) 1.38 1.37 Troponin I < 0.012 < 0.012 NT-Pro-B Natriuret Pep 05/19/16 17:14 Creatine Kinase CK-MB (CK-2) Troponin I NT-Pro-B Natriuret Pep 3530 H Impressions: Chest CT 04/24/16 00:00 IMPRESSION: Large bilateral pleural effusions are identified with some associated airspace consolidation in the lung bases most consistent with atelectatic changes. Other findings as noted above Shoulder X-Ray 04/24/16 00:00 IMPRESSION: No acute fracture or malalignment at the right or left shoulder Old right humeral neck fracture, healed Bilateral pleural effusions Thoracentesis Ultrasound 05/03/16 08:38 IMPRESSION: SUCCESSFUL LEFT THORACENTESIS USING ULTRASOUND GUIDANCE. Head CT 05/13/16 00:00 IMPRESSION: NO ACUTE INTRACRANIAL PROCESS. NO SIGNIFICANT CHANGE FROM PRIOR STUDY. Chest X-Ray 05/27/16 06:00 IMPRESSION: Slight decrease in size of the bilateral pleural effusions. Support lines and tubes remain in satisfactory position. Assessment & Plan - Diagnosis (1) Acute respiratory failure with hypoxia and hypercapnia Is this a current diagnosis for this admission?: YesPlan: Remain on vent support. Further adjustment and possible extubation tomorrow at the discretion of the repair order clerk, Dr. Fowler. (2) Hypokalemia due to loss of potassium Is this a current diagnosis for this admission?: YesPlan: Continue current medication management. There is comparative improvement since last clinical evaluation. He will receive supplementation via OG tube. (3) Enterocolitis due to Clostridium difficile Is this a current diagnosis for this admission?: YesPlan: Latest C.difficile toxin titer was negative on 05/22/16. We will continue Lactobacillus acidophilus therapy. (4) MRSA (methicillin resistant staphylococcus aureus) pneumonia Qualifiers: Laterality: unspecified laterality Lung location: unspecified part of lung Qualified Code(s): J15.212 - Pneumonia due to Methicillin resistant Staphylococcus aureus Is this a current diagnosis for this admission?: YesPlan: Continue IV Vancomycin coverage. 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
[2016-05-27] MEDS ORDERED: POTASSIUM CHLORIDE 20 MEQ/15 ML UDCUP PO ONE (18:00)
--- NOTE | 2016-05-27 18:12 | PDOC PROGRESS REPORT ---
Subjective Progress Note for:: 05/27/16 Subjective:: Intubated and sedated Physical Exam Vital Signs: Temp Pulse Resp BP Pulse Ox 99.3 F 96 19 123/80 100 05/27/16 08:00 05/27/16 10:00 05/27/16 10:00 05/27/16 10:00 05/27/16 10:00 Intake & Output 05/26/16 05/27/16 05/28/16 06:59 06:59 06:59 Intake Total 2970 5253 Output Total 3745 2735 325 Balance -775 2518 -325 Weight 63.5 kg 62.9 kg General appearance: PRESENT: no acute distress, disheveled, thin Head exam: PRESENT: atraumatic, normocephalic Eye exam: PRESENT: conjunctiva pale Mouth exam: PRESENT: other - ET tube in place Respiratory exam: PRESENT: decreased breath sounds, prolonged expiratory phas, rales, rhonchi, symmetrical, unlabored Cardiovascular exam: PRESENT: irregular rhythm Pulses: PRESENT: normal radial pulses GI/Abdominal exam: PRESENT: normal bowel sounds, soft. ABSENT: distended, guarding, mass, organolmegaly, rebound, tenderness Rectal exam: PRESENT: deferred Gentrourinary exam: PRESENT: indwelling catheter Musculoskeletal exam: PRESENT: normal inspection Skin exam: PRESENT: dry, warm Results Laboratory Results: 05/27/16 04:00 05/27/16 04:00 05/27/16 05/27/16 05/27/16 04:00 04:00 05:44 WBC 8.6 RBC 3.45 L Hgb 10.9 L Hct 33.9 L MCV 99 H MCH 31.6 MCHC 32.1 RDW 21.1 H Plt Count 125 L Seg Neutrophils % 58.3 Lymphocytes % 22.5 Monocytes % 14.3 H Eosinophils % 4.1 Basophils % 0.8 Absolute Neutrophils 5.0 Absolute Lymphocytes 1.9 Absolute Monocytes 1.2 Absolute Eosinophils 0.4 Absolute Basophils 0.1 Carbonic Acid 1.18 HCO3/H2CO3 Ratio 23:1 ABG pH 7.47 H ABG pCO2 39.1 ABG pO2 99.5 ABG HCO3 27.8 H ABG O2 Saturation 97.9 ABG Base Excess 3.9 FiO2 25% Sodium 146.7 H Potassium 3.7 Chloride 111 H Carbon Dioxide 27 Anion Gap 9 BUN 19 Creatinine 0.63 Est GFR ( Amer) > 60 Est GFR (Non-Af Amer) > 60 Glucose 140 H Calcium 8.4 Magnesium 1.9 Total Bilirubin 1.1 AST 271 H ALT 129 H Alkaline Phosphatase 372 H Total Protein 6.3 Albumin 2.4 L 04/23/16 04/23/16 04/24/16 21:01 21:01 03:31 Creatine Kinase 26 L 23 L CK-MB (CK-2) 1.80 Troponin I < 0.012 NT-Pro-B Natriuret Pep 04/24/16 04/24/16 04/24/16 03:31 09:43 09:43 Creatine Kinase 22 L CK-MB (CK-2) 1.38 1.37 Troponin I < 0.012 < 0.012 NT-Pro-B Natriuret Pep 05/19/16 17:14 Creatine Kinase CK-MB (CK-2) Troponin I NT-Pro-B Natriuret Pep 3530 H Impressions: Chest CT 04/24/16 00:00 IMPRESSION: Large bilateral pleural effusions are identified with some associated airspace consolidation in the lung bases most consistent with atelectatic changes. Other findings as noted above Shoulder X-Ray 04/24/16 00:00 IMPRESSION: No acute fracture or malalignment at the right or left shoulder Old right humeral neck fracture, healed Bilateral pleural effusions Thoracentesis Ultrasound 05/03/16 08:38 IMPRESSION: SUCCESSFUL LEFT THORACENTESIS USING ULTRASOUND GUIDANCE. Head CT 05/13/16 00:00 IMPRESSION: NO ACUTE INTRACRANIAL PROCESS. NO SIGNIFICANT CHANGE FROM PRIOR STUDY. Chest X-Ray 05/27/16 06:00 IMPRESSION: Slight decrease in size of the bilateral pleural effusions. Support lines and tubes remain in satisfactory position. Assessment & Plan - Diagnosis (1) Acute respiratory failure with hypoxia and hypercapnia Is this a current diagnosis for this admission?: YesPlan: unable to sustain trial on ps/cpap (2) Bilateral pleural effusion Is this a current diagnosis for this admission?: YesPlan: slightly improved (3) Chronic atrial fibrillation Is this a current diagnosis for this admission?: YesPlan: Stable - Time Critical Time spent with patient: 25-34 minutes - 30 min
[2016-05-27] MEDS ORDERED: POTASSIUM CHLORIDE 20 MEQ/15 ML UDCUP ONE ×2 (18:27→18:32)
[2016-05-27] MEDS: MORPHINE SULFATE 10 MG/ML INJ IV PRN (20:46)
[2016-05-28] MEDS: PROPOFOL 100 ML IV PRN ×2 (00:09→17:35)
[2016-05-28] MEDS: ACETAMINOPHEN 325 MG TABLET NG SCH ×5 (00:10→23:17)
[2016-05-28 03:19] LABS: PROTHROMBIN TIME 16.7 SEC (11.4-15.4)
[2016-05-28 03:31] LABS: CREATININE RESULT 0.62 mg/dL (0.52-1.25)
[2016-05-28] MEDS: VANCOMYCIN HCL 1,000 MG in DEXTROSE 5%-WATER 250 ML IV SCH (03:48)
[2016-05-28 05:38] LABS: ARTERIAL BLOOD BASE EXCESS 5.5 mmol/L; ARTERIAL BLOOD O2 SATURATION 97.4 % (94-98)
[2016-05-28] MEDS: CEFEPIME HCL 2 GM in DEXTROSE 5%-WATER 50 ML IV SCH (06:04)
[2016-05-28] MEDS: LACTOBACILLUS ACIDOPHILUS 250 MG TAB NG SCH ×2 (09:53→17:34)
[2016-05-28] MEDS: POTASSIUM CHLORIDE 20 MEQ/15 ML UDCUP PO SCH (09:53)
[2016-05-28] MEDS: LEVOFLOXACIN 750 MG TABLET NG SCH (09:53)
[2016-05-28] MEDS: FAMOTIDINE INJ/PF 20 MG/2 ML SDV IV SCH ×2 (09:55→22:04)
[2016-05-28] MEDS: FUROSEMIDE INJ/PF 40 MG/4 ML SDV IV SCH (09:55)
--- NOTE | 2016-05-28 11:44 | PDOC PROGRESS REPORT ---
Subjective Progress Note for:: 05/28/16 Subjective:: Intubated and sedated Physical Exam Vital Signs: Temp Pulse Resp BP Pulse Ox 99.3 F 93 16 137/91 H 100 05/28/16 07:40 05/28/16 08:00 05/28/16 07:40 05/28/16 07:40 05/28/16 07:46 Intake & Output 05/27/16 05/28/16 05/29/16 06:59 06:59 06:59 Intake Total 5253 3388 Output Total 2735 2685 30 Balance 2518 703 -30 Weight 62.9 kg General appearance: PRESENT: no acute distress, disheveled, thin Head exam: PRESENT: atraumatic, normocephalic Eye exam: PRESENT: conjunctiva pale Mouth exam: PRESENT: moist, tongue midline, other - ET tube in Neck exam: ABSENT: carotid bruit, JVD, lymphadenopathy, thyromegaly Respiratory exam: PRESENT: decreased breath sounds, prolonged expiratory phas, rhonchi, symmetrical, unlabored, wheezes Cardiovascular exam: PRESENT: irregular rhythm Pulses: PRESENT: normal radial pulses GI/Abdominal exam: PRESENT: normal bowel sounds, soft. ABSENT: distended, guarding, mass, organolmegaly, rebound, tenderness Rectal exam: PRESENT: deferred Gentrourinary exam: PRESENT: indwelling catheter Musculoskeletal exam: PRESENT: normal inspection Skin exam: PRESENT: dry, warm Results Laboratory Results: 05/27/16 04:00 05/28/16 03:00 05/28/16 05/28/16 03:00 05:28 Carbonic Acid 1.19 HCO3/H2CO3 Ratio 24:1 ABG pH 7.49 H ABG pCO2 39.6 ABG pO2 89.5 ABG HCO3 29.3 H ABG O2 Saturation 97.4 ABG Base Excess 5.5 FiO2 25% Creatinine 0.62 Est GFR ( Amer) > 60 Est GFR (Non-Af Amer) > 60 04/23/16 04/23/16 04/24/16 21:01 21:01 03:31 Creatine Kinase 26 L 23 L CK-MB (CK-2) 1.80 Troponin I < 0.012 NT-Pro-B Natriuret Pep 04/24/16 04/24/16 04/24/16 03:31 09:43 09:43 Creatine Kinase 22 L CK-MB (CK-2) 1.38 1.37 Troponin I < 0.012 < 0.012 NT-Pro-B Natriuret Pep 05/19/16 17:14 Creatine Kinase CK-MB (CK-2) Troponin I NT-Pro-B Natriuret Pep 3530 H Impressions: Chest CT 04/24/16 00:00 IMPRESSION: Large bilateral pleural effusions are identified with some associated airspace consolidation in the lung bases most consistent with atelectatic changes. Other findings as noted above Shoulder X-Ray 04/24/16 00:00 IMPRESSION: No acute fracture or malalignment at the right or left shoulder Old right humeral neck fracture, healed Bilateral pleural effusions Thoracentesis Ultrasound 05/03/16 08:38 IMPRESSION: SUCCESSFUL LEFT THORACENTESIS USING ULTRASOUND GUIDANCE. Head CT 05/13/16 00:00 IMPRESSION: NO ACUTE INTRACRANIAL PROCESS. NO SIGNIFICANT CHANGE FROM PRIOR STUDY. Chest X-Ray 05/27/16 06:00 IMPRESSION: Slight decrease in size of the bilateral pleural effusions. Support lines and tubes remain in satisfactory position. Assessment & Plan - Diagnosis (1) Acute respiratory failure with hypoxia and hypercapnia Is this a current diagnosis for this admission?: YesPlan: Today he is again unable to sustain trial on ps/cpap (2) Bilateral pleural effusion Is this a current diagnosis for this admission?: YesPlan: slightly improved (3) Chronic atrial fibrillation Is this a current diagnosis for this admission?: YesPlan: Stable - Time Critical Time spent with patient: 25-34 minutes - 30 minutes
[2016-05-28] MEDS: NORMAL SALINE 1000 ML 1,000 ML IV PRN ×2 (13:26→23:22)
[2016-05-28] MEDS: VANCOMYCIN HCL 750 MG in DEXTROSE 5%-WATER 250 ML IV SCH (15:03)
[2016-05-29] MEDS: VANCOMYCIN HCL 750 MG in DEXTROSE 5%-WATER 250 ML IV SCH ×2 (03:05→14:51)
[2016-05-29 04:14] LABS: ABSOLUTE BASOPHILS # (AUTO) 0.1 10^3/uL (0.0-0.2); ABSOLUTE EOSINOPHILS # (AUTO) 0.3 10^3/uL (0.0-0.6); ABSOLUTE LYMPHOCYTES (AUTO) 1.8 10^3/uL (0.5-4.7); ABSOLUTE NEUT (AUTO) 5.2 10^3/uL (1.7-8.2); BASOPHILS % (AUTO) 0.9 % (0-2); EOSINOPHILS % (AUTO) 3.9 % (0-6); HEMATOCRIT 32.5 % (37.9-51.0); HEMOGLOBIN 10.4 g/dL (13.5-17.0); HGB HCT DIFFERENCE -1.3; LYMPHOCYTES % (AUTO) 21.2 % (13-45); MEAN CORPUSCULAR HEMOGLOBIN 31.6 pg (27.0-33.4); MEAN CORPUSCULAR HGB CONC 31.9 g/dL (32.0-36.0); MEAN CORPUSCULAR VOLUME 99 fl (80-97); MONOCYTES % (AUTO) 11.5 % (3-13); RED BLOOD COUNT 3.28 10^6/uL (4.35-5.55); RED CELL DISTRIBUTION WIDTH 20.8 % (11.5-14.0); SEGMENTED NEUTROPHILS % (AUTO) 62.5 % (42-78); WHITE BLOOD COUNT 8.3 10^3/uL (4.0-10.5)
[2016-05-29 04:52] LABS: ALANINE AMINOTRANSFERASE 92 U/L (21-72); ALBUMIN 1.8 g/dL (3.5-5.0); ALKALINE PHOSPHATASE 319 U/L (38-126); ANION GAP 5 (5-19); ASPARTATE AMINO TRANSFERASE 155 U/L (17-59); BILIRUBIN,TOTAL 0.9 mg/dL (0.2-1.3); BLOOD UREA NITROGEN 18 mg/dL (7-20); CALCIUM 8.1 mg/dL (8.4-10.2); CARBON DIOXIDE 29 mmol/L (22-30); CHLORIDE 107 mmol/L (98-107); CREATININE RESULT 0.68 mg/dL (0.52-1.25); GLUCOSE 163 mg/dL (75-110); MAGNESIUM 1.8 mg/dL (1.6-2.3); POTASSIUM 3.8 mmol/L (3.6-5.0); SODIUM 141.2 mmol/L (137-145); TOTAL PROTEIN 5.6 g/dL (6.3-8.2); TRIGLYCERIDES 115 mg/dL (<150)
[2016-05-29 05:12] LABS: ARTERIAL BLOOD BASE EXCESS 4.8 mmol/L
[2016-05-29] MEDS: ACETAMINOPHEN 325 MG TABLET NG SCH ×4 (06:20→23:20)
[2016-05-29] MEDS: PROPOFOL 100 ML IV PRN (06:21)
[2016-05-29] MEDS: MORPHINE SULFATE 10 MG/ML INJ IV PRN ×3 (09:17→23:21)
[2016-05-29] MEDS: POTASSIUM CHLORIDE 20 MEQ/15 ML UDCUP PO SCH (09:18)
[2016-05-29] MEDS: LACTOBACILLUS ACIDOPHILUS 250 MG TAB NG SCH ×2 (09:19→19:19)
[2016-05-29] MEDS: FAMOTIDINE INJ/PF 20 MG/2 ML SDV IV SCH ×2 (09:19→21:18)
[2016-05-29] MEDS: FUROSEMIDE INJ/PF 40 MG/4 ML SDV IV SCH (09:19)
--- NOTE | 2016-05-29 19:40 | PDOC PROGRESS REPORT ---
Subjective Progress Note for:: 05/28/16 Subjective:: Patient on mechanical ventilation, sedated Physical Exam Vital Signs: Temp Pulse Resp BP Pulse Ox 99.0 F 102 H 14 111/77 99 05/28/16 16:00 05/28/16 16:00 05/28/16 16:00 05/28/16 16:00 05/28/16 16:03 Intake & Output 05/27/16 05/28/16 05/29/16 06:59 06:59 06:59 Intake Total 5253 3388 Output Total 2735 2685 2100 Balance 2518 703 -2100 Weight 62.9 kg General appearance: PRESENT: no acute distress Eye exam: PRESENT: PERRLA Respiratory exam: PRESENT: clear to auscultation gregg Cardiovascular exam: PRESENT: +S1, +S2 GI/Abdominal exam: PRESENT: soft Results Laboratory Results: 05/27/16 04:00 05/28/16 03:00 05/28/16 05/28/16 03:00 05:28 Carbonic Acid 1.19 HCO3/H2CO3 Ratio 24:1 ABG pH 7.49 H ABG pCO2 39.6 ABG pO2 89.5 ABG HCO3 29.3 H ABG O2 Saturation 97.4 ABG Base Excess 5.5 FiO2 25% Creatinine 0.62 Est GFR ( Amer) > 60 Est GFR (Non-Af Amer) > 60 04/23/16 04/23/16 04/24/16 21:01 21:01 03:31 Creatine Kinase 26 L 23 L CK-MB (CK-2) 1.80 Troponin I < 0.012 NT-Pro-B Natriuret Pep 04/24/16 04/24/16 04/24/16 03:31 09:43 09:43 Creatine Kinase 22 L CK-MB (CK-2) 1.38 1.37 Troponin I < 0.012 < 0.012 NT-Pro-B Natriuret Pep 05/19/16 17:14 Creatine Kinase CK-MB (CK-2) Troponin I NT-Pro-B Natriuret Pep 3530 H Impressions: Chest CT 04/24/16 00:00 IMPRESSION: Large bilateral pleural effusions are identified with some associated airspace consolidation in the lung bases most consistent with atelectatic changes. Other findings as noted above Shoulder X-Ray 04/24/16 00:00 IMPRESSION: No acute fracture or malalignment at the right or left shoulder Old right humeral neck fracture, healed Bilateral pleural effusions Thoracentesis Ultrasound 05/03/16 08:38 IMPRESSION: SUCCESSFUL LEFT THORACENTESIS USING ULTRASOUND GUIDANCE. Head CT 05/13/16 00:00 IMPRESSION: NO ACUTE INTRACRANIAL PROCESS. NO SIGNIFICANT CHANGE FROM PRIOR STUDY. Chest X-Ray 05/27/16 06:00 IMPRESSION: Slight decrease in size of the bilateral pleural effusions. Support lines and tubes remain in satisfactory position. 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 Is this a current diagnosis for this admission?: Yes (4) Chronic atrial fibrillation Is this a current diagnosis for this admission?: Yes (5) Wheezing on auscultation Is this a current diagnosis for this admission?: Yes (6) Bilateral pleural effusion Is this a current diagnosis for this admission?: Yes (7) Hypothermia Qualifiers: Encounter type: initial encounter Qualified Code(s): T68.XXXA - Hypothermia, initial encounter Is this a current diagnosis for this admission?: Yes (8) Parapneumonic effusion Is this a current diagnosis for this admission?: Yes (9) Enterocolitis due to Clostridium difficile Is this a current diagnosis for this admission?: Yes (10) Pneumonia Qualifiers: Pneumonia type: due to unspecified organism Laterality: unspecified laterality Lung location: unspecified part of lung Qualified Code(s) : J18.9 - Pneumonia, unspecified organism Is this a current diagnosis for this admission?: Yes (11) Overactive bladder Is this a current diagnosis for this admission?: Yes (12) Acute retention of urine Is this a current diagnosis for this admission?: Yes (13) Acute respiratory failure with hypoxia and hypercapnia Is this a current diagnosis for this admission?: Yes (14) Hypotension Qualifiers: Hypotension type: unspecified hypotension type Qualified Code(s): I95.9 - Hypotension, unspecified Is this a current diagnosis for this admission?: Yes (15) Acute systolic heart failure Is this a current diagnosis for this admission?: Yes
[2016-05-30] MEDS: NORMAL SALINE 1000 ML 1,000 ML IV PRN ×2 (01:04→02:12)
[2016-05-30] MEDS: VANCOMYCIN HCL 750 MG in DEXTROSE 5%-WATER 250 ML IV SCH (02:12)
[2016-05-30 04:27] LABS: ABSOLUTE BASOPHILS # (AUTO) 0.1 10^3/uL (0.0-0.2); ABSOLUTE EOSINOPHILS # (AUTO) 0.4 10^3/uL (0.0-0.6); ABSOLUTE LYMPHOCYTES (AUTO) 1.9 10^3/uL (0.5-4.7); ABSOLUTE MONOCYTES (AUTO) 1.1 10^3/uL (0.1-1.4); ABSOLUTE NEUT (AUTO) 4.3 10^3/uL (1.7-8.2); BASOPHILS % (AUTO) 0.7 % (0-2); EOSINOPHILS % (AUTO) 5.3 % (0-6); HEMATOCRIT 32.3 % (37.9-51.0); HEMOGLOBIN 10.8 g/dL (13.5-17.0); HGB HCT DIFFERENCE 0.1; LYMPHOCYTES % (AUTO) 24.3 % (13-45); MEAN CORPUSCULAR HEMOGLOBIN 32.7 pg (27.0-33.4); MEAN CORPUSCULAR HGB CONC 33.5 g/dL (32.0-36.0); MEAN CORPUSCULAR VOLUME 98 fl (80-97); MONOCYTES % (AUTO) 13.8 % (3-13); RED BLOOD COUNT 3.31 10^6/uL (4.35-5.55); RED CELL DISTRIBUTION WIDTH 20.4 % (11.5-14.0); SEGMENTED NEUTROPHILS % (AUTO) 55.9 % (42-78); WHITE BLOOD COUNT 7.7 10^3/uL (4.0-10.5)
[2016-05-30 04:32] LABS: ALANINE AMINOTRANSFERASE 67 U/L (21-72); ALBUMIN 1.8 g/dL (3.5-5.0); ALKALINE PHOSPHATASE 247 U/L (38-126); ANION GAP 5 (5-19); ASPARTATE AMINO TRANSFERASE 86 U/L (17-59); BILIRUBIN,TOTAL 1.3 mg/dL (0.2-1.3); BLOOD UREA NITROGEN 15 mg/dL (7-20); CALCIUM 8.3 mg/dL (8.4-10.2); CARBON DIOXIDE 32 mmol/L (22-30); CHLORIDE 106 mmol/L (98-107); CREATININE RESULT 0.62 mg/dL (0.52-1.25); GLUCOSE 100 mg/dL (75-110); MAGNESIUM 1.8 mg/dL (1.6-2.3); PHOSPHORUS 3.5 mg/dL (2.5-4.5); POTASSIUM 3.6 mmol/L (3.6-5.0); SODIUM 142.8 mmol/L (137-145); TOTAL PROTEIN 5.4 g/dL (6.3-8.2)
[2016-05-30] MEDS: ACETAMINOPHEN 325 MG TABLET NG SCH ×3 (05:48→21:45)
[2016-05-30 06:08] LABS: ARTERIAL BLOOD BASE EXCESS 3.2 mmol/L; ARTERIAL BLOOD O2 SATURATION 99.5 % (94-98)
[2016-05-30] MEDS ORDERED: POTASSIUM CHLORIDE 20 MEQ/15 ML UDCUP NG SCH (10:00)
[2016-05-30] MEDS: FUROSEMIDE INJ/PF 40 MG/4 ML SDV IV SCH (11:08)
[2016-05-30] MEDS: FAMOTIDINE INJ/PF 20 MG/2 ML SDV IV SCH (11:08)
[2016-05-30] MEDS: LACTOBACILLUS ACIDOPHILUS 250 MG TAB NG SCH (11:10)
--- NOTE | 2016-05-30 11:15 | PDOC PROGRESS REPORT ---
Subjective Progress Note for:: 05/29/16 Subjective:: Intubated and sedated but arousable Physical Exam Vital Signs: Temp Pulse Resp BP Pulse Ox 99.3 F 95 14 107/71 100 05/29/16 08:00 05/29/16 08:00 05/29/16 08:00 05/29/16 08:00 05/29/16 08:20 Intake & Output 05/28/16 05/29/16 05/30/16 06:59 06:59 06:59 Intake Total 3388 4021 Output Total 2685 3125 100 Balance 703 896 -100 Weight 58.3 kg General appearance: PRESENT: no acute distress, disheveled, thin Head exam: PRESENT: atraumatic, normocephalic Eye exam: PRESENT: conjunctiva pale, EOMI Mouth exam: PRESENT: tongue midline, other - ET tube in place Neck exam: ABSENT: carotid bruit, JVD, lymphadenopathy, thyromegaly Respiratory exam: PRESENT: decreased breath sounds, prolonged expiratory phas, rhonchi, symmetrical, unlabored Cardiovascular exam: PRESENT: irregular rhythm GI/Abdominal exam: PRESENT: normal bowel sounds, soft. ABSENT: distended, guarding, mass, organolmegaly, rebound, tenderness Rectal exam: PRESENT: deferred Gentrourinary exam: PRESENT: indwelling catheter Musculoskeletal exam: PRESENT: normal inspection Neurological exam: PRESENT: awake Results Laboratory Results: 05/29/16 03:57 05/29/16 03:57 05/29/16 05/29/16 05/29/16 03:57 03:57 04:50 WBC 8.3 RBC 3.28 L Hgb 10.4 L Hct 32.5 L MCV 99 H MCH 31.6 MCHC 31.9 L RDW 20.8 H Plt Count 124 L Seg Neutrophils % 62.5 Lymphocytes % 21.2 Monocytes % 11.5 Eosinophils % 3.9 Basophils % 0.9 Absolute Neutrophils 5.2 Absolute Lymphocytes 1.8 Absolute Monocytes 1.0 Absolute Eosinophils 0.3 Absolute Basophils 0.1 Carbonic Acid 1.20 HCO3/H2CO3 Ratio 23:1 ABG pH 7.48 H ABG pCO2 39.9 ABG pO2 102.2 H ABG HCO3 28.7 H ABG O2 Saturation 98.0 ABG Base Excess 4.8 FiO2 25% Sodium 141.2 Potassium 3.8 Chloride 107 Carbon Dioxide 29 Anion Gap 5 BUN 18 Creatinine 0.68 Est GFR ( Amer) > 60 Est GFR (Non-Af Amer) > 60 Glucose 163 H Calcium 8.1 L Magnesium 1.8 Total Bilirubin 0.9 AST 155 H ALT 92 H Alkaline Phosphatase 319 H Total Protein 5.6 L Albumin 1.8 L Triglycerides 115 04/23/16 04/23/16 04/24/16 21:01 21:01 03:31 Creatine Kinase 26 L 23 L CK-MB (CK-2) 1.80 Troponin I < 0.012 NT-Pro-B Natriuret Pep 04/24/16 04/24/16 04/24/16 03:31 09:43 09:43 Creatine Kinase 22 L CK-MB (CK-2) 1.38 1.37 Troponin I < 0.012 < 0.012 NT-Pro-B Natriuret Pep 05/19/16 17:14 Creatine Kinase CK-MB (CK-2) Troponin I NT-Pro-B Natriuret Pep 3530 H Impressions: Chest CT 04/24/16 00:00 IMPRESSION: Large bilateral pleural effusions are identified with some associated airspace consolidation in the lung bases most consistent with atelectatic changes. Other findings as noted above Shoulder X-Ray 04/24/16 00:00 IMPRESSION: No acute fracture or malalignment at the right or left shoulder Old right humeral neck fracture, healed Bilateral pleural effusions Thoracentesis Ultrasound 05/03/16 08:38 IMPRESSION: SUCCESSFUL LEFT THORACENTESIS USING ULTRASOUND GUIDANCE. Head CT 05/13/16 00:00 IMPRESSION: NO ACUTE INTRACRANIAL PROCESS. NO SIGNIFICANT CHANGE FROM PRIOR STUDY. Chest X-Ray 05/29/16 06:00 IMPRESSION: No significant change. No pneumothorax. Assessment & Plan - Diagnosis (1) Acute respiratory failure with hypoxia and hypercapnia Is this a current diagnosis for this admission?: YesPlan: Minute volume, respiratory rate, FiO2, airway pressures suggest successful extubation patient's mental status is adequate we will proceed with extubation (2) Bilateral pleural effusion Is this a current diagnosis for this admission?: YesPlan: slightly improved (3) Chronic atrial fibrillation Is this a current diagnosis for this admission?: YesPlan: Stable - Time Critical Time spent with patient: 35 or more minutes - 55 minutes extubation
--- NOTE | 2016-05-30 11:16 | PDOC PROGRESS REPORT ---
Subjective Progress Note for:: 05/30/16 Subjective:: 24 hours status post extubation awake and alert Physical Exam Vital Signs: Temp Pulse Resp BP Pulse Ox 97.7 F 105 H 18 101/65 100 05/30/16 08:00 05/30/16 08:00 05/30/16 08:00 05/30/16 08:19 05/30/16 08:00 Intake & Output 05/29/16 05/30/16 05/31/16 06:59 06:59 06:59 Intake Total 4021 2318 Output Total 3123 5070 Balance 896 -1052 Weight 58.3 kg 56.2 kg General appearance: PRESENT: no acute distress, disheveled Head exam: PRESENT: atraumatic, normocephalic Eye exam: PRESENT: conjunctiva pale, EOMI Neck exam: ABSENT: carotid bruit, JVD, lymphadenopathy, thyromegaly Respiratory exam: PRESENT: decreased breath sounds, prolonged expiratory phas, rhonchi, symmetrical, unlabored, wheezes Cardiovascular exam: PRESENT: irregular rhythm Pulses: PRESENT: normal radial pulses GI/Abdominal exam: PRESENT: ascites Rectal exam: PRESENT: deferred Gentrourinary exam: PRESENT: indwelling catheter Musculoskeletal exam: PRESENT: normal inspection Neurological exam: PRESENT: alert, awake Skin exam: PRESENT: dry, warm Results Laboratory Results: 05/30/16 03:56 05/30/16 03:56 05/30/16 05/30/16 05/30/16 03:56 03:56 05:35 WBC 7.7 RBC 3.31 L Hgb 10.8 L Hct 32.3 L MCV 98 H MCH 32.7 MCHC 33.5 RDW 20.4 H Plt Count 122 L Seg Neutrophils % 55.9 Lymphocytes % 24.3 Monocytes % 13.8 H Eosinophils % 5.3 Basophils % 0.7 Absolute Neutrophils 4.3 Absolute Lymphocytes 1.9 Absolute Monocytes 1.1 Absolute Eosinophils 0.4 Absolute Basophils 0.1 Carbonic Acid 1.74 H HCO3/H2CO3 Ratio 17:1 ABG pH 7.34 L ABG pCO2 57.7 H ABG pO2 239.8 H ABG HCO3 30.2 H ABG O2 Saturation 99.5 H ABG Base Excess 3.2 FiO2 4L Sodium 142.8 Potassium 3.6 Chloride 106 Carbon Dioxide 32 H Anion Gap 5 BUN 15 Creatinine 0.62 Est GFR ( Amer) > 60 Est GFR (Non-Af Amer) > 60 Glucose 100 Calcium 8.3 L Phosphorus 3.5 Magnesium 1.8 Total Bilirubin 1.3 AST 86 H ALT 67 Alkaline Phosphatase 247 H Total Protein 5.4 L Albumin 1.8 L 04/23/16 04/23/16 04/24/16 21:01 21:01 03:31 Creatine Kinase 26 L 23 L CK-MB (CK-2) 1.80 Troponin I < 0.012 NT-Pro-B Natriuret Pep 04/24/16 04/24/16 04/24/16 03:31 09:43 09:43 Creatine Kinase 22 L CK-MB (CK-2) 1.38 1.37 Troponin I < 0.012 < 0.012 NT-Pro-B Natriuret Pep 05/19/16 17:14 Creatine Kinase CK-MB (CK-2) Troponin I NT-Pro-B Natriuret Pep 3530 H Impressions: Chest CT 04/24/16 00:00 IMPRESSION: Large bilateral pleural effusions are identified with some associated airspace consolidation in the lung bases most consistent with atelectatic changes. Other findings as noted above Shoulder X-Ray 04/24/16 00:00 IMPRESSION: No acute fracture or malalignment at the right or left shoulder Old right humeral neck fracture, healed Bilateral pleural effusions Thoracentesis Ultrasound 05/03/16 08:38 IMPRESSION: SUCCESSFUL LEFT THORACENTESIS USING ULTRASOUND GUIDANCE. Head CT 05/13/16 00:00 IMPRESSION: NO ACUTE INTRACRANIAL PROCESS. NO SIGNIFICANT CHANGE FROM PRIOR STUDY. Chest X-Ray 05/30/16 06:00 IMPRESSION: Persistent bibasilar airspace opacities, stable on the right and mildly worsened on the left. This may be somewhat accentuated by patient positioning. There is widening of the mediastinum prominence of the cardiac silhouette in comparison the prior study again likely related patient positioning. There is increased pulmonary vascular distention comparison the prior study. Interval removal of the endotracheal &nasogastric tubes. Assessment & Plan - Diagnosis (1) Acute respiratory failure with hypoxia and hypercapnia Is this a current diagnosis for this admission?: YesPlan: Extubated doing well (2) Bilateral pleural effusion Is this a current diagnosis for this admission?: YesPlan: slightly improved (3) Chronic atrial fibrillation Is this a current diagnosis for this admission?: YesPlan: Stable - Time Critical Time spent with patient: 25-34 minutes - 30 minute
[2016-05-30] MEDS: MORPHINE SULFATE 10 MG/ML INJ IV PRN (12:50)
--- NOTE | 2016-05-30 18:15 | PDOC PROGRESS REPORT ---
Subjective Progress Note for:: 05/29/16 Subjective:: Patient was extubated today and he wants to be a DO NOT RESUSCITATE Physical Exam Vital Signs: Temp Pulse Resp BP Pulse Ox 98.8 F 95 29 H 119/71 100 05/29/16 16:00 05/29/16 18:00 05/29/16 18:00 05/29/16 18:00 05/29/16 18:00 Intake & Output 05/28/16 05/29/16 05/30/16 06:59 06:59 06:59 Intake Total 3388 4021 1048 Output Total 6418 1245 2500 Balance 703 216 -6846 Weight 58.3 kg General appearance: PRESENT: no acute distress Eye exam: PRESENT: PERRLA Respiratory exam: PRESENT: clear to auscultation gregg Cardiovascular exam: PRESENT: +S1, +S2 GI/Abdominal exam: PRESENT: soft Results Laboratory Results: 05/29/16 03:57 05/29/16 03:57 05/29/16 05/29/16 05/29/16 03:57 03:57 04:50 WBC 8.3 RBC 3.28 L Hgb 10.4 L Hct 32.5 L MCV 99 H MCH 31.6 MCHC 31.9 L RDW 20.8 H Plt Count 124 L Seg Neutrophils % 62.5 Lymphocytes % 21.2 Monocytes % 11.5 Eosinophils % 3.9 Basophils % 0.9 Absolute Neutrophils 5.2 Absolute Lymphocytes 1.8 Absolute Monocytes 1.0 Absolute Eosinophils 0.3 Absolute Basophils 0.1 Carbonic Acid 1.20 HCO3/H2CO3 Ratio 23:1 ABG pH 7.48 H ABG pCO2 39.9 ABG pO2 102.2 H ABG HCO3 28.7 H ABG O2 Saturation 98.0 ABG Base Excess 4.8 FiO2 25% Sodium 141.2 Potassium 3.8 Chloride 107 Carbon Dioxide 29 Anion Gap 5 BUN 18 Creatinine 0.68 Est GFR ( Amer) > 60 Est GFR (Non-Af Amer) > 60 Glucose 163 H Calcium 8.1 L Magnesium 1.8 Total Bilirubin 0.9 AST 155 H ALT 92 H Alkaline Phosphatase 319 H Total Protein 5.6 L Albumin 1.8 L Triglycerides 115 04/23/16 04/23/16 04/24/16 21:01 21:01 03:31 Creatine Kinase 26 L 23 L CK-MB (CK-2) 1.80 Troponin I < 0.012 NT-Pro-B Natriuret Pep 04/24/16 04/24/16 04/24/16 03:31 09:43 09:43 Creatine Kinase 22 L CK-MB (CK-2) 1.38 1.37 Troponin I < 0.012 < 0.012 NT-Pro-B Natriuret Pep 05/19/16 17:14 Creatine Kinase CK-MB (CK-2) Troponin I NT-Pro-B Natriuret Pep 3530 H Impressions: Chest CT 04/24/16 00:00 IMPRESSION: Large bilateral pleural effusions are identified with some associated airspace consolidation in the lung bases most consistent with atelectatic changes. Other findings as noted above Shoulder X-Ray 04/24/16 00:00 IMPRESSION: No acute fracture or malalignment at the right or left shoulder Old right humeral neck fracture, healed Bilateral pleural effusions Thoracentesis Ultrasound 05/03/16 08:38 IMPRESSION: SUCCESSFUL LEFT THORACENTESIS USING ULTRASOUND GUIDANCE. Head CT 05/13/16 00:00 IMPRESSION: NO ACUTE INTRACRANIAL PROCESS. NO SIGNIFICANT CHANGE FROM PRIOR STUDY. Chest X-Ray 05/29/16 06:00 IMPRESSION: No significant change. No pneumothorax. 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 Is this a current diagnosis for this admission?: Yes (4) Chronic atrial fibrillation Is this a current diagnosis for this admission?: Yes (5) Wheezing on auscultation Is this a current diagnosis for this admission?: Yes (6) Bilateral pleural effusion Is this a current diagnosis for this admission?: Yes (7) Hypothermia Qualifiers: Encounter type: initial encounter Qualified Code(s): T68.XXXA - Hypothermia, initial encounter Is this a current diagnosis for this admission?: Yes (8) Parapneumonic effusion Is this a current diagnosis for this admission?: Yes (9) Enterocolitis due to Clostridium difficile Is this a current diagnosis for this admission?: Yes (10) Pneumonia Qualifiers: Pneumonia type: due to unspecified organism Laterality: unspecified laterality Lung location: unspecified part of lung Qualified Code(s) : J18.9 - Pneumonia, unspecified organism Is this a current diagnosis for this admission?: Yes (11) Overactive bladder Is this a current diagnosis for this admission?: Yes (12) Acute retention of urine Is this a current diagnosis for this admission?: Yes (13) Acute respiratory failure with hypoxia and hypercapnia Is this a current diagnosis for this admission?: Yes (14) Hypotension Qualifiers: Hypotension type: unspecified hypotension type Qualified Code(s): I95.9 - Hypotension, unspecified Is this a current diagnosis for this admission?: Yes (15) Acute systolic heart failure Is this a current diagnosis for this admission?: Yes
--- NOTE | 2016-05-30 18:22 | PDOC PROGRESS REPORT ---
Subjective Progress Note for:: 05/30/16 Subjective:: Patient was seen by the bedside, he has marginally low blood pressure. He will be transferred to the medical floor Physical Exam Vital Signs: Temp Pulse Resp BP Pulse Ox 100.2 F 117 H 20 90/58 L 94 05/30/16 16:00 05/30/16 16:00 05/30/16 16:00 05/30/16 16:33 05/30/16 17:30 Intake & Output 05/29/16 05/30/16 05/31/16 06:59 06:59 06:59 Intake Total 4021 2318 1059 Output Total 3122 8040 1600 Balance 236 -0562 -471 Weight 58.3 kg 56.2 kg General appearance: PRESENT: no acute distress Eye exam: PRESENT: PERRLA Neck exam: PRESENT: full ROM Respiratory exam: PRESENT: clear to auscultation gregg Cardiovascular exam: PRESENT: +S1, +S2 GI/Abdominal exam: PRESENT: soft Neurological exam: PRESENT: alert Results Laboratory Results: 05/30/16 03:56 05/30/16 03:56 05/30/16 05/30/16 05/30/16 03:56 03:56 05:35 WBC 7.7 RBC 3.31 L Hgb 10.8 L Hct 32.3 L MCV 98 H MCH 32.7 MCHC 33.5 RDW 20.4 H Plt Count 122 L Seg Neutrophils % 55.9 Lymphocytes % 24.3 Monocytes % 13.8 H Eosinophils % 5.3 Basophils % 0.7 Absolute Neutrophils 4.3 Absolute Lymphocytes 1.9 Absolute Monocytes 1.1 Absolute Eosinophils 0.4 Absolute Basophils 0.1 Carbonic Acid 1.74 H HCO3/H2CO3 Ratio 17:1 ABG pH 7.34 L ABG pCO2 57.7 H ABG pO2 239.8 H ABG HCO3 30.2 H ABG O2 Saturation 99.5 H ABG Base Excess 3.2 FiO2 4L Sodium 142.8 Potassium 3.6 Chloride 106 Carbon Dioxide 32 H Anion Gap 5 BUN 15 Creatinine 0.62 Est GFR ( Amer) > 60 Est GFR (Non-Af Amer) > 60 Glucose 100 Calcium 8.3 L Phosphorus 3.5 Magnesium 1.8 Total Bilirubin 1.3 AST 86 H ALT 67 Alkaline Phosphatase 247 H Total Protein 5.4 L Albumin 1.8 L 04/23/16 04/23/16 04/24/16 21:01 21:01 03:31 Creatine Kinase 26 L 23 L CK-MB (CK-2) 1.80 Troponin I < 0.012 NT-Pro-B Natriuret Pep 04/24/16 04/24/16 04/24/16 03:31 09:43 09:43 Creatine Kinase 22 L CK-MB (CK-2) 1.38 1.37 Troponin I < 0.012 < 0.012 NT-Pro-B Natriuret Pep 05/19/16 17:14 Creatine Kinase CK-MB (CK-2) Troponin I NT-Pro-B Natriuret Pep 3530 H Impressions: Chest CT 04/24/16 00:00 IMPRESSION: Large bilateral pleural effusions are identified with some associated airspace consolidation in the lung bases most consistent with atelectatic changes. Other findings as noted above Shoulder X-Ray 04/24/16 00:00 IMPRESSION: No acute fracture or malalignment at the right or left shoulder Old right humeral neck fracture, healed Bilateral pleural effusions Thoracentesis Ultrasound 05/03/16 08:38 IMPRESSION: SUCCESSFUL LEFT THORACENTESIS USING ULTRASOUND GUIDANCE. Head CT 05/13/16 00:00 IMPRESSION: NO ACUTE INTRACRANIAL PROCESS. NO SIGNIFICANT CHANGE FROM PRIOR STUDY. Chest X-Ray 05/30/16 06:00 IMPRESSION: Persistent bibasilar airspace opacities, stable on the right and mildly worsened on the left. This may be somewhat accentuated by patient positioning. There is widening of the mediastinum prominence of the cardiac silhouette in comparison the prior study again likely related patient positioning. There is increased pulmonary vascular distention comparison the prior study. Interval removal of the endotracheal &nasogastric tubes. 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 Is this a current diagnosis for this admission?: Yes (4) Chronic atrial fibrillation Is this a current diagnosis for this admission?: Yes (5) Wheezing on auscultation Is this a current diagnosis for this admission?: Yes (6) Bilateral pleural effusion Is this a current diagnosis for this admission?: Yes (7) Hypothermia Qualifiers: Encounter type: initial encounter Qualified Code(s): T68.XXXA - Hypothermia, initial encounter Is this a current diagnosis for this admission?: Yes (8) Parapneumonic effusion Is this a current diagnosis for this admission?: Yes (9) Enterocolitis due to Clostridium difficile Is this a current diagnosis for this admission?: Yes (10) Pneumonia Qualifiers: Pneumonia type: due to unspecified organism Laterality: unspecified laterality Lung location: unspecified part of lung Qualified Code(s) : J18.9 - Pneumonia, unspecified organism Is this a current diagnosis for this admission?: Yes (11) Overactive bladder Is this a current diagnosis for this admission?: Yes (12) Acute retention of urine Is this a current diagnosis for this admission?: Yes (13) Acute respiratory failure with hypoxia and hypercapnia Is this a current diagnosis for this admission?: Yes (14) Hypotension Qualifiers: Hypotension type: unspecified hypotension type Qualified Code(s): I95.9 - Hypotension, unspecified Is this a current diagnosis for this admission?: Yes (15) Acute systolic heart failure Is this a current diagnosis for this admission?: Yes
[2016-05-31] MEDS ORDERED: DEXTROSE 50%-WATER 25 GM/50 ML DISP.SYRIN IV ONE ×2 (00:18→00:30)
[2016-05-31] MEDS: ACETAMINOPHEN 325 MG TABLET NG SCH ×4 (00:55→22:53)
[2016-05-31] MEDS ORDERED: DEXTROSE 50%-WATER SYRINGE 12.5 GM/25 ML DOSE IV PRN (09:07)
[2016-05-31] MEDS ORDERED: GLUCAGON,HUMAN RECOMB 1 MG INJ IM PRN (09:07)
[2016-05-31] MEDS ORDERED: DEXTROSE 50%-WATER SYRINGE 25 GM/50 ML DOSE IV PRN (09:07)
[2016-05-31] MEDS ORDERED: LIDOCAINE 1% INJ-PF (10 MG/ML) 30 ML SDV ONE (11:36)
[2016-05-31] MEDS: LINEZOLID 600 MG TABLET NG SCH ×2 (15:28→22:53)
--- NOTE | 2016-05-31 21:24 | PDOC PROGRESS REPORT ---
Subjective Progress Note for:: 05/31/16 Subjective:: Patient apparently fell of the bedside today and had skin tear, he had imaging done of the limbs,spine and was negative for fracture. Patient's overall condition is poor. I saw him by the bedside and I also spoke to his son about the incident. Physical Exam Vital Signs: Temp Pulse Resp BP Pulse Ox 98.7 F 132 H 16 131/88 H 100 05/31/16 14:00 05/31/16 14:00 05/31/16 14:00 05/31/16 14:00 05/31/16 14:00 Intake & Output 05/30/16 05/31/16 06/01/16 06:59 06:59 06:59 Intake Total 2318 1059 360 Output Total 3370 0115 300 Balance -1052 -8446 60 Weight 56.2 kg 63.7 kg General appearance: PRESENT: no acute distress Eye exam: PRESENT: PERRLA Respiratory exam: PRESENT: clear to auscultation gregg Cardiovascular exam: PRESENT: +S1, +S2 GI/Abdominal exam: PRESENT: soft Extremities exam: PRESENT: other - There are dressings on the upper extremities of the right side Neurological exam: PRESENT: alert Results Laboratory Results: 05/30/16 03:56 05/30/16 03:56 04/23/16 04/23/16 04/24/16 21:01 21:01 03:31 Creatine Kinase 26 L 23 L CK-MB (CK-2) 1.80 Troponin I < 0.012 NT-Pro-B Natriuret Pep 04/24/16 04/24/16 04/24/16 03:31 09:43 09:43 Creatine Kinase 22 L CK-MB (CK-2) 1.38 1.37 Troponin I < 0.012 < 0.012 NT-Pro-B Natriuret Pep 05/19/16 17:14 Creatine Kinase CK-MB (CK-2) Troponin I NT-Pro-B Natriuret Pep 3530 H Impressions: Chest CT 04/24/16 00:00 IMPRESSION: Large bilateral pleural effusions are identified with some associated airspace consolidation in the lung bases most consistent with atelectatic changes. Other findings as noted above Thoracentesis Ultrasound 05/03/16 08:38 IMPRESSION: SUCCESSFUL LEFT THORACENTESIS USING ULTRASOUND GUIDANCE. Chest X-Ray 05/30/16 06:00 IMPRESSION: Persistent bibasilar airspace opacities, stable on the right and mildly worsened on the left. This may be somewhat accentuated by patient positioning. There is widening of the mediastinum prominence of the cardiac silhouette in comparison the prior study again likely related patient positioning. There is increased pulmonary vascular distention comparison the prior study. Interval removal of the endotracheal &nasogastric tubes. Cervical Spine CT 05/31/16 00:00 IMPRESSION: No acute changes Forearm X-Ray 05/31/16 00:00 IMPRESSION: No acute fracture. Head CT 05/31/16 00:00 IMPRESSION: No acute changes Lumbar Spine CT 05/31/16 00:00 IMPRESSION: No acute changes Pelvis CT 05/31/16 00:00 IMPRESSION: No acute fracture Shoulder X-Ray 05/31/16 00:00 IMPRESSION: Irregularity of the femoral neck/ head which was present on study dating back to 2013 therefore this likely represents a chronic fracture. Given the severe osteopenia is difficult to assess whether acute fracture in this region. No other fractures are identified. 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 Is this a current diagnosis for this admission?: Yes (4) Chronic atrial fibrillation Is this a current diagnosis for this admission?: Yes (5) Wheezing on auscultation Is this a current diagnosis for this admission?: Yes (6) Bilateral pleural effusion Is this a current diagnosis for this admission?: Yes (7) Hypothermia Qualifiers: Encounter type: initial encounter Qualified Code(s): T68.XXXA - Hypothermia, initial encounter Is this a current diagnosis for this admission?: Yes (8) Parapneumonic effusion Is this a current diagnosis for this admission?: Yes (9) Enterocolitis due to Clostridium difficile Is this a current diagnosis for this admission?: Yes (10) Pneumonia Qualifiers: Pneumonia type: due to unspecified organism Laterality: unspecified laterality Lung location: unspecified part of lung Qualified Code(s) : J18.9 - Pneumonia, unspecified organism Is this a current diagnosis for this admission?: Yes (11) Overactive bladder Is this a current diagnosis for this admission?: Yes (12) Acute retention of urine Is this a current diagnosis for this admission?: Yes (13) Acute respiratory failure with hypoxia and hypercapnia Is this a current diagnosis for this admission?: Yes (14) Hypotension Qualifiers: Hypotension type: unspecified hypotension type Qualified Code(s): I95.9 - Hypotension, unspecified Is this a current diagnosis for this admission?: Yes (15) Acute systolic heart failure Is this a current diagnosis for this admission?: Yes
[2016-05-31] MEDS ORDERED: VANCOMYCIN HCL 1,000 MG in DEXTROSE 5%-WATER 250 ML IV SCH (22:00)
[2016-05-31 22:13] LABS: PROTHROMBIN TIME 18.7 SEC (11.4-15.4)
[2016-06-01] MEDS: ACETAMINOPHEN 325 MG TABLET NG SCH ×4 (01:48→17:25)
[2016-06-01] MEDS: LINEZOLID 600 MG TABLET NG SCH ×2 (10:51→17:25)
[2016-06-01] MEDS: INSULIN LISPRO 100 UNIT/ML 3 ML VIAL SUBCUT PRN (12:05)
--- NOTE | 2016-06-01 12:14 | PDOC CONSULTATION ---
Consultation Consult Date: 05/31/16 Consult reason:: Fall, skin tear History of Present Illness Admission Date/PCP: 04/23/16 20:21 History of Present Illness: Late entry. Patient was seen late morning on 05/31/2016. 80-year-old white male with history of atrial fibrillation, hypertension, pneumonia, diabetes mellitus type II, GERD, arthritis, anemia, C. difficile colitis, MRSA. Patient has been in the hospital just over 5 weeks. He was transferred to the floor from the intensive care unit overnight. He was found down by nursing this morning. No specific estimate of the amount of time down was available from nursing, but the estimated very briefly. He was aided back to bed and assessed by nursing, felt no significant injuries except for right forearm skin tears were sustained. Primary care provider was notified. Primary care provider requested patient be evaluated by surgery. Surgery was consulted for right forearm skin tears. Surgery physician dietitian assistant was assessing the patient when the family arrived. They had not been notified of the patient's fall. Family was upset. Surgery physician dietitian assistant requested attending assistance. Per the surgery physician dietitian assistant, the patient had complained of some neck and back pain as well as right hip and shoulder pain. On repeated questioning by surgery attending, the patient denied neck, shoulder or hip pain. Patient denied loss of consciousness. Patient is frail and with multiple health issues but denied any problems or symptoms from the fall except for the right forearm skin tears. During further questioning/continued review of systems during physical exam, the patient revealed a fused right knee as well as a generalized stiffness/decreased range of motion/aches/pains with other joints. Past Medical History Cardiac Medical History: Reports: Atrial Fibrillation, Hypertension Denies: Congestive Heart Failure, DVT, Myocardial Infarction, Hyperlipidema, Pulmonary Embolism Pulmonary Medical History: Reports: Pneumonia Denies: Asthma, Chronic Obstructive Pulmonary Disease (COPD) Neurological Medical History: Denies: Seizures Endocrine Medical History: Reports: Diabetes Mellitus Type 2 Denies: Hyperthyroidism, Hypothyroidism Malignancy Medical History: Reports: Skin Cancer - Status post excision of several GI Medical History: Reports: Cirrhosis, Gastroesophageal Reflux Disease Denies: Hepatitis, Hiatal Hernia Musculoskeltal Medical History: Reports: Arthritis Psychiatric Medical History: Denies: Depression Hematology: Reports: Anemia Infectious Medical History: Reports: Clostridium Difficile, Methicillin- Resistant Staph Aureus Past Surgical History Past Surgical History: Reports: Orthopedic Surgery - Multiple right knee surgeries, with eventual fusion. Lithotripsy., Other - Left total knee replacement. Excision of several skin cancers. Denies: Pacemaker Social History Information Source: [facility] Records Lives with: Snf Smoking Status: Former Smoker Frequency of Alcohol Use: None Hx Recreational Drug Use: No Drugs: None Hx Prescription Drug Abuse: No - Advance Directive Resuscitation Status: Do Not Resuscitate Family History Parental Family History Reviewed: No Children Family History Reviewed: No Sibling(s) Family History Reviewed.: No Medication/Allergy Home Medications: Tamsulosin HCl [Flomax] 0.4 mg PO BID 10/20/13 Esomeprazole Mag Trihydrate [Nexium] 40 mg PO DAILY 03/19/15 Loratadine [Claritin 10 mg Tablet] 10 mg PO DAILY 09/26/15 Verapamil HCl [Verapamil ER] 180 mg PO DAILY 03/28/16 FA/Vit C/E/Zinc/Copper/Lut/Darrian [Ocuvel Capsule] 1 each PO DAILY 04/07/16 Acidoph/L.bulg/Bif.b/S.thermop [Bacid Caplet] 1 each PO BID #28 tablet 04/12/16 Metronidazole [Flagyl 500 mg Tablet] 500 mg PO Q8 tablet 04/12/16 Finasteride 5 mg PO DAILY 04/23/16 Insulin Regular, Human [Humulin R (Reg) Insulin 100 unit/mL] 0 - 12 unit SUBCUT ACHSP PRN 04/23/16 Allergies/Adverse Reactions: Levaquin Adverse Reaction (Intermediate, Uncoded 05/09/16 14:54) Pruritis Review of Systems All systems: reviewed and no additional remarkable complaints except as stated Physical Exam Vital Signs: Temp Pulse Resp BP Pulse Ox 97.5 F 116 H 16 135/91 H 100 06/01/16 03:38 06/01/16 03:38 06/01/16 03:38 06/01/16 03:38 06/01/16 03:38 Intake & Output 05/31/16 06/01/16 06/02/16 06:59 06:59 06:59 Intake Total 1059 360 Output Total 2595 800 Balance -1536 -440 Weight 63.7 kg 63.7 kg General appearance: PRESENT: no acute distress, cooperative, other - Frail- appearing, almost muscle wasting/cachectic, especially in the face and extremities. Head exam: PRESENT: atraumatic, normocephalic, other Eye exam: PRESENT: EOMI, PERRLA Mouth exam: PRESENT: tongue midline Neck exam: PRESENT: tenderness - Minor tenderness palpation over the inferior cervical spine. Kyphosis of the cervical and thoracic spine.. ABSENT: JVD, lymphadenopathy, thyromegaly Respiratory exam: PRESENT: clear to auscultation gregg, other - Some tenderness to palpation of the kyphotic, upper thoracic spine. Cardiovascular exam: PRESENT: irregular rhythm GI/Abdominal exam: PRESENT: soft, other - No posterior costovertebral angle tenderness. No lower spine pain. No pain to anterior posterior or lateral hip pressure/palpation.. ABSENT: distended, tenderness Gentrourinary exam: PRESENT: indwelling catheter, other - Muhammad in, no blood at the meatus. Extremities exam: ABSENT: calf tenderness, pedal edema, tenderness Musculoskeletal exam: PRESENT: deformity - Right knee fused.. ABSENT: full ROM - Right knee is fused, no range of motion. In addition to that, he has reduced range of motion at all joints of all 4 extremities, but reports this is typical/ chronic for him. He has no pain with passive or active range of motion, just reduced. He also has 2 superficial skin tears on the right forearm, the distal measuring 7.5 cm and the proximal measuring 10 cm. These are washed out and wrapped with a Kerlix roll. Neurological exam: PRESENT: alert, oriented to person, oriented to situation. ABSENT: motor sensory deficit Psychiatric exam: PRESENT: appropriate affect, normal mood Skin exam: PRESENT: skin tears, other - He has some small, patchy diffuse bruising (likely chronic) throughout his extremities, and more focal bruising around the skin tears on the right forearm (likely acute). Results Laboratory Results: 05/30/16 03:56 05/30/16 03:56 04/23/16 04/23/16 04/24/16 21:01 21:01 03:31 Creatine Kinase 26 L 23 L CK-MB (CK-2) 1.80 Troponin I < 0.012 NT-Pro-B Natriuret Pep 04/24/16 04/24/16 04/24/16 03:31 09:43 09:43 Creatine Kinase 22 L CK-MB (CK-2) 1.38 1.37 Troponin I < 0.012 < 0.012 NT-Pro-B Natriuret Pep 05/19/16 17:14 Creatine Kinase CK-MB (CK-2) Troponin I NT-Pro-B Natriuret Pep 3530 H Impressions: Chest CT 04/24/16 00:00 IMPRESSION: Large bilateral pleural effusions are identified with some associated airspace consolidation in the lung bases most consistent with atelectatic changes. Other findings as noted above Thoracentesis Ultrasound 05/03/16 08:38 IMPRESSION: SUCCESSFUL LEFT THORACENTESIS USING ULTRASOUND GUIDANCE. Chest X-Ray 05/30/16 06:00 IMPRESSION: Persistent bibasilar airspace opacities, stable on the right and mildly worsened on the left. This may be somewhat accentuated by patient positioning. There is widening of the mediastinum prominence of the cardiac silhouette in comparison the prior study again likely related patient positioning. There is increased pulmonary vascular distention comparison the prior study. Interval removal of the endotracheal &nasogastric tubes. Cervical Spine CT 05/31/16 00:00 IMPRESSION: No acute changes Forearm X-Ray 05/31/16 00:00 IMPRESSION: No acute fracture. Head CT 05/31/16 00:00 IMPRESSION: No acute changes Lumbar Spine CT 05/31/16 00:00 IMPRESSION: No acute changes Pelvis CT 05/31/16 00:00 IMPRESSION: No acute fracture Shoulder X-Ray 05/31/16 00:00 IMPRESSION: Irregularity of the femoral neck/ head which was present on study dating back to 2013 therefore this likely represents a chronic fracture. Given the severe osteopenia is difficult to assess whether acute fracture in this region. No other fractures are identified. Thoracic Spine CT 05/31/16 00:00 IMPRESSION: No acute changes Wrist X-Ray 05/31/16 00:00 IMPRESSION: No acute fracture Assessment & Plan - Diagnosis (1) Fall during current hospitalization Qualifiers: Encounter type: initial encounter Qualified Code(s): W19.XXXA - Unspecified fall, initial encounter; Y92.239 - Unspecified place in hospital as the place of occurrence of the external cause Is this a current diagnosis for this admission?: YesPlan: Late entry. Patient was seen midday on 05/31/2016. Initially reported some tenderness, and denied tenderness of neck/right shoulder/right hip. Also sustained right forearm skin tears. Imaging was done of all possibly involved areas and was negative for acute injury. Multiple chronic findings were found. Family was notified no acute findings. Printed reports of all the imaging studies were left in the room for the patient and his family. Family was very upset, as family had not been notified of the fall within the arrived today. Surgery PA was in the midst of addressing the right forearm skin tears when entered the room and became aware of the fall. The family was very upset. I apologized. I listened to the son and [id number] expressed their concerns and frustrations for 45 minutes to an hour in addition to the approximately 45 minutes is spent on patient care. I explained the plan from the surgical perspective, that he had been closely examined, and imaging studies would be performed. Fortunately no acute injuries other than the skin tears. I explained that we may close the skin tears loosely with sutures, but was called away to the trauma and then subsequently critical ICU patient's an emergency surgeries. I spoke with Dr. Castillo, the oncoming surgeon about the patient and the skin tears. The skin tears should not pose any significant limitations, although will require wound care. I explained that the skin flap is left in place to see how much but will remain viable. As the skin flap declares, any necrotic edge can be trimmed back. I will attempt to call his son, discussed chronic findings which include a right right kidney, lower pole, 2 cm cyst versus mass, and see if he has further questions. (2) Skin tear of right upper extremity Is this a current diagnosis for this admission?: Yes
[2016-06-01] MEDS ORDERED: ACETAMINOPHEN 325 MG TABLET NG ONE (19:00)
[2016-06-01 22:02] LABS: PROTHROMBIN TIME 19.4 SEC (11.4-15.4)
[2016-06-02] MEDS: ACETAMINOPHEN 325 MG TABLET NG SCH ×4 (05:49→17:28)
[2016-06-02] MEDS: LINEZOLID 600 MG TABLET NG SCH ×2 (10:00→21:17)
--- NOTE | 2016-06-02 14:56 | PDOC PROGRESS REPORT ---
Subjective Progress Note for:: 06/01/16 Subjective:: Patient was seen by the bedside, he had CT of the pelvis without contrast and it showed 2 cm cyst versus a mass in the right lower [email or web address] Physical Exam Vital Signs: Temp Pulse Resp BP Pulse Ox 98.5 F 118 H 20 139/82 H 100 06/02/16 12:00 06/02/16 12:00 06/02/16 12:00 06/02/16 12:00 06/02/16 12:00 Intake & Output 06/01/16 06/02/16 06/03/16 06:59 06:59 06:59 Intake Total 360 426 Output Total 800 700 Balance -440 -274 Weight 63.7 kg 65 kg General appearance: PRESENT: no acute distress Eye exam: PRESENT: PERRLA Respiratory exam: PRESENT: clear to auscultation gregg Cardiovascular exam: PRESENT: +S1, +S2 GI/Abdominal exam: PRESENT: soft Results Laboratory Results: 05/30/16 03:56 05/30/16 03:56 04/23/16 04/23/16 04/24/16 21:01 21:01 03:31 Creatine Kinase 26 L 23 L CK-MB (CK-2) 1.80 Troponin I < 0.012 NT-Pro-B Natriuret Pep 04/24/16 04/24/16 04/24/16 03:31 09:43 09:43 Creatine Kinase 22 L CK-MB (CK-2) 1.38 1.37 Troponin I < 0.012 < 0.012 NT-Pro-B Natriuret Pep 05/19/16 17:14 Creatine Kinase CK-MB (CK-2) Troponin I NT-Pro-B Natriuret Pep 3530 H Impressions: Chest CT 04/24/16 00:00 IMPRESSION: Large bilateral pleural effusions are identified with some associated airspace consolidation in the lung bases most consistent with atelectatic changes. Other findings as noted above Thoracentesis Ultrasound 05/03/16 08:38 IMPRESSION: SUCCESSFUL LEFT THORACENTESIS USING ULTRASOUND GUIDANCE. Chest X-Ray 05/30/16 06:00 IMPRESSION: Persistent bibasilar airspace opacities, stable on the right and mildly worsened on the left. This may be somewhat accentuated by patient positioning. There is widening of the mediastinum prominence of the cardiac silhouette in comparison the prior study again likely related patient positioning. There is increased pulmonary vascular distention comparison the prior study. Interval removal of the endotracheal &nasogastric tubes. Cervical Spine CT 05/31/16 00:00 IMPRESSION: No acute changes Forearm X-Ray 05/31/16 00:00 IMPRESSION: No acute fracture. Head CT 05/31/16 00:00 IMPRESSION: No acute changes Lumbar Spine CT 05/31/16 00:00 IMPRESSION: No acute changes Pelvis CT 05/31/16 00:00 IMPRESSION: No acute fracture Shoulder X-Ray 05/31/16 00:00 IMPRESSION: Irregularity of the femoral neck/ head which was present on study dating back to 2013 therefore this likely represents a chronic fracture. Given the severe osteopenia is difficult to assess whether acute fracture in this region. No other fractures are identified. Thoracic Spine CT 05/31/16 00:00 IMPRESSION: No acute changes Wrist X-Ray 05/31/16 00:00 IMPRESSION: No acute fracture Assessment & Plan - Diagnosis (1) MRSA (methicillin resistant staphylococcus aureus) pneumonia Qualifiers: Laterality: unspecified laterality Lung location: unspecified part of lung Qualified Code(s): J15.212 - Pneumonia due to Methicillin resistant Staphylococcus aureus Is this a current diagnosis for this admission?: Yes (2) Hyponatremia with extracellular fluid depletion Is this a current diagnosis for this admission?: Yes (3) intermediate (current) use of anticoagulants Is this a current diagnosis for this admission?: Yes (4) Chronic atrial fibrillation Is this a current diagnosis for this admission?: Yes (5) Wheezing on auscultation Is this a current diagnosis for this admission?: Yes (6) Bilateral pleural effusion Is this a current diagnosis for this admission?: Yes (7) Hypothermia Qualifiers: Encounter type: initial encounter Qualified Code(s): T68.XXXA - Hypothermia, initial encounter Is this a current diagnosis for this admission?: Yes (8) Parapneumonic effusion Is this a current diagnosis for this admission?: Yes (9) Enterocolitis due to Clostridium difficile Is this a current diagnosis for this admission?: Yes (10) Pneumonia Qualifiers: Pneumonia type: due to unspecified organism Laterality: unspecified laterality Lung location: unspecified part of lung Qualified Code(s) : J18.9 - Pneumonia, unspecified organism Is this a current diagnosis for this admission?: Yes (11) Overactive bladder Is this a current diagnosis for this admission?: Yes (12) Acute retention of urine Is this a current diagnosis for this admission?: Yes (13) Acute respiratory failure with hypoxia and hypercapnia Is this a current diagnosis for this admission?: Yes (14) Hypotension Qualifiers: Hypotension type: unspecified hypotension type Qualified Code(s): I95.9 - Hypotension, unspecified Is this a current diagnosis for this admission?: Yes (15) Acute systolic heart failure Is this a current diagnosis for this admission?: Yes (16) Right kidney mass Is this a current diagnosis for this admission?: Yes
[2016-06-02] MEDS ORDERED: FINASTERIDE 5 MG TABLET PO ONE (15:15)
[2016-06-02] MEDS ORDERED: METOPROLOL SUCCINATE 50 MG TAB.SR.24H PO ONE (15:15)
[2016-06-02] MEDS: APIXABAN 2.5 MG TABLET PO SCH (17:28)
[2016-06-02] MEDS: TAMSULOSIN HCL 0.4 MG CAP.SR.24H PO SCH (17:29)
--- NOTE | 2016-06-02 19:44 | PDOC PROGRESS REPORT ---
Subjective Progress Note for:: 06/02/16 Subjective:: I had a conference with patient's son today, as well as, as the patient regarding disposition. They prefer for patient to go home with home health or to go to rehabilitation in [place] Physical Exam Vital Signs: Temp Pulse Resp BP Pulse Ox 98.5 F 94 20 139/84 H 100 06/02/16 15:32 06/02/16 15:32 06/02/16 15:32 06/02/16 17:39 06/02/16 15:32 Intake & Output 06/01/16 06/02/16 06/03/16 06:59 06:59 06:59 Intake Total 360 426 125 Output Total 800 700 300 Balance -440 -274 -175 Weight 63.7 kg 65 kg General appearance: PRESENT: no acute distress Eye exam: PRESENT: PERRLA Respiratory exam: PRESENT: clear to auscultation gregg Cardiovascular exam: PRESENT: +S1, +S2 GI/Abdominal exam: PRESENT: soft Neurological exam: PRESENT: alert Results Laboratory Results: 05/30/16 03:56 05/30/16 03:56 04/23/16 04/23/16 04/24/16 21:01 21:01 03:31 Creatine Kinase 26 L 23 L CK-MB (CK-2) 1.80 Troponin I < 0.012 NT-Pro-B Natriuret Pep 04/24/16 04/24/16 04/24/16 03:31 09:43 09:43 Creatine Kinase 22 L CK-MB (CK-2) 1.38 1.37 Troponin I < 0.012 < 0.012 NT-Pro-B Natriuret Pep 05/19/16 17:14 Creatine Kinase CK-MB (CK-2) Troponin I NT-Pro-B Natriuret Pep 3530 H Impressions: Chest CT 04/24/16 00:00 IMPRESSION: Large bilateral pleural effusions are identified with some associated airspace consolidation in the lung bases most consistent with atelectatic changes. Other findings as noted above Thoracentesis Ultrasound 05/03/16 08:38 IMPRESSION: SUCCESSFUL LEFT THORACENTESIS USING ULTRASOUND GUIDANCE. Chest X-Ray 05/30/16 06:00 IMPRESSION: Persistent bibasilar airspace opacities, stable on the right and mildly worsened on the left. This may be somewhat accentuated by patient positioning. There is widening of the mediastinum prominence of the cardiac silhouette in comparison the prior study again likely related patient positioning. There is increased pulmonary vascular distention comparison the prior study. Interval removal of the endotracheal &nasogastric tubes. Cervical Spine CT 05/31/16 00:00 IMPRESSION: No acute changes Forearm X-Ray 05/31/16 00:00 IMPRESSION: No acute fracture. Head CT 05/31/16 00:00 IMPRESSION: No acute changes Lumbar Spine CT 05/31/16 00:00 IMPRESSION: No acute changes Pelvis CT 05/31/16 00:00 IMPRESSION: No acute fracture Shoulder X-Ray 05/31/16 00:00 IMPRESSION: Irregularity of the femoral neck/ head which was present on study dating back to 2013 therefore this likely represents a chronic fracture. Given the severe osteopenia is difficult to assess whether acute fracture in this region. No other fractures are identified. Thoracic Spine CT 05/31/16 00:00 IMPRESSION: No acute changes Wrist X-Ray 05/31/16 00:00 IMPRESSION: No acute fracture Assessment & Plan - Diagnosis (1) MRSA (methicillin resistant staphylococcus aureus) pneumonia Qualifiers: Laterality: unspecified laterality Lung location: unspecified part of lung Qualified Code(s): J15.212 - Pneumonia due to Methicillin resistant Staphylococcus aureus Is this a current diagnosis for this admission?: Yes (2) Hyponatremia with extracellular fluid depletion Is this a current diagnosis for this admission?: Yes (3) long-term (current) use of anticoagulants Is this a current diagnosis for this admission?: Yes (4) Chronic atrial fibrillation Is this a current diagnosis for this admission?: YesPlan: He will be started on eliquis , anticoagulant (5) Wheezing on auscultation Is this a current diagnosis for this admission?: Yes (6) Bilateral pleural effusion Is this a current diagnosis for this admission?: Yes (7) Hypothermia Qualifiers: Encounter type: initial encounter Qualified Code(s): T68.XXXA - Hypothermia, initial encounter Is this a current diagnosis for this admission?: Yes (8) Parapneumonic effusion Is this a current diagnosis for this admission?: Yes (9) Enterocolitis due to Clostridium difficile Is this a current diagnosis for this admission?: Yes (10) Pneumonia Qualifiers: Pneumonia type: due to unspecified organism Laterality: unspecified laterality Lung location: unspecified part of lung Qualified Code(s) : J18.9 - Pneumonia, unspecified organism Is this a current diagnosis for this admission?: Yes (11) Overactive bladder Is this a current diagnosis for this admission?: Yes (12) Acute retention of urine Is this a current diagnosis for this admission?: Yes (13) Acute respiratory failure with hypoxia and hypercapnia Is this a current diagnosis for this admission?: Yes (14) Hypotension Qualifiers: Hypotension type: unspecified hypotension type Qualified Code(s): I95.9 - Hypotension, unspecified Is this a current diagnosis for this admission?: Yes (15) Acute systolic heart failure Is this a current diagnosis for this admission?: Yes (16) Right kidney mass Is this a current diagnosis for this admission?: Yes
[2016-06-02] MEDS: INSULIN LISPRO 100 UNIT/ML 3 ML VIAL SUBCUT PRN (21:38)
[2016-06-02 23:38] LABS: PROTHROMBIN TIME 22.2 SEC (11.4-15.4)
[2016-06-03] MEDS: ACETAMINOPHEN 325 MG TABLET NG SCH ×5 (00:21→23:43)
[2016-06-03] MEDS: FINASTERIDE 5 MG TABLET PO SCH (09:20)
[2016-06-03] MEDS: LINEZOLID 600 MG TABLET NG SCH ×2 (09:21→22:22)
[2016-06-03] MEDS: METOPROLOL SUCCINATE 50 MG TAB.SR.24H PO SCH (09:21)
[2016-06-03] MEDS: APIXABAN 2.5 MG TABLET PO SCH ×2 (09:21→17:19)
[2016-06-03] MEDS: INSULIN LISPRO 100 UNIT/ML 3 ML VIAL SUBCUT PRN (16:39)
[2016-06-03] MEDS: TAMSULOSIN HCL 0.4 MG CAP.SR.24H PO SCH (17:19)
--- NOTE | 2016-06-03 19:08 | PDOC PROGRESS REPORT ---
Subjective Progress Note for:: 06/10/16 Subjective:: I had a conference with patient's son today, as well as, as the patient regarding disposition. They prefer for patient to go home with home health or to go to rehabilitation in [place] Physical Exam Vital Signs: Temp Pulse Resp BP Pulse Ox 97.6 F 99 18 119/91 H 100 06/03/16 15:35 06/03/16 15:35 06/03/16 15:35 06/03/16 15:35 06/03/16 15:35 Intake & Output 06/02/16 06/03/16 06/04/16 06:59 06:59 06:59 Intake Total 426 225 575 Output Total 700 500 500 Balance -274 -275 75 Weight 65 kg 64.6 kg General appearance: PRESENT: no acute distress Eye exam: PRESENT: PERRLA Respiratory exam: PRESENT: clear to auscultation gregg Cardiovascular exam: PRESENT: +S1, +S2 Results Laboratory Results: 05/30/16 03:56 05/30/16 03:56 04/23/16 04/23/16 04/24/16 21:01 21:01 03:31 Creatine Kinase 26 L 23 L CK-MB (CK-2) 1.80 Troponin I < 0.012 NT-Pro-B Natriuret Pep 04/24/16 04/24/16 04/24/16 03:31 09:43 09:43 Creatine Kinase 22 L CK-MB (CK-2) 1.38 1.37 Troponin I < 0.012 < 0.012 NT-Pro-B Natriuret Pep 05/19/16 17:14 Creatine Kinase CK-MB (CK-2) Troponin I NT-Pro-B Natriuret Pep 3530 H Impressions: Chest CT 04/24/16 00:00 IMPRESSION: Large bilateral pleural effusions are identified with some associated airspace consolidation in the lung bases most consistent with atelectatic changes. Other findings as noted above Thoracentesis Ultrasound 05/03/16 08:38 IMPRESSION: SUCCESSFUL LEFT THORACENTESIS USING ULTRASOUND GUIDANCE. Chest X-Ray 05/30/16 06:00 IMPRESSION: Persistent bibasilar airspace opacities, stable on the right and mildly worsened on the left. This may be somewhat accentuated by patient positioning. There is widening of the mediastinum prominence of the cardiac silhouette in comparison the prior study again likely related patient positioning. There is increased pulmonary vascular distention comparison the prior study. Interval removal of the endotracheal &nasogastric tubes. Cervical Spine CT 05/31/16 00:00 IMPRESSION: No acute changes Forearm X-Ray 05/31/16 00:00 IMPRESSION: No acute fracture. Head CT 05/31/16 00:00 IMPRESSION: No acute changes Lumbar Spine CT 05/31/16 00:00 IMPRESSION: No acute changes Pelvis CT 05/31/16 00:00 IMPRESSION: No acute fracture Shoulder X-Ray 05/31/16 00:00 IMPRESSION: Irregularity of the femoral neck/ head which was present on study dating back to 2013 therefore this likely represents a chronic fracture. Given the severe osteopenia is difficult to assess whether acute fracture in this region. No other fractures are identified. Thoracic Spine CT 05/31/16 00:00 IMPRESSION: No acute changes Wrist X-Ray 05/31/16 00:00 IMPRESSION: No acute fracture Assessment & Plan - Diagnosis (1) MRSA (methicillin resistant staphylococcus aureus) pneumonia Qualifiers: Laterality: unspecified laterality Lung location: unspecified part of lung Qualified Code(s): J15.212 - Pneumonia due to Methicillin resistant Staphylococcus aureus Is this a current diagnosis for this admission?: Yes (2) Hyponatremia with extracellular fluid depletion Is this a current diagnosis for this admission?: Yes (3) [facility] (current) use of anticoagulants Is this a current diagnosis for this admission?: Yes (4) Chronic atrial fibrillation Is this a current diagnosis for this admission?: Yes (5) Wheezing on auscultation Is this a current diagnosis for this admission?: Yes (6) Bilateral pleural effusion Is this a current diagnosis for this admission?: Yes (7) Hypothermia Qualifiers: Encounter type: initial encounter Qualified Code(s): T68.XXXA - Hypothermia, initial encounter Is this a current diagnosis for this admission?: Yes (8) Parapneumonic effusion Is this a current diagnosis for this admission?: Yes (9) Enterocolitis due to Clostridium difficile Is this a current diagnosis for this admission?: Yes (10) Pneumonia Qualifiers: Pneumonia type: due to unspecified organism Laterality: unspecified laterality Lung location: unspecified part of lung Qualified Code(s) : J18.9 - Pneumonia, unspecified organism Is this a current diagnosis for this admission?: Yes (11) Overactive bladder Is this a current diagnosis for this admission?: Yes (12) Acute retention of urine Is this a current diagnosis for this admission?: Yes (13) Acute respiratory failure with hypoxia and hypercapnia Is this a current diagnosis for this admission?: Yes (14) Hypotension Qualifiers: Hypotension type: unspecified hypotension type Qualified Code(s): I95.9 - Hypotension, unspecified Is this a current diagnosis for this admission?: Yes (15) Acute systolic heart failure Is this a current diagnosis for this admission?: Yes (16) Right kidney mass Is this a current diagnosis for this admission?: Yes
[2016-06-03 21:49] LABS: PROTHROMBIN TIME 24.1 SEC (11.4-15.4)
[2016-06-04] MEDS: ACETAMINOPHEN 325 MG TABLET NG SCH ×4 (06:54→23:43)
[2016-06-04] MEDS: METOPROLOL SUCCINATE 50 MG TAB.SR.24H PO SCH (09:01)
[2016-06-04] MEDS: APIXABAN 2.5 MG TABLET PO SCH ×2 (09:03→17:30)
[2016-06-04] MEDS: LINEZOLID 600 MG TABLET NG SCH ×2 (09:03→21:55)
[2016-06-04] MEDS: FINASTERIDE 5 MG TABLET PO SCH (09:03)
[2016-06-04] MEDS: TAMSULOSIN HCL 0.4 MG CAP.SR.24H PO SCH (17:30)
[2016-06-04] MEDS: INSULIN LISPRO 100 UNIT/ML 3 ML VIAL SUBCUT PRN ×2 (17:43→21:52)
[2016-06-04 22:06] LABS: PROTHROMBIN TIME 25.8 SEC (11.4-15.4)
[2016-06-05] MEDS: ACETAMINOPHEN 325 MG TABLET NG SCH ×4 (06:01→23:10)
[2016-06-05] MEDS: METOPROLOL SUCCINATE 50 MG TAB.SR.24H PO SCH (09:31)
[2016-06-05] MEDS: LINEZOLID 600 MG TABLET NG SCH ×2 (09:31→23:10)
[2016-06-05] MEDS: APIXABAN 2.5 MG TABLET PO SCH ×2 (09:31→17:08)
[2016-06-05] MEDS: FINASTERIDE 5 MG TABLET PO SCH (09:31)
[2016-06-05] MEDS: INSULIN LISPRO 100 UNIT/ML 3 ML VIAL SUBCUT PRN (12:33)
[2016-06-05] MEDS: TAMSULOSIN HCL 0.4 MG CAP.SR.24H PO SCH (17:08)
--- NOTE | 2016-06-05 17:50 | PDOC PROGRESS REPORT ---
Subjective Progress Note for:: 06/05/16 Subjective:: No complaints with regard to right forearm skin tears. Daughter is present in the room. Physical Exam Vital Signs: Temp Pulse Resp BP Pulse Ox 97.3 F 117 H 20 93/56 L 96 06/05/16 11:45 06/05/16 11:45 06/05/16 11:45 06/05/16 11:45 06/05/16 11:45 Intake & Output 06/04/16 06/05/16 06/06/16 06:59 06:59 06:59 Intake Total 815 656 Output Total 850 600 Balance -35 56 Weight 63.8 kg General appearance: PRESENT: no acute distress Extremities exam: PRESENT: other - Right forearm dressing is removed. Skin tears with sutures intact. No ischemic portions of the skin flap. Scant serosanguineous drainage when palpated. Wound is redressed with Xeroform gauze and Kerlix roll. Neurological exam: PRESENT: alert Psychiatric exam: PRESENT: normal mood Results Laboratory Results: 05/30/16 03:56 05/30/16 03:56 04/23/16 04/23/16 04/24/16 21:01 21:01 03:31 Creatine Kinase 26 L 23 L CK-MB (CK-2) 1.80 Troponin I < 0.012 NT-Pro-B Natriuret Pep 04/24/16 04/24/16 04/24/16 03:31 09:43 09:43 Creatine Kinase 22 L CK-MB (CK-2) 1.38 1.37 Troponin I < 0.012 < 0.012 NT-Pro-B Natriuret Pep 05/19/16 17:14 Creatine Kinase CK-MB (CK-2) Troponin I NT-Pro-B Natriuret Pep 3530 H Impressions: Chest CT 04/24/16 00:00 IMPRESSION: Large bilateral pleural effusions are identified with some associated airspace consolidation in the lung bases most consistent with atelectatic changes. Other findings as noted above Thoracentesis Ultrasound 05/03/16 08:38 IMPRESSION: SUCCESSFUL LEFT THORACENTESIS USING ULTRASOUND GUIDANCE. Chest X-Ray 05/30/16 06:00 IMPRESSION: Persistent bibasilar airspace opacities, stable on the right and mildly worsened on the left. This may be somewhat accentuated by patient positioning. There is widening of the mediastinum prominence of the cardiac silhouette in comparison the prior study again likely related patient positioning. There is increased pulmonary vascular distention comparison the prior study. Interval removal of the endotracheal &nasogastric tubes. Cervical Spine CT 05/31/16 00:00 IMPRESSION: No acute changes Forearm X-Ray 05/31/16 00:00 IMPRESSION: No acute fracture. Head CT 05/31/16 00:00 IMPRESSION: No acute changes Lumbar Spine CT 05/31/16 00:00 IMPRESSION: No acute changes Pelvis CT 05/31/16 00:00 IMPRESSION: No acute fracture Shoulder X-Ray 05/31/16 00:00 IMPRESSION: Irregularity of the femoral neck/ head which was present on study dating back to 2013 therefore this likely represents a chronic fracture. Given the severe osteopenia is difficult to assess whether acute fracture in this region. No other fractures are identified. Thoracic Spine CT 05/31/16 00:00 IMPRESSION: No acute changes Wrist X-Ray 05/31/16 00:00 IMPRESSION: No acute fracture Assessment & Plan - Diagnosis (1) Fall during current hospitalization Qualifiers: Encounter type: initial encounter Qualified Code(s): W19.XXXA - Unspecified fall, initial encounter; Y92.239 - Unspecified place in hospital as the place of occurrence of the external cause Is this a current diagnosis for this admission?: Yes (2) Skin tear of right upper extremity Is this a current diagnosis for this admission?: YesPlan: Skin tears look good, are loosely approximated with Prolene sutures. Continue dressing change every other day and if soiled. Follow-up as directed with Dr. Nieto in clinic after discharge. Reconsult general surgery as needed.
--- NOTE | 2016-06-05 19:37 | PDOC PROGRESS REPORT ---
Subjective Progress Note for:: 06/04/16 Subjective:: Patient was seen by the bedside, it seems that the plan is to discharge him home with home health Physical Exam Vital Signs: Temp Pulse Resp BP Pulse Ox 98.2 F 110 H 17 114/63 97 06/04/16 15:28 06/04/16 15:28 06/04/16 15:28 06/04/16 15:28 06/04/16 15:28 Intake & Output 06/03/16 06/04/16 06/05/16 06:59 06:59 06:59 Intake Total 225 815 3 Output Total 500 850 Balance -275 -35 3 Weight 64.6 kg 60.8 kg General appearance: PRESENT: no acute distress Eye exam: PRESENT: PERRLA Cardiovascular exam: PRESENT: +S1, +S2 GI/Abdominal exam: PRESENT: soft Neurological exam: PRESENT: alert Results Laboratory Results: 05/30/16 03:56 05/30/16 03:56 04/23/16 04/23/16 04/24/16 21:01 21:01 03:31 Creatine Kinase 26 L 23 L CK-MB (CK-2) 1.80 Troponin I < 0.012 NT-Pro-B Natriuret Pep 04/24/16 04/24/16 04/24/16 03:31 09:43 09:43 Creatine Kinase 22 L CK-MB (CK-2) 1.38 1.37 Troponin I < 0.012 < 0.012 NT-Pro-B Natriuret Pep 05/19/16 17:14 Creatine Kinase CK-MB (CK-2) Troponin I NT-Pro-B Natriuret Pep 3530 H Impressions: Chest CT 04/24/16 00:00 IMPRESSION: Large bilateral pleural effusions are identified with some associated airspace consolidation in the lung bases most consistent with atelectatic changes. Other findings as noted above Thoracentesis Ultrasound 05/03/16 08:38 IMPRESSION: SUCCESSFUL LEFT THORACENTESIS USING ULTRASOUND GUIDANCE. Chest X-Ray 05/30/16 06:00 IMPRESSION: Persistent bibasilar airspace opacities, stable on the right and mildly worsened on the left. This may be somewhat accentuated by patient positioning. There is widening of the mediastinum prominence of the cardiac silhouette in comparison the prior study again likely related patient positioning. There is increased pulmonary vascular distention comparison the prior study. Interval removal of the endotracheal &nasogastric tubes. Cervical Spine CT 05/31/16 00:00 IMPRESSION: No acute changes Forearm X-Ray 05/31/16 00:00 IMPRESSION: No acute fracture. Head CT 05/31/16 00:00 IMPRESSION: No acute changes Lumbar Spine CT 05/31/16 00:00 IMPRESSION: No acute changes Pelvis CT 05/31/16 00:00 IMPRESSION: No acute fracture Shoulder X-Ray 05/31/16 00:00 IMPRESSION: Irregularity of the femoral neck/ head which was present on study dating back to 2013 therefore this likely represents a chronic fracture. Given the severe osteopenia is difficult to assess whether acute fracture in this region. No other fractures are identified. Thoracic Spine CT 05/31/16 00:00 IMPRESSION: No acute changes Wrist X-Ray 05/31/16 00:00 IMPRESSION: No acute fracture Assessment & Plan - Diagnosis (1) MRSA (methicillin resistant staphylococcus aureus) pneumonia Qualifiers: Laterality: unspecified laterality Lung location: unspecified part of lung Qualified Code(s): J15.212 - Pneumonia due to Methicillin resistant Staphylococcus aureus Is this a current diagnosis for this admission?: Yes (2) Hyponatremia with extracellular fluid depletion Is this a current diagnosis for this admission?: Yes (3) [facility] ([facility]) use of anticoagulants Is this a current diagnosis for this admission?: Yes (4) Chronic atrial fibrillation Is this a current diagnosis for this admission?: Yes (5) Wheezing on auscultation Is this a current diagnosis for this admission?: Yes (6) Bilateral pleural effusion Is this a current diagnosis for this admission?: Yes (7) Hypothermia Qualifiers: Encounter type: initial encounter Qualified Code(s): T68.XXXA - Hypothermia, initial encounter Is this a current diagnosis for this admission?: Yes (8) Parapneumonic effusion Is this a current diagnosis for this admission?: Yes (9) Enterocolitis due to Clostridium difficile Is this a current diagnosis for this admission?: Yes (10) Pneumonia Qualifiers: Pneumonia type: due to unspecified organism Laterality: unspecified laterality Lung location: unspecified part of lung Qualified Code(s) : J18.9 - Pneumonia, unspecified organism Is this a current diagnosis for this admission?: Yes (11) Overactive bladder Is this a current diagnosis for this admission?: Yes (12) Acute retention of urine Is this a current diagnosis for this admission?: Yes (13) Acute respiratory failure with hypoxia and hypercapnia Is this a current diagnosis for this admission?: Yes (14) Hypotension Qualifiers: Hypotension type: unspecified hypotension type Qualified Code(s): I95.9 - Hypotension, unspecified Is this a current diagnosis for this admission?: Yes (15) Acute systolic heart failure Is this a current diagnosis for this admission?: Yes (16) Right kidney mass Is this a current diagnosis for this admission?: Yes
[2016-06-05 22:49] LABS: PROTHROMBIN TIME 22.4 SEC (11.4-15.4)
[2016-06-06] MEDS: ACETAMINOPHEN 325 MG TABLET NG SCH ×4 (05:58→23:13)
[2016-06-06] MEDS: APIXABAN 2.5 MG TABLET PO SCH ×2 (10:32→18:41)
[2016-06-06] MEDS: METOPROLOL SUCCINATE 50 MG TAB.SR.24H PO SCH (10:32)
[2016-06-06] MEDS: FINASTERIDE 5 MG TABLET PO SCH (10:33)
[2016-06-06] MEDS: LINEZOLID 600 MG TABLET NG SCH ×2 (10:33→22:37)
--- NOTE | 2016-06-06 16:42 | PDOC PROGRESS REPORT ---
Subjective Progress Note for:: 06/05/16 Subjective:: Patient was seen by the bedside, he will hopefully be discharged home in the morning, family wants patient to go home and not to a shelter home Physical Exam Vital Signs: Temp Pulse Resp BP Pulse Ox 98.1 F 69 18 112/79 100 06/05/16 20:00 06/05/16 20:00 06/05/16 20:00 06/05/16 20:00 06/05/16 20:00 Intake & Output 06/04/16 06/05/16 06/06/16 06:59 06:59 06:59 Intake Total 815 656 3 Output Total 850 600 Balance -35 56 3 Weight 63.8 kg General appearance: PRESENT: no acute distress Eye exam: PRESENT: PERRLA Respiratory exam: PRESENT: clear to auscultation gregg Cardiovascular exam: PRESENT: +S1, +S2 GI/Abdominal exam: PRESENT: soft Results Laboratory Results: 05/30/16 03:56 05/30/16 03:56 04/23/16 04/23/16 04/24/16 21:01 21:01 03:31 Creatine Kinase 26 L 23 L CK-MB (CK-2) 1.80 Troponin I < 0.012 NT-Pro-B Natriuret Pep 04/24/16 04/24/16 04/24/16 03:31 09:43 09:43 Creatine Kinase 22 L CK-MB (CK-2) 1.38 1.37 Troponin I < 0.012 < 0.012 NT-Pro-B Natriuret Pep 05/19/16 17:14 Creatine Kinase CK-MB (CK-2) Troponin I NT-Pro-B Natriuret Pep 3530 H Impressions: Chest CT 04/24/16 00:00 IMPRESSION: Large bilateral pleural effusions are identified with some associated airspace consolidation in the lung bases most consistent with atelectatic changes. Other findings as noted above Thoracentesis Ultrasound 05/03/16 08:38 IMPRESSION: SUCCESSFUL LEFT THORACENTESIS USING ULTRASOUND GUIDANCE. Chest X-Ray 05/30/16 06:00 IMPRESSION: Persistent bibasilar airspace opacities, stable on the right and mildly worsened on the left. This may be somewhat accentuated by patient positioning. There is widening of the mediastinum prominence of the cardiac silhouette in comparison the prior study again likely related patient positioning. There is increased pulmonary vascular distention comparison the prior study. Interval removal of the endotracheal &nasogastric tubes. Cervical Spine CT 05/31/16 00:00 IMPRESSION: No acute changes Forearm X-Ray 05/31/16 00:00 IMPRESSION: No acute fracture. Head CT 05/31/16 00:00 IMPRESSION: No acute changes Lumbar Spine CT 05/31/16 00:00 IMPRESSION: No acute changes Pelvis CT 05/31/16 00:00 IMPRESSION: No acute fracture Shoulder X-Ray 05/31/16 00:00 IMPRESSION: Irregularity of the femoral neck/ head which was present on study dating back to 2013 therefore this likely represents a chronic fracture. Given the severe osteopenia is difficult to assess whether acute fracture in this region. No other fractures are identified. Thoracic Spine CT 05/31/16 00:00 IMPRESSION: No acute changes Wrist X-Ray 05/31/16 00:00 IMPRESSION: No acute fracture Assessment & Plan - Diagnosis (1) MRSA (methicillin resistant staphylococcus aureus) pneumonia Qualifiers: Laterality: unspecified laterality Lung location: unspecified part of lung Qualified Code(s): J15.212 - Pneumonia due to Methicillin resistant Staphylococcus aureus Is this a current diagnosis for this admission?: Yes (2) Hyponatremia with extracellular fluid depletion Is this a current diagnosis for this admission?: Yes (3) [facility] (current) use of anticoagulants Is this a current diagnosis for this admission?: Yes (4) Chronic atrial fibrillation Is this a current diagnosis for this admission?: Yes (5) Wheezing on auscultation Is this a current diagnosis for this admission?: Yes (6) Bilateral pleural effusion Is this a current diagnosis for this admission?: Yes (7) Hypothermia Qualifiers: Encounter type: initial encounter Qualified Code(s): T68.XXXA - Hypothermia, initial encounter Is this a current diagnosis for this admission?: Yes (8) Parapneumonic effusion Is this a current diagnosis for this admission?: Yes (9) Enterocolitis due to Clostridium difficile Is this a current diagnosis for this admission?: Yes (10) Pneumonia Qualifiers: Pneumonia type: due to unspecified organism Laterality: unspecified laterality Lung location: unspecified part of lung Qualified Code(s) : J18.9 - Pneumonia, unspecified organism Is this a current diagnosis for this admission?: Yes (11) Overactive bladder Is this a current diagnosis for this admission?: Yes (12) Acute retention of urine Is this a current diagnosis for this admission?: Yes (13) Acute respiratory failure with hypoxia and hypercapnia Is this a current diagnosis for this admission?: Yes (14) Hypotension Qualifiers: Hypotension type: unspecified hypotension type Qualified Code(s): I95.9 - Hypotension, unspecified Is this a current diagnosis for this admission?: Yes (15) Acute systolic heart failure Is this a current diagnosis for this admission?: Yes (16) Right kidney mass Is this a current diagnosis for this admission?: Yes
--- NOTE | 2016-06-06 17:08 | PDOC DISCHARGE SUMMARY ---
General - Admit/Disc Date/PCP Admission Date/Primary Care Provider: 04/23/16 20:21 Discharge Date: 06/06/16 - Discharge Diagnosis (1) MRSA (methicillin resistant staphylococcus aureus) pneumonia Is this a current diagnosis for this admission?: Yes (2) Hyponatremia with extracellular fluid depletion Is this a current diagnosis for this admission?: Yes (3) prison (current) use of anticoagulants Is this a current diagnosis for this admission?: Yes (4) Chronic atrial fibrillation Is this a current diagnosis for this admission?: Yes (5) Wheezing on auscultation Is this a current diagnosis for this admission?: Yes (6) Bilateral pleural effusion Is this a current diagnosis for this admission?: Yes (7) Hypothermia Is this a current diagnosis for this admission?: Yes (8) Parapneumonic effusion Is this a current diagnosis for this admission?: Yes (9) Enterocolitis due to Clostridium difficile Is this a current diagnosis for this admission?: Yes (10) Pneumonia Is this a current diagnosis for this admission?: Yes (11) Overactive bladder Is this a current diagnosis for this admission?: Yes (12) Acute retention of urine Is this a current diagnosis for this admission?: Yes (13) Acute respiratory failure with hypoxia and hypercapnia Is this a current diagnosis for this admission?: Yes (14) Hypotension Is this a current diagnosis for this admission?: Yes (15) Acute systolic heart failure Is this a current diagnosis for this admission?: Yes (16) Right kidney mass Is this a current diagnosis for this admission?: Yes - Additional Information Resuscitation Status: Do Not Resuscitate Discharge Activity: Activity As Tolerated, Balance Activity w/Rest, Weigh Daily Home Medications: Tamsulosin HCl [Flomax] 0.4 mg PO BID 10/20/13 Esomeprazole Mag Trihydrate [Nexium] 40 mg PO DAILY 03/19/15 Loratadine [Claritin 10 mg Tablet] 10 mg PO DAILY 09/26/15 FA/Vit C/E/Zinc/Copper/Lut/Darrian [Ocuvel Capsule] 1 each PO DAILY 04/07/16 Acidoph/L.bulg/Bif.b/S.thermop [Bacid Caplet] 1 each PO BID #28 tablet 04/12/16 Finasteride 5 mg PO DAILY 04/23/16 Insulin Regular, Human [Humulin R (Reg) Insulin 100 unit/mL] 0 - 12 unit SUBCUT ACHSP PRN 04/23/16 Apixaban [Eliquis 2.5 mg Tablet] 2.5 mg PO BID #60 tablet 06/06/16 Metoprolol Succinate [Toprol Xl 50 mg Tab.sr] 50 mg PO DAILY #30 tab.sr.24h History of Present Illness History of Present Illness: GAVIN COSTELLO is a 80 year old male, he is presently in the long-term undergoing rehabilitation, he requested to be transferred to the hospital because of generalized fatigue. He was recently admitted in this hospital when he had altered mental status, cellulitis of the leg. On that admission he was diagnosed with MRSA cellulitis on he was also found to have clostridium difficile colitis with diarrhea, he was discharged to long-term on Zyvox for the cellulitis and flagyl for the C. difficile. He was evaluated in the emergency room and he was found to have hyponatremia with serum sodium of 123 when he was discharged from this hospital on 04/12/2016, the serum sodium was 136. Patient does not have any [employer] symptoms, there is no seizure, there is no altered mental status, patient is hypovolemic most likely from GI losses from diarrhea. This serum and urine osmolarity is low, suggesting true hyponatremia associated with increased antidiuretic hormone, ADH. It is difficult to determine the acuity of the hyponatremia Hospital Course Hospital Course: Patient 80-year-old male. He was admitted on 04/23/2016, because of symptomatic hyponatremia. This serum sodium was 123 on admission. He was in the long-term undergoing rehabilitation before this admission he had MRSA cellulitis and also C. difficile colitis. Hospital course was prolonged and very eventful the day after he was admitted patient wanted to be DO NOT RESUSCITATE, the chest x-ray on admission suggested CHF picture and because of that, a 2-D echo was done. 2-D echo showed preserved ejection fraction of the left ventricle. There was grade 2 diastolic dysfunction of the left ventricle. Also found was severe pulmonary hypertension, the right ventricular systolic pressure was estimated to be elevated at a 50-60 mmHg. he has large bilateral pleural effusion, but thoracentesis could not be done because the INR was supratherapeutic, the thoracentesis was done on 05/02/2016 and large volume pleural effusion was collected. Patient I difficulty urinating despite taking tamsulosin and finasteride, ultimately a Muhammad catheter was inserted to relieve acute retention of urine and over 1000cc of urine collected . Patient was transferred to the floor and he refuses medication and he express his desire to , but patient's son thought otherwise , the son said the patient was overly frustrated and he does not believe that he was wanting to . Patient's respiratory status decline very rapidly and the DO NOT RESUSCITATE status was rescinded according to the son request. He was then transferred to ICU, intubated and he was supported on mechanical ventilation. He stated in ICU was complicated with ventilator associated pneumonia, he had MRSA pneumonia requiring vancomycin and subsequently Zyvox. Ultimately, he was transferred to the floor, he fell on the floor and had laceration . of the skin. He was seen by the surgeon and this was sutured when he fell. He had a total body CT scan. There was no acute fracture or any worrisome bone lesions the brain was also parotic that was incidental finding of a 2 cm cyst versus mass in the right lower pole kidney. Patient is severely physically deconditioned and he needed to have physical therapy, but family declined for him to be transferred to a [facility] home. The want him discharge home. I just don't know how they can effectively managed this patient at home.I suspect he will return for readmission into the hospital, the clonidine was discontinued on this admission and he was started on eliquis because it is more predictable unlike, Coumadin be fluctuating PT/INR. Physical Exam Vital Signs: Temp Pulse Resp BP Pulse Ox 97.1 F 132 H 16 83/53 L 98 06/06/16 12:26 06/06/16 12:26 06/06/16 12:26 06/06/16 12:26 06/06/16 12:26 Intake & Output 06/05/16 06/06/16 06/07/16 06:59 06:59 06:59 Intake Total 656 453 Output Total 600 300 Balance 56 153 Weight 63.8 kg 62.4 kg General appearance: PRESENT: no acute distress Eye exam: PRESENT: PERRLA Respiratory exam: PRESENT: clear to auscultation gregg Cardiovascular exam: PRESENT: irregular rhythm, +S1, +S2 GI/Abdominal exam: PRESENT: soft Neurological exam: PRESENT: alert Results Laboratory Results: 05/30/16 03:56 05/30/16 03:56 04/23/16 04/23/16 04/24/16 21:01 21:01 03:31 Creatine Kinase 26 L 23 L CK-MB (CK-2) 1.80 Troponin I < 0.012 NT-Pro-B Natriuret Pep 04/24/16 04/24/16 04/24/16 03:31 09:43 09:43 Creatine Kinase 22 L CK-MB (CK-2) 1.38 1.37 Troponin I < 0.012 < 0.012 NT-Pro-B Natriuret Pep 05/19/16 17:14 Creatine Kinase CK-MB (CK-2) Troponin I NT-Pro-B Natriuret Pep 3530 H Impressions: Chest CT 04/24/16 00:00 IMPRESSION: Large bilateral pleural effusions are identified with some associated airspace consolidation in the lung bases most consistent with atelectatic changes. Other findings as noted above Thoracentesis Ultrasound 05/03/16 08:38 IMPRESSION: SUCCESSFUL LEFT THORACENTESIS USING ULTRASOUND GUIDANCE. Chest X-Ray 05/30/16 06:00 IMPRESSION: Persistent bibasilar airspace opacities, stable on the right and mildly worsened on the left. This may be somewhat accentuated by patient positioning. There is widening of the mediastinum prominence of the cardiac silhouette in comparison the prior study again likely related patient positioning. There is increased pulmonary vascular distention comparison the prior study. Interval removal of the endotracheal &nasogastric tubes. Cervical Spine CT 05/31/16 00:00 IMPRESSION: No acute changes Forearm X-Ray 05/31/16 00:00 IMPRESSION: No acute fracture. Head CT 05/31/16 00:00 IMPRESSION: No acute changes Lumbar Spine CT 05/31/16 00:00 IMPRESSION: No acute changes Pelvis CT 05/31/16 00:00 IMPRESSION: No acute fracture Shoulder X-Ray 05/31/16 00:00 IMPRESSION: Irregularity of the femoral neck/ head which was present on study dating back to 2013 therefore this likely represents a chronic fracture. Given the severe osteopenia is difficult to assess whether acute fracture in this region. No other fractures are identified. Thoracic Spine CT 05/31/16 00:00 IMPRESSION: No acute changes Wrist X-Ray 05/31/16 00:00 IMPRESSION: No acute fracture
[2016-06-06] MEDS: TAMSULOSIN HCL 0.4 MG CAP.SR.24H PO SCH (18:41)
[2016-06-06] MEDS: INSULIN LISPRO 100 UNIT/ML 3 ML VIAL SUBCUT PRN (18:42)
[2016-06-06 22:56] LABS: PROTHROMBIN TIME 22.4 SEC (11.4-15.4)
[2016-06-07] MEDS: ACETAMINOPHEN 325 MG TABLET NG SCH ×4 (06:15→23:50)
[2016-06-07] MEDS: FINASTERIDE 5 MG TABLET PO SCH (10:57)
[2016-06-07] MEDS: APIXABAN 2.5 MG TABLET PO SCH ×2 (10:57→17:42)
[2016-06-07] MEDS: METOPROLOL SUCCINATE 50 MG TAB.SR.24H PO SCH (10:58)
[2016-06-07] MEDS: TAMSULOSIN HCL 0.4 MG CAP.SR.24H PO SCH (17:43)
[2016-06-07 22:04] LABS: PROTHROMBIN TIME 28.7 SEC (11.4-15.4)
[2016-06-08] MEDS ORDERED: NORMAL SALINE 1000 ML 1,000 ML IV PRN (03:12)
[2016-06-08] MEDS: ACETAMINOPHEN 325 MG TABLET NG SCH (05:03)
[2016-06-08] MEDS: FINASTERIDE 5 MG TABLET PO SCH (09:10)
[2016-06-08] MEDS: APIXABAN 2.5 MG TABLET PO SCH (09:10)
[2016-06-08] MEDS: METOPROLOL SUCCINATE 50 MG TAB.SR.24H PO SCH (09:11)
[2016-06-08 09:47] VITALS: BP 102/62
== END 2016-06-08 09:00 | DRG 640 ==
LOC: ER 13:54 → EH 16:41 → UNDOADMIN 16:41 → EH 20:13 → 3S 20:13 → EH 20:21 → 3S 20:21 → 4N 05-11 08:45 → ICU 05-19 14:35 → 4S 05-31 01:13
PROVIDERS: ADMIT Internal Medicine; ATTEND Internal Medicine
PROC: 30233N1 Transfusion of Nonautologous Red Blood Cells into Peripheral Vein, Percutaneous Approach (ICD-10-PCS; 2016-04-30)
PROC: 0W993ZX Drainage of Right Pleural Cavity, Percutaneous Approach, Diagnostic (ICD-10-PCS; principal; 2016-05-02)
PROC: 30233K1 Transfusion of Nonautologous Frozen Plasma into Peripheral Vein, Percutaneous Approach (ICD-10-PCS; 2016-05-02)
PROC: 0W9B3ZX Drainage of Left Pleural Cavity, Percutaneous Approach, Diagnostic (ICD-10-PCS; 2016-05-03)
PROC: 5A1955Z Respiratory Ventilation, Greater than 96 Consecutive Hours (ICD-10-PCS; 2016-05-19)
PROC: 0BH17EZ Insertion of Endotracheal Airway into Trachea, Via Natural or Artificial Opening (ICD-10-PCS; 2016-05-19)
DX: E87.1 Hypo-osmolality and hyponatremia (principal); I50.21 Acute systolic (congestive) heart failure; J96.02 Acute respiratory failure with hypercapnia; J96.01 Acute respiratory failure with hypoxia; J18.9 Pneumonia, unspecified organism; J91.8 Pleural effusion in other conditions classified elsewhere; J95.851 Ventilator associated pneumonia; E46 Unspecified protein-calorie malnutrition; A04.7 Enterocolitis due to Clostridium difficile; E87.2 Acidosis; E11.9 Type 2 diabetes mellitus without complications; N40.0 Benign prostatic hyperplasia without lower urinary tract symptoms; K21.9 Gastro-esophageal reflux disease without esophagitis; M19.90 Unspecified osteoarthritis, unspecified site; Z96.651 Presence of right artificial knee joint; I48.2 Chronic atrial fibrillation; R79.1 Abnormal coagulation profile; E86.9 Volume depletion, unspecified; Z68.22 Body mass index [BMI] 22.0-22.9, adult; D64.9 Anemia, unspecified; Z66 Do not resuscitate; Z53.29 Procedure and treatment not carried out because of patient's decision for other reasons; N40.1 Benign prostatic hyperplasia with lower urinary tract symptoms; N32.81 Overactive bladder; I95.9 Hypotension, unspecified; I11.0 Hypertensive heart disease with heart failure; I27.2 Other secondary pulmonary hypertension; E87.6 Hypokalemia; S51.811A Laceration without foreign body of right forearm, initial encounter; W06.XXXA Fall from bed, initial encounter; B95.62 Methicillin resistant Staphylococcus aureus infection as the cause of diseases classified elsewhere; N28.89 Other specified disorders of kidney and ureter; L27.0 Generalized skin eruption due to drugs and medicaments taken internally; R33.9 Retention of urine, unspecified; T37.8X5A Adverse effect of other specified systemic anti-infectives and antiparasitics, initial encounter; Y92.239 Unspecified place in hospital as the place of occurrence of the external cause; R68.0 Hypothermia, not associated with low environmental temperature; Z86.14 Personal history of Methicillin resistant Staphylococcus aureus infection; Z87.891 Personal history of nicotine dependence; Z79.01 Long term (current) use of anticoagulants; M25.512 Pain in left shoulder; M25.511 Pain in right shoulder; Z79.899 Other long term (current) drug therapy; Z79.4 Long term (current) use of insulin; Z85.828 Personal history of other malignant neoplasm of skin; Z78.1 Physical restraint status
CPT/HCPCS: 31500; 32555; 36415; 36430; 36600; 70450; 71010; 71250; 72125; 72128; 72131; 72192; 80048; 80053; 80202; 81001; 82040; 82150; 82272; 82310; 82550; 82553; 82565; 82803; 82962; 83036; 83605; 83615; 83690; 83735; 83880; 83930; 83935; 84100; 84155; 84300; 84439; 84443; 84478; 84484; 85025; 85027; 85610; 85730; 86850; 86900; 86901; 86920; 87040; 87045; 87070; 87077; 87086; 87186; 87205; 87493; 88305; 89050; 89055; 93005; 93010; 93306; 94002; 94003; 94640; 99285; G8978-GP; G8979-GP; G8996-GN; G8997-GN; G8998-GN; J0330; J0456; J0692; J1200; J1815; J1940; J1956; J2270; J2704; J3370; J3480; J3490; J7030; J7060; J7620; P9016; P9017; Q0167; S0028